=== PATIENT | female | born 1935 | race Caucasian/White ===

== ENCOUNTER 2016-12-24 08:12 | Emergency (ER) | payer MEDICARE, OTHER ==
[~2016-12-24 08:12] MED LIST: ALEN70TA3 PO; ALEN70TA5 PO; ASPI-482 PO; ATOR10TA60 PO; CLON0.1T PO; CLON0.1T12 PO; CLON1PAT3 TD; CLOP75TA PO; DILT180C29 PO; HYDR-2678 PO; LISI-334 PO; LISI20TA PO; LISI40TA PO; MELO-156 PO; METO25TA9 PO; PANT40TA5 PO; SIMV20TA3 PO; SULF1TAB24 PO
--- NOTE | 2016-12-24 08:54 | PHYS DOC ---
Past Medical History Past Medical History: CVA, GERD, High Cholesterol, Hypertension Past Surgical History: Tonsillectomy, Other Additional Past Surgical Histo: IMPLANTS IN BOTH EYES Additional Information: Nonsmoker Alcohol Use: None Drug Use: None Social History Narrative: lives alone Adult General Chief Complaint Chief Complaint: VAGINAL BLEEDING HPI HPI Patient is a 81 year old female who presents with vaginal bleeding starting this morning. She states that she got up to use the restroom and noticed blood. She denies abdominal pain, nausea, vomiting, or diarrhea. She denies dysuria, urinary frequency, or hematuria. She has not had fevers at home. She denies black or bloody stools. She takes Plavix after TIA in April of last year. Her PCP is Dr. Aleta Noonan. Review of Systems Review of Systems Constitutional: Denies fever or chills. [] Eyes: Denies change in visual acuity, redness, or eye pain. [] HENT: Denies ear pain, nasal congestion or sore throat. [] Respiratory: Denies cough or shortness of breath. [] Cardiovascular: Denies chest pain, palpitations or edema. [] GI: Denies abdominal pain, nausea, vomiting, bloody stools or diarrhea. [] : Denies dysuria, hematuria or urinary frequency. Reports vaginal bleeding. Musculoskeletal: Denies back pain or joint pain. [] Integument: Denies rash or skin lesions. [] Neurologic: Denies headache, focal weakness or sensory changes. [] Endocrine: Denies polyuria or polydipsia. [] Psych: Denies anxiety or depression. [] All systems reviewed and negative unless otherwise stated in the HPI. Current Medications Current Medications Current Medications Medications (Trade) Dose Ordered Sig/Daryl Start Time Stop Time Status Last Admin Dose Admin Diltiazem HCl (Cardizem 24hr Cd) 180 mg 1X ONCE 12/24/16 12:00 12/24/16 12:01 DC Lisinopril (Prinivil) 40 mg 1X ONCE 12/24/16 12:00 12/24/16 12:01 DC 12/24/16 12:02 40 MG Allergies Allergies Allergies Coded Allergies Type Severity Reaction Last Updated Verified iodine Allergy Severe Anaphylaxis 05/06/16 Yes shellfish derived Allergy Severe Anaphylaxis 05/06/16 Yes felodipine Allergy Intermediate 05/06/16 Yes Physical Exam Physical Exam Constitutional: Well developed, well nourished, no acute distress, non-toxic appearance. [] HENT: Normocephalic, atraumatic, oropharynx moist. [] Eyes: PERRLA, EOMI, conjunctiva normal, no discharge. [] Neck: Normal range of motion, no tenderness, supple, no stridor. [] Cardiovascular: Heart rate regular rhythm, no murmur. [] Lungs & Thorax: Bilateral breath sounds clear to auscultation without wheezes, rales, or rhonchi. [] Abdomen: Bowel sounds normal, soft, no tenderness, no masses, no pulsatile masses. [] Female : ED RN corporate banking officer present during exam. There is dried blood in the pubic hair. There is no blood noted in the introitus. The patient was unable to tolerate speculum exam. Rectal: There are no external hemorrhoids. Grossly normal stool. Skin: Warm, dry, no erythema, no rash. [] Back: No midline tenderness, no CVA tenderness. [] Extremities: No tenderness, ROM intact, no edema. Distal pulses equal bilaterally. [] Neurologic: Alert and oriented X 3, normal motor function, normal sensory function, no focal deficits noted. [] Psychologic: Affect normal, judgement normal, mood normal. [] Current Patient Data Vital Signs Vital Signs Date Time Temp Pulse Resp B/P Pulse Ox O2 Delivery O2 Flow Rate FiO2 12/24/16 12:02 68 199/91 12/24/16 11:49 16 96 Room Air 12/24/16 09:25 98.1 98.1 Lab Values Laboratory Tests Test 12/24/16 09:20 12/24/16 09:28 12/24/16 09:40 Stool Occult Blood Positive (NEG) Urine Collection Type Unknown Urine Color Yellow Urine Clarity Clear Urine pH 6.0 Urine Specific [place] 1.010 Urine Protein Negativemg/dL (NEG-TRACE) Urine Glucose (UA) Negativemg/dL (NEG) Urine Ketones (Stick) Negativemg/dL (NEG) Urine Blood Negative (NEG) Urine Nitrite Negative (NEG) Urine Bilirubin Negative (NEG) Urine Urobilinogen Dipstick 0.2mg/dL (0.2 mg/dL) Urine Leukocyte Esterase Moderate (NEG) Urine RBC 0/HPF (0-2) Urine WBC >40/HPF (0-4) Urine Squamous Epithelial Cells Occ/LPF Urine Bacteria Many/HPF (0-FEW) White Blood Count 9.4x10^3/uL (4.0-11.0) Red Blood Count 5.03x10^6/uL (3.50-5.40) Hemoglobin 15.0g/dL (12.0-15.5) Hematocrit 43.7% (36.0-47.0) Mean Corpuscular Volume 87fL (79-100) Mean Corpuscular Hemoglobin 30pg (25-35) Mean Corpuscular Hemoglobin Concent 34g/dL (31-37) Red Cell Distribution Width 13.8% (11.5-14.5) Platelet Count 239x10^3/uL (140-400) Neutrophils (%) (Auto) 76% (31-73) H Lymphocytes (%) (Auto) 18% (24-48) L Monocytes (%) (Auto) 5% (0-9) Eosinophils (%) (Auto) 0% (0-3) Basophils (%) (Auto) 0% (0-3) Neutrophils # (Auto) 7.2x10^3uL (1.8-7.7) Lymphocytes # (Auto) 1.7x10^3/uL (1.0-4.8) Monocytes # (Auto) 0.5x10^3/uL (0.0-1.1) Eosinophils # (Auto) 0.0x10^3/uL (0.0-0.7) Basophils # (Auto) 0.0x10^3/uL (0.0-0.2) Prothrombin Time 13.8SEC (11.7-14.0) Prothrombin Time INR 1.1 (0.8-1.1) PTT 27SEC (24-38) Sodium Level 147mmol/L (136-145) H Potassium Level 4.1mmol/L (3.5-5.1) Chloride Level 110mmol/L (98-107) H Carbon Dioxide Level 26mmol/L (21-32) Anion Gap 11 (6-14) Blood Urea Nitrogen 24mg/dL (7-20) H Creatinine 1.7mg/dL (0.6-1.0) H Estimated GFR (Cockcroft-Gault) 28.8 BUN/Creatinine Ratio 14 (6-20) Glucose Level 108mg/dL (70-99) H Calcium Level 9.4mg/dL (8.5-10.1) Total Bilirubin 0.6mg/dL (0.2-1.0) Aspartate Amino Transferase (AST) 15U/L (15-37) Alanine Aminotransferase (ALT) 17U/L (14-59) Alkaline Phosphatase 93U/L (46-116) Total Protein 7.0g/dL (6.4-8.2) Albumin 3.2g/dL (3.4-5.0) L Albumin/Globulin Ratio 0.8 (1.0-1.7) L Laboratory Tests 12/24/16 09:40 Laboratory Tests 12/24/16 09:40 EKG EKG [] Radiology/Procedures Radiology/Procedures REASON: postmenopausal bleeding; PT DRINKING AT 0945 PROCEDURE: PELVIS W/TV Indication postmenopausal bleeding. Initially transabdominal scans were obtained. The initial transabdominal scans were supplemented with transvaginal scans. The uterus measures approximately 5.5 x 3.4 x 2 cm. The endometrium is modestly thickened for a postmenopausal woman measuring approximately 6 mm. Some debris is also seen within the endometrial cavity particularly near the fundus. Neither ovary was seen. An adnexal mass or free fluid was not apparent. IMPRESSION: Modestly thickened endometrium for a postmenopausal woman. Some debris was additionally noted in the endometrial cavity Course & Med Decision Making Course & Med Decision Making Pertinent Labs and Imaging studies reviewed. (See chart for details) The patient is an 81-year-old female who presents with vaginal bleeding starting today. On exam, her abdomen is soft and nontender. There is no blood noted from the vagina without ability to perform speculum exam. There is no blood in the urine. Hemoccult was positive but stool was grossly nonbloody. Possibility of contaminant from external blood from the vagina on stool sample. H/H is stable. Ultrasound shows thickened endometrium with debris within the endometrial cavity. Patient case was discussed with Dr. Peacock. He will see the patient early next week in his office to perform pelvic examination and endometrial biopsy. Results were discussed with the patient and family at bedside. Return precautions were discussed with the patient and family at the bedside, including heavy bleeding requiring changing a pad every hour, increased shortness of breath or lightheaded feeling. The patient and family verbalized understanding and agree with plan. The patient's blood pressure was elevated while in the emergency department. She did not take her home blood pressure medications prior to arrival in the emergency department. She was given her home doses of lisinopril and diltiazem in the emergency department prior to discharge. She is instructed to take her blood pressure medication as prescribed each day. Dragon Disclaimer Dragon Disclaimer This electronic medical record was generated, in whole or in part, using a voice recognition dictation system. Departure Departure Impression: Primary Impression: Postmenopausal vaginal bleeding Additional Impression: Hypertension Disposition: HOME, SELF-CARE Condition: STABLE Referrals: ALETA NOONAN MD (PCP) REINIER PEACOCK MD Patient Instructions: Postmenopausal Bleeding, [id number] Additional Instructions: You were seen today for vaginal bleeding. Your hemoglobin was stable, which means you are not anemic from blood loss. Your ultrasound shows thickening of the endometrium, which is the lining of the uterus. Please follow-up with Dr. Peacock to have an endometrial biopsy. This is the definitive test for endometrial cancer. Return to the emergency department if you have heavy bleeding that requires you to change a pad every hour, feel increasing shortness of breath, or feel lightheaded or have other new or concerning symptoms. Problem Qualifiers JERMAINE PHILLIPS Dec 24, 2016 08:54
[2016-12-24 09:49] LABS: BILIRUBIN,URINE NEGATIVE (NEG); GLUCOSE,URINE NEGATIVE (NEG); NITRITE,URINE NEGATIVE (NEG); PROTEIN,URINE NEGATIVE (NEG-TRACE); UROBILINOGEN,URINE 0.2 mg/dL (0.2 mg/dL)
[2016-12-24 10:01] LABS: NEG OBC FOB NEG; POS OBC FOB POS
[2016-12-24 10:02] LABS: BASO % 0 % (0-3); CALCIUM 9.4 mg/dL (8.5-10.1); CREATININE 1.7 mg/dL (0.6-1.0); EOS % 0 % (0-3); GFR 28.8; HEMATOCRIT 43.7 % (36.0-47.0); LYMPH # 1.7 x10^3/uL (1.0-4.8); LYMPH % 18 % (24-48); MEAN CORPUSCULAR HEMOGLOBIN 30 pg (25-35); MEAN CORPUSCULAR HGB CONC 34 g/dL (31-37); MEAN CORPUSCULAR VOLUME 87 fL (79-100); MONO % 5 % (0-9); NEUT % 76 % (31-73); PLATELET COUNT 239 x10^3/uL (140-400); POTASSIUM 4.1 mmol/L (3.5-5.1); RED BLOOD COUNT 5.03 x10^6/uL (3.50-5.40); RED CELL DISTRIBUTION WIDTH 13.8 % (11.5-14.5); WHITE BLOOD COUNT 9.4 x10^3/uL (4.0-11.0)
[2016-12-24 10:07] LABS: ALBUMIN 3.2 g/dL (3.4-5.0); ALBUMIN/GLOBULIN RATIO 0.8 (1.0-1.7); TOTAL BILIRUBIN 0.6 mg/dL (0.2-1.0)
[2016-12-24 10:08] LABS: BACTERIA,URINE MANY /HPF (0-FEW); RBC,URINE 0 /HPF (0-2); SQUAMOUS EPITHELIAL CELL,UR OCC /LPF; WBC,URINE >40 /HPF (0-4)
[2016-12-24 10:11] LABS: INR 1.1 (0.8-1.1); PROTHROMBIN TIME PATIENT 13.8 SEC (11.7-14.0)
--- NOTE | 2016-12-24 11:09 | RAD ---
Indication postmenopausal bleeding. Initially transabdominal scans were obtained. The initial transabdominal scans were supplemented with transvaginal scans. The uterus measures approximately 5.5 x 3.4 x 2 cm. The endometrium is modestly thickened for a postmenopausal woman measuring approximately 6 mm. Some debris is also seen within the endometrial cavity particularly near the fundus. Neither ovary was seen. An adnexal mass or free fluid was not apparent. IMPRESSION: Modestly thickened endometrium for a postmenopausal woman. Some debris was additionally noted in the endometrial cavity
[2016-12-24] MEDS ORDERED: DILTIAZEM HCL 180 MG CAP.ER.24H PO ONE (12:00)
[2016-12-24] MEDS ORDERED: LISINOPRIL 10 MG TABLET PO ONE (12:00)
[2016-12-24 13:05] VITALS: BP 188/101
== END 2016-12-24 13:10 | disposition home or self-care (01) ==
LOC: ER 08:12
DX: N95.0 Postmenopausal bleeding (principal); I10 Essential (primary) hypertension; R06.02 Shortness of breath; R42 Dizziness and giddiness; K21.9 Gastro-esophageal reflux disease without esophagitis; E78.00 Pure hypercholesterolemia, unspecified; Z86.73 Personal history of transient ischemic attack (TIA), and cerebral infarction without residual deficits; Z79.02 Long term (current) use of antithrombotics/antiplatelets; Z91.041 Radiographic dye allergy status; Z91.013 Allergy to seafood; Z88.8 Allergy status to other drugs, medicaments and biological substances
CPT/HCPCS: 36415; 76830; 76856; 80053; 81001; 82274; 85027; 85610; 85730; 87086; 87186; 99285-25

== ENCOUNTER 2016-12-27 14:58 | Inpatient (IN) | payer MEDICARE, OTHER ==
[~2016-12-27] VITALS: Ht 170.2 cm; Wt 77.3 kg
[2016-12-27 17:00] VITALS: BP 188/101
[2016-12-27 18:10] VITALS: BP 188/91
[2016-12-27 18:55] LABS: BASO # 0.1 x10^3/uL (0.0-0.2); BASO % 1 % (0-3); EOS % 2 % (0-3); HEMOGLOBIN 13.9 g/dL (12.0-15.5); LYMPH # 3.1 x10^3/uL (1.0-4.8); LYMPH % 33 % (24-48); MEAN CORPUSCULAR HEMOGLOBIN 30 pg (25-35); MEAN CORPUSCULAR HGB CONC 33 g/dL (31-37); MEAN CORPUSCULAR VOLUME 89 fL (79-100); MONO % 6 % (0-9); NEUT % 58 % (31-73); PLATELET COUNT 225 x10^3/uL (140-400); RED BLOOD COUNT 4.72 x10^6/uL (3.50-5.40); WHITE BLOOD COUNT 9.5 x10^3/uL (4.0-11.0)
[2016-12-27 19:07] LABS: ALBUMIN/GLOBULIN RATIO 0.8 (1.0-1.7); CALCIUM 9.2 mg/dL (8.5-10.1); CREATININE 1.6 mg/dL (0.6-1.0); GFR 30.9; POTASSIUM 4.1 mmol/L (3.5-5.1); TOTAL BILIRUBIN 0.3 mg/dL (0.2-1.0); TOTAL PROTEIN 6.6 g/dL (6.4-8.2)
[2016-12-27 19:11] LABS: INR 1.1 (0.8-1.1); PROTHROMBIN TIME PATIENT 13.7 SEC (11.7-14.0)
[2016-12-27 19:30] VITALS: BP 174/81
[2016-12-27] MEDS: ATORVASTATIN CALCIUM 10 MG TABLET. PO SCH (21:48)
[2016-12-27 21:49] VITALS: BP 148/76
[2016-12-27 23:30] VITALS: BP 140/78
[2016-12-28 03:00] VITALS: BP 143/72
--- NOTE | 2016-12-28 07:01 | EKG ---
[facility] [address] [place] [address] Test Date: 2016-12-28 Test Time: 06:36:28 Pat Name: LEATHA WALDRON Department: Room: 202 1 Gender: F Compliance Paralegal: EARL : 1935 Requested By: DIPAK NEVILLE Order Number: [id number] Reading MD: Brien Pereira Measurements Intervals [place] Rate: 56 P: 10 TN: 222 QRS: -38 QRSD: 78 T: 12 QT: 480 QTc: 466 Interpretive Statements SINUS RHYTHM PROLONGED TN INTERVAL LEFT ANTERIOR FASCICULAR BLOCK Electronically Signed On 12-28-2016 9:40:57 CDT by Brien Pereira
[2016-12-28 07:41] VITALS: BP 157/74
--- NOTE | 2016-12-28 08:29 | RAD ---
Chest, 2 views, 12/27/2016: History: Congestive heart failure Comparison is made to a study from 05/06/2016. The heart size and pulmonary vascularity are normal. There is calcific plaquing and tortuosity of the thoracic aorta. There are minimal basilar scarring. No acute infiltrates are seen. There is no evidence of pleural fluid. Moderate spurring is present in the spine. IMPRESSION: No acute cardiopulmonary abnormality is detected.
[2016-12-28] MEDS: DILTIAZEM HCL 180 MG CAP.ER.24H PO SCH (09:00)
--- NOTE | 2016-12-28 09:45 | RAD ---
CT of the abdomen and pelvis without contrast, 12/28/2016: History: Vaginal bleeding Noncontrast scans were obtained as requested. Comparison is made to a study from 03/19/2015. There is mild linear scarring and/or atelectasis in the lung bases. There is an unchanged 1.6 cm low-density lesion in the liver compatible with a cyst. The unopacified liver is otherwise unremarkable. No gallbladder abnormality is seen. The pancreas shows no abnormality. The spleen is of normal size. There is moderate bilateral renal cortical scarring. There appear to be several small bilateral renal cysts. No intrarenal calculi are present. The ureters are not dilated. There is moderate aortoiliac calcific plaquing without evidence of aneurysm. No abdominal or pelvic adenopathy is seen. The uterus is not enlarged. The bowel loops are not dilated. The appendix is unremarkable. No free fluid or free air is evident in the abdomen or pelvis. There are moderate scattered degenerative changes in the spine. IMPRESSION: 1. Hepatic and renal cysts. 2. Moderate bilateral renal scarring. 3. No acute abdominal or pelvic abnormality is detected. PQRS Compliance Statement: One or more of the following individualized dose reduction techniques were utilized for this examination: 1. Automated exposure control 2. Adjustment of the mA and/or kV according to patient size 3. Use of iterative reconstruction technique
[2016-12-28] MEDS: LISINOPRIL 40 MG TABLET. PO SCH (10:03)
[2016-12-28] MEDS: PANTOPRAZOLE 40 MG TABLET.DR. PO SCH (10:04)
[2016-12-28] MEDS: HYDROCODONE/APAP 5/325MG TABLET. PO PRN (10:05)
[2016-12-28 10:38] VITALS: BP 159/73
--- NOTE | 2016-12-28 14:44 | PDOC1 ---
History and Physical Date of Admission Date of Admission DATE: 12/27/16 Identification/Chief Complaint Chief Complaint abdominal pain History of Present Illness History of Present Illness Patient is 81 year old female who presented to outpatient office yesterday with left sided abdominal pain. She explained that she visited the ED 4 days ago for vaginal bleeding for which she was discharged home to follow up with Dr. Peacock in the office. Patient then had her regular cardiac appointment yesterday when she found to have a palpable mass in her abdomen with dull pain. She denies nausea or vomiting and has been eating/drinking normally. Patient denies any change in bowel movements nor any blood noted. She has not had any vaginal bleeding since her ED visit and has no urinary complaints. Patient denies CP, SOB or HALL. Past Medical History Past Medical History thyroid disease, CAD Cardiovascular: HTN, Hyperlipidemia CENTRAL NERVOUS SYSTEM: CVA GI: GERD Past Surgical History Past Surgical History thyroidectomy, heart catheterization Past Surgical History: Cataract Removal, Tonsillectomy Family History Family History: Hypertension Social History ALCOHOL: none Drugs: None Current Medications Current Medications Current Medications Atorvastatin Calcium (Lipitor) 10 mg QHS PO Last administered on 12/27/16 21:48 ; Start 12/27/16 at 21:00 Clonidine HCl (Catapres Tts-3) 1 patch Fr TD ; Start 12/31/16 at 00:00 Diltiazem HCl (Cardizem 24hr Cd) 180 mg DAILY PO ; Start 12/28/16 at 09:00 Acetaminophen/ Hydrocodone Bitart (Lortab 5/325) 1 tab PRN Q8HRS PRN PO PAIN Last administered on 12/28/16 10:05; Start 12/27/16 at 18:15 Lisinopril (Prinivil) 40 mg DAILY PO Last administered on 12/28/16 10:03; Start 12/28/16 at 09:00 Pantoprazole Sodium (Protonix) 20 mg DAILYAC PO Last administered on 12/28/16 10:04; Start 12/28/16 at 07:30 Non-Formulary Medication 1 ea WEEKLY PO ; Start 12/31/16 at 09:00; Stop 12/31/16 at 09:00; Status DC Active Scripts Active Atorvastatin Calcium 10 Mg Tablet 10 Mg PO QHS Lisinopril 40 Mg Tablet 40 Mg PO DAILY Reported Lortab 5-325 mg Tablet (Hydrocodone/Acetaminophen) 1 Each Tablet 1 Tab PO PRN Q8HRS PRN Clopidogrel (Clopidogrel Bisulfate) 75 Mg Tablet 75 Mg PO DAILY Alendronate Sodium 70 Mg Tablet 70 Mg PO WEEKLY Diltiazem 24HR Cd (Diltiazem Hcl) 180 Mg Cap.er.24h 1 Cap PO DAILY Clonidine Tts-3 (Clonidine) 1 Each Patch.tdwk 1 Patch TD WEEKLY Aspir 81 (Aspirin) 81 Mg Tablet.dr 1 Tab PO DAILY Pantoprazole Sodium 40 Mg Tablet.dr 20 Mg PO DAILY Allergies Allergies: Coded Allergies: iodine (Verified Allergy, Severe, Anaphylaxis, 05/06/16) shellfish derived (Verified Allergy, Severe, Anaphylaxis, 05/06/16) felodipine (Verified Allergy, Intermediate, 05/06/16) ROS General: No: Chills HEENT: No: Heacaches Hematological and Lymphatic: YES: Night Sweats Respiratory: No: Shortness of breath Cardiovascular: No Chest Pain, No Palpitations Gastrointestinal: Yes Abdominal Pain, No Constipation, No Diarrhea, No Hematochezia, No Melena, No Vomiting Genitourinary: No Dysuria, No Frequency, No Hematuria Physical Exam General: Alert, No acute distress Lungs: Clear to auscultation Heart: RRR Cardiovascular: S1, S2 Abdomen: Normal bowel sounds, Soft, Other (mild tenderness to palpation LUQ and left side of abdomen, there is a suprapubic fullness, tender mass like) PELVIC: Other (Gyne on consult) Extremities: No edema Vitals Vitals Vital Signs Date Time Temp Pulse Resp B/P Pulse Ox O2 Delivery O2 Flow Rate FiO2 12/28/16 10:38 97.3 66 18 159/73 94 Room Air 97.3 Labs Labs Laboratory Tests Test 12/27/16 18:45 White Blood Count 9.5x10^3/uL (4.0-11.0) Red Blood Count 4.72x10^6/uL (3.50-5.40) Hemoglobin 13.9g/dL (12.0-15.5) Hematocrit 42.0% (36.0-47.0) Mean Corpuscular Volume 89fL (79-100) Mean Corpuscular Hemoglobin 30pg (25-35) Mean Corpuscular Hemoglobin Concent 33g/dL (31-37) Red Cell Distribution Width 14.0% (11.5-14.5) Platelet Count 225x10^3/uL (140-400) Neutrophils (%) (Auto) 58% (31-73) Lymphocytes (%) (Auto) 33% (24-48) Monocytes (%) (Auto) 6% (0-9) Eosinophils (%) (Auto) 2% (0-3) Basophils (%) (Auto) 1% (0-3) Neutrophils # (Auto) 5.5x10^3uL (1.8-7.7) Lymphocytes # (Auto) 3.1x10^3/uL (1.0-4.8) Monocytes # (Auto) 0.6x10^3/uL (0.0-1.1) Eosinophils # (Auto) 0.2x10^3/uL (0.0-0.7) Basophils # (Auto) 0.1x10^3/uL (0.0-0.2) Erythrocyte Sedimentation Rate 18 (0-25) Prothrombin Time 13.7SEC (11.7-14.0) Prothromb Time International Ratio 1.1 (0.8-1.1) Sodium Level 145mmol/L (136-145) Potassium Level 4.1mmol/L (3.5-5.1) Chloride Level 109mmol/L (98-107) Carbon Dioxide Level 26mmol/L (21-32) Anion Gap 10 (6-14) Blood Urea Nitrogen 29mg/dL (7-20) Creatinine 1.6mg/dL (0.6-1.0) Estimated GFR (Cockcroft-Gault) 30.9 BUN/Creatinine Ratio 18 (6-20) Glucose Level 95mg/dL (70-99) Calcium Level 9.2mg/dL (8.5-10.1) Total Bilirubin 0.3mg/dL (0.2-1.0) Aspartate Amino Transf (AST/SGOT) 15U/L (15-37) Alanine Aminotransferase (ALT/SGPT) 18U/L (14-59) Alkaline Phosphatase 79U/L (46-116) Total Protein 6.6g/dL (6.4-8.2) Albumin 3.0g/dL (3.4-5.0) Albumin/Globulin Ratio 0.8 (1.0-1.7) Laboratory Tests Test 12/27/16 18:45 White Blood Count 9.5x10^3/uL (4.0-11.0) Red Blood Count 4.72x10^6/uL (3.50-5.40) Hemoglobin 13.9g/dL (12.0-15.5) Hematocrit 42.0% (36.0-47.0) Mean Corpuscular Volume 89fL (79-100) Mean Corpuscular Hemoglobin 30pg (25-35) Mean Corpuscular Hemoglobin Concent 33g/dL (31-37) Red Cell Distribution Width 14.0% (11.5-14.5) Platelet Count 225x10^3/uL (140-400) Neutrophils (%) (Auto) 58% (31-73) Lymphocytes (%) (Auto) 33% (24-48) Monocytes (%) (Auto) 6% (0-9) Eosinophils (%) (Auto) 2% (0-3) Basophils (%) (Auto) 1% (0-3) Neutrophils # (Auto) 5.5x10^3uL (1.8-7.7) Lymphocytes # (Auto) 3.1x10^3/uL (1.0-4.8) Monocytes # (Auto) 0.6x10^3/uL (0.0-1.1) Eosinophils # (Auto) 0.2x10^3/uL (0.0-0.7) Basophils # (Auto) 0.1x10^3/uL (0.0-0.2) Erythrocyte Sedimentation Rate 18 (0-25) Prothrombin Time 13.7SEC (11.7-14.0) Prothromb Time International Ratio 1.1 (0.8-1.1) Sodium Level 145mmol/L (136-145) Potassium Level 4.1mmol/L (3.5-5.1) Chloride Level 109mmol/L (98-107) Carbon Dioxide Level 26mmol/L (21-32) Anion Gap 10 (6-14) Blood Urea Nitrogen 29mg/dL (7-20) Creatinine 1.6mg/dL (0.6-1.0) Estimated GFR (Cockcroft-Gault) 30.9 BUN/Creatinine Ratio 18 (6-20) Glucose Level 95mg/dL (70-99) Calcium Level 9.2mg/dL (8.5-10.1) Total Bilirubin 0.3mg/dL (0.2-1.0) Aspartate Amino Transf (AST/SGOT) 15U/L (15-37) Alanine Aminotransferase (ALT/SGPT) 18U/L (14-59) Alkaline Phosphatase 79U/L (46-116) Total Protein 6.6g/dL (6.4-8.2) Albumin 3.0g/dL (3.4-5.0) Albumin/Globulin Ratio 0.8 (1.0-1.7) VTE Prophylaxis Ordered VTE Prophylaxis Devices: No VTE Pharmacological Prophylaxi: Yes Assessment/Plan Assessment/Plan Vaginal bleeding. Multiple ecchymosis, possible coagulopathy possibly secondary to platelet dysfunction Echo with LVEF 63%. Stable from cardiac standpoint. CT abd/pelvis reviewed. Consult OBGYN to further assess chief complaint. DIPAK NEVILLE MD Dec 28, 2016 14:44
[2016-12-28 15:10] VITALS: BP 141/70
--- NOTE | 2016-12-28 18:19 | CARD ---
APPROVED REPORT EXAM: Two-dimensional and M-mode echocardiogram with Doppler and color Doppler. Other Information Quality : GoodHR: 55bpm Rhythm : Bradycardia INDICATION Congestive Heart Failure 2D DIMENSIONS RVDd3.1 (2.9-3.5cm)Left Atrium(2D)3.3 (1.6-4.0cm) IVSd1.0 (0.7-1.1cm)Aortic Root(2D)2.8 (2.0-3.7cm) LVDd4.1 (3.9-5.9cm)LVOT Diameter2.0 (1.8-2.4cm) PWd1.0 (0.7-1.1cm)LVDs2.7 (2.5-4.0cm) FS (%) 33.9 %SV47.1 ml LVEF(%)63.0 (>50%) Aortic Valve AoV Peak Serge.104.6cm/sAoV VTI27.0cm AO Peak GR.4.4mmHgLVOT Peak Serge.99.0cm/s LVOT VTI 27.51cmAO Mean GR.2mmHg COLEMAN (VMAX)3.58vo2XIW (VTI)3.31cm2 Mitral Valve MV E Qjlgahck24.3cm/sMV DECEL DAJJ781fc MV A Dqsjbxrb39.2cm/sMV E Mean Gr.1mmHg MV UYP46viV/A Ratio0.8 MV A Kjgcagsu619bqXZD (PHT)2.84cm2 TDI E/Lateral E'7.1E/Medial E'10.1 Pulmonary Valve PV Peak Mqndxden39.9cm/sPV Peak Grad.2mmHg RVOT VTI17.0cm Tricuspid Valve TR P. Iljpbetm018cw/sRAP ECYGDAJY3fkCj TR Peak Gr.77wsPmYFZX01keVn Pulmonary Vein S1 Yxpwbbus03.8cm/sD2 Vceactzo46.8cm/s PVa [id number] LEFT VENTRICLE The left ventricle is normal size. There is normal left ventricular wall thickness. The left ventricu lar systolic function is normal and the ejection fraction is within normal range. The LV EF was estim ated to be 63% There is normal LV segmental wall motion. Transmitral Doppler flow pattern is Grade I- abnormal relaxation pattern. There is no ventricular septal defect visualized. RIGHT VENTRICLE The right ventricle is normal size. The right ventricular systolic function is normal. ATRIA The left atrium size is normal. The right atrium size is normal. The interatrial septum is intact wit h no evidence for an atrial septal defect or patent foramen ovale as noted on 2-D or Doppler imaging. AORTIC VALVE The aortic valve is mildly sclerotic but opens well. Doppler and Color Flow revealed no significant a ortic regurgitation. There is no significant aortic valvular stenosis. MITRAL VALVE The mitral valve leaflets are calcified but open well. There is no evidence of mitral valve prolapse. There is no mitral valve stenosis. Doppler and Color Flow revealed mild mitral regurgitation. TRICUSPID VALVE The tricuspid valve is normal in structure. Doppler and Color Flow revealed trace tricuspid regurgita tion. There is no pulmonary hypertension. The PA pressure was estimated at 24 mmHg. There is no tricu spid valve stenosis. PULMONIC VALVE The pulmonary valve is normal in structure. Doppler and Color Flow revealed mild pulmonic valvular re gurgitation. There is no pulmonic valvular stenosis. GREAT VESSELS The aortic root is normal in size. The ascending aorta is normal in size. Normal pulmonary venous lina w (Doppler). The IVC is normal in size and collapses >50% with inspiration. PERICARDIAL EFFUSION There is no pleural effusion. There is no evidence of significant pericardial effusion. Critical Notification Critical Value: No <Conclusion> The left ventricular systolic function is normal and the ejection fraction is within normal range. T he LV EF was estimated to be 63% Transmitral Doppler flow pattern is Grade I-abnormal relaxation pattern. The left atrium size is normal. The right atrium size is normal. The aortic valve is mildly sclerotic but opens well. Doppler and Color Flow revealed mild mitral regurgitation. The mitral valve leaflets are calcified but open well. Doppler and Color Flow revealed trace tricuspid regurgitation. There is no pulmonary hypertension. The PA pressure was estimated at 24 mmHg. Doppler and Color Flow revealed mild pulmonic valvular regurgitation. There is no evidence of significant pericardial effusion.
[2016-12-28 19:20] VITALS: BP 164/88
[2016-12-28] MEDS: ATORVASTATIN CALCIUM 10 MG TABLET. PO SCH (20:18)
[2016-12-28 23:00] VITALS: BP 141/77
[2016-12-29] VITALS (10 sets, daily range): BP systolic 146–200; BP diastolic 75–95
[2016-12-29] MEDS ORDERED: PROPOFOL 20 ML IV ONE (12:33)
[2016-12-29] MEDS ORDERED: DEXAMETHASONE SOD PHOS 20 MG/5 ML VIAL. ONE (12:33)
[2016-12-29] MEDS ORDERED: ONDANSETRON PF 4 MG/2 ML VIAL. ONE (12:33)
[2016-12-29] MEDS ORDERED: LIDOCAINE 2% 100 MG/5 ML SYRINGE. ONE (12:33)
[2016-12-29] MEDS ORDERED: FENTANYL PF 100 MCG/2 ML VIAL. ONE (12:34)
[2016-12-29] MEDS ORDERED: IV RINGERS,LACTATED 1000ML 1,000 ML IV ONE (13:00)
[2016-12-29] MEDS ORDERED: IV RINGERS,LACTATED 1000ML 1,000 ML IV SCH (13:33)
[2016-12-29] MEDS ORDERED: MORPHINE SULFATE 2 MG/ML DISP.SYRIN. IV PRN ×2 (13:45)
[2016-12-29] MEDS ORDERED: FENTANYL PF 100 MCG/2 ML VIAL. IV PRN ×2 (13:45)
[2016-12-29] MEDS ORDERED: ONDANSETRON PF 4 MG/2 ML VIAL. IV PRN (13:45)
--- NOTE | 2016-12-29 13:57 | PDOC ---
PROGRESS NOTES Subjective Subjective Pt is sitting up in chair when I saw her. Pt denies having any problems overnight. Pt denies having CP, SOB, or any more vaginal bleeding. Pt reports she is having a DNC per OBGYN this morning. Objective Objective Vital Signs Date Time Temp Pulse Resp B/P Pulse Ox O2 Delivery O2 Flow Rate FiO2 12/29/16 12:45 98.2 61 12 191/88 94 Room Air 98.2 Intake and Output 12/29/16 07:00 Intake Total 240 ml Balance 240 ml Intake Oral 240 ml # Voids 6 # Bowel Movements 1 Physical Exam Abdomen: Normal bowel sounds, Soft, Other (suprapubic fullness still present) Heart: Regular rate, Normal S1, Normal S2, No murmurs Extremities: No edema General: Alert, Oriented X3, Cooperative, No acute distress HEENT: Atraumatic, PERRLA Lungs: Clear to auscultation Neck: Supple Psych/Mental Status: Mental status NL, Mood NL Assessment Assessment 1. Vaginal Bleeding 2. Multiple ecchymosis, possible coagulopathy possibly secondary to platelet dysfunction Plan Plan of Care - OBGYN was consulted for the vaginal bleeding. Appreciated recommendations. Planned on a D&C with Bx this morning - Echo with LVEF 63%. Stable from a cardiac standpoint. - Continue to monitor her - CT abd/pelvis - did not show any acute abdominal or pelvic abnormalities. Showed hepatic and renal cysts and moderate bilateral renal scarring Comment Review of Relevant I have reviewed the following items louise (where applicable) has been applied. Labs Laboratory Tests Test 12/27/16 18:45 White Blood Count 9.5x10^3/uL (4.0-11.0) Red Blood Count 4.72x10^6/uL (3.50-5.40) Hemoglobin 13.9g/dL (12.0-15.5) Hematocrit 42.0% (36.0-47.0) Mean Corpuscular Volume 89fL (79-100) Mean Corpuscular Hemoglobin 30pg (25-35) Mean Corpuscular Hemoglobin Concent 33g/dL (31-37) Red Cell Distribution Width 14.0% (11.5-14.5) Platelet Count 225x10^3/uL (140-400) Neutrophils (%) (Auto) 58% (31-73) Lymphocytes (%) (Auto) 33% (24-48) Monocytes (%) (Auto) 6% (0-9) Eosinophils (%) (Auto) 2% (0-3) Basophils (%) (Auto) 1% (0-3) Neutrophils # (Auto) 5.5x10^3uL (1.8-7.7) Lymphocytes # (Auto) 3.1x10^3/uL (1.0-4.8) Monocytes # (Auto) 0.6x10^3/uL (0.0-1.1) Eosinophils # (Auto) 0.2x10^3/uL (0.0-0.7) Basophils # (Auto) 0.1x10^3/uL (0.0-0.2) Erythrocyte Sedimentation Rate 18 (0-25) Prothrombin Time 13.7SEC (11.7-14.0) Prothromb Time International Ratio 1.1 (0.8-1.1) Sodium Level 145mmol/L (136-145) Potassium Level 4.1mmol/L (3.5-5.1) Chloride Level 109mmol/L (98-107) Carbon Dioxide Level 26mmol/L (21-32) Anion Gap 10 (6-14) Blood Urea Nitrogen 29mg/dL (7-20) Creatinine 1.6mg/dL (0.6-1.0) Estimated GFR (Cockcroft-Gault) 30.9 BUN/Creatinine Ratio 18 (6-20) Glucose Level 95mg/dL (70-99) Calcium Level 9.2mg/dL (8.5-10.1) Total Bilirubin 0.3mg/dL (0.2-1.0) Aspartate Amino Transf (AST/SGOT) 15U/L (15-37) Alanine Aminotransferase (ALT/SGPT) 18U/L (14-59) Alkaline Phosphatase 79U/L (46-116) Total Protein 6.6g/dL (6.4-8.2) Albumin 3.0g/dL (3.4-5.0) Albumin/Globulin Ratio 0.8 (1.0-1.7) Medications Current Medications Atorvastatin Calcium (Lipitor) 10 mg QHS PO Last administered on 12/28/16t 20:18 ; Start 12/27/16 at 21:00 Clonidine HCl (Catapres Tts-3) 1 patch Fr TD ; Start 12/31/16 at 00:00 Diltiazem HCl (Cardizem 24hr Cd) 180 mg DAILY PO ; Start 12/28/16 at 09:00 Acetaminophen/ Hydrocodone Bitart (Lortab 5/325) 1 tab PRN Q8HRS PRN PO PAIN Last administered on 12/28/16 10:05; Start 12/27/16 at 18:15 Lisinopril (Prinivil) 40 mg DAILY PO Last administered on 12/28/16 10:03; Start 12/28/16 at 09:00 Pantoprazole Sodium (Protonix) 20 mg DAILYAC PO Last administered on 12/28/16 10:04; Start 12/28/16 at 07:30 Non-Formulary Medication 1 ea 1 ea WEEKLY PO ; Start 12/31/16 at 09:00; Stop 12/31 at 09:00; Status DC Lactated Ringer's (Iv Lactated Ringers) 1,000 ml @ 75 mls/hr 1X ONCE IV Last administered on 12/29/16 12:49; Start 12/29/16 at 13:00; Stop 12/30/16 at 02:19 Ondansetron HCl (Zofran) 4 mg PRN Q6HRS PRN IV Nausea, 1st Choice; Start at 13:45; Stop 12/30/16 at 13:44 Fentanyl Citrate (Fentanyl 2ml Vial) 25 mcg PRN Q5MIN PRN IV Acute Pain; Start 12/29/16 at 13:45; Stop 12/30/16 at 13:44 Fentanyl Citrate (Fentanyl 2ml Vial) 50 mcg PRN Q5MIN PRN IV Acute Pain; Start 12/29/16 at 13:45; Stop 12/30/16 at 13:44 Morphine Sulfate 1 mg PRN Q10MIN PRN IV Mild Pain; Start 12/29/16 at 13:45; Stop 12/30/16 at 13:44 Morphine Sulfate 2 mg 2 mg PRN Q10MIN PRN IV Moderate Pain; Start 12/29/16 at 13 :45; Stop 12/30/16 at 13:44 Lactated Ringer's (Iv Lactated Ringers) 1,000 ml @ 50 mls/hr Q20H IV ; Start at 13:33; Stop 12/30/16 at 01:32 Lidocaine HCl (Lidocaine HCl 2% Abboject) 100 mg STK-MED ONCE .ROUTE ; Start 12/29/16 at 12:33; Stop 12/29/16 at 13:44; Status DC Dexamethasone Sodium Phosphate (Decadron) 20 mg STK-MED ONCE .ROUTE ; Start 12/29 at 12:33; Stop 12/29/16 at 13:44; Status DC Ondansetron HCl 4 mg 4 mg STK-MED ONCE .ROUTE ; Start 12/29/16 at 12:33; Stop 12/29/16 at 13:44; Status DC Propofol (Diprivan) 20 ml @ As Directed STK-MED ONCE IV ; Start 12/29/16 at 12:33 ; Stop 12/29/16 at 13:44; Status DC Fentanyl Citrate (Fentanyl 2ml Vial) 100 mcg STK-MED ONCE .ROUTE ; Start at 12:34; Stop 12/29/16 at 13:44; Status DC Active Scripts Active Atorvastatin Calcium 10 Mg Tablet 10 Mg PO QHS Lisinopril 40 Mg Tablet 40 Mg PO DAILY Reported Lortab 5-325 mg Tablet (Hydrocodone/Acetaminophen) 1 Each Tablet 1 Tab PO PRN Q8HRS PRN Clopidogrel (Clopidogrel Bisulfate) 75 Mg Tablet 75 Mg PO DAILY Alendronate Sodium 70 Mg Tablet 70 Mg PO WEEKLY Diltiazem 24HR Cd (Diltiazem Hcl) 180 Mg Cap.er.24h 1 Cap PO DAILY Clonidine Tts-3 (Clonidine) 1 Each Patch.tdwk 1 Patch TD WEEKLY Aspir 81 (Aspirin) 81 Mg Tablet. 1 Tab PO DAILY Pantoprazole Sodium 40 Mg Tablet. 20 Mg PO DAILY Vitals/I & O Vital Sign - Last 24 Hours 12/28/16 12/28/16 12/28/16 12/28/16 15:10 19:20 20:00 23:00 Temp 97.5 97.8 97.9 97.5 97.8 97.9 Pulse 63 68 68 Resp 20 18 18 B/P 141/70 164/88 141/77 Pulse Ox 95 94 94 O2 Delivery Room Air Room Air Room Air Room Air 12/29/16 12/29/16 12/29/16 12/29/16 02:50 07:00 11:00 12:45 Temp 97.9 98.2 97.9 98.2 97.9 98.2 97.9 98.2 Pulse 67 65 64 61 Resp 18 18 18 12 B/P 146/82 158/87 150/80 191/88 Pulse Ox 93 92 93 94 O2 Delivery Room Air Room Air Room Air Room Air Intake and Output 12/28/16 12/28/16 12/29/16 15:00 23:00 07:00 Intake Total 240 ml Balance 240 ml DIPAK NEVILLE MD Dec 29, 2016 13:57
[2016-12-29] MEDS ORDERED: SEVOFLURANE 31 TO 60 MINUTES. IH ONE (14:27)
[2016-12-29] MEDS: DILTIAZEM HCL 180 MG CAP.ER.24H PO SCH (16:07)
[2016-12-29] MEDS: PANTOPRAZOLE 40 MG TABLET.DR. PO SCH (16:08)
[2016-12-29] MEDS: LISINOPRIL 40 MG TABLET. PO SCH (16:08)
[2016-12-29] MEDS ORDERED: METOPROLOL TARTRATE 5 MG/5 ML VIAL. IVP SCH (20:00)
[2016-12-29] MEDS: ATORVASTATIN CALCIUM 10 MG TABLET. PO SCH (20:42)
[2016-12-30 03:29] VITALS: BP 140/76
[2016-12-30 07:48] VITALS: BP 128/66
[2016-12-30] MEDS: DILTIAZEM HCL 180 MG CAP.ER.24H PO SCH (09:17)
[2016-12-30] MEDS: PANTOPRAZOLE 40 MG TABLET.DR. PO SCH (09:19)
[2016-12-30 11:00] VITALS: BP 129/48
--- NOTE | 2016-12-30 14:21 | PATHOLOGY ---
PATHOLOGY REPORT * * * * * * * * FINAL DIAGNOSIS: A. Endocervical curettings: - Blood and mucous containing strips of squamous mucosa showing atrophic changes and few minute strips of endocervical epithelium. B. Endometrial curettings: - Tissue insufficient for diagnosis. COMMENT: Sections of the endometrial curettings reveal blood and mucous containing a few small strips of endometrial surface epithelium containing little or no attached stroma, and several segments of squamous mucosa showing atrophic changes. As such, there is insufficient endometrial tissue for diagnosis. There is no evidence of malignancy. (JPM:mgr; d/t: 12/30/16) REPORT ELECTRONICALLY SIGNED BY: Kota Thakkar M.D. DATE/TIME: 12/30/2016 14:20 * * * * * * * * GROSS PATHOLOGY: A. Received in formalin labeled "Kacie Waldron, endocervical curettings," is blood-tinged mucoid material containing small fragments of amin membranous tissue, measuring 0.2 x 0.2 x 0.1 cm in aggregate dimensions. The specimen is submitted entirely in cassette A1. B. Received in formalin labeled "Kacie Waldron, endometrial curettings," is blood-tinged mucoid material containing small fragments of amin membranous tissue, measuring 0.4 x 0.4 x 0.1 cm in aggregate dimensions. The specimen is submitted entirely in cassette B1. (CAA; 12/29/2016) INITIAL CPT CODE(S): A; 53235 B; 57354 Professional services performed [place] [address] Technical services performed by [facility] at [address] [place] [address], [facility] [address] [address]. SPECIMEN(S) RECEIVED: A.Endocervical curettings B.Endometrial curettings CLINICAL HISTORY: Post menopausal bleeding PATIENT: KACIE WALDRON /AGE: 8 1935 (Age: 81) PATIENT #: [id number] ALT CASE #: SPECIMEN COLLECTION DATE: 12/29/2016 SPECIMEN RECEIVED DATE: 12/29/2016 [facility] - [address] [place] [address] - PHONE: [phone] * * * END OF REPORT * * *
[2016-12-30 15:00] VITALS: BP 117/64
--- NOTE | 2016-12-30 15:27 | PDOC ---
PROGRESS NOTES Subjective Subjective Pt is POD#1 of a diagnostic hysteroscopy with D&C. Pt denies having any pain or bleeding since the the surgery. Pt reports feeling better. Pt asked about her plavix and aspirin because she thinks she is bruising more than before. Advised patient that we will continue to hold those for now. Nurse reports patient's blood pressures were elevated yesterday and was given prn doses of metoprolol. Nurse reports the patient's blood pressures were lower today. Objective Objective Vital Signs Date Time Temp Pulse Resp B/P Pulse Ox O2 Delivery O2 Flow Rate FiO2 12/30/16 11:00 97.6 76 17 129/48 94 Room Air 97.6 12/29/16 14:49 10 Intake and Output 12/30/16 06:59 Intake Total 1540 ml Output Total 1050 ml Balance 490 ml Intake Oral 1540 ml Output Urine Total 1050 ml # Voids 3 Physical Exam Abdomen: Normal bowel sounds, Soft, No tenderness Heart: Regular rate, Normal S2 Extremities: No clubbing, No edema General: Alert, Oriented X3, Cooperative, No acute distress HEENT: Atraumatic, PERRLA Lungs: Clear to auscultation Assessment Assessment Assessment 1. Vaginal Bleeding 2. Multiple ecchymosis, possible coagulopathy possibly secondary to platelet dysfunction Plan Plan of Care 1. Vaginal Bleeding - Recommended to patient to consider having a hysterectomy due to her age and the chance she will continue to bleed when she is put back on her blood thinners. Pt is concerned with her extensive family history of cancer including her sisters with uterine and breast. Pt agreed to talk with her family about this option. - Discussed with pathology about the biopsy from yesterday's surgery. Per pathology, it was a negative biopsy but there was very scant tissue in the samples to completely rule out malignancy. - OBGYN is consulted and recommendations appreciated. Discussed with Dr. Peacock about preceding with hysterectomy. Per Dr. Peacock, he felt that there was little endometrial tissue and knew that there will not be a lot of tissue in the sample. Dr. Peacock reported that her uterus was small and that if it was enlarged he would be more concerned for a malignancy. He did not see any evidence of mass or feels the chance for malignancy to be small. He will precede with the hysterectomy if that is what that the patient wants. 2. Multiple ecchymosis, possible coagulopathy possibly secondary to platelet dysfunction - recheck CBC, CMP, PT/PTT in the morning - continue to hold her Plavix and Aspirin since she may be going to surgery - Continue to monitor her Comment Medications Current Medications Atorvastatin Calcium (Lipitor) 10 mg QHS PO Last administered on 12/29/16 20:42 ; Start 12/27/16 at 21:00 Clonidine HCl (Catapres Tts-3) 1 patch Fr TD ; Start 12/31/16 at 00:00 Diltiazem HCl (Cardizem 24hr Cd) 180 mg DAILY PO Last administered on 12/30/16 09:17; Start 12/28/16 at 09:00 Acetaminophen/ Hydrocodone Bitart (Lortab 5/325) 1 tab PRN Q8HRS PRN PO PAIN Last administered on 12/28/16 10:05; Start 12/27/16 at 18:15 Lisinopril (Prinivil) 40 mg DAILY PO Last administered on 12/29/16 16:08; Start 12/28/16 at 09:00 Pantoprazole Sodium (Protonix) 20 mg DAILYAC PO Last administered on 12/30/16 09:19; Start 12/28/16 at 07:30 Non-Formulary Medication 1 ea 1 ea WEEKLY PO ; Start 12/31/16 at 09:00; Stop 12/31 at 09:00; Status DC Lactated Ringer's (Iv Lactated Ringers) 1,000 ml @ 75 mls/hr 1X ONCE IV Last administered on 12/29/16 12:49; Start 12/29/16 at 13:00; Stop 12/30/16 at 02:19; Status DC Ondansetron HCl (Zofran) 4 mg PRN Q6HRS PRN IV Nausea, 1st Choice; Start at 13:45; Stop 12/30/16 at 13:44; Status DC Fentanyl Citrate (Fentanyl 2ml Vial) 25 mcg PRN Q5MIN PRN IV Acute Pain; Start 12/29/16 at 13:45; Stop 12/30/16 at 13:44; Status DC Fentanyl Citrate (Fentanyl 2ml Vial) 50 mcg PRN Q5MIN PRN IV Acute Pain; Start 12/29/16 at 13:45; Stop 12/30/16 at 13:44; Status DC Morphine Sulfate 1 mg PRN Q10MIN PRN IV Mild Pain; Start 12/29/16 at 13:45; Stop 12/30/16 at 13:44; Status DC Morphine Sulfate 2 mg 2 mg PRN Q10MIN PRN IV Moderate Pain; Start 12/29/16 at 13 :45; Stop 12/30/16 at 13:44; Status DC Lactated Ringer's (Iv Lactated Ringers) 1,000 ml @ 50 mls/hr Q20H IV ; Start at 13:33; Stop 12/30/16 at 01:32; Status DC Lidocaine HCl (Lidocaine HCl 2% Abboject) 100 mg STK-MED ONCE .ROUTE ; Start 12/29/16 at 12:33; Stop 12/29/16 at 13:44; Status DC Dexamethasone Sodium Phosphate (Decadron) 20 mg STK-MED ONCE .ROUTE ; Start 12/29 at 12:33; Stop 12/29/16 at 13:44; Status DC Ondansetron HCl 4 mg 4 mg STK-MED ONCE .ROUTE ; Start 12/29/16 at 12:33; Stop 12/29/16 at 13:44; Status DC Propofol (Diprivan) 20 ml @ As Directed STK-MED ONCE IV ; Start 12/29/16 at 12:33 ; Stop 12/29/16 at 13:44; Status DC Fentanyl Citrate (Fentanyl 2ml Vial) 100 mcg STK-MED ONCE .ROUTE ; Start at 12:34; Stop 12/29/16 at 13:44; Status DC Sevoflurane (Ultane) 30 ml STK-MED ONCE IH ; Start 12/29/16 at 14:27; Stop at 14:28; Status DC Metoprolol Tartrate (Lopressor) 5 mg Q4HRS IVP ; Start 12/29/16 at 20:00; Stop at 20:35; Status DC Metoprolol Tartrate (Lopressor) 5 mg PRN Q4HRS IVP ; Start 12/30/16 at 20:00 Active Scripts Active Atorvastatin Calcium 10 Mg Tablet 10 Mg PO QHS Lisinopril 40 Mg Tablet 40 Mg PO DAILY Reported Lortab 5-325 mg Tablet (Hydrocodone/Acetaminophen) 1 Each Tablet 1 Tab PO PRN Q8HRS PRN Clopidogrel (Clopidogrel Bisulfate) 75 Mg Tablet 75 Mg PO DAILY Alendronate Sodium 70 Mg Tablet 70 Mg PO WEEKLY Diltiazem 24HR Cd (Diltiazem Hcl) 180 Mg Cap.er.24h 1 Cap PO DAILY Clonidine Tts-3 (Clonidine) 1 Each Patch.tdwk 1 Patch TD WEEKLY Aspir 81 (Aspirin) 81 Mg Tablet. 1 Tab PO DAILY Pantoprazole Sodium 40 Mg Tablet.dr 20 Mg PO DAILY Vitals/I & O Vital Sign - Last 24 Hours 12/29/16 12/29/16 12/29/16 12/29/16 15:19 15:45 16:00 16:07 Temp 97.6 97.6 Pulse 59 66 56 65 Resp 16 B/P 197/88 192/94 191/86 191/86 Pulse Ox 92 O2 Delivery Room Air 12/29/16 12/29/16 12/29/16 12/29/16 16:08 16:15 16:30 17:00 Pulse 65 56 60 68 B/P 191/86 200/95 188/83 194/95 12/29/16 12/29/16 12/29/16 12/30/16 19:11 19:35 22:43 03:29 Temp 97.8 97.5 97.8 97.8 97.5 97.8 Pulse 93 63 74 Resp 18 16 16 B/P 165/75 158/88 140/76 Pulse Ox 98 90 94 O2 Delivery Room Air Room Air Room Air Room Air 12/30/16 12/30/16 12/30/16 12/30/16 07:48 08:00 09:17 11:00 Temp 97.6 97.6 97.6 97.6 Pulse 62 73 76 Resp 18 17 B/P 128/66 102/55 129/48 Pulse Ox 93 94 O2 Delivery Room Air Room Air Room Air Intake and Output 12/29/16 12/29/16 12/30/16 14:59 22:59 06:59 Intake Total 240 ml 1300 ml Output Total 750 ml 300 ml Balance -510 ml 1000 ml DIPAK NEVILLE MD Dec 30, 2016 15:27
[2016-12-30] MEDS: LISINOPRIL 40 MG TABLET. PO SCH (16:41)
[2016-12-30 19:58] VITALS: BP 112/57
[2016-12-30] MEDS ORDERED: METOPROLOL TARTRATE 5 MG/5 ML VIAL. IVP SCH (20:00)
[2016-12-30] MEDS: ATORVASTATIN CALCIUM 10 MG TABLET. PO SCH (21:03)
[2016-12-30 22:46] VITALS: BP 98/61
[2016-12-31] MEDS ORDERED: CLONIDINE TTS-3 PATCH. TD SCH
[2016-12-31 02:09] VITALS: BP 134/65
[2016-12-31 04:08] LABS: INR 1.2 (0.8-1.1)
[2016-12-31 04:19] LABS: ALBUMIN 2.7 g/dL (3.4-5.0); ALBUMIN/GLOBULIN RATIO 0.8 (1.0-1.7); CALCIUM 8.9 mg/dL (8.5-10.1); GFR 23.9; POTASSIUM 4.4 mmol/L (3.5-5.1); TOTAL BILIRUBIN 0.3 mg/dL (0.2-1.0)
[2016-12-31 05:37] LABS: BASO % 0 % (0-3); EOS % 1 % (0-3); HEMATOCRIT 40.8 % (36.0-47.0); HEMOGLOBIN 13.7 g/dL (12.0-15.5); LYMPH # 3.3 x10^3/uL (1.0-4.8); LYMPH % 33 % (24-48); MEAN CORPUSCULAR HEMOGLOBIN 30 pg (25-35); MEAN CORPUSCULAR HGB CONC 34 g/dL (31-37); MEAN CORPUSCULAR VOLUME 89 fL (79-100); MONO % 6 % (0-9); NEUT % 60 % (31-73); PLATELET COUNT 224 x10^3/uL (140-400); RED CELL DISTRIBUTION WIDTH 14.1 % (11.5-14.5); WHITE BLOOD COUNT 10.1 x10^3/uL (4.0-11.0)
[2016-12-31 07:00] VITALS: BP 120/65
[2016-12-31] MEDS: PANTOPRAZOLE 40 MG TABLET.DR. PO SCH (07:30)
[2016-12-31] MEDS: LISINOPRIL 40 MG TABLET. PO SCH (09:00)
[2016-12-31] MEDS ORDERED: NON FORMULARY ITEM PO SCH (09:00)
[2016-12-31] MEDS: DILTIAZEM HCL 180 MG CAP.ER.24H PO SCH (09:00)
[2016-12-31 11:42] VITALS: BP 127/66
--- NOTE | 2016-12-31 11:43 | PDOC ---
PROGRESS NOTES Subjective Subjective Pt denies having any complaints. Pt denies having any vaginal bleeding, abdominal pain, chest pain, or SOB. Pt reports that she is wanting to proceed with having the hysterectomy. Family members express they would prefer her to have it done while she is in the hospital. Nurse reports that she has had a few episodes of bradycardia. One time she was down to 39 but was sleeping at that time. Nurse is worried since she is NPO and not taking any of her PO meds she will become hypertensive again. Last time she was NPO her SBP went >200. Objective Objective Vital Signs Date Time Temp Pulse Resp B/P Pulse Ox O2 Delivery O2 Flow Rate FiO2 12/31/16 08:00 Room Air 12/31/16 07:00 97.4 48 16 120/65 94 97.4 12/29/16 14:49 10 Intake and Output 12/31/16 07:00 Intake Total 2770 ml Output Total 1925 ml Balance 845 ml Intake Oral 2770 ml Output Urine Total 1925 ml # Voids 1 Physical Exam Abdomen: Normal bowel sounds, Soft, No tenderness Heart: Regular rate, Normal S1, Normal S2, No murmurs Extremities: No clubbing, No edema General: Alert, Oriented X3, Cooperative, No acute distress HEENT: Atraumatic, PERRLA Lungs: Clear to auscultation Assessment Assessment 1. Vaginal Bleeding 2. Multiple ecchymosis, possible coagulopathy possibly secondary to platelet dysfunction Plan Plan of Care 1. Vaginal Bleeding 2. Multiple ecchymosis, possible coagulopathy possibly secondary to platelet dysfunction Plan Plan of Care 1. Vaginal Bleeding - Pt and family express they want to proceed with having a hysterectomy. - Called Dr. Peacock. He said he will be seeing the patient sometime before 13:00 where he will discuss all the options - Continue NPO until Dr. Peacock sees the patient and a plan is discussed. - Will follow up with him on the plan. 2. Multiple ecchymosis, possible coagulopathy possibly secondary to platelet dysfunction - continue to hold her Plavix and Aspirin since she may be going to surgery - Continue to monitor her 3. Bradycardia/HTN - Pt had few episodes of bradycardia especially when she was sleeping - Pt is currently NPO. Pt's BP's went >200 last time she was NPO. Ordered Vasotec 1.25 mg IV q8hr prn for BP >150 or when she is off NPO and PO meds resumed Comment Review of Relevant I have reviewed the following items louise (where applicable) has been applied. Labs Laboratory Tests Test 12/31/16 03:30 12/31/16 05:00 Prothrombin Time 14.0SEC (11.7-14.0) Prothromb Time International Ratio 1.2 (0.8-1.1) Activated Partial Thromboplast Time 26SEC (24-38) Sodium Level 144mmol/L (136-145) Potassium Level 4.4mmol/L (3.5-5.1) Chloride Level 110mmol/L (98-107) Carbon Dioxide Level 27mmol/L (21-32) Anion Gap 7 (6-14) Blood Urea Nitrogen 41mg/dL (7-20) Creatinine 2.0mg/dL (0.6-1.0) Estimated GFR (Cockcroft-Gault) 23.9 BUN/Creatinine Ratio 21 (6-20) Glucose Level 115mg/dL (70-99) Calcium Level 8.9mg/dL (8.5-10.1) Total Bilirubin 0.3mg/dL (0.2-1.0) Aspartate Amino Transf (AST/SGOT) 10U/L (15-37) Alanine Aminotransferase (ALT/SGPT) 15U/L (14-59) Alkaline Phosphatase 63U/L (46-116) Total Protein 6.0g/dL (6.4-8.2) Albumin 2.7g/dL (3.4-5.0) Albumin/Globulin Ratio 0.8 (1.0-1.7) White Blood Count 10.1x10^3/uL (4.0-11.0) Red Blood Count 4.60x10^6/uL (3.50-5.40) Hemoglobin 13.7g/dL (12.0-15.5) Hematocrit 40.8% (36.0-47.0) Mean Corpuscular Volume 89fL (79-100) Mean Corpuscular Hemoglobin 30pg (25-35) Mean Corpuscular Hemoglobin Concent 34g/dL (31-37) Red Cell Distribution Width 14.1% (11.5-14.5) Platelet Count 224x10^3/uL (140-400) Neutrophils (%) (Auto) 60% (31-73) Lymphocytes (%) (Auto) 33% (24-48) Monocytes (%) (Auto) 6% (0-9) Eosinophils (%) (Auto) 1% (0-3) Basophils (%) (Auto) 0% (0-3) Neutrophils # (Auto) 6.0x10^3uL (1.8-7.7) Lymphocytes # (Auto) 3.3x10^3/uL (1.0-4.8) Monocytes # (Auto) 0.6x10^3/uL (0.0-1.1) Eosinophils # (Auto) 0.1x10^3/uL (0.0-0.7) Basophils # (Auto) 0.0x10^3/uL (0.0-0.2) Laboratory Tests Test 12/31/16 03:30 12/31/16 05:00 Prothrombin Time 14.0SEC (11.7-14.0) Prothromb Time International Ratio 1.2 (0.8-1.1) Activated Partial Thromboplast Time 26SEC (24-38) Sodium Level 144mmol/L (136-145) Potassium Level 4.4mmol/L (3.5-5.1) Chloride Level 110mmol/L (98-107) Carbon Dioxide Level 27mmol/L (21-32) Anion Gap 7 (6-14) Blood Urea Nitrogen 41mg/dL (7-20) Creatinine 2.0mg/dL (0.6-1.0) Estimated GFR (Cockcroft-Gault) 23.9 BUN/Creatinine Ratio 21 (6-20) Glucose Level 115mg/dL (70-99) Calcium Level 8.9mg/dL (8.5-10.1) Total Bilirubin 0.3mg/dL (0.2-1.0) Aspartate Amino Transf (AST/SGOT) 10U/L (15-37) Alanine Aminotransferase (ALT/SGPT) 15U/L (14-59) Alkaline Phosphatase 63U/L (46-116) Total Protein 6.0g/dL (6.4-8.2) Albumin 2.7g/dL (3.4-5.0) Albumin/Globulin Ratio 0.8 (1.0-1.7) White Blood Count 10.1x10^3/uL (4.0-11.0) Red Blood Count 4.60x10^6/uL (3.50-5.40) Hemoglobin 13.7g/dL (12.0-15.5) Hematocrit 40.8% (36.0-47.0) Mean Corpuscular Volume 89fL (79-100) Mean Corpuscular Hemoglobin 30pg (25-35) Mean Corpuscular Hemoglobin Concent 34g/dL (31-37) Red Cell Distribution Width 14.1% (11.5-14.5) Platelet Count 224x10^3/uL (140-400) Neutrophils (%) (Auto) 60% (31-73) Lymphocytes (%) (Auto) 33% (24-48) Monocytes (%) (Auto) 6% (0-9) Eosinophils (%) (Auto) 1% (0-3) Basophils (%) (Auto) 0% (0-3) Neutrophils # (Auto) 6.0x10^3uL (1.8-7.7) Lymphocytes # (Auto) 3.3x10^3/uL (1.0-4.8) Monocytes # (Auto) 0.6x10^3/uL (0.0-1.1) Eosinophils # (Auto) 0.1x10^3/uL (0.0-0.7) Basophils # (Auto) 0.0x10^3/uL (0.0-0.2) Medications Current Medications Atorvastatin Calcium (Lipitor) 10 mg QHS PO Last administered on 12/30/16 21:03 ; Start 12/27/16 at 21:00 Clonidine HCl (Catapres Tts-3) 1 patch Fr TD Last administered on 12/31/16 00: 48; Start 12/31/16 at 00:00 Diltiazem HCl (Cardizem 24hr Cd) 180 mg DAILY PO Last administered on 12/30/16 09:17; Start 12/28/16 at 09:00 Acetaminophen/ Hydrocodone Bitart (Lortab 5/325) 1 tab PRN Q8HRS PRN PO PAIN Last administered on 12/28/16 10:05; Start 12/27/16 at 18:15 Lisinopril (Prinivil) 40 mg DAILY PO Last administered on 12/30/16 16:41; Start 12/28/16 at 09:00 Pantoprazole Sodium (Protonix) 20 mg DAILYAC PO Last administered on 12/30/16 09:19; Start 12/28/16 at 07:30 Non-Formulary Medication 1 ea 1 ea WEEKLY PO ; Start 12/31/16 at 09:00; Stop 12/31 at 09:00; Status DC Lactated Ringer's (Iv Lactated Ringers) 1,000 ml @ 75 mls/hr 1X ONCE IV Last administered on 12/29/16 12:49; Start 12/29/16 at 13:00; Stop 12/30/16 at 02:19; Status DC Ondansetron HCl (Zofran) 4 mg PRN Q6HRS PRN IV Nausea, 1st Choice; Start at 13:45; Stop 12/30/16 at 13:44; Status DC Fentanyl Citrate (Fentanyl 2ml Vial) 25 mcg PRN Q5MIN PRN IV Acute Pain; Start 12/29/16 at 13:45; Stop 12/30/16 at 13:44; Status DC Fentanyl Citrate (Fentanyl 2ml Vial) 50 mcg PRN Q5MIN PRN IV Acute Pain; Start 12/29/16 at 13:45; Stop 12/30/16 at 13:44; Status DC Morphine Sulfate 1 mg PRN Q10MIN PRN IV Mild Pain; Start 12/29/16 at 13:45; Stop 12/30/16 at 13:44; Status DC Morphine Sulfate 2 mg 2 mg PRN Q10MIN PRN IV Moderate Pain; Start 12/29/16 at 13 :45; Stop 12/30/16 at 13:44; Status DC Lactated Ringer's (Iv Lactated Ringers) 1,000 ml @ 50 mls/hr Q20H IV ; Start at 13:33; Stop 12/30/16 at 01:32; Status DC Lidocaine HCl (Lidocaine HCl 2% Abboject) 100 mg STK-MED ONCE .ROUTE ; Start 12/29/16 at 12:33; Stop 12/29/16 at 13:44; Status DC Dexamethasone Sodium Phosphate (Decadron) 20 mg STK-MED ONCE .ROUTE ; Start 12/29 at 12:33; Stop 12/29/16 at 13:44; Status DC Ondansetron HCl 4 mg 4 mg STK-MED ONCE .ROUTE ; Start 12/29/16 at 12:33; Stop 12/29/16 at 13:44; Status DC Propofol (Diprivan) 20 ml @ As Directed STK-MED ONCE IV ; Start 12/29/16 at 12:33 ; Stop 12/29/16 at 13:44; Status DC Fentanyl Citrate (Fentanyl 2ml Vial) 100 mcg STK-MED ONCE .ROUTE ; Start at 12:34; Stop 12/29/16 at 13:44; Status DC Sevoflurane (Ultane) 30 ml STK-MED ONCE IH ; Start 12/29/16 at 14:27; Stop at 14:28; Status DC Metoprolol Tartrate (Lopressor) 5 mg Q4HRS IVP ; Start 12/29/16 at 20:00; Stop at 20:35; Status DC Metoprolol Tartrate (Lopressor) 5 mg PRN Q4HRS IVP ; Start 12/30/16 at 20:00 Enalaprilat (Vasotec) 1.25 mg PRN Q8HRS PRN IV for SBP > 150; Start 12/31/16 at 11:45 Active Scripts Active Atorvastatin Calcium 10 Mg Tablet 10 Mg PO QHS Lisinopril 40 Mg Tablet 40 Mg PO DAILY Reported Lortab 5-325 mg Tablet (Hydrocodone/Acetaminophen) 1 Each Tablet 1 Tab PO PRN Q8HRS PRN Clopidogrel (Clopidogrel Bisulfate) 75 Mg Tablet 75 Mg PO DAILY Alendronate Sodium 70 Mg Tablet 70 Mg PO WEEKLY Diltiazem 24HR Cd (Diltiazem Hcl) 180 Mg Cap.er.24h 1 Cap PO DAILY Clonidine Tts-3 (Clonidine) 1 Each Patch.tdwk 1 Patch TD WEEKLY Aspir 81 (Aspirin) 81 Mg Tablet. 1 Tab PO DAILY Pantoprazole Sodium 40 Mg Tablet.dr 20 Mg PO DAILY Vitals/I & O Vital Sign - Last 24 Hours 12/30/16 12/30/16 12/30/16 12/30/16 15:00 16:41 19:20 19:58 Temp 98.6 97.3 98.6 97.3 Pulse 69 69 62 Resp 18 16 B/P 117/64 117/64 112/57 Pulse Ox 94 93 O2 Delivery Room Air Room Air Room Air 12/30/16 12/31/16 12/31/16 12/31/16 22:46 02:09 07:00 08:00 Temp 98.4 97.5 97.4 98.4 97.5 97.4 Pulse 54 50 48 Resp 16 20 16 B/P 98/61 134/65 120/65 Pulse Ox 92 93 94 O2 Delivery Room Air Room Air Room Air Room Air Intake and Output 12/30/16 12/30/16 12/31/16 15:00 23:00 07:00 Intake Total 2270 ml 500 ml Output Total 1325 ml 600 ml Balance 945 ml -100 ml DIPAK NEVILLE MD Dec 31, 2016 11:43
[2016-12-31] MEDS ORDERED: ENALAPRILAT 1.25 MG/ML VIAL. IV PRN (11:45)
[2016-12-31 15:12] VITALS: BP 145/69
[2016-12-31] MEDS ORDERED: PROPOFOL 20 ML IV ONE (16:31)
[2016-12-31] MEDS ORDERED: LIDOCAINE 2% 100 MG/5 ML SYRINGE. ONE (16:31)
[2016-12-31] MEDS ORDERED: FENTANYL PF 100 MCG/2 ML VIAL. ONE ×2 (16:31→19:20)
[2016-12-31] MEDS ORDERED: ROCURONIUM 50 MG/5 ML VIAL. ONE (16:31)
[2016-12-31] MEDS ORDERED: SUCCINYLCHOLINE 200 MG/10 ML VIAL. ONE (16:33)
[2016-12-31] MEDS ORDERED: IV RINGERS,LACTATED 1000ML 1,000 ML IV SCH (16:34)
[2016-12-31] MEDS ORDERED: PROCHLORPERAZINE 10 MG/2 ML VIAL. IV PRN (16:45)
[2016-12-31] MEDS ORDERED: HYDROMORPHONE 2 MG/ML VIAL. IV PRN (16:45)
[2016-12-31] MEDS ORDERED: ONDANSETRON PF 4 MG/2 ML VIAL. IV PRN (16:45)
[2016-12-31] MEDS ORDERED: LIDOCAINE 1% 1 ML SYRINGE. ID PRN (16:45)
[2016-12-31] MEDS ORDERED: MORPHINE SULFATE 2 MG/ML DISP.SYRIN. IV PRN (16:45)
[2016-12-31] MEDS ORDERED: FENTANYL PF 100 MCG/2 ML VIAL. IV PRN ×2 (16:45)
[2016-12-31] MEDS ORDERED: CEFAZOLIN 2GM PREMIX 50 ML IV ONE (17:52)
[2016-12-31] MEDS ORDERED: BUPIVAC MPF-EPI 0.5%-1:200000 30 ML VIAL. ONE (18:26)
[2016-12-31] MEDS ORDERED: METRONIDAZOLE 0.75% TP ONE (18:26)
[2016-12-31] MEDS ORDERED: ESTROGENS, CONJ VAGINAL CREAM 30GM TUBE. ONE (18:26)
[2016-12-31] MEDS ORDERED: METHYLENE BLUE 1% 1 ML VIAL. ONE (18:27)
--- NOTE | 2016-12-31 18:34 | PDOC ---
BRIEF OPERATIVE NOTE Date: Dec 30, 2016 Pre-Op Diagnosis PMB Post-Op Diagnosis Same Procedure Performed hysteroscopic D and C Surgeon Madonna Anesthesia Type: General Blood Loss 10cc Specimens Obtained EMB Findings Dictated Complications None REINIER SORIANO MD Dec 31, 2016 18:34
[2016-12-31] MEDS ORDERED: DEXAMETHASONE SOD PHOS 20 MG/5 ML VIAL. ONE (18:47)
[2016-12-31] MEDS ORDERED: DESFLURANE 61 TO 120 MINUTES IH ONE (18:47)
[2016-12-31] MEDS ORDERED: GLYCOPYRROLATE 1 MG/5 ML VIAL. ONE (19:05)
[2016-12-31] MEDS ORDERED: NEOSTIGMINE METHYLSULFATE 5 MG/5 ML SYRINGE. ONE (19:05)
[2016-12-31] MEDS ORDERED: ONDANSETRON PF 4 MG/2 ML VIAL. ONE (19:05)
[2016-12-31] MEDS ORDERED: LABETALOL 20 MG/4 ML DISP.SYRIN. ONE (19:46)
[2016-12-31] MEDS ORDERED: HYDROMORPHONE 2 MG/ML VIAL. IVP PRN (20:45)
[2016-12-31] MEDS ORDERED: OXYCODONE/APAP 5/325 TABLET. PO PRN (20:45)
--- NOTE | 2016-12-31 22:03 | RAD ---
PROCEDURE Limited ultrasound of the abdomen 12/31/2016 HISTORY Abdominal distension post hysterectomy. TECHNIQUE A real-time ultrasound examination of all 4 quadrants of the abdomen was performed portably in the recovery room. Multiple images were obtained. FINDINGS No free fluid is seen within the abdomen. IMPRESSION Negative study. Electronically signed by: Wellington Alfaro MD (Dec 31, 2016 22:03:03)
[2016-12-31] MEDS: ATORVASTATIN CALCIUM 10 MG TABLET. PO SCH (22:18)
[2016-12-31 23:00] VITALS: BP 177/77
--- NOTE | 2017-01-01 00:17 | OP ---
DATE OF SURGERY: 12/31/2016 PREOPERATIVE DIAGNOSIS: Postmenopausal bleeding. POSTOPERATIVE DIAGNOSES: Postmenopausal bleeding. PROCEDURE: Laparoscopic-assisted vaginal hysterectomy with bilateral salpingo-oophorectomy. SURGEON: Chirag Peacock M.D. MEDICAL INSTRUMENT TECHNICIAN: None. ANESTHESIA: General. ESTIMATED BLOOD LOSS: 100 mL. FLUIDS: Crystalloid. SPECIMENS: Uterus, tubes and ovaries. COMPLICATIONS: None. CONDITION: Stable. DESCRIPTION OF PROCEDURE: After risks, benefits, indications, alternatives discussed in detail with the patient and the patient's family, the patient was brought to the OR theater, placed in a [facility]. After adequate general anesthesia, patient was prepped and draped in usual sterile manner. Uterine manipulator was placed in the cervical canal in usual manner. Attention was then turned to the anterior abdominal wall. A small vertical infraumbilical incision made sharply with a scalpel. Through this incision, a Visiport 5 mm disposable trocar was placed. Two left lateral 5 mm trocars were placed after infiltrating the area with 0.5% Marcaine with epinephrine. The patient was placed in [place]. The right side of the uterus was started first. The infundibulopelvic ligament was cauterized with ____. This was taken down the broad ligament down to the cardinal ligament and cauterized, cut, burned and fashioned. Same procedure was carried out on the opposite side. Bladder flap was created also with Insorb device. Attention was turned to the vaginal part of the procedure. Fluid was placed in the pelvic cavity prior to starting the vaginal approach. Posterior weighted speculum was placed in the vagina. Curved ____ was used to identify the cervix with single tooth tenaculum still attached and the uterine manipulated had been removed. The single tooth tenaculum was grasped in both anterior and posterior aspect of the cervix. Cervix was circumscribed anteriorly with Bovie cautery. The pubovesical cervical fascia was taken off bluntly and sharply with Metzenbaum scissors. The anterior cul-de-sac was entered. Curved ____ was placed in the space to displace the bladder superiorly. Posterior cul-de-sac was entered sharply with Calixto scissors. Posteriorly, the peritoneum was attached to the vaginal cuff. The uterosacral ligaments were clamped, cut, and tied bilaterally. The remaining attachments bilaterally were clamped, cut, and tied. The uterus, tubes and ovaries was handed off the operative field. The vaginal cuff was reapproximated with 2-0 Vicryl pop-offs in a [id number] fashion. Good hemostasis was assured. The suture ligatures that were tagged were cut. The vaginal vault was irrigated copiously with warm normal saline, packed with vaginal packing. Attention was then turned to the laparoscopic part of the procedure. A pneumoperitoneum was again created. I regloved and placed patient in [place]. Sequential visualization of all pedicles were performed. Good hemostasis was assured. The procedure was terminated. All laparoscopic instruments and video laparoscope was removed. Pneumoperitoneum was allowed to dissipate. All trocar sleeves were removed. The infraumbilical incision was infiltrated with 0.5% Marcaine also and the incision was reapproximated with 4-0 Monocryl in subcuticular fashion. Sponge, needle and instrument counts were correct x 2 per nursing staff. The patient went to postop anesthesia recovery in stable condition. CHIRAG PEACOCK MD DR: KIMBERLEE/fanny JOB#: [id number] / [id number]
--- NOTE | 2017-01-01 01:21 | OP ---
DATE OF SURGERY: 12/30/2016 PREOPERATIVE DIAGNOSIS: Postmenopausal bleeding. POSTOPERATIVE DIAGNOSIS: Postmenopausal bleeding. PROCEDURE: Hysteroscopy and D and C. SURGEON: Chirag Peacock MD DAM WORKER: None. ANESTHESIA: General. ESTIMATED BLOOD LOSS: 10 mL. FLUIDS: Crystalloid. SPECIMENS: 1. Endometrial curettings. 2. Endocervical curettings. CONDITION: Stable. DESCRIPTION OF PROCEDURE: Risks, benefits, indications, and alternatives were discussed with the patient, and the patient's family. The patient was brought to the OR theater, placed in the dorsolithotomy position in Michael stirrups. After adequate general anesthesia, the patient was prepped and draped in the usual sterile manner. A posterior weighted speculum was placed in the vaginal vault. Cervix was grasped with single tooth tenaculum. Cervix was dilated up to receive the hysteroscope. The hysteroscope was placed. Atrophic endometrium was noted. No evidence of cancer appreciated. The hysteroscope was removed. Sharp curettage was performed. The specimens were placed on the Telfa. This was done both endocervical and endometrial. The procedure was terminated. Single-toothed tenaculum was removed. Puncture sites were hemostatic. The vaginal vault was wiped free of any tissues. Posterior vaginal speculum was removed. Sponge, needle and instrument counts were correct x 2 per nursing staff. CHIRAG PEACOCK MD DR: KIMBERLEE/fanny JOB#: [id number] / [id number]
--- NOTE | 2017-01-01 02:24 | CONS ---
DATE OF CONSULTATION: 12/29/2016 REASON FOR CONSULTATION: Postmenopausal bleeding. CONSULTING PHYSICIAN: Dr. Burks. CONSULTING SERVICE: METER MAKER, Dr. Reinier Peacock. The patient's chart and history reviewed. HISTORY OF PRESENT ILLNESS: This is an 81-year-old female, 3, para 3, that presented to Dr. Burks with abdominal pain and vaginal bleeding. The patient was initially to follow up with me in the office, but was admitted to the hospital by Dr. Burks and I was consulted by Dr. Burks. That chart was reviewed. SIGNIFICANT PAST MEDICAL HISTORY: Thyroid disease, coronary artery disease, hypertension, hyperlipidemia, gastroesophageal reflux disease and cerebrovascular accident. PERTINENT PAST SURGICAL HISTORY: Thyroidectomy, heart catheterization, cataracts and tonsillectomy. The patient was informed secondary to her aspirin, anticoagulant that most likely her bleeding was from these medications, but secondary to her age and the amount of bleeding, she stated that malignancy or hyperplasia could not be ruled out without endometrial biopsy. The patient had an attempted endometrial biopsy at the bedside that was unsuccessful and was informed that a definitive diagnosis would have to be done while she was ____ in the operating room. The patient understood and agreed and will be scheduled tomorrow. IMPRESSION: Postmenopausal bleeding, failed endometrial biopsy at bedside. PLAN: Diagnostic hysteroscopy and D and C on 12/30/2016. REINIER PEACOCK MD DR: KIMBERLEE/fanny JOB#: [id number] / [id number]
[2017-01-01 03:15] VITALS: BP 162/75
[2017-01-01 07:00] VITALS: BP 135/66
[2017-01-01] MEDS: PANTOPRAZOLE 40 MG TABLET.DR. PO SCH (08:08)
[2017-01-01] MEDS: DILTIAZEM HCL 180 MG CAP.ER.24H PO SCH (09:45)
[2017-01-01] MEDS: LISINOPRIL 40 MG TABLET. PO SCH (09:46)
[2017-01-01 10:44] VITALS: BP 122/66
--- NOTE | 2017-01-01 12:33 | PDOC ---
PROGRESS NOTES Subjective Subjective Patient tolerated the hysterectomy well Objective Objective Vital Signs Date Time Temp Pulse Resp B/P Pulse Ox O2 Delivery O2 Flow Rate FiO2 01/01/17 10:44 97.9 96 18 122/66 92 Room Air 97.9 01/01/17 07:30 2.0 Intake and Output 01/01/17 07:00 Intake Total 1460 ml Output Total 1850 ml Balance -390 ml Intake Oral 160 ml IV Total 1300 ml Output Urine Total 1750 ml Estimated Blood Loss 100 ml Physical Exam Physical Exam No significant changes in cardiac exam Assessment Assessment Patient is compensated cardiac-chambers. I agree with present plan. Possible discharge Tuesday or Tuesday depending on her progression Comment Review of Relevant I have reviewed the following items louise (where applicable) has been applied. Labs Laboratory Tests Test 12/31/16 03:30 12/31/16 05:00 Prothrombin Time 14.0SEC (11.7-14.0) Prothromb Time International Ratio 1.2 (0.8-1.1) Activated Partial Thromboplast Time 26SEC (24-38) Sodium Level 144mmol/L (136-145) Potassium Level 4.4mmol/L (3.5-5.1) Chloride Level 110mmol/L (98-107) Carbon Dioxide Level 27mmol/L (21-32) Anion Gap 7 (6-14) Blood Urea Nitrogen 41mg/dL (7-20) Creatinine 2.0mg/dL (0.6-1.0) Estimated GFR (Cockcroft-Gault) 23.9 BUN/Creatinine Ratio 21 (6-20) Glucose Level 115mg/dL (70-99) Calcium Level 8.9mg/dL (8.5-10.1) Total Bilirubin 0.3mg/dL (0.2-1.0) Aspartate Amino Transf (AST/SGOT) 10U/L (15-37) Alanine Aminotransferase (ALT/SGPT) 15U/L (14-59) Alkaline Phosphatase 63U/L (46-116) Total Protein 6.0g/dL (6.4-8.2) Albumin 2.7g/dL (3.4-5.0) Albumin/Globulin Ratio 0.8 (1.0-1.7) White Blood Count 10.1x10^3/uL (4.0-11.0) Red Blood Count 4.60x10^6/uL (3.50-5.40) Hemoglobin 13.7g/dL (12.0-15.5) Hematocrit 40.8% (36.0-47.0) Mean Corpuscular Volume 89fL (79-100) Mean Corpuscular Hemoglobin 30pg (25-35) Mean Corpuscular Hemoglobin Concent 34g/dL (31-37) Red Cell Distribution Width 14.1% (11.5-14.5) Platelet Count 224x10^3/uL (140-400) Neutrophils (%) (Auto) 60% (31-73) Lymphocytes (%) (Auto) 33% (24-48) Monocytes (%) (Auto) 6% (0-9) Eosinophils (%) (Auto) 1% (0-3) Basophils (%) (Auto) 0% (0-3) Neutrophils # (Auto) 6.0x10^3uL (1.8-7.7) Lymphocytes # (Auto) 3.3x10^3/uL (1.0-4.8) Monocytes # (Auto) 0.6x10^3/uL (0.0-1.1) Eosinophils # (Auto) 0.1x10^3/uL (0.0-0.7) Basophils # (Auto) 0.0x10^3/uL (0.0-0.2) Medications Current Medications Atorvastatin Calcium (Lipitor) 10 mg QHS PO Last administered on 12/31/16 22:18 ; Start 12/27/16 at 21:00 Clonidine HCl (Catapres Tts-3) 1 patch Fr TD Last administered on 12/31/16 00: 48; Start 12/31/16 at 00:00 Diltiazem HCl (Cardizem 24hr Cd) 180 mg DAILY PO Last administered on 01/01/17 09:45; Start 12/28/16 at 09:00 Acetaminophen/ Hydrocodone Bitart (Lortab 5/325) 1 tab PRN Q8HRS PRN PO PAIN Last administered on 12/28/16 10:05; Start 12/27/16 at 18:15 Lisinopril (Prinivil) 40 mg DAILY PO Last administered on 01/01/17 09:46; Start 12/28/16 at 09:00 Pantoprazole Sodium (Protonix) 20 mg DAILYAC PO Last administered on 01/01/17 08:08; Start 12/28/16 at 07:30 Non-Formulary Medication 1 ea 1 ea WEEKLY PO ; Start 12/31/16 at 09:00; Stop 12/31 at 09:00; Status DC Lactated Ringer's (Iv Lactated Ringers) 1,000 ml @ 75 mls/hr 1X ONCE IV Last administered on 12/29/16 12:49; Start 12/29/16 at 13:00; Stop 12/30/16 at 02:19; Status DC Ondansetron HCl (Zofran) 4 mg PRN Q6HRS PRN IV Nausea, 1st Choice; Start at 13:45; Stop 12/30/16 at 13:44; Status DC Fentanyl Citrate (Fentanyl 2ml Vial) 25 mcg PRN Q5MIN PRN IV Acute Pain; Start 12/29/16 at 13:45; Stop 12/30/16 at 13:44; Status DC Fentanyl Citrate (Fentanyl 2ml Vial) 50 mcg PRN Q5MIN PRN IV Acute Pain; Start 12/29/16 at 13:45; Stop 12/30/16 at 13:44; Status DC Morphine Sulfate 1 mg PRN Q10MIN PRN IV Mild Pain; Start 12/29/16 at 13:45; Stop 12/30/16 at 13:44; Status DC Morphine Sulfate 2 mg 2 mg PRN Q10MIN PRN IV Moderate Pain; Start 12/29/16 at 13 :45; Stop 12/30/16 at 13:44; Status DC Lactated Ringer's (Iv Lactated Ringers) 1,000 ml @ 50 mls/hr Q20H IV ; Start at 13:33; Stop 12/30/16 at 01:32; Status DC Lidocaine HCl (Lidocaine HCl 2% Abboject) 100 mg STK-MED ONCE .ROUTE ; Start 12/29/16 at 12:33; Stop 12/29/16 at 13:44; Status DC Dexamethasone Sodium Phosphate (Decadron) 20 mg STK-MED ONCE .ROUTE ; Start 12/29 at 12:33; Stop 12/29/16 at 13:44; Status DC Ondansetron HCl 4 mg 4 mg STK-MED ONCE .ROUTE ; Start 12/29/16 at 12:33; Stop 12/29/16 at 13:44; Status DC Propofol (Diprivan) 20 ml @ As Directed STK-MED ONCE IV ; Start 12/29/16 at 12:33 ; Stop 12/29/16 at 13:44; Status DC Fentanyl Citrate (Fentanyl 2ml Vial) 100 mcg STK-MED ONCE .ROUTE ; Start at 12:34; Stop 12/29/16 at 13:44; Status DC Sevoflurane (Ultane) 30 ml STK-MED ONCE IH ; Start 12/29/16 at 14:27; Stop at 14:28; Status DC Metoprolol Tartrate (Lopressor) 5 mg Q4HRS IVP ; Start 12/29/16 at 20:00; Stop at 20:35; Status DC Metoprolol Tartrate (Lopressor) 5 mg PRN Q4HRS IVP ; Start 12/30/16 at 20:00 Enalaprilat 1.25 mg 1.25 mg PRN Q8HRS PRN IV for SBP > 150; Start 12/31/16 at 11 :45 Propofol (Diprivan) 20 ml @ As Directed STK-MED ONCE IV ; Start 12/31/16 at 16:31 ; Stop 12/31/16 at 16:32; Status DC Lidocaine HCl (Lidocaine HCl 2% Abboject) 100 mg STK-MED ONCE .ROUTE ; Start 12/31/16 at 16:31; Stop 12/31/16 at 16:32; Status DC Fentanyl Citrate (Fentanyl 2ml Vial) 100 mcg STK-MED ONCE .ROUTE ; Start at 16:31; Stop 12/31/16 at 16:32; Status DC Rocuronium Equinunk (Zemuron) 50 mg STK-MED ONCE .ROUTE ; Start 12/31/16 at 16:31 ; Stop 12/31/16 at 16:32; Status DC Succinylcholine Chloride (Anectine) 200 mg STK-MED ONCE .ROUTE ; Start 12/31/16 at 16:33; Stop 12/31/16 at 16:34; Status DC Ondansetron HCl (Zofran) 4 mg PRN Q6HRS PRN IV NAUSEA/VOMITING; Start 12/31/16 at 16:45; Stop 01/01/17 at 16:44 Fentanyl Citrate (Fentanyl 2ml Vial) 25 mcg PRN Q5MIN PRN IV MILD PAIN Last administered on 12/31/16 21:00; Start 12/31/16 at 16:45; Stop 01/01/17 at 16:44 Fentanyl Citrate (Fentanyl 2ml Vial) 50 mcg PRN Q5MIN PRN IV MODERATE PAIN; Start 12/31/16 at 16:45; Stop 01/01/17 at 16:44 Morphine Sulfate 1 mg 1 mg PRN Q10MIN PRN IV SEVERE PAIN; Start 12/31/16 at 16: 45; Stop 01/01/17 at 16:44 Lactated Ringer's (Iv Lactated Ringers) 1,000 ml @ 0 mls/hr Q0M IV Last administered on 12/31/16 16:41; Start 12/31/16 at 16:34; Stop 01/01/17 at 04:33; Status DC Lidocaine HCl 2 ml PRN 1X PRN ID PRIOR TO IV START; Start 12/31/16 at 16:45; Stop 01/01/17 at 16:44 Hydromorphone HCl (Dilaudid) 0.5 mg PRN Q10MIN PRN IV SEV PAIN, Second choice; Start 12/31/16 at 16:45; Stop 01/01/17 at 16:44 Prochlorperazine Edisylate 5 mg 5 mg PACU PRN PRN IV NAUSEA, MRX1; Start at 16:45; Stop 01/01/17 at 16:44 Cefazolin Sodium/ Dextrose (Ancef 2gm Premix) 50 ml @ As Directed STK-MED ONCE IV ; Start 12/31/16 at 17:52; Stop 12/31/16 at 17:53; Status DC Metronidazole (Nydamax) 45 karel STK-MED ONCE TP Last administered on 12/31/16 18 :59; Start 12/31/16 at 18:26; Stop 12/31/16 at 18:27; Status DC Bupivacaine HCl/ Epinephrine Bitart (Sensorcain-Mpf Epi 0.5%-[id number]) 30 ml STK -MED ONCE .ROUTE Last administered on 4/7/17at 18:59; Start 12/31/16 at 18:26; Stop 12/31/16 at 18:27; Status DC Estrogens Conjugated (Premarin) 30 karel STK-MED ONCE .ROUTE ; Start 12/31/16 at 18 :26; Stop 12/31/16 at 18:27; Status DC Methylene Blue (Methylene Blue) 1 ml STK-MED ONCE .ROUTE ; Start 12/31/16 at 18: 27; Stop 12/31/16 at 18:28; Status DC Dexamethasone Sodium Phosphate (Decadron) 20 mg STK-MED ONCE .ROUTE ; Start 12/31 at 18:47; Stop 12/31/16 at 18:48; Status DC Desflurane (Suprane) 60 ml STK-MED ONCE IH ; Start 12/31/16 at 18:47; Stop at 18:48; Status DC Ondansetron HCl (Zofran) 4 mg STK-MED ONCE .ROUTE ; Start 12/31/16 at 19:05; Stop 12/31/16 at 19:06; Status DC Glycopyrrolate (Robinul) 1 mg STK-MED ONCE .ROUTE ; Start 12/31/16 at 19:05; Stop 12/31/16 at 19:06; Status DC Neostigmine Methylsulfate 5 mg STK-MED ONCE .ROUTE ; Start 12/31/16 at 19:05; Stop 12/31/16 at 19:06; Status DC Fentanyl Citrate (Fentanyl 2ml Vial) 100 mcg STK-MED ONCE .ROUTE ; Start at 19:20; Stop 12/31/16 at 19:21; Status DC Labetalol HCl (Normodyne) 20 mg STK-MED ONCE .ROUTE ; Start 12/31/16 at 19:46; Stop 12/31/16 at 19:47; Status DC Oxycodone/ Acetaminophen (Percocet 5/325) 1 tab PRN Q4HRS PRN PO PAIN; Start at 20:45 Hydromorphone HCl (Dilaudid) 0.2 mg PRN Q4HRS PRN IVP PAIN; Start 12/31/16 at 20 :45 Active Scripts Active Atorvastatin Calcium 10 Mg Tablet 10 Mg PO QHS Lisinopril 40 Mg Tablet 40 Mg PO DAILY Reported Lortab 5-325 mg Tablet (Hydrocodone/Acetaminophen) 1 Each Tablet 1 Tab PO PRN Q8HRS PRN Clopidogrel (Clopidogrel Bisulfate) 75 Mg Tablet 75 Mg PO DAILY Alendronate Sodium 70 Mg Tablet 70 Mg PO WEEKLY Diltiazem 24HR Cd (Diltiazem Hcl) 180 Mg Cap.er.24h 1 Cap PO DAILY Clonidine Tts-3 (Clonidine) 1 Each Patch.tdwk 1 Patch TD WEEKLY Aspir 81 (Aspirin) 81 Mg Tablet. 1 Tab PO DAILY Pantoprazole Sodium 40 Mg Tablet.dr 20 Mg PO DAILY Vitals/I & O Vital Sign - Last 24 Hours 12/31/16 12/31/16 12/31/16 12/31/16 15:12 15:49 20:35 20:35 Temp 97.6 98.3 98.7 97.6 98.3 98.7 Pulse 47 49 88 Resp 18 22 20 B/P 145/69 148/69 213/98 Pulse Ox 69 92 98 O2 Delivery Room Air Room Air Simple Mask Mask O2 Flow Rate 10 10 12/31/16 12/31/16 12/31/16 12/31/16 20:50 21:00 21:05 21:16 Pulse 74 64 Resp 18 18 18 B/P 165/103 171/73 Pulse Ox 95 92 92 O2 Delivery Simple Mask Nasal Cannula Nasal Cannula Nasal Cannula O2 Flow Rate 10 3.0 3 3 12/31/16 12/31/16 12/31/16 12/31/16 21:20 21:35 22:00 22:18 Pulse 57 57 Resp 18 18 B/P 167/80 145/66 Pulse Ox 93 93 O2 Delivery Nasal Cannula Nasal Cannula Nasal Cannula O2 Flow Rate 3 2 2.0 2.0 12/31/16 01/01/17 01/01/17 01/01/17 23:00 03:15 07:00 07:30 Temp 97.6 97.4 98.7 97.6 97.4 98.7 Pulse 56 80 96 Resp 20 20 20 B/P 177/77 162/75 135/66 Pulse Ox 93 94 96 O2 Delivery Nasal Cannula Nasal Cannula Nasal Cannula Nasal Cannula O2 Flow Rate 2.0 2.0 2.0 01/01/17 01/01/17 01/01/17 09:45 09:46 10:44 Temp 97.9 97.9 Pulse 93 93 96 Resp 18 B/P 140/73 140/73 122/66 Pulse Ox 92 O2 Delivery Room Air Intake and Output 12/31/16 12/31/16 01/01/17 15:00 23:00 07:00 Intake Total 1400 ml 60 ml Output Total 1350 ml 500 ml Balance 50 ml -440 ml DIPAK NEVILLE MD Jan 01, 2017 12:33
[2017-01-01 12:49] LABS: BASO # 0.1 x10^3/uL (0.0-0.2); BASO % 0 % (0-3); EOS % 0 % (0-3); HEMATOCRIT 45.3 % (36.0-47.0); HEMOGLOBIN 14.6 g/dL (12.0-15.5); LYMPH # 1.7 x10^3/uL (1.0-4.8); LYMPH % 8 % (24-48); MEAN CORPUSCULAR HEMOGLOBIN 29 pg (25-35); MEAN CORPUSCULAR HGB CONC 32 g/dL (31-37); MEAN CORPUSCULAR VOLUME 90 fL (79-100); MONO % 5 % (0-9); NEUT % 86 % (31-73); PLATELET COUNT 235 x10^3/uL (140-400); RED BLOOD COUNT 5.03 x10^6/uL (3.50-5.40); WHITE BLOOD COUNT 20.1 x10^3/uL (4.0-11.0)
[2017-01-01 13:04] LABS: ALBUMIN 2.8 g/dL (3.4-5.0); ALBUMIN/GLOBULIN RATIO 0.8 (1.0-1.7); CREATININE 1.9 mg/dL (0.6-1.0); GFR 25.3; POTASSIUM 4.8 mmol/L (3.5-5.1); TOTAL BILIRUBIN 0.4 mg/dL (0.2-1.0); TOTAL PROTEIN 6.5 g/dL (6.4-8.2)
[2017-01-01 14:45] LABS: PLT ESTIMATE ADEQUATE (ADEQUATE)
[2017-01-01 15:28] VITALS: BP 99/58
[2017-01-01] MEDS: PIPERACILLIN/TAZOBACTAM 3.375 GM in IV NORMAL SALINE 50ML 50 ML IV SCH ×2 (16:26→23:21)
[2017-01-01 19:15] VITALS: BP 102/59
[2017-01-01] MEDS: ATORVASTATIN CALCIUM 10 MG TABLET. PO SCH (20:28)
[2017-01-01 23:38] VITALS: BP 107/52
[2017-01-02 03:35] VITALS: BP 129/61
[2017-01-02] MEDS: PIPERACILLIN/TAZOBACTAM 3.375 GM in IV NORMAL SALINE 50ML 50 ML IV SCH ×3 (05:04→18:08)
[2017-01-02 05:44] LABS: BASO # 0.1 x10^3/uL (0.0-0.2); BASO % 0 % (0-3); EOS % 0 % (0-3); HEMATOCRIT 40.9 % (36.0-47.0); LYMPH # 2.4 x10^3/uL (1.0-4.8); LYMPH % 14 % (24-48); MEAN CORPUSCULAR HEMOGLOBIN 29 pg (25-35); MEAN CORPUSCULAR HGB CONC 32 g/dL (31-37); MEAN CORPUSCULAR VOLUME 92 fL (79-100); MONO % 6 % (0-9); NEUT % 79 % (31-73); PLATELET COUNT 162 x10^3/uL (140-400); RED BLOOD COUNT 4.45 x10^6/uL (3.50-5.40); RED CELL DISTRIBUTION WIDTH 14.4 % (11.5-14.5); WHITE BLOOD COUNT 17.2 x10^3/uL (4.0-11.0)
[2017-01-02] MEDS: HYDROCODONE/APAP 5/325MG TABLET. PO PRN (06:43)
[2017-01-02 07:00] VITALS: BP 132/65
[2017-01-02] MEDS: PANTOPRAZOLE 40 MG TABLET.DR. PO SCH (07:48)
[2017-01-02] MEDS: DILTIAZEM HCL 180 MG CAP.ER.24H PO SCH (08:59)
[2017-01-02] MEDS: LISINOPRIL 40 MG TABLET. PO SCH (09:00)
[2017-01-02 09:37] LABS: BILIRUBIN,URINE NEGATIVE (NEG); GLUCOSE,URINE NEGATIVE (NEG); NITRITE,URINE NEGATIVE (NEG); PH,URINE 5.5; PROTEIN,URINE NEGATIVE (NEG-TRACE); UROBILINOGEN,URINE 0.2 mg/dL (0.2 mg/dL)
--- NOTE | 2017-01-02 09:51 | PDOC ---
SURGICAL PROGRESS NOTE Subjective Doing well Vital Signs Vital Signs Date Time Temp Pulse Resp B/P Pulse Ox O2 Delivery O2 Flow Rate FiO2 01/02/17 09:00 56 132/65 01/02/17 07:51 Room Air 01/02/17 07:00 97.8 18 94 97.8 01/01/17 07:30 2.0 I&O Intake and Output 01/02/17 07:00 Intake Total 1010 ml Output Total 1175 ml Balance -165 ml Intake Oral 960 ml IV Total 50 ml Output Urine Total 1175 ml General: Alert, Oriented X3, Cooperative, No acute distress HEENT: Mucous membr. moist/pink Abdomen: Normal bowel sounds, Soft, No tenderness, No hepatosplenomegaly, No masses Labs Laboratory Tests Test 01/01/17 12:30 01/02/17 04:00 White Blood Count 20.1x10^3/uL (4.0-11.0) 17.2x10^3/uL (4.0-11.0) Red Blood Count 5.03x10^6/uL (3.50-5.40) 4.45x10^6/uL (3.50-5.40) Hemoglobin 14.6g/dL (12.0-15.5) 13.0g/dL (12.0-15.5) Hematocrit 45.3% (36.0-47.0) 40.9% (36.0-47.0) Mean Corpuscular Volume 90fL (79-100) 92fL (79-100) Mean Corpuscular Hemoglobin 29pg (25-35) 29pg (25-35) Mean Corpuscular Hemoglobin Concent 32g/dL (31-37) 32g/dL (31-37) Red Cell Distribution Width 14.0% (11.5-14.5) 14.4% (11.5-14.5) Platelet Count 235x10^3/uL (140-400) 162x10^3/uL (140-400) Neutrophils (%) (Auto) 86% (31-73) 79% (31-73) Lymphocytes (%) (Auto) 8% (24-48) 14% (24-48) Monocytes (%) (Auto) 5% (0-9) 6% (0-9) Eosinophils (%) (Auto) 0% (0-3) 0% (0-3) Basophils (%) (Auto) 0% (0-3) 0% (0-3) Neutrophils # (Auto) 17.4x10^3uL (1.8-7.7) 13.5x10^3uL (1.8-7.7) Lymphocytes # (Auto) 1.7x10^3/uL (1.0-4.8) 2.4x10^3/uL (1.0-4.8) Monocytes # (Auto) 1.0x10^3/uL (0.0-1.1) 1.1x10^3/uL (0.0-1.1) Eosinophils # (Auto) 0.0x10^3/uL (0.0-0.7) 0.0x10^3/uL (0.0-0.7) Basophils # (Auto) 0.1x10^3/uL (0.0-0.2) 0.1x10^3/uL (0.0-0.2) Segmented Neutrophils % 83% (35-66) Band Neutrophils % 5% (0-9) Lymphocytes % 5% (24-48) Monocytes % 7% (0-10) Platelet Estimate Adequate (ADEQUATE) Sodium Level 144mmol/L (136-145) Potassium Level 4.8mmol/L (3.5-5.1) Chloride Level 108mmol/L (98-107) Carbon Dioxide Level 28mmol/L (21-32) Anion Gap 8 (6-14) Blood Urea Nitrogen 33mg/dL (7-20) Creatinine 1.9mg/dL (0.6-1.0) Estimated GFR (Cockcroft-Gault) 25.3 BUN/Creatinine Ratio 17 (6-20) Glucose Level 135mg/dL (70-99) Calcium Level 9.0mg/dL (8.5-10.1) Total Bilirubin 0.4mg/dL (0.2-1.0) Aspartate Amino Transf (AST/SGOT) 14U/L (15-37) Alanine Aminotransferase (ALT/SGPT) 14U/L (14-59) Alkaline Phosphatase 67U/L (46-116) Total Protein 6.5g/dL (6.4-8.2) Albumin 2.8g/dL (3.4-5.0) Albumin/Globulin Ratio 0.8 (1.0-1.7) Laboratory Tests Test 01/01/17 12:30 01/02/17 04:00 White Blood Count 20.1x10^3/uL (4.0-11.0) 17.2x10^3/uL (4.0-11.0) Red Blood Count 5.03x10^6/uL (3.50-5.40) 4.45x10^6/uL (3.50-5.40) Hemoglobin 14.6g/dL (12.0-15.5) 13.0g/dL (12.0-15.5) Hematocrit 45.3% (36.0-47.0) 40.9% (36.0-47.0) Mean Corpuscular Volume 90fL (79-100) 92fL (79-100) Mean Corpuscular Hemoglobin 29pg (25-35) 29pg (25-35) Mean Corpuscular Hemoglobin Concent 32g/dL (31-37) 32g/dL (31-37) Red Cell Distribution Width 14.0% (11.5-14.5) 14.4% (11.5-14.5) Platelet Count 235x10^3/uL (140-400) 162x10^3/uL (140-400) Neutrophils (%) (Auto) 86% (31-73) 79% (31-73) Lymphocytes (%) (Auto) 8% (24-48) 14% (24-48) Monocytes (%) (Auto) 5% (0-9) 6% (0-9) Eosinophils (%) (Auto) 0% (0-3) 0% (0-3) Basophils (%) (Auto) 0% (0-3) 0% (0-3) Neutrophils # (Auto) 17.4x10^3uL (1.8-7.7) 13.5x10^3uL (1.8-7.7) Lymphocytes # (Auto) 1.7x10^3/uL (1.0-4.8) 2.4x10^3/uL (1.0-4.8) Monocytes # (Auto) 1.0x10^3/uL (0.0-1.1) 1.1x10^3/uL (0.0-1.1) Eosinophils # (Auto) 0.0x10^3/uL (0.0-0.7) 0.0x10^3/uL (0.0-0.7) Basophils # (Auto) 0.1x10^3/uL (0.0-0.2) 0.1x10^3/uL (0.0-0.2) Segmented Neutrophils % 83% (35-66) Band Neutrophils % 5% (0-9) Lymphocytes % 5% (24-48) Monocytes % 7% (0-10) Platelet Estimate Adequate (ADEQUATE) Sodium Level 144mmol/L (136-145) Potassium Level 4.8mmol/L (3.5-5.1) Chloride Level 108mmol/L (98-107) Carbon Dioxide Level 28mmol/L (21-32) Anion Gap 8 (6-14) Blood Urea Nitrogen 33mg/dL (7-20) Creatinine 1.9mg/dL (0.6-1.0) Estimated GFR (Cockcroft-Gault) 25.3 BUN/Creatinine Ratio 17 (6-20) Glucose Level 135mg/dL (70-99) Calcium Level 9.0mg/dL (8.5-10.1) Total Bilirubin 0.4mg/dL (0.2-1.0) Aspartate Amino Transf (AST/SGOT) 14U/L (15-37) Alanine Aminotransferase (ALT/SGPT) 14U/L (14-59) Alkaline Phosphatase 67U/L (46-116) Total Protein 6.5g/dL (6.4-8.2) Albumin 2.8g/dL (3.4-5.0) Albumin/Globulin Ratio 0.8 (1.0-1.7) Assessment/Plan POD #2 Progressing FU in AM Problems: REINIER SORIANO MD Jan 02, 2017 09:51
[2017-01-02 10:17] LABS: BACTERIA,URINE 0 /HPF (0-FEW); WBC,URINE 0 /HPF (0-4)
[2017-01-02 11:22] VITALS: BP 112/63
[2017-01-02] MEDS ORDERED: OXYCODONE/APAP 7.5/325 TABLET. PO PRN (12:00)
[2017-01-02 15:24] VITALS: BP 127/68
--- NOTE | 2017-01-02 18:15 | PDOC ---
Provider Note Provider Note Covering for Dr. Burks. She complains of mild abdominal discomfort. She complains of diaphoresis. Leukocytosis noted yesterday is better today. Lungs are clear. Abdomen is soft with hyperactive bowel sounds. Urine analysis showed moderate leukocyte esterase but no WBCs. She is been out of bed in a chair just once today. Will request PT and OT to see. MEL CHONG MD Jan 02, 2017 18:15
[2017-01-02 19:20] VITALS: BP 108/58
[2017-01-02] MEDS: ATORVASTATIN CALCIUM 10 MG TABLET. PO SCH (22:00)
[2017-01-02 23:10] VITALS: BP 116/56
[2017-01-03] MEDS: PIPERACILLIN/TAZOBACTAM 3.375 GM in IV NORMAL SALINE 50ML 50 ML IV SCH ×2 (00:09→05:43)
[2017-01-03 03:20] VITALS: BP 139/67
[2017-01-03 07:08] LABS: BASO # 0.1 x10^3/uL (0.0-0.2); BASO % 0 % (0-3); EOS % 5 % (0-3); HEMATOCRIT 40.2 % (36.0-47.0); HEMOGLOBIN 13.3 g/dL (12.0-15.5); LYMPH # 2.9 x10^3/uL (1.0-4.8); LYMPH % 22 % (24-48); MEAN CORPUSCULAR HEMOGLOBIN 30 pg (25-35); MEAN CORPUSCULAR HGB CONC 33 g/dL (31-37); MEAN CORPUSCULAR VOLUME 91 fL (79-100); MONO % 5 % (0-9); NEUT % 68 % (31-73); PLATELET COUNT 191 x10^3/uL (140-400); RED BLOOD COUNT 4.44 x10^6/uL (3.50-5.40); RED CELL DISTRIBUTION WIDTH 14.4 % (11.5-14.5); WHITE BLOOD COUNT 13.2 x10^3/uL (4.0-11.0)
[2017-01-03 07:53] VITALS: BP 124/62
[2017-01-03] MEDS: PANTOPRAZOLE 40 MG TABLET.DR. PO SCH (08:47)
[2017-01-03] MEDS: LISINOPRIL 40 MG TABLET. PO SCH (08:47)
[2017-01-03] MEDS: DILTIAZEM HCL 180 MG CAP.ER.24H PO SCH (08:48)
[2017-01-03] MEDS ORDERED: METOPROLOL TARTRATE 5 MG/5 ML VIAL. IVP PRN (10:00)
[2017-01-03 10:47] VITALS: BP 127/62
[2017-01-03] MEDS ORDERED: BISACODYL 5 MG TABLET.DR. PO PRN (12:15)
--- NOTE | 2017-01-03 12:18 | PDOC ---
PROGRESS NOTES Subjective Subjective Pt is POD#3 from a laprascopic assisted vaginal hysterectomy with bilateral salpingo-oophrectomy. Pt reports she has not had a bowel movement in a few days and is unable to pass gas. Denies having problems with urination. Nurse reports that the pt thought she needed to go to the bathroom. On the commode, pt reported feeling dizzy. BP's and HR were ok at that time. Objective Objective Vital Signs Date Time Temp Pulse Resp B/P Pulse Ox O2 Delivery O2 Flow Rate FiO2 01/03/17 10:47 97.9 55 17 127/62 95 Room Air 97.9 01/03/17 07:40 2.0 Intake and Output 01/03/17 06:59 Intake Total 860 ml Output Total 1000 ml Balance -140 ml Intake Oral 760 ml IV Total 100 ml Output Urine Total 1000 ml Physical Exam Abdomen: Normal bowel sounds, Soft, Other (slight TTP lower abdomen) Heart: Regular rate, Normal S1, Normal S2 Extremities: No clubbing, No edema General: Alert, Oriented X3, Cooperative HEENT: Atraumatic, PERRLA Lungs: Clear to auscultation, Normal air movement Neck: Supple Assessment Assessment 1. Vaginal Bleeding 2. Multiple ecchymosis, possible coagulopathy possibly secondary to platelet dysfunction Plan Plan of Care 1. Vaginal Bleeding 2. Multiple ecchymosis, possible coagulopathy possibly secondary to platelet dysfunction 3. Constipation 4. Possible UTI Plan Plan of Care 1. Vaginal Bleeding 2. Multiple ecchymosis, possible coagulopathy possibly secondary to platelet dysfunction 3. Bradycardia/HTN 4. home soon Plan Plan of Care 1. Vaginal Bleeding 2. Multiple ecchymosis, possible coagulopathy possibly secondary to platelet dysfunction Plan Plan of Care 1. Vaginal Bleeding 2. Multiple ecchymosis, possible coagulopathy possibly secondary to platelet dysfunction Plan 1. Vaginal Bleeding - s/p hysterectomy - Nurse reports there is a blue string coming from her vaginal area. Will talk to Dr. Peacock about this. 2. Multiple ecchymosis, possible coagulopathy possibly secondary to platelet dysfunction - Continue to monitor her 3. Constipation - will order Ducolax 5mg PO 4. Possible UTI - pt had leukocytosis of 20.1 on 01/01. Currently 13.2. - Pt's UA on 01/02 had moderate leuks but no WBC. Culture pending - Pt's urine culture on 12/24 showed E.coli - Pt has been on Zosyn post surgery. Will switch her to Augmentin 875 mg PO BID today and for 7 days after discharge. Ok with discharge tomorrow if patient is able to have a bowel movement. Comment Review of Relevant I have reviewed the following items louise (where applicable) has been applied. Labs Laboratory Tests Test 01/01/17 12:30 01/02/17 04:00 01/02/17 06:45 01/03/17 06:56 White Blood Count 20.1x10^3/uL (4.0-11.0) 17.2x10^3/uL (4.0-11.0) 13.2x10^3/uL (4.0-11.0) Red Blood Count 5.03x10^6/uL (3.50-5.40) 4.45x10^6/uL (3.50-5.40) 4.44x10^6/uL (3.50-5.40) Hemoglobin 14.6g/dL (12.0-15.5) 13.0g/dL (12.0-15.5) 13.3g/dL (12.0-15.5) Hematocrit 45.3% (36.0-47.0) 40.9% (36.0-47.0) 40.2% (36.0-47.0) Mean Corpuscular Volume 90fL (79-100) 92fL (79-100) 91fL (79-100) Mean Corpuscular Hemoglobin 29pg (25-35) 29pg (25-35) 30pg (25-35) Mean Corpuscular Hemoglobin Concent 32g/dL (31-37) 32g/dL (31-37) 33g/dL (31-37) Red Cell Distribution Width 14.0% (11.5-14.5) 14.4% (11.5-14.5) 14.4% (11.5-14.5) Platelet Count 235x10^3/uL (140-400) 162x10^3/uL (140-400) 191x10^3/uL (140-400) Neutrophils (%) (Auto) 86% (31-73) 79% (31-73) 68% (31-73) Lymphocytes (%) (Auto) 8% (24-48) 14% (24-48) 22% (24-48) Monocytes (%) (Auto) 5% (0-9) 6% (0-9) 5% (0-9) Eosinophils (%) (Auto) 0% (0-3) 0% (0-3) 5% (0-3) Basophils (%) (Auto) 0% (0-3) 0% (0-3) 0% (0-3) Neutrophils # (Auto) 17.4x10^3uL (1.8-7.7) 13.5x10^3uL (1.8-7.7) 8.9x10^3uL (1.8-7.7) Lymphocytes # (Auto) 1.7x10^3/uL (1.0-4.8) 2.4x10^3/uL (1.0-4.8) 2.9x10^3/uL (1.0-4.8) Monocytes # (Auto) 1.0x10^3/uL (0.0-1.1) 1.1x10^3/uL (0.0-1.1) 0.7x10^3/uL (0.0-1.1) Eosinophils # (Auto) 0.0x10^3/uL (0.0-0.7) 0.0x10^3/uL (0.0-0.7) 0.7x10^3/uL (0.0-0.7) Basophils # (Auto) 0.1x10^3/uL (0.0-0.2) 0.1x10^3/uL (0.0-0.2) 0.1x10^3/uL (0.0-0.2) Segmented Neutrophils % 83% (35-66) Band Neutrophils % 5% (0-9) Lymphocytes % 5% (24-48) Monocytes % 7% (0-10) Platelet Estimate Adequate (ADEQUATE) Sodium Level 144mmol/L (136-145) Potassium Level 4.8mmol/L (3.5-5.1) Chloride Level 108mmol/L (98-107) Carbon Dioxide Level 28mmol/L (21-32) Anion Gap 8 (6-14) Blood Urea Nitrogen 33mg/dL (7-20) Creatinine 1.9mg/dL (0.6-1.0) Estimated GFR (Cockcroft-Gault) 25.3 BUN/Creatinine Ratio 17 (6-20) Glucose Level 135mg/dL (70-99) Calcium Level 9.0mg/dL (8.5-10.1) Total Bilirubin 0.4mg/dL (0.2-1.0) Aspartate Amino Transf (AST/SGOT) 14U/L (15-37) Alanine Aminotransferase (ALT/SGPT) 14U/L (14-59) Alkaline Phosphatase 67U/L (46-116) Total Protein 6.5g/dL (6.4-8.2) Albumin 2.8g/dL (3.4-5.0) Albumin/Globulin Ratio 0.8 (1.0-1.7) Urine Color Yellow Urine Clarity Clear Urine pH 5.5 Urine Specific [place] 1.010 Urine Protein Negativemg/dL (NEG-TRACE) Urine Glucose (UA) Negativemg/dL (NEG) Urine Ketones (Stick) Negativemg/dL (NEG) Urine Blood Large (NEG) Urine Nitrite Negative (NEG) Urine Bilirubin Negative (NEG) Urine Urobilinogen Dipstick 0.2mg/dL (0.2 mg/dL) Urine Leukocyte Esterase Moderate (NEG) Urine RBC 1-2/HPF (0-2) Urine WBC 0/HPF (0-4) Urine Bacteria 0/HPF (0-FEW) Laboratory Tests Test 01/03/17 06:56 White Blood Count 13.2x10^3/uL (4.0-11.0) Red Blood Count 4.44x10^6/uL (3.50-5.40) Hemoglobin 13.3g/dL (12.0-15.5) Hematocrit 40.2% (36.0-47.0) Mean Corpuscular Volume 91fL (79-100) Mean Corpuscular Hemoglobin 30pg (25-35) Mean Corpuscular Hemoglobin Concent 33g/dL (31-37) Red Cell Distribution Width 14.4% (11.5-14.5) Platelet Count 191x10^3/uL (140-400) Neutrophils (%) (Auto) 68% (31-73) Lymphocytes (%) (Auto) 22% (24-48) Monocytes (%) (Auto) 5% (0-9) Eosinophils (%) (Auto) 5% (0-3) Basophils (%) (Auto) 0% (0-3) Neutrophils # (Auto) 8.9x10^3uL (1.8-7.7) Lymphocytes # (Auto) 2.9x10^3/uL (1.0-4.8) Monocytes # (Auto) 0.7x10^3/uL (0.0-1.1) Eosinophils # (Auto) 0.7x10^3/uL (0.0-0.7) Basophils # (Auto) 0.1x10^3/uL (0.0-0.2) Medications Current Medications Atorvastatin Calcium (Lipitor) 10 mg QHS PO Last administered on 01/02/17 22:00 ; Start 12/27/16 at 21:00 Clonidine HCl (Catapres Tts-3) 1 patch Fr TD Last administered on 12/31/16 00: 48; Start 12/31/16 at 00:00 Diltiazem HCl (Cardizem 24hr Cd) 180 mg DAILY PO Last administered on 08:48; Start 12/28/16 at 09:00 Acetaminophen/ Hydrocodone Bitart (Lortab 5/325) 1 tab PRN Q8HRS PRN PO MILD PAIN Last administered on 01/02/17 06:43; Start 12/27/16 at 18:15 Lisinopril (Prinivil) 40 mg DAILY PO Last administered on 01/03/17 08:47; Start 12/28/16 at 09:00 Pantoprazole Sodium (Protonix) 20 mg DAILYAC PO Last administered on 01/03/17 08:47; Start 12/28/16 at 07:30 Non-Formulary Medication 1 ea 1 ea WEEKLY PO ; Start 12/31/16 at 09:00; Stop 12/31 at 09:00; Status DC Lactated Ringer's (Iv Lactated Ringers) 1,000 ml @ 75 mls/hr 1X ONCE IV Last administered on 12/29/16 12:49; Start 12/29/16 at 13:00; Stop 12/30/16 at 02:19; Status DC Ondansetron HCl (Zofran) 4 mg PRN Q6HRS PRN IV Nausea, 1st Choice; Start at 13:45; Stop 12/30/16 at 13:44; Status DC Fentanyl Citrate (Fentanyl 2ml Vial) 25 mcg PRN Q5MIN PRN IV Acute Pain; Start 12/29/16 at 13:45; Stop 12/30/16 at 13:44; Status DC Fentanyl Citrate (Fentanyl 2ml Vial) 50 mcg PRN Q5MIN PRN IV Acute Pain; Start 12/29/16 at 13:45; Stop 12/30/16 at 13:44; Status DC Morphine Sulfate 1 mg PRN Q10MIN PRN IV Mild Pain; Start 12/29/16 at 13:45; Stop 12/30/16 at 13:44; Status DC Morphine Sulfate 2 mg 2 mg PRN Q10MIN PRN IV Moderate Pain; Start 12/29/16 at 13 :45; Stop 12/30/16 at 13:44; Status DC Lactated Ringer's (Iv Lactated Ringers) 1,000 ml @ 50 mls/hr Q20H IV ; Start at 13:33; Stop 12/30/16 at 01:32; Status DC Lidocaine HCl (Lidocaine HCl 2% Abboject) 100 mg STK-MED ONCE .ROUTE ; Start 12/29/16 at 12:33; Stop 12/29/16 at 13:44; Status DC Dexamethasone Sodium Phosphate (Decadron) 20 mg STK-MED ONCE .ROUTE ; Start 12/29 at 12:33; Stop 12/29/16 at 13:44; Status DC Ondansetron HCl 4 mg 4 mg STK-MED ONCE .ROUTE ; Start 12/29/16 at 12:33; Stop 12/29/16 at 13:44; Status DC Propofol (Diprivan) 20 ml @ As Directed STK-MED ONCE IV ; Start 12/29/16 at 12:33 ; Stop 12/29/16 at 13:44; Status DC Fentanyl Citrate (Fentanyl 2ml Vial) 100 mcg STK-MED ONCE .ROUTE ; Start at 12:34; Stop 12/29/16 at 13:44; Status DC Sevoflurane (Ultane) 30 ml STK-MED ONCE IH ; Start 12/29/16 at 14:27; Stop at 14:28; Status DC Metoprolol Tartrate (Lopressor) 5 mg Q4HRS IVP ; Start 12/29/16 at 20:00; Stop at 20:35; Status DC Metoprolol Tartrate (Lopressor) 5 mg PRN Q4HRS IVP ; Start 12/30/16 at 20:00; Stop 01/03/17 at 09:58; Status DC Enalaprilat 1.25 mg 1.25 mg PRN Q8HRS PRN IV for SBP > 150; Start 12/31/16 at 11 :45 Propofol (Diprivan) 20 ml @ As Directed STK-MED ONCE IV ; Start 12/31/16 at 16:31 ; Stop 12/31/16 at 16:32; Status DC Lidocaine HCl (Lidocaine HCl 2% Abboject) 100 mg STK-MED ONCE .ROUTE ; Start 12/31/16 at 16:31; Stop 12/31/16 at 16:32; Status DC Fentanyl Citrate (Fentanyl 2ml Vial) 100 mcg STK-MED ONCE .ROUTE ; Start at 16:31; Stop 12/31/16 at 16:32; Status DC Rocuronium [place] (Zemuron) 50 mg STK-MED ONCE .ROUTE ; Start 12/31/16 at 16:31 ; Stop 12/31/16 at 16:32; Status DC Succinylcholine Chloride (Anectine) 200 mg STK-MED ONCE .ROUTE ; Start 12/31/16 at 16:33; Stop 12/31/16 at 16:34; Status DC Ondansetron HCl (Zofran) 4 mg PRN Q6HRS PRN IV NAUSEA/VOMITING; Start 12/31/16 at 16:45; Stop 01/01/17 at 16:44; Status DC Fentanyl Citrate (Fentanyl 2ml Vial) 25 mcg PRN Q5MIN PRN IV MILD PAIN Last administered on 12/31/16t 21:00; Start 12/31/16 at 16:45; Stop 01/01/17 at 16:44; Status DC Fentanyl Citrate (Fentanyl 2ml Vial) 50 mcg PRN Q5MIN PRN IV MODERATE PAIN; Start 12/31/16 at 16:45; Stop 01/01/17 at 16:44; Status DC Morphine Sulfate 1 mg 1 mg PRN Q10MIN PRN IV SEVERE PAIN; Start 12/31/16 at 16: 45; Stop 01/01/17 at 16:44; Status DC Lactated Ringer's (Iv Lactated Ringers) 1,000 ml @ 0 mls/hr Q0M IV Last administered on 12/31/16 16:41; Start 12/31/16 at 16:34; Stop 01/01/17 at 04:33; Status DC Lidocaine HCl 2 ml PRN 1X PRN ID PRIOR TO IV START; Start 12/31/16 at 16:45; Stop 01/01/17 at 16:44; Status DC Hydromorphone HCl (Dilaudid) 0.5 mg PRN Q10MIN PRN IV SEV PAIN, Second choice; Start 12/31/16 at 16:45; Stop 01/01/17 at 16:44; Status DC Prochlorperazine Edisylate 5 mg 5 mg PACU PRN PRN IV NAUSEA, MRX1; Start at 16:45; Stop 01/01/17 at 16:44; Status DC Cefazolin Sodium/ Dextrose (Ancef 2gm Premix) 50 ml @ As Directed STK-MED ONCE IV ; Start 12/31/16 at 17:52; Stop 12/31/16 at 17:53; Status DC Metronidazole (Nydamax) 45 karel STK-MED ONCE TP Last administered on 12/31/16 18 :59; Start 12/31/16 at 18:26; Stop 12/31/16 at 18:27; Status DC Bupivacaine HCl/ Epinephrine Bitart (Sensorcain-Mpf Epi 0.5%-1:842895) 30 ml STK -MED ONCE .ROUTE Last administered on 12/31/16 18:59; Start 12/31/16 at 18:26; Stop 12/31/16 at 18:27; Status DC Estrogens Conjugated (Premarin) 30 karel STK-MED ONCE .ROUTE ; Start 12/31/16 at 18 :26; Stop 12/31/16 at 18:27; Status DC Methylene Blue (Methylene Blue) 1 ml STK-MED ONCE .ROUTE ; Start 12/31/16 at 18: 27; Stop 12/31/16 at 18:28; Status DC Dexamethasone Sodium Phosphate (Decadron) 20 mg STK-MED ONCE .ROUTE ; Start 12/31 at 18:47; Stop 12/31/16 at 18:48; Status DC Desflurane (Suprane) 60 ml STK-MED ONCE IH ; Start 12/31/16 at 18:47; Stop at 18:48; Status DC Ondansetron HCl (Zofran) 4 mg STK-MED ONCE .ROUTE ; Start 12/31/16 at 19:05; Stop 12/31/16 at 19:06; Status DC Glycopyrrolate (Robinul) 1 mg STK-MED ONCE .ROUTE ; Start 12/31/16 at 19:05; Stop 12/31/16 at 19:06; Status DC Neostigmine Methylsulfate 5 mg STK-MED ONCE .ROUTE ; Start 12/31/16 at 19:05; Stop 12/31/16 at 19:06; Status DC Fentanyl Citrate (Fentanyl 2ml Vial) 100 mcg STK-MED ONCE .ROUTE ; Start at 19:20; Stop 12/31/16 at 19:21; Status DC Labetalol HCl (Normodyne) 20 mg STK-MED ONCE .ROUTE ; Start 12/31/16 at 19:46; Stop 12/31/16 at 19:47; Status DC Oxycodone/ Acetaminophen (Percocet 5/325) 1 tab PRN Q4HRS PRN PO MODERATE PAIN Last administered on 01/02/17t 18:15; Start 12/31/16 at 20:45 Hydromorphone HCl 0.2 mg 0.2 mg PRN Q4HRS PRN IVP PAIN; Start 12/31/16 at 20:45 Piperacillin Sod/ Tazobactam Sod/ Sodium Chloride (Zosyn/Iv Sodium Chloride 0.9 % 50ml) 50 ml @ 100 mls/hr Q6HRS IV Last administered on 01/03/17t 05:43; Start 01/01/17 at 16:00 Oxycodone/ Acetaminophen (Percocet 7.5/ 325) 1 tab PRN Q6HRS PRN PO SEVERE PAIN ; Start 01/02/17 at 12:00 Metoprolol Tartrate (Lopressor) 5 mg PRN Q4HRS PRN IVP PRN SBP>170; Start 01/03 at 10:00 Active Scripts Active Atorvastatin Calcium 10 Mg Tablet 10 Mg PO QHS Lisinopril 40 Mg Tablet 40 Mg PO DAILY Reported Lortab 5-325 mg Tablet (Hydrocodone/Acetaminophen) 1 Each Tablet 1 Tab PO PRN Q8HRS PRN Clopidogrel (Clopidogrel Bisulfate) 75 Mg Tablet 75 Mg PO DAILY Alendronate Sodium 70 Mg Tablet 70 Mg PO WEEKLY Diltiazem 24HR Cd (Diltiazem Hcl) 180 Mg Cap.er.24h 1 Cap PO DAILY Clonidine Tts-3 (Clonidine) 1 Each Patch.tdwk 1 Patch TD WEEKLY Aspir 81 (Aspirin) 81 Mg Tablet. 1 Tab PO DAILY Pantoprazole Sodium 40 Mg Tablet.dr 20 Mg PO DAILY Vitals/I & O Vital Sign - Last 24 Hours 01/02/17 01/02/17 01/02/17 01/02/17 15:24 18:15 19:20 20:00 Temp 97.9 97.9 97.9 97.9 Pulse 51 51 Resp B/P 127/68 108/58 Pulse Ox 94 94 O2 Delivery Room Air Room Air Room Air Room Air 01/02/17 01/02/17 01/03/17 01/03/17 22:01 23:10 03:20 07:40 Temp 98.1 97.8 98.1 97.8 Pulse 49 54 Resp B/P 116/56 139/67 Pulse Ox 93 93 O2 Delivery Room Air Room Air Room Air Room Air O2 Flow Rate 2.0 01/03/17 01/03/17 01/03/17 01/03/17 07:53 08:47 08:48 10:47 Temp 97.9 97.9 97.9 97.9 Pulse 54 54 54 55 Resp B/P 124/62 124/62 124/62 127/62 Pulse Ox 97 95 O2 Delivery Room Air Room Air Intake and Output 01/02/17 01/02/17 01/03/17 14:59 22:59 06:59 Intake Total 50 ml 810 ml Output Total 550 ml 450 ml Balance -500 ml 360 ml DIPAK NEVILLE MD Jan 03, 2017 12:18
[2017-01-03] MEDS: AMOXICILLIN/K CLAV 875/125MG TABLET. PO SCH ×2 (13:32→20:03)
[2017-01-03 15:48] VITALS: BP 107/55
[2017-01-03 19:20] VITALS: BP 103/65
[2017-01-03] MEDS: ATORVASTATIN CALCIUM 10 MG TABLET. PO SCH (20:03)
[2017-01-03] MEDS: HYDROCODONE/APAP 5/325MG TABLET. PO PRN (20:03)
[2017-01-03 23:10] VITALS: BP 146/69
[2017-01-04 03:05] VITALS: BP 131/65
[2017-01-04 07:30] VITALS: BP 123/60
[2017-01-04] MEDS: DILTIAZEM HCL 180 MG CAP.ER.24H PO SCH (09:01)
[2017-01-04] MEDS: PANTOPRAZOLE 40 MG TABLET.DR. PO SCH (09:01)
[2017-01-04] MEDS: AMOXICILLIN/K CLAV 875/125MG TABLET. PO SCH (09:01)
[2017-01-04] MEDS: LISINOPRIL 40 MG TABLET. PO SCH (09:02)
[2017-01-04 11:46] VITALS: BP 110/50
--- NOTE | 2017-01-04 12:57 | PDOC3 ---
Discharge Summary* Date of Admission: Dec 28, 2016 Date of Discharge: Jan 04, 2017 Admitting Diagnosis Vaginal bleeding Multiple ecchymosis, possibly coagulopathy 2/2 to platelet dysfunction HTN Final Diagnosis Postmenopausal bleeding s/p hysterectomy CONSULTS Dr. Peacock, OBGYN Procedures Endometrial biopsy Hysterectomy Brief Hospital Course Ms. Sanchez is a 81 old F who presented to Dr. Burks's cardiology outpatient office on 12/27 with L sided abdominal pain and vaginal bleeding. She had a palpable mass in her abdomen with dull pain. She had a recent ED visit 4 days prior for vaginal bleeding. She was discharged from the ED and told to follow up with Dr. Peacock in the office. She was admitted into the hospital directly from Dr. Burks's office and plavix and aspirin were withheld. On hospital day 2, she had a D&C with biopsy by OBGYN and an echo with LVEF at 63%. She was stable from a cardiac standpoint. CT abdomen/pelvis did not reveal any acute abdominal or pelvic abnormalities. Biopsy was negative for any malignancy, but could not be ruled out due to the small amount of sample available. Patient decided for and underwent laparoscopic assisted vaginal hysterectomy with bilateral salpingo-oophrectomy on hospital day 4 (01/01/2017). Procedure was tolerated well. On hospital day 7, patient complained of inability to pass flatus. She has had a bowel movement on last hospital day before discharge. Disposition/Orders: D/C to Home CONDITION AT DISCHARGE: Stable Diet: Regular Scheduled Alendronate Sodium (Alendronate Sodium) 70 MG PO WEEKLY (Reported) Aspirin (Aspir 81) 1 TAB PO DAILY (Reported) Atorvastatin Calcium (Atorvastatin Calcium) 10 MG PO QHS Clonidine (Clonidine Tts-3) 1 PATCH TD WEEKLY (Reported) Diltiazem Hcl (Diltiazem 24HR Cd) 1 CAP PO DAILY (Reported) Lisinopril (Lisinopril) 40 MG PO DAILY Pantoprazole Sodium (Pantoprazole Sodium) 20 MG PO DAILY (Reported) Scheduled PRN Hydrocodone/Acetaminophen (Lortab 5-325 mg Tablet) 1 TAB PO PRN Q8HRS PRN PRN PAIN (Reported) Discontinued Medications Clopidogrel Bisulfate (Clopidogrel) 75 MG PO DAILY (Reported) FOLLOW UP APPOINTMENT: Follow up with Dr. Peacock within 1-2 weeks or as he recommends. PCP Follow up with PCP within 1-2 weeks. Time Spent Total time spent with patient [] minutes for coordination of care, counseling, and education. DIPAK BURKS MD Jan 04, 2017 12:57
--- NOTE | 2017-01-04 17:12 | PATHOLOGY ---
PATHOLOGY REPORT * * * * * * * * FINAL DIAGNOSIS: Uterus, bilateral fallopian tubes and ovaries, laparoscopic-assisted vaginal hysterectomy with bilateral salpingo-oophorectomy: - Erosion and mild acute inflammation of ectocervical and endocervical mucosa. - Mild chronic cervicitis with focal squamous metaplasia. - Nabothian cyst. - Atrophic endometrium with recent hemorrhage and mild acute inflammation, consistent with recent biopsy. - Small endometrial polyp. - Adenomyosis, uterine corpus. - Involutional changes of bilateral fallopian tubes with cystic [place] rests and small paratubal cyst. - Involutional changes of bilateral ovaries with small simple cyst of right ovary. COMMENT: There is no evidence of malignancy. (JPM:; d/t: 01/04/17) REPORT ELECTRONICALLY SIGNED BY: Kota Thakkar M.D. DATE/TIME: 01/04/2017 16:19 * * * * * * * * GROSS PATHOLOGY: The specimen is received in formalin labeled "Kacie Waldron, uterus, cervix, bilateral fallopian tubes and ovaries". Received is a 41 g, 6.6 x 4.1 x 2.7 cm uterus with attached cervix and attached left fallopian tube weighing 2 g, attached right adnexa weighing 6 g, and detached left ovary weighing 4 g. The uterine serosa is light amin and smooth in appearance. The 0.9 cm cervical os is surrounded by pale amin to white-amin, smooth and glistening ectocervical mucosa. The uterus is oriented using the peritoneal reflection and the anterior paracervical margin is inked black. The uterus is opened laterally to reveal a pale amin to amin-brown endocervical canal measuring 1.8 cm in length. The endometrial cavity is triangular measuring 3.5 cm in length by 1.4 cm in width. The endometrium is amin-brown, granular in appearance and measures 0.1 cm in thickness. Serial sectioning reveals a pale amin, trabeculated myometrium measuring up to 1.7 cm in thickness with no grossly distinct nodules or lesions. The left adnexa consists of a fimbriated fallopian tube measuring 7.5 cm in length by up to 0.5 cm in diameter and detached 2.1 x 1.4 x 1.0 cm ovary. Sectioning through the fallopian tube reveals a pinpoint lumen and the fallopian tube appears otherwise grossly unremarkable. Sectioning through the ovary reveals pale amin, normal ovarian stroma. The right adnexa consists of a fimbriated fallopian tube measuring 7.1 cm in length by up to 0.5 cm in diameter attached to a 2.1 x 1.3 x 0.9 cm ovary. Sectioning through the fallopian tube reveals a pinpoint lumen and displays multiple attached paratubal cysts ranging in size from 0.3 to 0.5 cm filled with clear fluid. Sectioning through the ovary reveals a unilocular cystic structure measuring 0.6 cm filled with clear fluid. The remainder of the cut surfaces displays pale amin, normal ovarian stroma. The specimen is submitted representatively as follows: A1 12:00 cervix A2 6:00 cervix A3 anterior endomyometrium A4 posterior endomyometrium A5 left adnexa A6 right adnexa. (CAA; 01/03/2017) INITIAL CPT CODE(S): A; 87287 Professional services performed [place] [facility] [place] [address] Technical services performed by [facility] at [address] [place] [address] [address], [place] [address]. SPECIMEN(S) RECEIVED: A.Cervix, uterus, bilateral fallopian tubes and ovaries CLINICAL HISTORY: Post-menopausal bleeding PATIENT: KACIE WALDRON /AGE: [id number] 1935 (Age: 81) PATIENT #: [id number] ALT CASE #: SPECIMEN COLLECTION DATE: 12/31/2016 SPECIMEN RECEIVED DATE: 01/03/2017 [facility] - [address] [place] [address] - PHONE: [phone] * * * END OF REPORT * * *
--- NOTE | 2017-01-05 19:25 | PDOC ---
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
== END 2017-01-04 13:55 | disposition home health service (06) | DRG 982 ==
LOC: 2 NORTH 15:07
PROVIDERS: ADMIT Internal Medicine Cardiovascular Disease; ATTEND Internal Medicine Cardiovascular Disease
PROC: 0UDB8ZX Extraction of Endometrium, Via Natural or Artificial Opening Endoscopic, Diagnostic (ICD-10-PCS; 2016-12-30)
PROC: 0UTC7ZZ Resection of Cervix, Via Natural or Artificial Opening (ICD-10-PCS; 2016-12-31)
PROC: 0UT2FZZ Resection of Bilateral Ovaries, Via Natural or Artificial Opening With Percutaneous Endoscopic Assistance (ICD-10-PCS; 2016-12-31)
PROC: 0UT7FZZ Resection of Bilateral Fallopian Tubes, Via Natural or Artificial Opening With Percutaneous Endoscopic Assistance (ICD-10-PCS; 2016-12-31)
PROC: 0UT9FZZ Resection of Uterus, Via Natural or Artificial Opening With Percutaneous Endoscopic Assistance (ICD-10-PCS; principal; 2016-12-31 16:00)
DX: D69.1 Qualitative platelet defects (principal); E44.1 Mild protein-calorie malnutrition; N95.0 Postmenopausal bleeding; I25.10 Atherosclerotic heart disease of native coronary artery without angina pectoris; I10 Essential (primary) hypertension; E78.5 Hyperlipidemia, unspecified; K21.9 Gastro-esophageal reflux disease without esophagitis; K59.00 Constipation, unspecified; R58 Hemorrhage, not elsewhere classified; Z82.49 Family history of ischemic heart disease and other diseases of the circulatory system; Z86.73 Personal history of transient ischemic attack (TIA), and cerebral infarction without residual deficits; Z68.26 Body mass index [BMI] 26.0-26.9, adult; Z88.8 Allergy status to other drugs, medicaments and biological substances; Z91.041 Radiographic dye allergy status; Z91.013 Allergy to seafood
CPT/HCPCS: 36415; 71020; 74176; 76705; 80053; 81001; 85007; 85027; 85610; 85651; 85730; 87086; 88305; 88307; 93005; 93306; C1769; J0330; J0690; J1100; J2405; J2543; J2704; J2710; J3010; J3490; J7030; J7120; Q9968

== ENCOUNTER 2017-06-02 10:28 | Inpatient (IN) | payer MEDICARE, OTHER ==
[~2017-06-02] VITALS: Ht 170.2 cm; Wt 84.6 kg
[~2017-06-02 10:28] MED LIST changes: +HYDR-2869 PO; -MELO-156 PO; +MELO7.5T29 PO; +METO-239 PO; +METO25TA4 PO; -METO25TA9 PO
[2017-06-02] MEDS ORDERED: ONDANSETRON PF 4 MG/2 ML VIAL. IV ONE (11:30)
[2017-06-02] MEDS: HYDROmorphone 2 MG/ML VIAL IV/SQ PRN ×2 (11:31→13:05)
--- NOTE | 2017-06-02 12:19 | PHYS DOC ---
Past Medical History Past Medical History: CVA, GERD, High Cholesterol, Hypertension, [place], Other Additional Past Medical Histor: TIA,NSTEMI Past Surgical History: Angioplasty, Hysterectomy, Tonsillectomy, Other Additional Past Surgical Histo: IMPLANTS IN BOTH EYES,CARDIAC STENT Alcohol Use: None Drug Use: None Adult General Chief Complaint Chief Complaint: MECHANICAL FALL HPI HPI Patient is a 82 year old female presents to the emergency department by way of EMS. Patient was walking out of the parking lot when she tripped over a curb and landed on her face. Patient does have a history of being on Plavix. She is complaining of nose pain and discomfort, neck pain, left shoulder, left hip pain , and left knee pain. Patient does have ecchymosis noted on the left knee. Peripheral pulses are 2+ cap refill brisk less than 2 seconds. Patient denies any loss of consciousness. She is currently in C-spine precaution. Review of Systems Review of Systems Constitutional: Denies fever or chills [] Eyes: Denies change in visual acuity, redness, or eye pain [] HENT: Denies nasal congestion or sore throat. Complaint of facial discomfort. [] Respiratory: Denies cough or shortness of breath [] Cardiovascular: No additional information not addressed in HPI [] GI: Denies abdominal pain, nausea, vomiting, bloody stools or diarrhea [] : Denies dysuria or hematuria [] Musculoskeletal: Complaint of neck pain, left shoulder, left hip, left knee pain. Integument: Denies rash or skin lesions [] Neurologic: Denies headache, focal weakness or sensory changes [] Endocrine: Denies polyuria or polydipsia [] Current Medications Current Medications Current Medications Medications (Trade) Dose Ordered Sig/Daryl Start Time Stop Time Status Last Admin Dose Admin Diphtheria/ Tetanus/Acell Pertussis (Boostrix) 0.5 ml ONCE ONCE 06/02/17 12:30 06/02/17 12:31 DC 06/02/17 12:55 0.5 ML Hydromorphone HCl (Dilaudid) 0.5 mg PRN Q15MIN PRN 06/02/17 11:30 06/03/17 11:29 06/02/17 13:05 0.5 MG Ondansetron HCl (Zofran) 4 mg 1X ONCE 06/02/17 11:30 06/02/17 11:31 DC 06/02/17 11:29 4 MG Allergies Allergies Allergies Coded Allergies Type Severity Reaction Last Updated Verified iodine Allergy Severe Anaphylaxis 05/06/16 Yes shellfish derived Allergy Severe Anaphylaxis 05/06/16 Yes felodipine Allergy Intermediate 05/06/16 Yes Physical Exam Physical Exam Constitutional: Well developed, well nourished, no acute distress, non-toxic appearance. [] HENT: Normocephalic, atraumatic, bilateral external ears normal, oropharynx moist, no oral exudates, nose normal. Bilateral tympanic membranes appear to be normal. Nose appears to have abrasions noted at the bridge of the nose. Neck no epistaxis noted. Eyes: PERRLA, EOMI, conjunctiva normal, no discharge. [] Neck: Normal range of motion, no tenderness, supple, no stridor. [] Cardiovascular:Heart rate regular rhythm, no murmur [] Lungs & Thorax: Bilateral breath sounds clear to auscultation [] Skin: Warm, dry, no erythema, no rash. [] Back: No tenderness Extremities: Left shoulder tenderness, no cyanosis, no clubbing, ROM intact, no edema. Decreased range of motion of the left shoulder with swelling and tenderness noted. Left hip with tenderness noted. Patient with left knee ecchymosis noted no redness, tenderness noted around the knee itself. Peripheral pulses are 2+ cap refill brisk less than 2 seconds. Neurologic: Alert and oriented X 3, normal motor function, normal sensory function, no focal deficits noted. [] Psychologic: Affect normal, judgement normal, mood normal. [] Current Patient Data Vital Signs Vital Signs Date Time Temp Pulse Resp B/P (MAP) Pulse Ox O2 Delivery O2 Flow Rate FiO2 06/02/17 13:35 20 95 Nasal Cannula 2.0 06/02/17 13:35 92 195/86 (122) 06/02/17 10:28 98.6 98.6 EKG EKG [] Radiology/Procedures Radiology/Procedures [] Course & Med Decision Making Course & Med Decision Making Pertinent Labs and Imaging studies reviewed. (See chart for details) Patient was provided with Dilaudid by patient had to have 1 L of oxygen by nasal cannula due to increase drowsiness with the Dilaudid. CT of the head and neck were negative for any abnormalities. X-rays of the left hip and left knee were negative for any bony abnormalities. However the left shoulder had a humeral head/neck fracture. Call was placed to Dr. Starkey as Henok MCFARLANE return the call. He was questioning as to whether x-rays of actually been done on this patient and he was explained that the results have been red to him. He had requested past medical problems with the patient this was provided to him over the phone. He had questions as to whether the axillary view any humeral head view of the AP and lateral had been done. He had looked at the x-rays and still feels that further views of these areas as mentioned needs to be completed. Call was placed to Dr. erwin and Dr. Burks. Dr. Burks is aware of the patient being admitted into the hospital due to fracture of the humeral head, left. Dr. erwin is in agreement's with admission. Patient will be provided with pain medication. Dr. Starkey called in regards to x-rays being ordered. She is requesting of develop you view and a true AP view. Radiology is being notified. [] Dragon Disclaimer Dragon Disclaimer This electronic medical record was generated, in whole or in part, using a voice recognition dictation system. Departure Departure Impression: Primary Impression: Fall Additional Impressions: Closed head injury Nasal abrasion Cervical spine pain Fracture of humeral head, left, closed Left knee pain Left hip pain Disposition: 09 ADMITTED INPATIENT Admitting Physician: Other (Alexi Erwin Carpenter, Henok MCFARLANE) Referrals: LOUISE NOONAN MD (PCP) Problem Qualifiers Primary Impression: Fall Encounter type: initial encounter Qualified Codes: W19.XXXA - Unspecified fall, initial encounter Additional Impressions: Closed head injury Encounter type: initial encounter Qualified Codes: S09.90XA - Unspecified injury of head, initial encounter Nasal abrasion Encounter type: initial encounter Qualified Codes: S00.31XA - Abrasion of nose, initial encounter Fracture of humeral head, left, closed Encounter type: initial encounter Qualified Codes: S42.292A - Other displaced fracture of upper end of left humerus, initial encounter for closed fracture Left knee pain Chronicity: acute Qualified Codes: M25.562 - Pain in left knee JAMILA FAUST ASSISTANT MANAGER/EMBALMER Jun 02, 2017 12:19
--- NOTE | 2017-06-02 12:25 | RAD ---
Indication. Injury to head and cervical spine. Pain. The head and cervical spine were evaluated. Images of the cervical spine were reformatted in coronal and sagittal planes. The head is compared to a study 05/06/2016. CT head: Findings. The calvarium appears unremarkable. The visualized paranasal sinuses appear unremarkable. There is no subdural or epidural hematoma. There is underlying atrophy. There is increased lucency in the deep white matter compatible with microvascular disease. No mass or midline shift is seen. There is no evidence of hemorrhage. Acute intracranial finding is not apparent. There is an area of parenchymal loss in the left posterior fossa appearing similar to the previous exam. CT cervical spine: Findings. On the first image there is a parenchymal opacity in the visualized right lung. This may reflect scar. Is not typical of malignancy but this cannot be entirely excluded. Follow-up imaging along the lines of the Fleischner criteria should be considered. An acute finding at either lung apex is not seen. The thyroid appears mildly enlarged. There is some mild adenopathy in the neck likely incidental. Review of axial images demonstrates some modest degenerative change. No fracture is seen. The reformatted images in the coronal and sagittal planes also are negative for fracture. IMPRESSION: Mild spondylitic changes in the cervical spine. No acute finding seen. Nodular opacity in the right upper lobe. Follow-up imaging should be considered. Chronic changes in the head. No acute finding seen PQRS Compliance Statement: One or more of the following individualized dose reduction techniques were utilized for this examination: 1. Automated exposure control 2. Adjustment of the mA and/or kV according to patient size 3. Use of iterative reconstruction technique
[2017-06-02] MEDS ORDERED: DIPHTH,PERTUSS(ACELL),TET TOX 0.5 ML DISP.SYRIN. VAX IM ONE (12:30)
--- NOTE | 2017-06-02 12:31 | RAD ---
Indication fall, pain. Assess for potential fracture. Maxillofacial images were obtained and reformatted in the coronal and sagittal planes. The zygomatic arches appear normal. The mandible appears unremarkable. No maxillary fracture is seen. There is a polyp or retention cyst in the right maxillary sinus. The medial and lateral benedict of the orbits appear normal. No facial fracture seen. IMPRESSION: Negative study for facial fracture PQRS Compliance Statement: One or more of the following individualized dose reduction techniques were utilized for this examination: 1. Automated exposure control 2. Adjustment of the mA and/or kV according to patient size 3. Use of iterative reconstruction technique
--- NOTE | 2017-06-02 13:01 | RAD ---
Pelvis with left hip, 3 views, 06/02/2017: History: Fall, injury The bony structures are demineralized. No fracture or dislocation is identified. The hip joint spaces are well-maintained with only minimal marginal spurring. Arterial calcifications are evident. IMPRESSION: No acute bony abnormality is detected.
--- NOTE | 2017-06-02 13:02 | RAD ---
Left knee, 3 views, 06/02/2017: History: Fall, pain The bony structures are demineralized. No fracture or dislocation is identified. There is mild degenerative change at the patellofemoral articulation. There is moderate subcutaneous edema. No significant joint effusion is evident. IMPRESSION: No acute bony abnormality is detected.
--- NOTE | 2017-06-02 13:05 | RAD ---
Left shoulder, 2 views, 06/02/2017: History: Trauma, shoulder pain Comparison is made to a study from 09/28/2004. The bony structures are demineralized. There is a fracture of the left humeral neck involving the lateral aspect of the humeral head. The major distal fracture fragment is mildly displaced anteriorly. Mild degenerative change is present at the AC joint. IMPRESSION: 1. Demineralization. 2. Acute fracture of the left humeral neck/head
[2017-06-02] MEDS ORDERED: IV NORMAL SALINE 1000ML BAG 1,000 ML IV ONE (14:30)
--- NOTE | 2017-06-02 15:29 | RAD ---
Indication fracture. An AP and an axillary view were obtained. There is a fracture of the humeral neck and greater tubercle. There is some angulation associated with the fracture. IMPRESSION: Traumatic fracture humeral neck and greater tubercle
[2017-06-02 15:59] VITALS: BP 187/93
[2017-06-02] MEDS ORDERED: LABETALOL 20 MG/4 ML DISP.SYRIN. IVP PRN (16:15)
--- NOTE | 2017-06-02 16:28 | PDOC2 ---
CONSULT Date of Consult Date of Consult DATE: 06/02/17 TIME: 16:14 Reason for Consult Reason for Consult: HTN Referring Physician Referring Physician: Dr Erwin Identification/Chief Complaint Chief Complaint Fall Problems: History of Present Illness Reason for Visit: This pt is an 82 y o Lady with a Hx of HTN, CAD, [place], CVA that comes in after a fall with trauma to face, L arm and L leg resulting in L humerus Fx. Pt denies LOC but this is not certain. No cardiac complaints at this time. Pt in sinus rhythm since arrival but BP is running high up to 185 systolic. Past Medical History Cardiovascular: CAD, HTN, [place], Hyperlipidemia CENTRAL NERVOUS SYSTEM: CVA GI: GERD Renal/: Chronic renal insuff Past Surgical History Past Surgical History: Cataract Removal, Tonsillectomy Family History Family History: Hypertension Social History ALCOHOL: none Drugs: None Current Problem List Problem List Problems Medical Problems: (1) Cervical spine pain Status: Acute (2) Closed head injury Status: Acute (3) Fall Status: Acute (4) Fracture of humeral head, left, closed Status: Acute (5) Left hip pain Status: Acute (6) Left knee pain Status: Acute (7) Nasal abrasion Status: Acute Current Medications Current Medications Current Medications Hydromorphone HCl (Dilaudid) 0.5 mg PRN Q15MIN PRN IV/SQ PAIN GREATER THAN 3/ 10 Last administered on 06/02/17 13:05; Start 06/02/17 at 11:30; Stop 06/03/17 at 11:29 Ondansetron HCl (Zofran) 4 mg 1X ONCE IV Last administered on 06/02/17 11:29; Start 06/02/17 at 11:30; Stop 06/02/17 at 11:31; Status DC Diphtheria/ Tetanus/Acell Pertussis (Boostrix) 0.5 ml ONCE ONCE VAX IM Last administered on 06/02/17 12:55; Start 06/02/17 at 12:30; Stop 06/02/17 at 12:31; Status DC Morphine Sulfate 4 mg PRN Q2HR PRN IV PAIN; Start 06/02/17 at 14:30; Stop at 14:29 Sodium Chloride 1,000 ml @ 75 mls/hr 1X ONCE IV Last administered on 14:57; Start 06/02/17 at 14:30; Stop 06/03/17 at 03:49 Active Scripts Active Atorvastatin Calcium 10 Mg Tablet 10 Mg PO QHS Lisinopril 40 Mg Tablet 40 Mg PO DAILY Reported Hydralazine Hcl 50 Mg Tablet 50 Mg PO TID Metoprolol Tartrate 25 Mg Tablet 12.5 Mg PO BID Clopidogrel (Clopidogrel Bisulfate) 75 Mg Tablet 75 Mg PO DAILY Lortab 5-325 mg Tablet (Hydrocodone/Acetaminophen) 1 Each Tablet 1 Tab PO PRN Q8HRS PRN Alendronate Sodium 70 Mg Tablet 70 Mg PO WEEKLY Diltiazem 24HR Cd (Diltiazem Hcl) 180 Mg Cap.er.24h 1 Cap PO DAILY Clonidine Tts-3 (Clonidine) 1 Each Patch.tdwk 1 Patch TD WEEKLY Aspir 81 (Aspirin) 81 Mg Tablet.dr 1 Tab PO DAILY Pantoprazole Sodium 40 Mg Tablet.dr 20 Mg PO DAILY Allergies Allergies: Coded Allergies: iodine (Verified Allergy, Severe, Anaphylaxis, 05/06/16) shellfish derived (Verified Allergy, Severe, Anaphylaxis, 05/06/16) felodipine (Verified Allergy, Intermediate, 05/06/16) Physical Exam General: Alert, Oriented X3, Cooperative, moderate distress HEENT: PERRLA, Other (echymosis and edema over nose and L eye) Lungs: Clear to auscultation Heart: Regular rate, Normal S1, Normal S2, Other (I-II/ syst murmur) Abdomen: Normal bowel sounds, Soft Extremities: Other (ice pack over L shoulder) Vitals VITALS Vital Signs Date Time Temp Pulse Resp B/P (MAP) Pulse Ox O2 Delivery O2 Flow Rate FiO2 06/02/17 15:59 97.9 92 16 187/93 (124) 95 Nasal Cannula 2.0 97.9 Assessment/Plan Assessment/Plan This pt with blunt trauma to face and L shoulder has a L Humerus Fx. She is being evaluated by Ortho. Pt compensated cardiac chambers. Will give IV labetalol to control BP and she is cleared for surgery if it is needed. I am concerned that this fall may have been caused by a syncopal episode therefore I would like to keep her monitored. Will follow. Thank you for asking me to participate in the care of this patient. DIPAK NEVILLE MD Jun 02, 2017 16:28
--- NOTE | 2017-06-02 17:12 | RAD ---
Indication assess fracture. Axial images through the left shoulder were obtained and reformatted in the coronal and sagittal planes. The lung apices appear clear. There is some slight soft tissue swelling about the left shoulder. The visualized clavicle appears normal. The scapula appears normal. There is a vertical fracture through the greater tubercle which extends to the humeral head. There is a moderately impacted and angulated fracture involving the humeral neck. IMPRESSION: Impacted and angulated fracture involving the humeral neck with an associated fracture involving the greater tubercle PQRS Compliance Statement: One or more of the following individualized dose reduction techniques were utilized for this examination: 1. Automated exposure control 2. Adjustment of the mA and/or kV according to patient size 3. Use of iterative reconstruction technique
[2017-06-02 19:20] VITALS: BP 174/84
[2017-06-02] MEDS: MORPHINE SULFATE 4 MG/ML DISP.SYRIN. IV PRN (19:38)
--- NOTE | 2017-06-02 20:46 | RAD ---
Examination: 2 views of the left humerus HISTORY: History of proximal humerus fracture COMPARISON: Shoulder x-ray from same day exam FINDINGS: Mild displaced fracture of of the humerus neck and greater tuberosity again identified. The distal humerus grossly appears unremarkable. IMPRESSION: Mild displaced fracture of the humerus neck and greater tuberosity. Electronically signed by: Ronny Youssef MD (06/02/2017 8:42 PM) [facility]
--- NOTE | 2017-06-02 21:08 | PDOC1 ---
History and Physical Date of Admission Date of Admission DATE: 06/02/17 TIME: 21:03 Identification/Chief Complaint Chief Complaint shoulder pain, left Problems: Source Source: Caregiver, Chart review, Patient History of Present Illness History of Present Illness Ms. Sanchez, is a 82 year old female admit after fall, Struck her arm and her nose today, . She was walking and tripped over a curb and landed on her face. she takes plavix and aspirin per her CV consult. face pain is bettetr, neck shoulder and aarm and neck pain, pain 8/10 she has splint on that is helping, some benefit from IV morphine Dr. Jolley has seen her already she lives in assisted living, but is ambulatory and very independent Past Medical History Cardiovascular: CAD, HTN, [place], Hyperlipidemia CENTRAL NERVOUS SYSTEM: CVA GI: GERD Renal/: Chronic renal insuff Past Surgical History Past Surgical History: Cataract Removal, Tonsillectomy Family History Family History: Hypertension Social History Smoke: No ALCOHOL: none Drugs: None Current Problem List Problem List Problems Medical Problems: (1) Cervical spine pain Status: Acute (2) Closed head injury Status: Acute (3) Fall Status: Acute (4) Fracture of humeral head, left, closed Status: Acute (5) Left hip pain Status: Acute (6) Left knee pain Status: Acute (7) Nasal abrasion Status: Acute Problems: Current Medications Current Medications Current Medications Hydromorphone HCl (Dilaudid) 0.5 mg PRN Q15MIN PRN IV/SQ PAIN GREATER THAN 3/ 10 Last administered on 06/02/17 13:05; Start 06/02/17 at 11:30; Stop 06/03/17 at 11:29 Ondansetron HCl (Zofran) 4 mg 1X ONCE IV Last administered on 06/02/17 11:29; Start 06/02/17 at 11:30; Stop 06/02/17 at 11:31; Status DC Diphtheria/ Tetanus/Acell Pertussis (Boostrix) 0.5 ml ONCE ONCE VAX IM Last administered on 06/02/17 12:55; Start 06/02/17 at 12:30; Stop 06/02/17 at 12:31; Status DC Morphine Sulfate 4 mg PRN Q2HR PRN IV PAIN Last administered on 06/02/17 19:38 ; Start 06/02/17 at 14:30; Stop 06/03/17 at 14:29 Sodium Chloride 1,000 ml @ 75 mls/hr 1X ONCE IV Last administered on t 14:57; Start 06/02/17 at 14:30; Stop 06/03/17 at 03:49 Labetalol HCl (Normodyne) 5 mg PRN Q4HRS PRN IVP HYPERTENSION, SEE COMMENTS Last administered on 06/02/17t 16:33; Start 06/02/17 at 16:15 Lidocaine (Lidoderm) 1 patch DAILY TD ; Start 06/02/17 at 21:00 Atorvastatin Calcium (Lipitor) 10 mg QHS PO ; Start 06/02/17 at 21:00 Clonidine HCl (Catapres Tts-3) 1 patch WEEKLY TD ; Start 06/03/17 at 09:00 Diltiazem HCl (Cardizem 24hr Cd) 180 mg DAILY PO ; Start 06/03/17 at 09:00 Hydralazine HCl (Apresoline) 50 mg TID PO ; Start 06/02/17 at 21:00 Acetaminophen/ Hydrocodone Bitart (Lortab 5/325) 1 tab PRN Q8HRS PRN PO PAIN; Start 06/02/17 at 21:00 Lisinopril (Prinivil) 40 mg DAILY PO ; Start 06/03/17 at 09:00 Metoprolol Tartrate (Lopressor) 12.5 mg BID PO ; Start 06/02/17 at 21:00 Pantoprazole Sodium (Protonix) 40 mg DAILYAC PO ; Start 06/03/17 at 07:30 Active Scripts Active Atorvastatin Calcium 10 Mg Tablet 10 Mg PO QHS Lisinopril 40 Mg Tablet 40 Mg PO DAILY Reported Hydralazine Hcl 50 Mg Tablet 50 Mg PO TID Metoprolol Tartrate 25 Mg Tablet 12.5 Mg PO BID Clopidogrel (Clopidogrel Bisulfate) 75 Mg Tablet 75 Mg PO DAILY Lortab 5-325 mg Tablet (Hydrocodone/Acetaminophen) 1 Each Tablet 1 Tab PO PRN Q8HRS PRN Alendronate Sodium 70 Mg Tablet 70 Mg PO WEEKLY Diltiazem 24HR Cd (Diltiazem Hcl) 180 Mg Cap.er.24h 1 Cap PO DAILY Clonidine Tts-3 (Clonidine) 1 Each Patch.tdwk 1 Patch TD WEEKLY Aspir 81 (Aspirin) 81 Mg Tablet.dr 1 Tab PO DAILY Pantoprazole Sodium 40 Mg Tablet.dr 20 Mg PO DAILY Allergies Allergies: Coded Allergies: iodine (Verified Allergy, Severe, Anaphylaxis, 05/06/16) shellfish derived (Verified Allergy, Severe, Anaphylaxis, 05/06/16) felodipine (Verified Allergy, Intermediate, 05/06/16) ROS General: No: Chills, Night Sweats, Fatigue, Malaise, Appetite, Other PSYCHOLOGICAL ROS: No: Anxiety, Behavioral Disorder, Concentration difficultie , Decreased libido, Depression, Disorientation, Hallucinations, Hostility, Irritablity, Memory difficulties, Mood Swings, Obsessive thoughts, Physical abuse, Sexual abuse, Sleep disturbances, Suicidal ideation, Other Eyes: No Blurry vision, No Decreased vision, No Double vision, No Dry eyes, No Excessive tearing, No Eye Pain, No Itchy Eyes, No Loss of vision, No Photophobia , No Scotomata, No Uses contacts, No Uses glasses, No Other HEENT: No: Heacaches, Visual Changes, Hearing change, Nasal congestion, Nasal discharge, Oral lesions, Sinus pain, Sore Throat, Epistaxis, Sneezing, Snoring, Tinnitus, Vertigo, Vocal changes, Other Respiratory: No: Cough, Hemoptysis, Orthopnea, Pleuritic Pain, Shortness of breath, SOB with excertion, Sputum Changes, Stridor, Tachypnea, Wheezing, Other Cardiovascular: yes Edema Gastrointestinal: No Nausea, No Vomiting, No Abdominal Pain, No Diarrhea, No Constipation, No Melena, No Hematochezia, No Other Genitourinary: No Dysuria, No Frequency, No Incontinence, No Hematuria, No Retention, No Discharge, No Urgency, No Pain, No Flank Pain, No Other, No , No , No , No , No , No , No Musculoskeletal: Yes Joint Pain, Yes Joint Stiffness, Yes Joint Swelling, Yes Muscular Weakness, Yes Pain In: (shoudler, neck), No Gait Disturbance, No Muscle Pain, No Swelling In:, No Other Neurological: No Behavorial Changes, No Bowel/Bladder ControlChng, No Confusion , No Dizziness, No Gait Disturbance, No Headaches, No Impaired Coord/balance, No Memory Loss, No Numbness/Tingling, No Seizures, No Speech Problems, No Tremors, No Visual Changes, No Weakness, No Other Skin: Yes Eczema, No Dry Skin, No Hair Changes, No Lumps, No Mole Changes, No Mottling, No Nail Changes, No Pruritus, No Rash, No Skin Lesion Changes, No Other, No Acne Physical Exam General: Alert, Cooperative, No acute distress, mild distress HEENT: PERRLA, Mucous membr. moist/pink, Other (bruised and excoriated nose) Lungs: Clear to auscultation, Normal air movement Abdomen: Normal bowel sounds, Soft Rectal Exam: not examined Extremities: Other (2+ Le edema, symmetrical, she reports static) Skin: No rashes, No breakdown Neuro: Normal speech, Normal tone Psych/Mental Status: Mood NL Vitals Vitals Vital Signs Date Time Temp Pulse Resp B/P (MAP) Pulse Ox O2 Delivery O2 Flow Rate FiO2 06/02/17 19:38 20 Nasal Cannula 2.0 06/02/17 19:20 98.1 104 174/84 (114) 94 98.1 VTE Prophylaxis Ordered VTE Prophylaxis Devices: Yes VTE Pharmacological Prophylaxi: Yes Assessment/Plan Assessment/Plan acute fracture left humerus, left arm and shoudler pain, lidoderm patch and PRN meds CHF, chronic LE edema, CV consult following dementia GERD prior CVA pain control, NPO for surg in AM admit JES ABARCA MD Jun 02, 2017 21:08
[2017-06-02] MEDS: METOPROLOL TART IMMED RELEASE 25 MG TABLET. PO SCH (21:37)
[2017-06-02] MEDS: LIDOCAINE (700MG/PATCH) PATCH. TD SCH (21:38)
[2017-06-02] MEDS: ATORVASTATIN CALCIUM 10 MG TABLET. PO SCH (21:38)
[2017-06-02] MEDS: HYDROcodone/APAP 5/325MG 1 TAB TABLET PO PRN (21:44)
[2017-06-02 23:02] VITALS: BP 103/52
--- NOTE | 2017-06-03 02:28 | ACF ---
Admission Forms Criteria MUSCULOSKELETAL DISEASE GRG Clinical Indications for Admission to Inpatient Care (Place 'X' for any and all applicable criteria): Hospital admission is needed for appropriate care of the patient because of 1 or more of the following: [ X]I. Fracture, dislocation, or other musculoskeletal injury requiring inpatient care(medical) as indicated by 1 or more of the following(4)(5)(6)(7) [ ]a) Vertebral fracture requiring observation for instability or neurologic compromise (8) [ ]b) Compartment syndrome (proven or cannot be ruled out during observation level of care) (9) [ ]c) Limb-threatening injury [ ]d) Major injury requiring inpatient stabilization such as traction initiation or external fixation before internal fixation or closure of complex or open fracture [ ]Xe) Major injury requiring inpatient treatment after emergency or observation level care (as appropriate) [ ]f) Severe pain requiring acute inpatient management [ ]g) Injury with suspicion of abuse or neglect (eg., child, dependent elderly) [ ]II. Newly diagnosed or suspected bone, joint, or orthopedic device infection (e.g., osteomyelitis, septic arthritis) needing 1 or more of the following(1)(2)(3) [ ]a) IV antibiotics that cannot be initiated in other than inpatient setting (e.g., patient too unstable or home infusion not available) [ ]b) Device removal or replacement [ ]c) Bone or soft tissue debridement [ ]d) Joint drainage (drain placement or repetitive aspirations) [ ]III. Severe rheumatologic disease (e.g., systemic lupus erythematosus, rheumatoid arthritis) with complications or comorbidities (Also use Optimal Recovery Care Criteria or General Recovery Criteria as appropriate on the basis of predominant condition), including 1 or more of the following( 10)(11)(12)(13) [ ]a) Severe infection (e.g., GROUT MACHINE OPERATOR infection, sepsis) (14) [ ]b) Respiratory complications, including 1 or more of the following : [ ]i) Pleural effusion with respiratory compromise [ ]ii) Pulmonary hypertension with congestive failure [ ]iii) Respiratory failure [ ]iv) Pulmonary hemorrhage (15) [ ]c) Hematologic disease, including 1 or more of the following: [ ]i) Coagulopathy with bleeding [ ]ii) Thrombosis with hypercoagulable state [ ]iii) Thrombotic thrombocytopenic purpura [ ]d) Cerebritis with seizures, psychosis, or other severe abnormalities [ ]e) Vertebral destruction with monitoring needed for cervical myelopathy& possible respiratory compromise [ ]f) Exacerbation that requires inpatient treatment (e.g., intravenous immunosuppression) (16) [ ]g) Acute renal failure [ ]h) Cerebritis with seizures, psychosis, Altered mental status, or other neurologic abnormalities [ ]i) Pericardial effusion with tamponade [ ]j) Vertebral destruction, with monitoring needed for cervical myelopathy and possible respiratory compromise [ ]IV. Severe vasculitis with complications or comorbidities (Also use Optimal Recovery Care Criteria General Recovery Criteria as appropriate on the basis of predominant condition), including 1 or more of the following(11)(12)(17)(18)(19)(20) [ ]a) Exacerbation that requires inpatient treatment (e.g., intravenous immunosuppression) (19)(21) [ ]b) Pulmonary hemorrhage (15) [ ]c) GROUT MACHINE OPERATOR vasculitis with seizures, psychosis, Altered mental status that is severe or persistent, or other severe abnormalities (22) [ ]d) Cerebral infarction [ ]e) Gastrointestinal ischemia [ ]f) Gangrene or threatened amputation [ ]g) Renal failure (16) [ ]h) Other significant complications of vasculitis ( eg., tissue or organ ischemia, organ dysfunction ) [ ]V. Severe myopathy as indicated by 1 or more of the following (28)(29) [ ]a) New onset of airway compromise or inability to swallow [ ]b) Respiratory deterioration with observation needed for impending respiratory failure [ ]c) Exacerbation that requires inpatient treatment (e.g., intravenous immunosuppression) [ ]. Severe crystal gout (arthropathy) indicated by 1 or more of the following (23)(24) [ ]a) Severe pain requiring acute inpatient management [ ]b) Exacerbation that requires inpatient treatment (e.g., intravenous treatment) [ ]VII.Rhabdomyolysis and 1 or more of the following (25)(26)(27) [ ]a) Acute renal failure [ ]b) Need for intravenous hydration after emergency or observation level care (as appropriate) [ ]c) Inability to maintain oral hydration [ ]d) Change in mental status [ ]e) Electrolyte abnormality that remains after emergency or observation level care (as appropriate) [ ]VIII Post amputation complication, as indicated by ANY ONE of the following [ ]a) Infection [ ]b) Dehiscence [ ]c) Myodesis failure [ ]IX. Severe pain requiring acute inpatient management due to musculoskeletal condition [ ]X. Musculoskeletal Disease and ALL of the following: [ ]a) Symptom or finding for which emergency and observation care have failed or are not considered appropriate (Use General Criteria: Observation Care as appropriate) [ ]b) Presence of ANY ONE of the following [ ]i) A General Admission Criteria [ ]ii) A Pediatric General Admission Criteria The original [facility] [employer] content created by [facility] has been revised. The portions of the content which have been revised are identified through the use of italic text or in bold, and [facility] has neither reviewed nor approved the modified material. All other unmodified content is copyright [facility]. Please see references footnoted in the original [facility] edition 2016 Admission Criteria Met?: Yes CIERRA SILVER Jun 03, 2017 02:28
[2017-06-03 03:15] VITALS: BP 129/61
[2017-06-03] MEDS: MORPHINE SULFATE 4 MG/ML DISP.SYRIN. IV PRN ×2 (03:31→14:08)
[2017-06-03 04:40] LABS: BASO % 0 % (0-3); EOS % 1 % (0-3); HEMATOCRIT 33.8 % (36.0-47.0); HEMOGLOBIN 11.2 g/dL (12.0-15.5); LYMPH # 2.6 x10^3/uL (1.0-4.8); LYMPH % 28 % (24-48); MEAN CORPUSCULAR HEMOGLOBIN 30 pg (25-35); MEAN CORPUSCULAR HGB CONC 33 g/dL (31-37); MEAN CORPUSCULAR VOLUME 89 fL (79-100); MONO % 11 % (0-9); NEUT % 59 % (31-73); PLATELET COUNT 174 x10^3/uL (140-400); RED BLOOD COUNT 3.79 x10^6/uL (3.50-5.40); RED CELL DISTRIBUTION WIDTH 14.2 % (11.5-14.5); WHITE BLOOD COUNT 9.3 x10^3/uL (4.0-11.0)
[2017-06-03 04:56] LABS: CALCIUM 8.3 mg/dL (8.5-10.1); CREATININE 1.6 mg/dL (0.6-1.0); GFR 30.8; POTASSIUM 4.4 mmol/L (3.5-5.1)
[2017-06-03 07:08] VITALS: BP 144/66
[2017-06-03] MEDS ORDERED: ONDANSETRON PF 4 MG/2 ML VIAL. IV PRN (08:45)
[2017-06-03] MEDS ORDERED: ACETAMINOPHEN 500 MG TABLET PO PRN (08:45)
[2017-06-03] MEDS: METOPROLOL TART IMMED RELEASE 25 MG TABLET. PO SCH ×2 (08:48→20:52)
[2017-06-03] MEDS: LISINOPRIL 40 MG TABLET. PO SCH (08:50)
[2017-06-03] MEDS: PANTOPRAZOLE 40 MG TABLET.DR. PO SCH (08:51)
[2017-06-03] MEDS: LIDOCAINE (700MG/PATCH) PATCH. TD SCH (08:52)
[2017-06-03] MEDS ORDERED: cloNIDine TTS-3 1 PATCH PATCH.TDWK TD SCH (09:00)
--- NOTE | 2017-06-03 09:17 | PDOC2 ---
WILL QUIROZ PAC 06/03/17 0917: CONSULT Date of Consult Date of Consult DATE: 06/03/17 TIME: 09:13 Reason for Consult Reason for Consult: Left proximal humerus fracture Identification/Chief Complaint Chief Complaint Left shoulder pain Problems: (1) Closed fracture of left proximal humerus Source Source: Chart review History of Present Illness Reason for Visit: 82 year old female living in a correction who fell down yesterday after stepping wrong on a curb and landed on her left shoulder. She was sent to the Emergency room with left shoulder pain. She was consulted to us for a left proximal humerus fracture. Past Medical History Cardiovascular: CAD, HTN, PR, Hyperlipidemia CENTRAL NERVOUS SYSTEM: CVA GI: GERD Renal/: Chronic renal insuff Past Surgical History Past Surgical History: Cataract Removal, Tonsillectomy Family History Family History: Hypertension Social History No ALCOHOL: none Drugs: None Lives: Residential Current Problem List Problem List Problems Medical Problems: (1) Cervical spine pain Status: Acute (2) Closed head injury Status: Acute (3) Fall Status: Acute (4) Fracture of humeral head, left, closed Status: Acute (5) Left hip pain Status: Acute (6) Left knee pain Status: Acute (7) Nasal abrasion Status: Acute Current Medications Current Medications Current Medications Hydromorphone HCl (Dilaudid) 0.5 mg PRN Q15MIN PRN IV/SQ PAIN GREATER THAN 3/ 10 Last administered on 06/02/17 13:05; Start 06/02/17 at 11:30; Stop 06/03/17 at 11:29 Ondansetron HCl (Zofran) 4 mg 1X ONCE IV Last administered on 06/02/17 11:29; Start 06/02/17 at 11:30; Stop 06/02/17 at 11:31; Status DC Diphtheria/ Tetanus/Acell Pertussis (Boostrix) 0.5 ml ONCE ONCE VAX IM Last administered on 06/02/17 12:55; Start 06/02/17 at 12:30; Stop 06/02/17 at 12:31; Status DC Morphine Sulfate 4 mg PRN Q2HR PRN IV PAIN Last administered on 06/03/17 03:31 ; Start 06/02/17 at 14:30; Stop 06/03/17 at 14:29 Sodium Chloride 1,000 ml @ 75 mls/hr 1X ONCE IV Last administered on 14:57; Start 06/02/17 at 14:30; Stop 06/03/17 at 03:49; Status DC Labetalol HCl (Normodyne) 5 mg PRN Q4HRS PRN IVP HYPERTENSION, SEE COMMENTS Last administered on 06/02/17 16:33; Start 06/02/17 at 16:15 Lidocaine (Lidoderm) 1 patch DAILY TD Last administered on 06/03/17 08:52; Start 06/02/17 at 21:00 Atorvastatin Calcium (Lipitor) 10 mg QHS PO Last administered on 06/02/17 21:38 ; Start 06/02/17 at 21:00 Clonidine HCl (Catapres Tts-3) 1 patch WEEKLY TD Last administered on 06/03/17 08:51; Start 06/03/17 at 09:00 Diltiazem HCl (Cardizem 24hr Cd) 180 mg DAILY PO Last administered on 06/03/17 08:49; Start 06/03/17 at 09:00 Hydralazine HCl (Apresoline) 50 mg TID PO Last administered on 06/03/17 08:49; Start 06/02/17 at 21:00 Acetaminophen/ Hydrocodone Bitart (Lortab 5/325) 1 tab PRN Q8HRS PRN PO PAIN Last administered on 06/02/17 21:44; Start 06/02/17 at 21:00 Lisinopril (Prinivil) 40 mg DAILY PO Last administered on 06/03/17 08:50; Start 06/03/17 at 09:00 Metoprolol Tartrate (Lopressor) 12.5 mg BID PO Last administered on 06/03/17 08 :48; Start 06/02/17 at 21:00 Pantoprazole Sodium (Protonix) 40 mg DAILYAC PO Last administered on 06/03/17 08:51; Start 06/03/17 at 07:30 Acetaminophen (Tylenol) 500 mg PRN Q6HRS PRN PO MILD PAIN / TEMP; Start at 08:45 Ondansetron HCl (Zofran) 4 mg PRN Q6HRS PRN IV NAUSEA/VOMITING; Start 06/03/17 at 08:45 Active Scripts Active Atorvastatin Calcium 10 Mg Tablet 10 Mg PO QHS Lisinopril 40 Mg Tablet 40 Mg PO DAILY Reported Hydralazine Hcl 50 Mg Tablet 50 Mg PO TID Metoprolol Tartrate 25 Mg Tablet 12.5 Mg PO BID Clopidogrel (Clopidogrel Bisulfate) 75 Mg Tablet 75 Mg PO DAILY Lortab 5-325 mg Tablet (Hydrocodone/Acetaminophen) 1 Each Tablet 1 Tab PO PRN Q8HRS PRN Alendronate Sodium 70 Mg Tablet 70 Mg PO WEEKLY Diltiazem 24HR Cd (Diltiazem Hcl) 180 Mg Cap.er.24h 1 Cap PO DAILY Clonidine Tts-3 (Clonidine) 1 Each Patch.tdwk 1 Patch TD WEEKLY Aspir 81 (Aspirin) 81 Mg Tablet.dr 1 Tab PO DAILY Pantoprazole Sodium 40 Mg Tablet.dr 20 Mg PO DAILY Allergies Allergies: Coded Allergies: iodine (Verified Allergy, Severe, Anaphylaxis, 05/06/16) shellfish derived (Verified Allergy, Severe, Anaphylaxis, 05/06/16) felodipine (Verified Allergy, Intermediate, 05/06/16) ROS General: No: Chills, Night Sweats PSYCHOLOGICAL ROS: No: Anxiety, Behavioral Disorder ALLERGY AND IMMUNOLOGY: No: Hives Respiratory: No: Cough, Hemoptysis, Shortness of breath Gastrointestinal: No Nausea, No Vomiting Musculoskeletal: Yes Joint Pain, Yes Joint Stiffness, Yes Joint Swelling, Yes Muscle Pain, Yes Pain In: (left shoulder) Physical Exam General: Alert, Oriented X3, No acute distress Lungs: Normal air movement Heart: Regular rate Extremities: No clubbing, Normal pulses Psych/Mental Status: Mental status NL, Mood NL MUSCULOSKELETAL: Other (Patient left arm is DNVI. Sensation present over left lateral deltoid. Radial pulse normal. Patient able to extend elbow comfortably to 45 degrees and supinate hand. ) Vitals VITALS Vital Signs Date Time Temp Pulse Resp B/P (MAP) Pulse Ox O2 Delivery O2 Flow Rate FiO2 06/03/17 08:50 71 144/66 06/03/17 07:08 98.0 18 96 Nasal Cannula 2.0 98.0 Labs Labs Laboratory Tests Test 06/03/17 04:00 White Blood Count 9.3 x10^3/uL (4.0-11.0) Red Blood Count 3.79 x10^6/uL (3.50-5.40) Hemoglobin 11.2 g/dL (12.0-15.5) Hematocrit 33.8 % (36.0-47.0) Mean Corpuscular Volume 89 fL (79-100) Mean Corpuscular Hemoglobin 30 pg (25-35) Mean Corpuscular Hemoglobin Concent 33 g/dL (31-37) Red Cell Distribution Width 14.2 % (11.5-14.5) Platelet Count 174 x10^3/uL (140-400) Neutrophils (%) (Auto) 59 % (31-73) Lymphocytes (%) (Auto) 28 % (24-48) Monocytes (%) (Auto) 11 % (0-9) Eosinophils (%) (Auto) 1 % (0-3) Basophils (%) (Auto) 0 % (0-3) Neutrophils # (Auto) 5.5 x10^3uL (1.8-7.7) Lymphocytes # (Auto) 2.6 x10^3/uL (1.0-4.8) Monocytes # (Auto) 1.0 x10^3/uL (0.0-1.1) Eosinophils # (Auto) 0.1 x10^3/uL (0.0-0.7) Basophils # (Auto) 0.0 x10^3/uL (0.0-0.2) Sodium Level 140 mmol/L (136-145) Potassium Level 4.4 mmol/L (3.5-5.1) Chloride Level 110 mmol/L (98-107) Carbon Dioxide Level 23 mmol/L (21-32) Anion Gap 7 (6-14) Blood Urea Nitrogen 30 mg/dL (7-20) Creatinine 1.6 mg/dL (0.6-1.0) Estimated GFR (Cockcroft-Gault) 30.8 Glucose Level 103 mg/dL (70-99) Calcium Level 8.3 mg/dL (8.5-10.1) Laboratory Tests Test 06/03/17 04:00 White Blood Count 9.3 x10^3/uL (4.0-11.0) Red Blood Count 3.79 x10^6/uL (3.50-5.40) Hemoglobin 11.2 g/dL (12.0-15.5) Hematocrit 33.8 % (36.0-47.0) Mean Corpuscular Volume 89 fL (79-100) Mean Corpuscular Hemoglobin 30 pg (25-35) Mean Corpuscular Hemoglobin Concent 33 g/dL (31-37) Red Cell Distribution Width 14.2 % (11.5-14.5) Platelet Count 174 x10^3/uL (140-400) Neutrophils (%) (Auto) 59 % (31-73) Lymphocytes (%) (Auto) 28 % (24-48) Monocytes (%) (Auto) 11 % (0-9) Eosinophils (%) (Auto) 1 % (0-3) Basophils (%) (Auto) 0 % (0-3) Neutrophils # (Auto) 5.5 x10^3uL (1.8-7.7) Lymphocytes # (Auto) 2.6 x10^3/uL (1.0-4.8) Monocytes # (Auto) 1.0 x10^3/uL (0.0-1.1) Eosinophils # (Auto) 0.1 x10^3/uL (0.0-0.7) Basophils # (Auto) 0.0 x10^3/uL (0.0-0.2) Sodium Level 140 mmol/L (136-145) Potassium Level 4.4 mmol/L (3.5-5.1) Chloride Level 110 mmol/L (98-107) Carbon Dioxide Level 23 mmol/L (21-32) Anion Gap 7 (6-14) Blood Urea Nitrogen 30 mg/dL (7-20) Creatinine 1.6 mg/dL (0.6-1.0) Estimated GFR (Cockcroft-Gault) 30.8 Glucose Level 103 mg/dL (70-99) Calcium Level 8.3 mg/dL (8.5-10.1) Images Images Plain films of the left shoulder and CT with 3d reconstruction reveal a proximal humerus fracture that is 3 part involving the humeral neck and greater tuberosity with angulation of humeral shaft and mild impaction of the humeral head on the shaft with minimal displacement. Assessment/Plan Assessment/Plan Will place the patient in a [employer] ultra sling today and assess her Vitamin D level. Dr Plummer discussed the benefits and risks of nonsurgical vs surgical treatment with reverse total shoulder arthroplasty with the patient and the family. The patient indicated understanding and at this time would like to proceed with surgery. OSCAR PLUMMER MD 06/03/17 1833: CONSULT Source Source: Caregiver, Patient History of Present Illness Reason for Visit: The patient lives with her daughters, is left-hand dominant, and says she would like her shoulder "fixed". She reports that she is in a lot of pain. She has cad with a recent history of a OSCAR 6 months ago. She is on aspirin and plavix as a result. Past Surgical History Past Surgical History: Other (coronary artery stent) Allergies Allergies: Coded Allergies: iodine (Verified Allergy, Severe, Anaphylaxis, 05/06/16) shellfish derived (Verified Allergy, Severe, Anaphylaxis, 05/06/16) felodipine (Verified Allergy, Intermediate, 05/06/16) Physical Exam MUSCULOSKELETAL: Other (Patient left arm is DNVI. Sensation present over left lateral deltoid. Radial pulse normal. Patient able to extend elbow comfortably to 45 degrees and supinate hand. ) Images Images Significant displacement of a small head fragment from the shaft and greater tuberosity fragment that is greater than 5mm displaced. Assessment/Plan Assessment/Plan This patient is an 82-year-old left-hand dominant female who fell from standing height and sustained a 3/4-part proximal humerus fracture. Non-operative treatment including living with her shoulder as is and modifying her activity was discussed with the patient and her family. We also discussed left shoulder replacement with a reverse total shoulder arthroplasty. The risks of surgery including the risk of undergoing anesthesia, bleeding, infection, timothy- prosthetic fracture, post-operative stiffness, instability, possibility for revision, blood clots, and even were discussed at length. The benefits of surgery including pain relief and functional improvement of the shoulder were discussed along with the postoperative course of immobilization, weight restrictions, and physical therapy required after surgery. After a thorough discussion of the risks and benefits of a left reverse total shoulder replacement, the patient elected to proceed with surgery. She exhibited understanding of the risks and benefits of surgery, and all questions were answered. 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 Burks, and he reports that she is cleared for surgery with moderate cardiac risk. He would like to keep her hb above 10, and we discussed the need for transfusion to achieve this. Her EF is approximately 50%. We will operate through her asprin and plavix due to her recent stent placement. WILL QUIROZ PAC Jun 03, 2017 09:17 OSCAR PLUMMER MD Jun 03, 2017 18:33
[2017-06-03 09:31] LABS: INR 1.2 (0.8-1.1); PROTHROMBIN TIME PATIENT 14.4 SEC (11.7-14.0)
--- NOTE | 2017-06-03 10:43 | PDOC ---
PROGRESS NOTES Chief Complaint Chief Complaint Mild displaced fracture of the humerus neck and greater tuberosity. 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 Starkey PLAN: Await Ortho rounds - likely on surgical as of now - mana MCFARLANE Cont current pain regimen PT/OT once seen by ortho HOld plavix and nsaids Dr Villegas (her cards) also on case Check vit D levels Dw fam members Vitals Vitals Vital Signs Date Time Temp Pulse Resp B/P (MAP) Pulse Ox O2 Delivery O2 Flow Rate FiO2 06/03/17 08:50 71 144/66 06/03/17 07:08 98.0 18 96 Nasal Cannula 2.0 98.0 Physical Exam General: Alert, Cooperative, No acute distress, mild distress Heart: Regular rate, Normal S1, Normal S2, Other (I-II/ syst murmur) Lungs: Clear Abdomen: Normal bowel sounds, Soft Extremities: Other (2+ Le edema, symmetrical, she reports static) Skin: No rashes, No breakdown Labs LABS Laboratory Tests Test 06/03/17 04:00 06/03/17 09:00 White Blood Count 9.3 x10^3/uL (4.0-11.0) Red Blood Count 3.79 x10^6/uL (3.50-5.40) Hemoglobin 11.2 g/dL (12.0-15.5) Hematocrit 33.8 % (36.0-47.0) Mean Corpuscular Volume 89 fL (79-100) Mean Corpuscular Hemoglobin 30 pg (25-35) Mean Corpuscular Hemoglobin Concent 33 g/dL (31-37) Red Cell Distribution Width 14.2 % (11.5-14.5) Platelet Count 174 x10^3/uL (140-400) Neutrophils (%) (Auto) 59 % (31-73) Lymphocytes (%) (Auto) 28 % (24-48) Monocytes (%) (Auto) 11 % (0-9) Eosinophils (%) (Auto) 1 % (0-3) Basophils (%) (Auto) 0 % (0-3) Neutrophils # (Auto) 5.5 x10^3uL (1.8-7.7) Lymphocytes # (Auto) 2.6 x10^3/uL (1.0-4.8) Monocytes # (Auto) 1.0 x10^3/uL (0.0-1.1) Eosinophils # (Auto) 0.1 x10^3/uL (0.0-0.7) Basophils # (Auto) 0.0 x10^3/uL (0.0-0.2) Sodium Level 140 mmol/L (136-145) Potassium Level 4.4 mmol/L (3.5-5.1) Chloride Level 110 mmol/L (98-107) Carbon Dioxide Level 23 mmol/L (21-32) Anion Gap 7 (6-14) Blood Urea Nitrogen 30 mg/dL (7-20) Creatinine 1.6 mg/dL (0.6-1.0) Estimated GFR (Cockcroft-Gault) 30.8 Glucose Level 103 mg/dL (70-99) Calcium Level 8.3 mg/dL (8.5-10.1) Prothrombin Time 14.4 SEC (11.7-14.0) Prothromb Time International Ratio 1.2 (0.8-1.1) Review of Systems Review of Systems left shoulder pain, knee pain Assessment and Plan Assessmemt and Plan Problems Medical Problems: (1) Cervical spine pain Status: Acute (2) Closed head injury Status: Acute (3) Fall Status: Acute (4) Fracture of humeral head, left, closed Status: Acute (5) Left hip pain Status: Acute (6) Left knee pain Status: Acute (7) Nasal abrasion Status: Acute Problems: Comment Review of Relevant I have reviewed the following items louise (where applicable) has been applied. Labs Laboratory Tests Test 06/03/17 04:00 06/03/17 09:00 White Blood Count 9.3 x10^3/uL (4.0-11.0) Red Blood Count 3.79 x10^6/uL (3.50-5.40) Hemoglobin 11.2 g/dL (12.0-15.5) Hematocrit 33.8 % (36.0-47.0) Mean Corpuscular Volume 89 fL (79-100) Mean Corpuscular Hemoglobin 30 pg (25-35) Mean Corpuscular Hemoglobin Concent 33 g/dL (31-37) Red Cell Distribution Width 14.2 % (11.5-14.5) Platelet Count 174 x10^3/uL (140-400) Neutrophils (%) (Auto) 59 % (31-73) Lymphocytes (%) (Auto) 28 % (24-48) Monocytes (%) (Auto) 11 % (0-9) Eosinophils (%) (Auto) 1 % (0-3) Basophils (%) (Auto) 0 % (0-3) Neutrophils # (Auto) 5.5 x10^3uL (1.8-7.7) Lymphocytes # (Auto) 2.6 x10^3/uL (1.0-4.8) Monocytes # (Auto) 1.0 x10^3/uL (0.0-1.1) Eosinophils # (Auto) 0.1 x10^3/uL (0.0-0.7) Basophils # (Auto) 0.0 x10^3/uL (0.0-0.2) Sodium Level 140 mmol/L (136-145) Potassium Level 4.4 mmol/L (3.5-5.1) Chloride Level 110 mmol/L (98-107) Carbon Dioxide Level 23 mmol/L (21-32) Anion Gap 7 (6-14) Blood Urea Nitrogen 30 mg/dL (7-20) Creatinine 1.6 mg/dL (0.6-1.0) Estimated GFR (Cockcroft-Gault) 30.8 Glucose Level 103 mg/dL (70-99) Calcium Level 8.3 mg/dL (8.5-10.1) Prothrombin Time 14.4 SEC (11.7-14.0) Prothromb Time International Ratio 1.2 (0.8-1.1) Laboratory Tests Test 06/03/17 04:00 06/03/17 09:00 White Blood Count 9.3 x10^3/uL (4.0-11.0) Red Blood Count 3.79 x10^6/uL (3.50-5.40) Hemoglobin 11.2 g/dL (12.0-15.5) Hematocrit 33.8 % (36.0-47.0) Mean Corpuscular Volume 89 fL (79-100) Mean Corpuscular Hemoglobin 30 pg (25-35) Mean Corpuscular Hemoglobin Concent 33 g/dL (31-37) Red Cell Distribution Width 14.2 % (11.5-14.5) Platelet Count 174 x10^3/uL (140-400) Neutrophils (%) (Auto) 59 % (31-73) Lymphocytes (%) (Auto) 28 % (24-48) Monocytes (%) (Auto) 11 % (0-9) Eosinophils (%) (Auto) 1 % (0-3) Basophils (%) (Auto) 0 % (0-3) Neutrophils # (Auto) 5.5 x10^3uL (1.8-7.7) Lymphocytes # (Auto) 2.6 x10^3/uL (1.0-4.8) Monocytes # (Auto) 1.0 x10^3/uL (0.0-1.1) Eosinophils # (Auto) 0.1 x10^3/uL (0.0-0.7) Basophils # (Auto) 0.0 x10^3/uL (0.0-0.2) Sodium Level 140 mmol/L (136-145) Potassium Level 4.4 mmol/L (3.5-5.1) Chloride Level 110 mmol/L (98-107) Carbon Dioxide Level 23 mmol/L (21-32) Anion Gap 7 (6-14) Blood Urea Nitrogen 30 mg/dL (7-20) Creatinine 1.6 mg/dL (0.6-1.0) Estimated GFR (Cockcroft-Gault) 30.8 Glucose Level 103 mg/dL (70-99) Calcium Level 8.3 mg/dL (8.5-10.1) Prothrombin Time 14.4 SEC (11.7-14.0) Prothromb Time International Ratio 1.2 (0.8-1.1) Medications Current Medications Hydromorphone HCl (Dilaudid) 0.5 mg PRN Q15MIN PRN IV/SQ PAIN GREATER THAN 3/ 10 Last administered on 06/02/17 13:05; Start 06/02/17 at 11:30; Stop 06/03/17 at 11:29 Ondansetron HCl (Zofran) 4 mg 1X ONCE IV Last administered on 06/02/17 11:29; Start 06/02/17 at 11:30; Stop 06/02/17 at 11:31; Status DC Diphtheria/ Tetanus/Acell Pertussis (Boostrix) 0.5 ml ONCE ONCE VAX IM Last administered on 06/02/17 12:55; Start 06/02/17 at 12:30; Stop 06/02/17 at 12:31; Status DC Morphine Sulfate 4 mg PRN Q2HR PRN IV PAIN Last administered on 06/03/17 03:31 ; Start 06/02/17 at 14:30; Stop 06/03/17 at 14:29 Sodium Chloride 1,000 ml @ 75 mls/hr 1X ONCE IV Last administered on 14:57; Start 06/02/17 at 14:30; Stop 06/03/17 at 03:49; Status DC Labetalol HCl (Normodyne) 5 mg PRN Q4HRS PRN IVP HYPERTENSION, SEE COMMENTS Last administered on 06/02/17 16:33; Start 06/02/17 at 16:15 Lidocaine (Lidoderm) 1 patch DAILY TD Last administered on 06/03/17 08:52; Start 06/02/17 at 21:00 Atorvastatin Calcium (Lipitor) 10 mg QHS PO Last administered on 06/02/17 21:38 ; Start 06/02/17 at 21:00 Clonidine HCl (Catapres Tts-3) 1 patch WEEKLY TD Last administered on 06/03/17 08:51; Start 06/03/17 at 09:00 Diltiazem HCl (Cardizem 24hr Cd) 180 mg DAILY PO Last administered on 06/03/17 08:49; Start 06/03/17 at 09:00 Hydralazine HCl (Apresoline) 50 mg TID PO Last administered on 06/03/17 08:49; Start 06/02/17 at 21:00 Acetaminophen/ Hydrocodone Bitart (Lortab 5/325) 1 tab PRN Q8HRS PRN PO PAIN Last administered on 06/02/17 21:44; Start 06/02/17 at 21:00 Lisinopril (Prinivil) 40 mg DAILY PO Last administered on 06/03/17 08:50; Start 06/03/17 at 09:00 Metoprolol Tartrate (Lopressor) 12.5 mg BID PO Last administered on 06/03/17 08 :48; Start 06/02/17 at 21:00 Pantoprazole Sodium (Protonix) 40 mg DAILYAC PO Last administered on 06/03/17 08:51; Start 06/03/17 at 07:30 Acetaminophen (Tylenol) 500 mg PRN Q6HRS PRN PO MILD PAIN / TEMP; Start at 08:45 Ondansetron HCl (Zofran) 4 mg PRN Q6HRS PRN IV NAUSEA/VOMITING; Start 06/03/17 at 08:45 Active Scripts Active Atorvastatin Calcium 10 Mg Tablet 10 Mg PO QHS Lisinopril 40 Mg Tablet 40 Mg PO DAILY Reported Hydralazine Hcl 50 Mg Tablet 50 Mg PO TID Metoprolol Tartrate 25 Mg Tablet 12.5 Mg PO BID Clopidogrel (Clopidogrel Bisulfate) 75 Mg Tablet 75 Mg PO DAILY Lortab 5-325 mg Tablet (Hydrocodone/Acetaminophen) 1 Each Tablet 1 Tab PO PRN Q8HRS PRN Alendronate Sodium 70 Mg Tablet 70 Mg PO WEEKLY Diltiazem 24HR Cd (Diltiazem Hcl) 180 Mg Cap.er.24h 1 Cap PO DAILY Clonidine Tts-3 (Clonidine) 1 Each Patch.tdwk 1 Patch TD WEEKLY Aspir 81 (Aspirin) 81 Mg Tablet. 1 Tab PO DAILY Pantoprazole Sodium 40 Mg Tablet. 20 Mg PO DAILY Vitals/I & O Vital Sign - Last 24 Hours 06/02/17 06/02/17 06/02/17 06/02/17 10:43 10:49 11:12 11:19 Pulse 92 92 92 94 Resp 17 B/P (MAP) 199/105 (136) 171/95 (120) 200/104 (136) 199/97 (131) Pulse Ox 95 95 94 O2 Delivery Room Air Room Air Room Air Room Air 06/02/17 06/02/17 06/02/17 06/02/17 11:31 11:34 12:05 12:20 Pulse 98 86 74 Resp 20 12 26 13 B/P (MAP) 196/90 (125) 183/94 (123) 175/85 (115) Pulse Ox 93 90 95 O2 Delivery Room Air Room Air Nasal Cannula Nasal Cannula O2 Flow Rate 2.0 2.0 06/02/17 06/02/17 06/02/17 06/02/17 12:35 12:50 13:05 13:05 Pulse 72 74 76 Resp 15 20 20 10 B/P (MAP) 175/75 (108) 194/101 (132) 199/101 (133) Pulse Ox 97 99 99 99 O2 Delivery Nasal Cannula Nasal Cannula Nasal Cannula Nasal Cannula O2 Flow Rate 2.0 2.0 2.0 2.0 06/02/17 06/02/17 06/02/17 06/02/17 13:20 13:35 13:35 13:50 Pulse 86 92 96 Resp 16 20 16 B/P (MAP) 178/92 (120) 195/86 (122) 180/91 (120) Pulse Ox 98 97 95 98 O2 Delivery Nasal Cannula Nasal Cannula Nasal Cannula Nasal Cannula O2 Flow Rate 2.0 2.0 2.0 2.0 06/02/17 06/02/17 06/02/17 06/02/17 14:05 14:20 14:35 14:50 Pulse 92 96 92 100 Resp 13 11 11 14 B/P (MAP) 182/83 (116) 174/95 (121) 172/82 (112) 163/87 (112) Pulse Ox 97 97 98 97 O2 Delivery Nasal Cannula Nasal Cannula Nasal Cannula Nasal Cannula O2 Flow Rate 2.0 2.0 2.0 2.0 06/02/17 06/02/17 06/02/17 06/02/17 15:30 15:59 16:33 19:20 Temp 97.9 98.1 97.9 98.1 Pulse 92 101 104 Resp 16 20 B/P (MAP) 187/93 (124) 178/91 174/84 (114) Pulse Ox 95 94 O2 Delivery Room Air Nasal Cannula Room Air O2 Flow Rate 2.0 06/02/17 06/02/17 06/02/17 06/02/17 19:25 19:38 21:37 21:38 Pulse 104 104 Resp 20 B/P (MAP) 174/84 174/84 O2 Delivery Room Air Nasal Cannula O2 Flow Rate 2.0 9/7/17 9/7/17 9/7/17 9/8/17 21:44 22:44 23:02 03:15 Temp 98.0 98.6 98.0 98.6 Pulse 78 75 Resp 20 20 18 18 B/P (MAP) 103/52 (69) 129/61 (83) Pulse Ox 96 97 O2 Delivery Room Air Room Air Room Air Nasal Cannula O2 Flow Rate 2.0 2.0 06/03/17 06/03/17 06/03/17 06/03/17 03:31 04:01 07:08 08:48 Temp 98.0 98.0 Pulse 71 71 Resp 18 20 18 B/P (MAP) 144/66 (92) 144/66 Pulse Ox 96 O2 Delivery Room Air Room Air Nasal Cannula O2 Flow Rate 2.0 06/03/17 06/03/17 06/03/17 08:49 08:49 08:50 Pulse 71 71 71 B/P (MAP) 144/66 144/66 144/66 JONNY LEAHY MD Jun 03, 2017 10:43
[2017-06-03 10:44] VITALS: BP 133/78
[2017-06-03 11:28] LABS: BILIRUBIN,URINE NEGATIVE (NEG); GLUCOSE,URINE NEGATIVE (NEG); NITRITE,URINE POSITIVE (NEG); PH,URINE 5.5; PROTEIN,URINE NEGATIVE (NEG-TRACE); UROBILINOGEN,URINE 0.2 mg/dL (0.2 mg/dL)
[2017-06-03 11:42] LABS: BACTERIA,URINE MANY /HPF (0-FEW); RBC,URINE 0 /HPF (0-2); WBC,URINE >40 /HPF (0-4)
[2017-06-03] MEDS: ASPIRIN ENTERIC COATED 81 MG TABLET.DR. PO SCH (12:20)
[2017-06-03] MEDS: CLOPIDOGREL BISULFATE 75 MG TABLET PO SCH (12:20)
--- NOTE | 2017-06-03 12:49 | PDOC ---
PROGRESS NOTES Subjective Subjective Pt doing okay today, still complains of significant pain in her R. shoulder Described that during the incident, she was walking and tripped and fell on a curb. She remembers the whole incident and denies LOC. She denies lightheadedness, syncope/presyncope, vision changes, chest pain, palpitations, n /v, SOB, or any other complaints before or after the incident. She currently denies chest pain, SOB, n/v, lightheadedness, syncope/presyncope, palpitations, or any other symptoms at this time She is waiting for decision by ortho for surgery Objective Objective Vital Signs Date Time Temp Pulse Resp B/P (MAP) Pulse Ox O2 Delivery O2 Flow Rate FiO2 06/03/17 10:44 98.4 67 18 133/78 (96) 96 Nasal Cannula 2.0 98.4 Physical Exam Physical Exam no significant changes Assessment Assessment Problems Medical Problems: (1) Cervical spine pain Status: Acute (2) Closed head injury Status: Acute (3) Fall Status: Acute (4) Fracture of humeral head, left, closed Status: Acute (5) Left hip pain Status: Acute (6) Left knee pain Status: Acute (7) Nasal abrasion Status: Acute Plan Plan of Care Pt has blunt facial trauma and L. should humerus fx Discussed with patient and family options and risks for her shoulder fx. Pt chose surgery. Patient cleared for surgery from my standpoint Continue aspirin and plavix HTN improved, 137/78, with labetalol 5mg PRN q4hrs IVP. Will continue to monitor As the patient remembers the whole incident and remembers specifically tripping on a curb without any other symptoms, I believe this is less likely to be a syncopal episode. She is well compensated cardiac chambers. I would like to keep the patient's hemoglobin above 10 to try to avoid cardiac issues during this surgery due to possible bleeding. The case has been discussed with the orthopedic surgeon. Thank you for asking me to participate in the care of this patient. Comment Review of Relevant I have reviewed the following items louise (where applicable) has been applied. Labs Laboratory Tests Test 06/03/17 04:00 06/03/17 09:00 06/03/17 09:45 White Blood Count 9.3 x10^3/uL (4.0-11.0) Red Blood Count 3.79 x10^6/uL (3.50-5.40) Hemoglobin 11.2 g/dL (12.0-15.5) Hematocrit 33.8 % (36.0-47.0) Mean Corpuscular Volume 89 fL (79-100) Mean Corpuscular Hemoglobin 30 pg (25-35) Mean Corpuscular Hemoglobin Concent 33 g/dL (31-37) Red Cell Distribution Width 14.2 % (11.5-14.5) Platelet Count 174 x10^3/uL (140-400) Neutrophils (%) (Auto) 59 % (31-73) Lymphocytes (%) (Auto) 28 % (24-48) Monocytes (%) (Auto) 11 % (0-9) Eosinophils (%) (Auto) 1 % (0-3) Basophils (%) (Auto) 0 % (0-3) Neutrophils # (Auto) 5.5 x10^3uL (1.8-7.7) Lymphocytes # (Auto) 2.6 x10^3/uL (1.0-4.8) Monocytes # (Auto) 1.0 x10^3/uL (0.0-1.1) Eosinophils # (Auto) 0.1 x10^3/uL (0.0-0.7) Basophils # (Auto) 0.0 x10^3/uL (0.0-0.2) Sodium Level 140 mmol/L (136-145) Potassium Level 4.4 mmol/L (3.5-5.1) Chloride Level 110 mmol/L (98-107) Carbon Dioxide Level 23 mmol/L (21-32) Anion Gap 7 (6-14) Blood Urea Nitrogen 30 mg/dL (7-20) Creatinine 1.6 mg/dL (0.6-1.0) Estimated GFR (Cockcroft-Gault) 30.8 Glucose Level 103 mg/dL (70-99) Calcium Level 8.3 mg/dL (8.5-10.1) Prothrombin Time 14.4 SEC (11.7-14.0) Prothromb Time International Ratio 1.2 (0.8-1.1) Urine Collection Type Unknown Urine Color Yellow Urine Clarity Cloudy Urine pH 5.5 Urine Specific [employer] [place] 1.020 Urine Protein Negative mg/dL (NEG-TRACE) Urine Glucose (UA) Negative mg/dL (NEG) Urine Ketones (Stick) Negative mg/dL (NEG) Urine Blood Negative (NEG) Urine Nitrite Positive (NEG) Urine Bilirubin Negative (NEG) Urine Urobilinogen Dipstick 0.2 mg/dL (0.2 mg/dL) Urine Leukocyte Esterase Moderate (NEG) Urine RBC 0 /HPF (0-2) Urine WBC >40 /HPF (0-4) Urine Bacteria Many /HPF (0-FEW) Laboratory Tests Test 06/03/17 04:00 06/03/17 09:00 06/03/17 09:45 White Blood Count 9.3 x10^3/uL (4.0-11.0) Red Blood Count 3.79 x10^6/uL (3.50-5.40) Hemoglobin 11.2 g/dL (12.0-15.5) Hematocrit 33.8 % (36.0-47.0) Mean Corpuscular Volume 89 fL (79-100) Mean Corpuscular Hemoglobin 30 pg (25-35) Mean Corpuscular Hemoglobin Concent 33 g/dL (31-37) Red Cell Distribution Width 14.2 % (11.5-14.5) Platelet Count 174 x10^3/uL (140-400) Neutrophils (%) (Auto) 59 % (31-73) Lymphocytes (%) (Auto) 28 % (24-48) Monocytes (%) (Auto) 11 % (0-9) Eosinophils (%) (Auto) 1 % (0-3) Basophils (%) (Auto) 0 % (0-3) Neutrophils # (Auto) 5.5 x10^3uL (1.8-7.7) Lymphocytes # (Auto) 2.6 x10^3/uL (1.0-4.8) Monocytes # (Auto) 1.0 x10^3/uL (0.0-1.1) Eosinophils # (Auto) 0.1 x10^3/uL (0.0-0.7) Basophils # (Auto) 0.0 x10^3/uL (0.0-0.2) Sodium Level 140 mmol/L (136-145) Potassium Level 4.4 mmol/L (3.5-5.1) Chloride Level 110 mmol/L (98-107) Carbon Dioxide Level 23 mmol/L (21-32) Anion Gap 7 (6-14) Blood Urea Nitrogen 30 mg/dL (7-20) Creatinine 1.6 mg/dL (0.6-1.0) Estimated GFR (Cockcroft-Gault) 30.8 Glucose Level 103 mg/dL (70-99) Calcium Level 8.3 mg/dL (8.5-10.1) Prothrombin Time 14.4 SEC (11.7-14.0) Prothromb Time International Ratio 1.2 (0.8-1.1) Urine Collection Type Unknown Urine Color Yellow Urine Clarity Cloudy Urine pH 5.5 Urine Specific [employer] [place] 1.020 Urine Protein Negative mg/dL (NEG-TRACE) Urine Glucose (UA) Negative mg/dL (NEG) Urine Ketones (Stick) Negative mg/dL (NEG) Urine Blood Negative (NEG) Urine Nitrite Positive (NEG) Urine Bilirubin Negative (NEG) Urine Urobilinogen Dipstick 0.2 mg/dL (0.2 mg/dL) Urine Leukocyte Esterase Moderate (NEG) Urine RBC 0 /HPF (0-2) Urine WBC >40 /HPF (0-4) Urine Bacteria Many /HPF (0-FEW) Medications Current Medications Hydromorphone HCl (Dilaudid) 0.5 mg PRN Q15MIN PRN IV/SQ PAIN GREATER THAN 3/ 10 Last administered on 06/02/17 13:05; Start 06/02/17 at 11:30; Stop 06/03/17 at 11:29; Status DC Ondansetron HCl (Zofran) 4 mg 1X ONCE IV Last administered on 06/02/17 11:29; Start 06/02/17 at 11:30; Stop 06/02/17 at 11:31; Status DC Diphtheria/ Tetanus/Acell Pertussis (Boostrix) 0.5 ml ONCE ONCE VAX IM Last administered on 06/02/17 12:55; Start 06/02/17 at 12:30; Stop 06/02/17 at 12:31; Status DC Morphine Sulfate 4 mg PRN Q2HR PRN IV PAIN Last administered on 06/03/17 03:31 ; Start 06/02/17 at 14:30; Stop 06/03/17 at 14:29 Sodium Chloride 1,000 ml @ 75 mls/hr 1X ONCE IV Last administered on 14:57; Start 06/02/17 at 14:30; Stop 06/03/17 at 03:49; Status DC Labetalol HCl (Normodyne) 5 mg PRN Q4HRS PRN IVP HYPERTENSION, SEE COMMENTS Last administered on 06/02/17 16:33; Start 06/02/17 at 16:15 Lidocaine (Lidoderm) 1 patch DAILY TD Last administered on 06/03/17 08:52; Start 06/02/17 at 21:00 Atorvastatin Calcium (Lipitor) 10 mg QHS PO Last administered on 06/02/17 21:38 ; Start 06/02/17 at 21:00 Clonidine HCl (Catapres Tts-3) 1 patch WEEKLY TD Last administered on 06/03/17 08:51; Start 06/03/17 at 09:00 Diltiazem HCl (Cardizem 24hr Cd) 180 mg DAILY PO Last administered on 06/03/17 08:49; Start 06/03/17 at 09:00 Hydralazine HCl (Apresoline) 50 mg TID PO Last administered on 06/03/17 08:49; Start 06/02/17 at 21:00 Acetaminophen/ Hydrocodone Bitart (Lortab 5/325) 1 tab PRN Q8HRS PRN PO PAIN Last administered on 06/02/17 21:44; Start 06/02/17 at 21:00 Lisinopril (Prinivil) 40 mg DAILY PO Last administered on 06/03/17 08:50; Start 06/03/17 at 09:00 Metoprolol Tartrate (Lopressor) 12.5 mg BID PO Last administered on 06/03/17 08 :48; Start 06/02/17 at 21:00 Pantoprazole Sodium (Protonix) 40 mg DAILYAC PO Last administered on 06/03/17 08:51; Start 06/03/17 at 07:30 Acetaminophen (Tylenol) 500 mg PRN Q6HRS PRN PO MILD PAIN / TEMP; Start at 08:45 Ondansetron HCl (Zofran) 4 mg PRN Q6HRS PRN IV NAUSEA/VOMITING; Start 06/03/17 at 08:45 Aspirin (Ecotrin) 81 mg DAILY PO Last administered on 06/03/17 12:20; Start 06/03/17 at 12:00 Clopidogrel Bisulfate (Plavix) 75 mg DAILY PO Last administered on 06/03/17 12: 20; Start 06/03/17 at 12:00 Non-Formulary Medication 70 mg WEEKLY PO ; Start 06/10/17 at 09:00; Status UNV Active Scripts Active Atorvastatin Calcium 10 Mg Tablet 10 Mg PO QHS Lisinopril 40 Mg Tablet 40 Mg PO DAILY Reported Hydralazine Hcl 50 Mg Tablet 50 Mg PO TID Metoprolol Tartrate 25 Mg Tablet 12.5 Mg PO BID Clopidogrel (Clopidogrel Bisulfate) 75 Mg Tablet 75 Mg PO DAILY Lortab 5-325 mg Tablet (Hydrocodone/Acetaminophen) 1 Each Tablet 1 Tab PO PRN Q8HRS PRN Alendronate Sodium 70 Mg Tablet 70 Mg PO WEEKLY Diltiazem 24HR Cd (Diltiazem Hcl) 180 Mg Cap.er.24h 1 Cap PO DAILY Clonidine Tts-3 (Clonidine) 1 Each Patch.tdwk 1 Patch TD WEEKLY Aspir 81 (Aspirin) 81 Mg Tablet.dr 1 Tab PO DAILY Pantoprazole Sodium 40 Mg Tablet.dr 20 Mg PO DAILY Vitals/I & O Vital Sign - Last 24 Hours 06/02/17 06/02/17 06/02/17 06/02/17 12:50 13:05 13:05 13:20 Pulse 74 76 86 Resp 20 20 10 16 B/P (MAP) 194/101 (132) 199/101 (133) 178/92 (120) Pulse Ox 99 99 99 98 O2 Delivery Nasal Cannula Nasal Cannula Nasal Cannula Nasal Cannula O2 Flow Rate 2.0 2.0 2.0 2.0 06/02/17 06/02/17 06/02/17 06/02/17 13:35 13:35 13:50 14:05 Pulse 92 96 92 Resp 20 16 13 B/P (MAP) 195/86 (122) 180/91 (120) 182/83 (116) Pulse Ox 97 95 98 97 O2 Delivery Nasal Cannula Nasal Cannula Nasal Cannula Nasal Cannula O2 Flow Rate 2.0 2.0 2.0 2.0 06/02/17 06/02/17 06/02/17 06/02/17 14:20 14:35 14:50 15:30 Pulse 96 92 100 Resp 11 11 14 B/P (MAP) 174/95 (121) 172/82 (112) 163/87 (112) Pulse Ox 97 98 97 O2 Delivery Nasal Cannula Nasal Cannula Nasal Cannula Room Air O2 Flow Rate 2.0 2.0 2.0 06/02/17 06/02/17 06/02/17 06/02/17 15:59 16:33 19:20 19:25 Temp 97.9 98.1 97.9 98.1 Pulse 92 101 104 Resp 16 20 B/P (MAP) 187/93 (124) 178/91 174/84 (114) Pulse Ox 95 94 O2 Delivery Nasal Cannula Room Air Room Air O2 Flow Rate 2.0 06/02/17 06/02/17 06/02/17 06/02/17 19:38 21:37 21:38 21:44 Pulse 104 104 Resp 20 20 B/P (MAP) 174/84 174/84 O2 Delivery Nasal Cannula Room Air O2 Flow Rate 2.0 2.0 06/02/17 06/02/17 06/03/17 06/03/17 22:44 23:02 03:15 03:31 Temp 98.0 98.6 98.0 98.6 Pulse 78 75 Resp 20 18 18 18 B/P (MAP) 103/52 (69) 129/61 (83) Pulse Ox 96 97 O2 Delivery Room Air Room Air Nasal Cannula Room Air O2 Flow Rate 2.0 06/03/17 06/03/17 06/03/17 06/03/17 04:01 07:08 07:40 08:48 Temp 98.0 98.0 Pulse 71 71 Resp 20 18 B/P (MAP) 144/66 (92) 144/66 Pulse Ox 96 O2 Delivery Room Air Nasal Cannula Nasal Cannula O2 Flow Rate 2.0 2.0 06/03/17 06/03/17 06/03/17 06/03/17 08:49 08:49 08:50 10:44 Temp 98.4 98.4 Pulse 71 71 71 67 Resp 18 B/P (MAP) 144/66 144/66 144/66 133/78 (96) Pulse Ox 96 O2 Delivery Nasal Cannula O2 Flow Rate 2.0 DIPAK NEVILLE MD Jun 03, 2017 12:49
--- NOTE | 2017-06-03 13:09 | PDOC ---
Provider Note Provider Note dictated full ct chest for RUL nodule SHARMIN CHARLES MD Jun 03, 2017 13:09
--- NOTE | 2017-06-03 13:50 | CONS ---
DATE OF CONSULTATION: ATTENDING PHYSICIAN: Dr. Espitia. REASON FOR CONSULTATION: Lung nodule. HISTORY OF PRESENT ILLNESS: The patient is an 82-year-old female who has no significant history of tobacco use. She fell today after she was walking and tripped over the curb and landed on her face on the left side. The patient does take Plavix and aspirin. The patient was seen for left humeral head closed fracture and orthopedics have been consulted. I have been asked to see her for evaluation of an abnormal spot in the right upper lobe. She had a CT head and neck, which had partially revealed right upper chest and shows a parenchymal irregular opacity. There was no old CT scan available for comparison. She has no shortness of breath. Breathing chambers, she is doing reasonably well. No cough. No weight loss. In fact, she has gained weight recently. PAST MEDICAL HISTORY: Significant for CAD, hypertension, [place], hyperlipidemia, CVA, GERD and chronic renal insufficiency. PAST SURGICAL HISTORY: Cataract removal and tonsillectomy. FAMILY HISTORY: Hypertension. ALLERGIES: FELODIPINE, IODINE, SHELLFISH. MEDICATIONS: All reviewed as listed in the [facility]. REVIEW OF SYSTEMS: A 10-point system obtained. Pertinent positives discussed in history of present illness, otherwise noncontributory. All systems that were negative were reviewed as well. PHYSICAL EXAMINATION: VITAL SIGNS: Blood pressure 144/66, afebrile, pulse ox 96% on 2 liters. NECK: Supple. Had some swelling in the left shoulder and pain. LUNGS: Diminished breath sounds. CARDIOVASCULAR: Regular rate and rhythm. ABDOMEN: Soft. EXTREMITIES: With no pitting edema. LABORATORY DATA: Reviewed. White cell count 9.3, hemoglobin 11.2, platelets are 174. IMPRESSION: 1. Abnormal irregular parenchymal opacity seen in the right upper lobe on CT neck. She is a nonsmoker and has no constitutional symptoms of malignancy. However, this needs to be followed up with a full CT chest without contrast for any other abnormalities in the lungs and probably followup CT in 4 months. 2. Status post fall with left humeral fracture. 3. Chronic renal insufficiency. 4. No significant history of tobacco use. RECOMMENDATIONS: 1. Obtain full CT of the chest without contrast to rule out any other parenchymal opacities in addition to the right upper lobe. 2. She may need a repeat CT chest in 4 months to make sure the opacity remains stable. 3. Follow orthopedic recommendations. The patient wants to proceed with surgery. 4. Follow renal recommendation. 5. Discussed with RN and Dr. Espitia. SHARMIN HCARLES MD DR: RAIZA/fanny JOB#: [id number] / [id number] KANU
--- NOTE | 2017-06-03 14:15 | RAD ---
CT chest without contrast 06/03/2017 at 1333 hours Indication: Lung nodules seen on shoulder CT. Comparison: CT chest 11/28/2007, left upper extremity CT 06/02/2017 Technique: Multiple axial CT images of the chest were obtained without intravenous contrast. Coronal and sagittal reformats are provided. Findings: Thyroid gland is within normal limits. There are no pathologically enlarged axillary, mediastinal or hilar lymph nodes. Heart size is within normal limits. Three-vessel coronary vascular calcification is noted. There is no pericardial effusion. Airspace consolidation along the posterior left lower lobe may reflect atelectasis. There is a 3 mm noncalcified pulmonary nodule in the right middle lobe (series 3, image 209). There is biapical pleural parenchymal scarring, most prominent on the right with an area of nodular opacity extending into the right upper lobe (series 3, image 67) measuring 6 x 6 mm. There is a 15 mm simple cyst in the right hepatic lobe. Otherwise, which is portions of the upper abdomen are within normal limits. There is redemonstration of a comminuted fracture of the left humeral neck. No suspicious osseous lesions are identified. Impression: 1. Redemonstration of a comminuted fracture of the left humeral neck. 2. Biapical pleural parenchymal scarring with suggestion of nodular scarring the right lung apex measuring 6 x 6 mm. Recommend follow-up chest CT in 3-6 months to ensure stability as this finding is more favored to represent an area of scarring rather than parenchymal opacity. 3. 3 mm noncalcified pulmonary nodule in the right middle lobe. 4. Left lower lobe consolidation likely represents atelectasis. Consideration may be given for developing infiltrate in the appropriate clinical setting. PQRS Compliance Statement: One or more of the following individualized dose reduction techniques were utilized for this examination: 1. Automated exposure control 2. Adjustment of the mA and/or kV according to patient size 3. Use of iterative reconstruction technique
[2017-06-03 14:42] VITALS: BP 120/56
[2017-06-03 19:15] VITALS: BP 142/83
[2017-06-03] MEDS: ATORVASTATIN CALCIUM 10 MG TABLET. PO SCH (20:52)
[2017-06-03] MEDS: HYDROcodone/APAP 5/325MG 1 TAB TABLET PO PRN (21:12)
[2017-06-03 23:15] VITALS: BP 119/52
[2017-06-04] MEDS: MORPHINE SULFATE 4 MG/ML DISP.SYRIN. IV PRN ×3 (01:27→21:57)
[2017-06-04 03:20] VITALS: BP 137/61
[2017-06-04 05:07] LABS: BASO % 0 % (0-3); EOS % 3 % (0-3); HEMOGLOBIN 10.8 g/dL (12.0-15.5); LYMPH # 2.3 x10^3/uL (1.0-4.8); LYMPH % 23 % (24-48); MEAN CORPUSCULAR HEMOGLOBIN 29 pg (25-35); MEAN CORPUSCULAR HGB CONC 33 g/dL (31-37); MEAN CORPUSCULAR VOLUME 89 fL (79-100); MONO % 10 % (0-9); NEUT % 64 % (31-73); PLATELET COUNT 172 x10^3/uL (140-400); RED BLOOD COUNT 3.71 x10^6/uL (3.50-5.40); RED CELL DISTRIBUTION WIDTH 14.2 % (11.5-14.5); WHITE BLOOD COUNT 10.2 x10^3/uL (4.0-11.0)
[2017-06-04 05:36] LABS: CALCIUM 8.5 mg/dL (8.5-10.1); CREATININE 1.8 mg/dL (0.6-1.0); GFR 26.9; POTASSIUM 4.5 mmol/L (3.5-5.1)
[2017-06-04 07:00] VITALS: BP 164/87
[2017-06-04] MEDS: METOPROLOL TART IMMED RELEASE 25 MG TABLET. PO SCH ×2 (08:31→21:52)
[2017-06-04] MEDS: PANTOPRAZOLE 40 MG TABLET.DR. PO SCH (08:31)
[2017-06-04] MEDS: CLOPIDOGREL BISULFATE 75 MG TABLET PO SCH (08:32)
[2017-06-04] MEDS: LIDOCAINE (700MG/PATCH) PATCH. TD SCH (08:32)
[2017-06-04] MEDS: ASPIRIN ENTERIC COATED 81 MG TABLET.DR. PO SCH (08:32)
[2017-06-04] MEDS: HYDROcodone/APAP 5/325MG 1 TAB TABLET PO PRN (08:33)
[2017-06-04] MEDS: LISINOPRIL 40 MG TABLET. PO SCH (08:33)
[2017-06-04] MEDS ORDERED: LABETALOL 20 MG/4 ML DISP.SYRIN. IVP PRN (09:45)
[2017-06-04] MEDS ORDERED: ERGOCALCIFEROL (VITAMIN D2) 50,000 UNIT CAPSULE. PO SCH (10:00)
--- NOTE | 2017-06-04 10:39 | PDOC ---
PROGRESS NOTES Chief Complaint Chief Complaint Mild displaced fracture of the humerus neck and greater tuberosity. 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 PLAN: Start ergocalciferol 50,000 units qweekly x 12 weeks Heparin gtt cards protocol, dc plavix and asa. CAn hold heparin gtt 8 hrs/morning of sx- IF OK WITH CARDIOLOGY this plan Dw ANDREE Alejandra and whole family STAT EKG now and trops x 2, NTG SL and can give morphine ordered Vitals Vitals Vital Signs Date Time Temp Pulse Resp B/P (MAP) Pulse Ox O2 Delivery O2 Flow Rate FiO2 06/04/17 08:33 75 164/87 06/04/17 08:33 18 Nasal Cannula 2.0 06/04/17 07:00 97.8 97 97.8 Physical Exam General: Alert, Oriented X3, No acute distress Heart: Regular rate Lungs: Clear Abdomen: Normal bowel sounds, Soft Extremities: No clubbing, Normal pulses Skin: No rashes, No breakdown Labs LABS Laboratory Tests Test 06/04/17 04:00 White Blood Count 10.2 x10^3/uL (4.0-11.0) Red Blood Count 3.71 x10^6/uL (3.50-5.40) Hemoglobin 10.8 g/dL (12.0-15.5) Hematocrit 33.0 % (36.0-47.0) Mean Corpuscular Volume 89 fL (79-100) Mean Corpuscular Hemoglobin 29 pg (25-35) Mean Corpuscular Hemoglobin Concent 33 g/dL (31-37) Red Cell Distribution Width 14.2 % (11.5-14.5) Platelet Count 172 x10^3/uL (140-400) Neutrophils (%) (Auto) 64 % (31-73) Lymphocytes (%) (Auto) 23 % (24-48) Monocytes (%) (Auto) 10 % (0-9) Eosinophils (%) (Auto) 3 % (0-3) Basophils (%) (Auto) 0 % (0-3) Neutrophils # (Auto) 6.5 x10^3uL (1.8-7.7) Lymphocytes # (Auto) 2.3 x10^3/uL (1.0-4.8) Monocytes # (Auto) 1.1 x10^3/uL (0.0-1.1) Eosinophils # (Auto) 0.3 x10^3/uL (0.0-0.7) Basophils # (Auto) 0.0 x10^3/uL (0.0-0.2) Sodium Level 144 mmol/L (136-145) Potassium Level 4.5 mmol/L (3.5-5.1) Chloride Level 108 mmol/L (98-107) Carbon Dioxide Level 29 mmol/L (21-32) Anion Gap 7 (6-14) Blood Urea Nitrogen 27 mg/dL (7-20) Creatinine 1.8 mg/dL (0.6-1.0) Estimated GFR (Cockcroft-Gault) 26.9 Glucose Level 99 mg/dL (70-99) Calcium Level 8.5 mg/dL (8.5-10.1) Review of Systems Review of Systems left shoulder pain Assessment and Plan Assessmemt and Plan Problems Medical Problems: (1) Cervical spine pain Status: Acute (2) Closed head injury Status: Acute (3) Fall Status: Acute (4) Fracture of humeral head, left, closed Status: Acute (5) Left hip pain Status: Acute (6) Left knee pain Status: Acute (7) Nasal abrasion Status: Acute Problems: Comment Review of Relevant I have reviewed the following items louise (where applicable) has been applied. Labs Laboratory Tests Test 06/03/17 04:00 06/03/17 09:00 06/03/17 09:45 06/04/17 04:00 White Blood Count 9.3 x10^3/uL (4.0-11.0) 10.2 x10^3/uL (4.0-11.0) Red Blood Count 3.79 x10^6/uL (3.50-5.40) 3.71 x10^6/uL (3.50-5.40) Hemoglobin 11.2 g/dL (12.0-15.5) 10.8 g/dL (12.0-15.5) Hematocrit 33.8 % (36.0-47.0) 33.0 % (36.0-47.0) Mean Corpuscular Volume 89 fL (79-100) 89 fL (79-100) Mean Corpuscular Hemoglobin 30 pg (25-35) 29 pg (25-35) Mean Corpuscular Hemoglobin Concent 33 g/dL (31-37) 33 g/dL (31-37) Red Cell Distribution Width 14.2 % (11.5-14.5) 14.2 % (11.5-14.5) Platelet Count 174 x10^3/uL (140-400) 172 x10^3/uL (140-400) Neutrophils (%) (Auto) 59 % (31-73) 64 % (31-73) Lymphocytes (%) (Auto) 28 % (24-48) 23 % (24-48) Monocytes (%) (Auto) 11 % (0-9) 10 % (0-9) Eosinophils (%) (Auto) 1 % (0-3) 3 % (0-3) Basophils (%) (Auto) 0 % (0-3) 0 % (0-3) Neutrophils # (Auto) 5.5 x10^3uL (1.8-7.7) 6.5 x10^3uL (1.8-7.7) Lymphocytes # (Auto) 2.6 x10^3/uL (1.0-4.8) 2.3 x10^3/uL (1.0-4.8) Monocytes # (Auto) 1.0 x10^3/uL (0.0-1.1) 1.1 x10^3/uL (0.0-1.1) Eosinophils # (Auto) 0.1 x10^3/uL (0.0-0.7) 0.3 x10^3/uL (0.0-0.7) Basophils # (Auto) 0.0 x10^3/uL (0.0-0.2) 0.0 x10^3/uL (0.0-0.2) Sodium Level 140 mmol/L (136-145) 144 mmol/L (136-145) Potassium Level 4.4 mmol/L (3.5-5.1) 4.5 mmol/L (3.5-5.1) Chloride Level 110 mmol/L (98-107) 108 mmol/L (98-107) Carbon Dioxide Level 23 mmol/L (21-32) 29 mmol/L (21-32) Anion Gap 7 (6-14) 7 (6-14) Blood Urea Nitrogen 30 mg/dL (7-20) 27 mg/dL (7-20) Creatinine 1.6 mg/dL (0.6-1.0) 1.8 mg/dL (0.6-1.0) Estimated GFR (Cockcroft-Gault) 30.8 26.9 Glucose Level 103 mg/dL (70-99) 99 mg/dL (70-99) Calcium Level 8.3 mg/dL (8.5-10.1) 8.5 mg/dL (8.5-10.1) Prothrombin Time 14.4 SEC (11.7-14.0) Prothromb Time International Ratio 1.2 (0.8-1.1) 25-Hydroxy Vitamin D Total 26.6 ng/mL (30.0-100.0) Urine Collection Type Unknown Urine Color Yellow Urine Clarity Cloudy Urine pH 5.5 Urine Specific [place] 1.020 Urine Protein Negative mg/dL (NEG-TRACE) Urine Glucose (UA) Negative mg/dL (NEG) Urine Ketones (Stick) Negative mg/dL (NEG) Urine Blood Negative (NEG) Urine Nitrite Positive (NEG) Urine Bilirubin Negative (NEG) Urine Urobilinogen Dipstick 0.2 mg/dL (0.2 mg/dL) Urine Leukocyte Esterase Moderate (NEG) Urine RBC 0 /HPF (0-2) Urine WBC >40 /HPF (0-4) Urine Bacteria Many /HPF (0-FEW) Laboratory Tests Test 06/04/17 04:00 White Blood Count 10.2 x10^3/uL (4.0-11.0) Red Blood Count 3.71 x10^6/uL (3.50-5.40) Hemoglobin 10.8 g/dL (12.0-15.5) Hematocrit 33.0 % (36.0-47.0) Mean Corpuscular Volume 89 fL (79-100) Mean Corpuscular Hemoglobin 29 pg (25-35) Mean Corpuscular Hemoglobin Concent 33 g/dL (31-37) Red Cell Distribution Width 14.2 % (11.5-14.5) Platelet Count 172 x10^3/uL (140-400) Neutrophils (%) (Auto) 64 % (31-73) Lymphocytes (%) (Auto) 23 % (24-48) Monocytes (%) (Auto) 10 % (0-9) Eosinophils (%) (Auto) 3 % (0-3) Basophils (%) (Auto) 0 % (0-3) Neutrophils # (Auto) 6.5 x10^3uL (1.8-7.7) Lymphocytes # (Auto) 2.3 x10^3/uL (1.0-4.8) Monocytes # (Auto) 1.1 x10^3/uL (0.0-1.1) Eosinophils # (Auto) 0.3 x10^3/uL (0.0-0.7) Basophils # (Auto) 0.0 x10^3/uL (0.0-0.2) Sodium Level 144 mmol/L (136-145) Potassium Level 4.5 mmol/L (3.5-5.1) Chloride Level 108 mmol/L (98-107) Carbon Dioxide Level 29 mmol/L (21-32) Anion Gap 7 (6-14) Blood Urea Nitrogen 27 mg/dL (7-20) Creatinine 1.8 mg/dL (0.6-1.0) Estimated GFR (Cockcroft-Gault) 26.9 Glucose Level 99 mg/dL (70-99) Calcium Level 8.5 mg/dL (8.5-10.1) Medications Current Medications Hydromorphone HCl (Dilaudid) 0.5 mg PRN Q15MIN PRN IV/SQ PAIN GREATER THAN 3/ 10 Last administered on 06/02/17 13:05; Start 06/02/17 at 11:30; Stop 06/03/17 at 11:29; Status DC Ondansetron HCl (Zofran) 4 mg 1X ONCE IV Last administered on 06/02/17 11:29; Start 06/02/17 at 11:30; Stop 06/02/17 at 11:31; Status DC Diphtheria/ Tetanus/Acell Pertussis (Boostrix) 0.5 ml ONCE ONCE VAX IM Last administered on 06/02/17 12:55; Start 06/02/17 at 12:30; Stop 06/02/17 at 12:31; Status DC Morphine Sulfate 4 mg PRN Q2HR PRN IV PAIN Last administered on 06/03/17 14:08 ; Start 06/02/17 at 14:30; Stop 06/03/17 at 14:29; Status DC Sodium Chloride 1,000 ml @ 75 mls/hr 1X ONCE IV Last administered on 14:57; Start 06/02/17 at 14:30; Stop 06/03/17 at 03:49; Status DC Labetalol HCl (Normodyne) 5 mg PRN Q4HRS PRN IVP HYPERTENSION, SEE COMMENTS Last administered on 06/02/17 16:33; Start 06/02/17 at 16:15; Stop 06/04/17 at 09: 34; Status DC Lidocaine (Lidoderm) 1 patch DAILY TD Last administered on 06/04/17 08:32; Start 06/02/17 at 21:00 Atorvastatin Calcium (Lipitor) 10 mg QHS PO Last administered on 06/03/17 20:52 ; Start 06/02/17 at 21:00 Clonidine HCl (Catapres Tts-3) 1 patch WEEKLY TD Last administered on 06/03/17 08:51; Start 06/03/17 at 09:00 Diltiazem HCl (Cardizem 24hr Cd) 180 mg DAILY PO Last administered on 06/04/17 08:31; Start 06/03/17 at 09:00 Hydralazine HCl (Apresoline) 50 mg TID PO Last administered on 06/04/17 08:32; Start 06/02/17 at 21:00 Acetaminophen/ Hydrocodone Bitart (Lortab 5/325) 1 tab PRN Q8HRS PRN PO PAIN Last administered on 06/04/17 08:33; Start 06/02/17 at 21:00 Lisinopril (Prinivil) 40 mg DAILY PO Last administered on 06/04/17 08:33; Start 06/03/17 at 09:00 Metoprolol Tartrate (Lopressor) 12.5 mg BID PO Last administered on 06/04/17 08 :31; Start 06/02/17 at 21:00 Pantoprazole Sodium (Protonix) 40 mg DAILYAC PO Last administered on 06/04/17 08:31; Start 06/03/17 at 07:30 Acetaminophen (Tylenol) 500 mg PRN Q6HRS PRN PO MILD PAIN / TEMP; Start at 08:45 Ondansetron HCl (Zofran) 4 mg PRN Q6HRS PRN IV NAUSEA/VOMITING; Start 06/03/17 at 08:45 Aspirin (Ecotrin) 81 mg DAILY PO Last administered on 06/04/17 08:32; Start 06/03/17 at 12:00 Clopidogrel Bisulfate (Plavix) 75 mg DAILY PO Last administered on 06/04/17 08: 32; Start 06/03/17 at 12:00 Non-Formulary Medication 70 mg WEEKLY PO ; Start 06/10/17 at 09:00; Status UNV Ceftriaxone Sodium 1 gm/ Sodium Chloride 50 ml @ 100 mls/hr Q24H IV Last administered on 06/03/17 21:12; Start 06/03/17 at 20:00 Morphine Sulfate 4 mg PRN Q2HR PRN IV PAIN Last administered on 06/04/17 01:27 ; Start 06/03/17 at 22:00 Ergocalciferol (Vitamin D2) 50,000 unit WEEKLY PO ; Start 06/04/17 at 10:00 Labetalol HCl (Normodyne) 10 mg PRN Q4HRS PRN IVP HYPERTENSION, SEE COMMENTS; Start 06/04/17 at 09:45 Active Scripts Active Atorvastatin Calcium 10 Mg Tablet 10 Mg PO QHS Lisinopril 40 Mg Tablet 40 Mg PO DAILY Reported Hydralazine Hcl 50 Mg Tablet 50 Mg PO TID Metoprolol Tartrate 25 Mg Tablet 12.5 Mg PO BID Clopidogrel (Clopidogrel Bisulfate) 75 Mg Tablet 75 Mg PO DAILY Lortab 5-325 mg Tablet (Hydrocodone/Acetaminophen) 1 Each Tablet 1 Tab PO PRN Q8HRS PRN Alendronate Sodium 70 Mg Tablet 70 Mg PO WEEKLY Diltiazem 24HR Cd (Diltiazem Hcl) 180 Mg Cap.er.24h 1 Cap PO DAILY Clonidine Tts-3 (Clonidine) 1 Each Patch.tdwk 1 Patch TD WEEKLY Aspir 81 (Aspirin) 81 Mg Tablet.dr 1 Tab PO DAILY Pantoprazole Sodium 40 Mg Tablet.dr 20 Mg PO DAILY Vitals/I & O Vital Sign - Last 24 Hours 06/03/17 06/03/17 06/03/17 06/03/17 10:44 14:08 14:42 19:15 Temp 98.4 98.6 98.3 98.4 98.6 98.3 Pulse 67 70 76 Resp 18 18 18 B/P (MAP) 133/78 (96) 120/56 (77) 142/83 (102) Pulse Ox 96 95 95 O2 Delivery Nasal Cannula Nasal Cannula Nasal Cannula Room Air O2 Flow Rate 2.0 2.0 2.0 06/03/17 06/03/17 06/03/17 06/03/17 20:06 20:52 20:52 21:12 Pulse 76 76 Resp 20 B/P (MAP) 142/83 142/83 O2 Delivery Nasal Cannula Nasal Cannula O2 Flow Rate 2.0 2.0 06/03/17 06/03/17 06/04/17 06/04/17 22:12 23:15 01:27 01:57 Temp 98.5 98.5 Pulse 70 Resp 20 17 20 20 B/P (MAP) 119/52 (74) Pulse Ox 96 O2 Delivery Nasal Cannula Room Air Nasal Cannula Nasal Cannula O2 Flow Rate 2.0 2.0 2.0 06/04/17 06/04/17 06/04/17 06/04/17 03:20 07:00 08:00 08:31 Temp 98.1 97.8 98.1 97.8 Pulse 66 75 75 Resp 18 20 B/P (MAP) 137/61 (86) 164/87 (112) 164/87 Pulse Ox 96 97 O2 Delivery Room Air Nasal Cannula Nasal Cannula O2 Flow Rate 2.0 2.0 06/04/17 06/04/17 06/04/17 06/04/17 08:31 08:32 08:33 08:33 Pulse 75 75 75 Resp 18 B/P (MAP) 164/87 164/87 164/87 O2 Delivery Nasal Cannula O2 Flow Rate 2.0 Intake and Output 06/04/17 06/04/17 06/05/17 14:59 22:59 06:59 Intake Total 120 ml Balance 120 ml JONNY LEAHY MD Jun 04, 2017 10:39
[2017-06-04] MEDS ORDERED: HEPARIN 25,000UTS/500ML PREMIX 500 ML IV PRN (10:45)
[2017-06-04] MEDS ORDERED: HEPARIN for IV BOLUS 10,000 UNIT/10 ML VIAL. IV PRN (10:45)
[2017-06-04] MEDS ORDERED: NITROGLYCERIN SUBLINGUAL 0.4 MG BOTTLE OF 25. SL PRN (10:45)
--- NOTE | 2017-06-04 11:42 | EKG ---
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
[2017-06-04 11:46] VITALS: BP 117/60
--- NOTE | 2017-06-04 12:20 | PDOC ---
PULMONARY PROGRESS NOTES Subjective no soa Vitals Vital Signs Date Time Temp Pulse Resp B/P (MAP) Pulse Ox O2 Delivery O2 Flow Rate FiO2 06/04/17 12:15 18 Room Air 1.5 06/04/17 11:46 97.8 60 117/60 (79) 95 97.8 General: Alert, No acute distress Lungs: Clear Cardiovascular: S1, S2 Abdomen: Soft Neuro Exam: Alert Extremities: No Edema, Other (left shoulder swelling) Labs Laboratory Tests Test 06/03/17 04:00 06/03/17 09:00 06/03/17 09:45 06/04/17 04:00 White Blood Count 9.3 x10^3/uL (4.0-11.0) 10.2 x10^3/uL (4.0-11.0) Red Blood Count 3.79 x10^6/uL (3.50-5.40) 3.71 x10^6/uL (3.50-5.40) Hemoglobin 11.2 g/dL (12.0-15.5) 10.8 g/dL (12.0-15.5) Hematocrit 33.8 % (36.0-47.0) 33.0 % (36.0-47.0) Mean Corpuscular Volume 89 fL (79-100) 89 fL (79-100) Mean Corpuscular Hemoglobin 30 pg (25-35) 29 pg (25-35) Mean Corpuscular Hemoglobin Concent 33 g/dL (31-37) 33 g/dL (31-37) Red Cell Distribution Width 14.2 % (11.5-14.5) 14.2 % (11.5-14.5) Platelet Count 174 x10^3/uL (140-400) 172 x10^3/uL (140-400) Neutrophils (%) (Auto) 59 % (31-73) 64 % (31-73) Lymphocytes (%) (Auto) 28 % (24-48) 23 % (24-48) Monocytes (%) (Auto) 11 % (0-9) 10 % (0-9) Eosinophils (%) (Auto) 1 % (0-3) 3 % (0-3) Basophils (%) (Auto) 0 % (0-3) 0 % (0-3) Neutrophils # (Auto) 5.5 x10^3uL (1.8-7.7) 6.5 x10^3uL (1.8-7.7) Lymphocytes # (Auto) 2.6 x10^3/uL (1.0-4.8) 2.3 x10^3/uL (1.0-4.8) Monocytes # (Auto) 1.0 x10^3/uL (0.0-1.1) 1.1 x10^3/uL (0.0-1.1) Eosinophils # (Auto) 0.1 x10^3/uL (0.0-0.7) 0.3 x10^3/uL (0.0-0.7) Basophils # (Auto) 0.0 x10^3/uL (0.0-0.2) 0.0 x10^3/uL (0.0-0.2) Sodium Level 140 mmol/L (136-145) 144 mmol/L (136-145) Potassium Level 4.4 mmol/L (3.5-5.1) 4.5 mmol/L (3.5-5.1) Chloride Level 110 mmol/L (98-107) 108 mmol/L (98-107) Carbon Dioxide Level 23 mmol/L (21-32) 29 mmol/L (21-32) Anion Gap 7 (6-14) 7 (6-14) Blood Urea Nitrogen 30 mg/dL (7-20) 27 mg/dL (7-20) Creatinine 1.6 mg/dL (0.6-1.0) 1.8 mg/dL (0.6-1.0) Estimated GFR (Cockcroft-Gault) 30.8 26.9 Glucose Level 103 mg/dL (70-99) 99 mg/dL (70-99) Calcium Level 8.3 mg/dL (8.5-10.1) 8.5 mg/dL (8.5-10.1) Prothrombin Time 14.4 SEC (11.7-14.0) Prothromb Time International Ratio 1.2 (0.8-1.1) 25-Hydroxy Vitamin D Total 26.6 ng/mL (30.0-100.0) Urine Collection Type Unknown Urine Color Yellow Urine Clarity Cloudy Urine pH 5.5 Urine Specific [place] 1.020 Urine Protein Negative mg/dL (NEG-TRACE) Urine Glucose (UA) Negative mg/dL (NEG) Urine Ketones (Stick) Negative mg/dL (NEG) Urine Blood Negative (NEG) Urine Nitrite Positive (NEG) Urine Bilirubin Negative (NEG) Urine Urobilinogen Dipstick 0.2 mg/dL (0.2 mg/dL) Urine Leukocyte Esterase Moderate (NEG) Urine RBC 0 /HPF (0-2) Urine WBC >40 /HPF (0-4) Urine Bacteria Many /HPF (0-FEW) Laboratory Tests Test 06/04/17 04:00 White Blood Count 10.2 x10^3/uL (4.0-11.0) Red Blood Count 3.71 x10^6/uL (3.50-5.40) Hemoglobin 10.8 g/dL (12.0-15.5) Hematocrit 33.0 % (36.0-47.0) Mean Corpuscular Volume 89 fL (79-100) Mean Corpuscular Hemoglobin 29 pg (25-35) Mean Corpuscular Hemoglobin Concent 33 g/dL (31-37) Red Cell Distribution Width 14.2 % (11.5-14.5) Platelet Count 172 x10^3/uL (140-400) Neutrophils (%) (Auto) 64 % (31-73) Lymphocytes (%) (Auto) 23 % (24-48) Monocytes (%) (Auto) 10 % (0-9) Eosinophils (%) (Auto) 3 % (0-3) Basophils (%) (Auto) 0 % (0-3) Neutrophils # (Auto) 6.5 x10^3uL (1.8-7.7) Lymphocytes # (Auto) 2.3 x10^3/uL (1.0-4.8) Monocytes # (Auto) 1.1 x10^3/uL (0.0-1.1) Eosinophils # (Auto) 0.3 x10^3/uL (0.0-0.7) Basophils # (Auto) 0.0 x10^3/uL (0.0-0.2) Sodium Level 144 mmol/L (136-145) Potassium Level 4.5 mmol/L (3.5-5.1) Chloride Level 108 mmol/L (98-107) Carbon Dioxide Level 29 mmol/L (21-32) Anion Gap 7 (6-14) Blood Urea Nitrogen 27 mg/dL (7-20) Creatinine 1.8 mg/dL (0.6-1.0) Estimated GFR (Cockcroft-Gault) 26.9 Glucose Level 99 mg/dL (70-99) Calcium Level 8.5 mg/dL (8.5-10.1) Medications Active Scripts Medications Dose Route/Sig Max Daily Dose Days Date Category Hydralazine Hcl 50 Mg Tablet 50 Mg PO TID 03/09/17 Reported Metoprolol Tartrate 25 Mg Tablet 12.5 Mg PO BID 03/09/17 Reported Clopidogrel (Clopidogrel Bisulfate) 75 Mg Tablet 75 Mg PO DAILY 03/09/17 Reported Lortab 5-325 mg Tablet (Hydrocodone/Acetaminophen) 1 Each Tablet 1 Tab PO PRN Q8HRS PRN 05/09/16 Reported Alendronate Sodium 70 Mg Tablet 70 Mg PO WEEKLY 05/07/16 Reported Diltiazem 24HR Cd (Diltiazem Hcl) 180 Mg Cap.er.24h 1 Cap PO DAILY 05/06/16 Reported Atorvastatin Calcium 10 Mg Tablet 10 Mg PO QHS 09/06/15 Rx Lisinopril 40 Mg Tablet 40 Mg PO DAILY 03/22/15 Rx Clonidine Tts-3 (Clonidine) 1 Each Patch.tdwk 1 Patch TD WEEKLY 03/20/15 Reported Aspir 81 (Aspirin) 81 Mg Tablet.dr 1 Tab PO DAILY 03/19/15 Reported Pantoprazole Sodium 40 Mg Tablet.dr 20 Mg PO DAILY 03/19/15 Reported Impression . 1. Abnormal irregular parenchymal opacity 6.6 mm seen in the right upper lobe on CT chest. She is a nonsmoker and has no constitutional symptoms of malignancy. However, this needs to be followed up with a repeat CT chest in 4 months. 2. Status post fall with left humeral fracture. 3. Chronic renal insufficiency. 4. No significant history of tobacco use. Plan . 1. repeat CT of the chest in 4 months to r/o any increase in size of right upper lobe irregular opacity 3. Follow orthopedic recommendations. The patient wants to proceed with surgery. scheduled Tuesday 4. Follow renal recommendation. 5. Discussed with RN and daughter SHARMIN CHARLES MD Jun 04, 2017 12:20
[2017-06-04 14:33] VITALS: BP 105/55
--- NOTE | 2017-06-04 14:45 | PDOC ---
PROGRESS NOTES Subjective Subjective The patient complained of shoulder pain and chest wall pain. No cardiac complaints. Objective Objective Vital Signs Date Time Temp Pulse Resp B/P (MAP) Pulse Ox O2 Delivery O2 Flow Rate FiO2 06/04/17 14:33 97.8 58 20 105/55 (72) 95 Nasal Cannula 2.0 97.8 Intake and Output 06/05/17 07:00 Intake Total 120 ml Balance 120 ml Intake Oral 120 ml Physical Exam Physical Exam No changes in cardiac exam Assessment Assessment Patient is compensated cardiac-chambers. She is cleared for shoulder surgery on Tuesday. I will not be here tomorrow if any cardiac issues arise Dr. Gilbert will be covering for me otherwise I will see her on Tuesday. Problems Medical Problems: (1) Cervical spine pain Status: Acute (2) Closed head injury Status: Acute (3) Fall Status: Acute (4) Fracture of humeral head, left, closed Status: Acute (5) Left hip pain Status: Acute (6) Left knee pain Status: Acute (7) Nasal abrasion Status: Acute Comment Review of Relevant I have reviewed the following items louise (where applicable) has been applied. Labs Laboratory Tests Test 06/03/17 04:00 06/03/17 09:00 06/03/17 09:45 06/04/17 04:00 White Blood Count 9.3 x10^3/uL (4.0-11.0) 10.2 x10^3/uL (4.0-11.0) Red Blood Count 3.79 x10^6/uL (3.50-5.40) 3.71 x10^6/uL (3.50-5.40) Hemoglobin 11.2 g/dL (12.0-15.5) 10.8 g/dL (12.0-15.5) Hematocrit 33.8 % (36.0-47.0) 33.0 % (36.0-47.0) Mean Corpuscular Volume 89 fL (79-100) 89 fL (79-100) Mean Corpuscular Hemoglobin 30 pg (25-35) 29 pg (25-35) Mean Corpuscular Hemoglobin Concent 33 g/dL (31-37) 33 g/dL (31-37) Red Cell Distribution Width 14.2 % (11.5-14.5) 14.2 % (11.5-14.5) Platelet Count 174 x10^3/uL (140-400) 172 x10^3/uL (140-400) Neutrophils (%) (Auto) 59 % (31-73) 64 % (31-73) Lymphocytes (%) (Auto) 28 % (24-48) 23 % (24-48) Monocytes (%) (Auto) 11 % (0-9) 10 % (0-9) Eosinophils (%) (Auto) 1 % (0-3) 3 % (0-3) Basophils (%) (Auto) 0 % (0-3) 0 % (0-3) Neutrophils # (Auto) 5.5 x10^3uL (1.8-7.7) 6.5 x10^3uL (1.8-7.7) Lymphocytes # (Auto) 2.6 x10^3/uL (1.0-4.8) 2.3 x10^3/uL (1.0-4.8) Monocytes # (Auto) 1.0 x10^3/uL (0.0-1.1) 1.1 x10^3/uL (0.0-1.1) Eosinophils # (Auto) 0.1 x10^3/uL (0.0-0.7) 0.3 x10^3/uL (0.0-0.7) Basophils # (Auto) 0.0 x10^3/uL (0.0-0.2) 0.0 x10^3/uL (0.0-0.2) Sodium Level 140 mmol/L (136-145) 144 mmol/L (136-145) Potassium Level 4.4 mmol/L (3.5-5.1) 4.5 mmol/L (3.5-5.1) Chloride Level 110 mmol/L (98-107) 108 mmol/L (98-107) Carbon Dioxide Level 23 mmol/L (21-32) 29 mmol/L (21-32) Anion Gap 7 (6-14) 7 (6-14) Blood Urea Nitrogen 30 mg/dL (7-20) 27 mg/dL (7-20) Creatinine 1.6 mg/dL (0.6-1.0) 1.8 mg/dL (0.6-1.0) Estimated GFR (Cockcroft-Gault) 30.8 26.9 Glucose Level 103 mg/dL (70-99) 99 mg/dL (70-99) Calcium Level 8.3 mg/dL (8.5-10.1) 8.5 mg/dL (8.5-10.1) Prothrombin Time 14.4 SEC (11.7-14.0) Prothromb Time International Ratio 1.2 (0.8-1.1) 25-Hydroxy Vitamin D Total 26.6 ng/mL (30.0-100.0) Urine Collection Type Unknown Urine Color Yellow Urine Clarity Cloudy Urine pH 5.5 Urine Specific [place] 1.020 Urine Protein Negative mg/dL (NEG-TRACE) Urine Glucose (UA) Negative mg/dL (NEG) Urine Ketones (Stick) Negative mg/dL (NEG) Urine Blood Negative (NEG) Urine Nitrite Positive (NEG) Urine Bilirubin Negative (NEG) Urine Urobilinogen Dipstick 0.2 mg/dL (0.2 mg/dL) Urine Leukocyte Esterase Moderate (NEG) Urine RBC 0 /HPF (0-2) Urine WBC >40 /HPF (0-4) Urine Bacteria Many /HPF (0-FEW) Test 06/04/17 11:48 Troponin I Quantitative < 0.017 ng/mL (0.000-0.055) Laboratory Tests Test 06/04/17 04:00 06/04/17 11:48 White Blood Count 10.2 x10^3/uL (4.0-11.0) Red Blood Count 3.71 x10^6/uL (3.50-5.40) Hemoglobin 10.8 g/dL (12.0-15.5) Hematocrit 33.0 % (36.0-47.0) Mean Corpuscular Volume 89 fL (79-100) Mean Corpuscular Hemoglobin 29 pg (25-35) Mean Corpuscular Hemoglobin Concent 33 g/dL (31-37) Red Cell Distribution Width 14.2 % (11.5-14.5) Platelet Count 172 x10^3/uL (140-400) Neutrophils (%) (Auto) 64 % (31-73) Lymphocytes (%) (Auto) 23 % (24-48) Monocytes (%) (Auto) 10 % (0-9) Eosinophils (%) (Auto) 3 % (0-3) Basophils (%) (Auto) 0 % (0-3) Neutrophils # (Auto) 6.5 x10^3uL (1.8-7.7) Lymphocytes # (Auto) 2.3 x10^3/uL (1.0-4.8) Monocytes # (Auto) 1.1 x10^3/uL (0.0-1.1) Eosinophils # (Auto) 0.3 x10^3/uL (0.0-0.7) Basophils # (Auto) 0.0 x10^3/uL (0.0-0.2) Sodium Level 144 mmol/L (136-145) Potassium Level 4.5 mmol/L (3.5-5.1) Chloride Level 108 mmol/L (98-107) Carbon Dioxide Level 29 mmol/L (21-32) Anion Gap 7 (6-14) Blood Urea Nitrogen 27 mg/dL (7-20) Creatinine 1.8 mg/dL (0.6-1.0) Estimated GFR (Cockcroft-Gault) 26.9 Glucose Level 99 mg/dL (70-99) Calcium Level 8.5 mg/dL (8.5-10.1) Troponin I Quantitative < 0.017 ng/mL (0.000-0.055) Medications Current Medications Hydromorphone HCl (Dilaudid) 0.5 mg PRN Q15MIN PRN IV/SQ PAIN GREATER THAN 3/ 10 Last administered on 06/02/17 13:05; Start 06/02/17 at 11:30; Stop 06/03/17 at 11:29; Status DC Ondansetron HCl (Zofran) 4 mg 1X ONCE IV Last administered on 06/02/17 11:29; Start 06/02/17 at 11:30; Stop 06/02/17 at 11:31; Status DC Diphtheria/ Tetanus/Acell Pertussis (Boostrix) 0.5 ml ONCE ONCE VAX IM Last administered on 06/02/17 12:55; Start 06/02/17 at 12:30; Stop 06/02/17 at 12:31; Status DC Morphine Sulfate 4 mg PRN Q2HR PRN IV PAIN Last administered on 06/03/17 14:08 ; Start 06/02/17 at 14:30; Stop 06/03/17 at 14:29; Status DC Sodium Chloride 1,000 ml @ 75 mls/hr 1X ONCE IV Last administered on 14:57; Start 06/02/17 at 14:30; Stop 06/03/17 at 03:49; Status DC Labetalol HCl (Normodyne) 5 mg PRN Q4HRS PRN IVP HYPERTENSION, SEE COMMENTS Last administered on 06/02/17 16:33; Start 06/02/17 at 16:15; Stop 06/04/17 at 09: 34; Status DC Lidocaine (Lidoderm) 1 patch DAILY TD Last administered on 06/04/17 08:32; Start 06/02/17 at 21:00 Atorvastatin Calcium (Lipitor) 10 mg QHS PO Last administered on 06/03/17 20:52 ; Start 06/02/17 at 21:00 Clonidine HCl (Catapres Tts-3) 1 patch WEEKLY TD Last administered on 06/03/17 08:51; Start 06/03/17 at 09:00 Diltiazem HCl (Cardizem 24hr Cd) 180 mg DAILY PO Last administered on 06/04/17 08:31; Start 06/03/17 at 09:00 Hydralazine HCl (Apresoline) 50 mg TID PO Last administered on 06/04/17 08:32; Start 06/02/17 at 21:00 Acetaminophen/ Hydrocodone Bitart (Lortab 5/325) 1 tab PRN Q8HRS PRN PO PAIN Last administered on 06/04/17 08:33; Start 06/02/17 at 21:00 Lisinopril (Prinivil) 40 mg DAILY PO Last administered on 06/04/17 08:33; Start 06/03/17 at 09:00 Metoprolol Tartrate (Lopressor) 12.5 mg BID PO Last administered on 06/04/17 08 :31; Start 06/02/17 at 21:00 Pantoprazole Sodium (Protonix) 40 mg DAILYAC PO Last administered on 06/04/17 08:31; Start 06/03/17 at 07:30 Acetaminophen (Tylenol) 500 mg PRN Q6HRS PRN PO MILD PAIN / TEMP; Start at 08:45 Ondansetron HCl (Zofran) 4 mg PRN Q6HRS PRN IV NAUSEA/VOMITING; Start 06/03/17 at 08:45 Aspirin (Ecotrin) 81 mg DAILY PO Last administered on 06/04/17 08:32; Start 06/03/17 at 12:00; Stop 06/04/17 at 10:34; Status DC Clopidogrel Bisulfate (Plavix) 75 mg DAILY PO Last administered on 06/04/17 08: 32; Start 06/03/17 at 12:00; Stop 06/04/17 at 10:34; Status DC Non-Formulary Medication 70 mg WEEKLY PO ; Start 06/10/17 at 09:00; Status UNV Ceftriaxone Sodium 1 gm/ Sodium Chloride 50 ml @ 100 mls/hr Q24H IV Last administered on 06/03/17 21:12; Start 06/03/17 at 20:00 Morphine Sulfate 4 mg PRN Q2HR PRN IV PAIN Last administered on 06/04/17 12:15 ; Start 06/03/17 at 22:00 Ergocalciferol (Vitamin D2) 50,000 unit WEEKLY PO Last administered on 11:28; Start 06/04/17 at 10:00 Labetalol HCl (Normodyne) 10 mg PRN Q4HRS PRN IVP HYPERTENSION, SEE COMMENTS; Start 06/04/17 at 09:45 Heparin Sodium/ Dextrose 500 ml @ 0 mls/hr CONT PRN IV SEE I/O RECORD; Start at 10:45; Stop 06/04/17 at 11:53; Status DC Heparin Sodium (Porcine) (Heparin Sodium) 2,150 unit PRN Q6HRS PRN IV FOR UFH LEVEL LESS THAN 0.2; Start 06/04/17 at 10:45; Stop 06/04/17 at 11:53; Status DC Nitroglycerin (Nitrostat) 0.4 mg PRN Q5MIN PRN SL CHEST PAIN Last administered on 06/04/17 11:05; Start 06/04/17 at 10:45 Aspirin (Children'S Aspirin) 81 mg DAILYWBKFT PO ; Start 06/05/17 at 08:00 Clopidogrel Bisulfate (Plavix) 75 mg DAILYWBKFT PO ; Start 06/05/17 at 08:00 Active Scripts Active Atorvastatin Calcium 10 Mg Tablet 10 Mg PO QHS Lisinopril 40 Mg Tablet 40 Mg PO DAILY Reported Hydralazine Hcl 50 Mg Tablet 50 Mg PO TID Metoprolol Tartrate 25 Mg Tablet 12.5 Mg PO BID Clopidogrel (Clopidogrel Bisulfate) 75 Mg Tablet 75 Mg PO DAILY Lortab 5-325 mg Tablet (Hydrocodone/Acetaminophen) 1 Each Tablet 1 Tab PO PRN Q8HRS PRN Alendronate Sodium 70 Mg Tablet 70 Mg PO WEEKLY Diltiazem 24HR Cd (Diltiazem Hcl) 180 Mg Cap.er.24h 1 Cap PO DAILY Clonidine Tts-3 (Clonidine) 1 Each Patch.tdwk 1 Patch TD WEEKLY Aspir 81 (Aspirin) 81 Mg Tablet.dr 1 Tab PO DAILY Pantoprazole Sodium 40 Mg Tablet.dr 20 Mg PO DAILY Vitals/I & O Vital Sign - Last 24 Hours 06/03/17 06/03/17 06/03/17 06/03/17 19:15 20:06 20:52 20:52 Temp 98.3 98.3 Pulse 76 76 76 Resp 18 B/P (MAP) 142/83 (102) 142/83 142/83 Pulse Ox 95 O2 Delivery Room Air Nasal Cannula O2 Flow Rate 2.0 06/03/17 06/03/17 06/04/17 06/04/17 21:12 23:15 01:27 03:20 Temp 98.5 98.1 98.5 98.1 Pulse 70 66 Resp 20 17 20 18 B/P (MAP) 119/52 (74) 137/61 (86) Pulse Ox 96 96 O2 Delivery Nasal Cannula Room Air Nasal Cannula Room Air O2 Flow Rate 2.0 2.0 06/04/17 06/04/17 06/04/17 06/04/17 07:00 08:00 08:31 08:31 Temp 97.8 97.8 Pulse 75 75 75 Resp 20 B/P (MAP) 164/87 (112) 164/87 164/87 Pulse Ox 97 O2 Delivery Nasal Cannula Nasal Cannula O2 Flow Rate 2.0 2.0 06/04/17 06/04/17 06/04/17 06/04/17 08:32 08:33 08:33 09:33 Pulse 75 75 Resp 18 16 B/P (MAP) 164/87 164/87 O2 Delivery Nasal Cannula Nasal Cannula O2 Flow Rate 2.0 2.0 06/04/17 06/04/17 06/04/17 06/04/17 11:05 11:46 12:15 12:45 Temp 97.8 97.8 Pulse 57 60 Resp 21 18 16 B/P (MAP) 117/60 117/60 (79) Pulse Ox 95 O2 Delivery Nasal Cannula Room Air Nasal Cannula O2 Flow Rate 2.0 1.5 1.5 06/04/17 14:33 Temp 97.8 97.8 Pulse 58 Resp 20 B/P (MAP) 105/55 (72) Pulse Ox 95 O2 Delivery Nasal Cannula O2 Flow Rate 2.0 Intake and Output 06/04/17 06/04/17 06/05/17 15:00 23:00 07:00 Intake Total 120 ml Balance 120 ml DIPAK NEVILLE MD Jun 04, 2017 14:45
[2017-06-04 19:30] VITALS: BP 110/55
[2017-06-04] MEDS: ATORVASTATIN CALCIUM 10 MG TABLET. PO SCH (21:52)
[2017-06-04 23:40] VITALS: BP 124/60
[2017-06-05 03:10] VITALS: BP 119/61
[2017-06-05] MEDS: MORPHINE SULFATE 4 MG/ML DISP.SYRIN. IV PRN ×4 (03:16→18:29)
[2017-06-05 05:45] LABS: BASO % 0 % (0-3); EOS % 3 % (0-3); HEMOGLOBIN 10.7 g/dL (12.0-15.5); LYMPH # 2.4 x10^3/uL (1.0-4.8); LYMPH % 30 % (24-48); MEAN CORPUSCULAR HEMOGLOBIN 29 pg (25-35); MEAN CORPUSCULAR HGB CONC 33 g/dL (31-37); MEAN CORPUSCULAR VOLUME 88 fL (79-100); MONO % 10 % (0-9); NEUT % 58 % (31-73); PLATELET COUNT 179 x10^3/uL (140-400); RED BLOOD COUNT 3.64 x10^6/uL (3.50-5.40); RED CELL DISTRIBUTION WIDTH 14.2 % (11.5-14.5)
[2017-06-05 07:36] VITALS: BP 117/70
[2017-06-05] MEDS: METOPROLOL TART IMMED RELEASE 25 MG TABLET. PO SCH ×2 (07:59→20:07)
[2017-06-05] MEDS ORDERED: ASPIRIN CHEWABLE 81 MG TABLET. PO SCH (08:00)
[2017-06-05] MEDS ORDERED: CLOPIDOGREL BISULFATE 75 MG TABLET PO SCH (08:00)
[2017-06-05] MEDS: PANTOPRAZOLE 40 MG TABLET.DR. PO SCH (08:01)
[2017-06-05] MEDS: LIDOCAINE (700MG/PATCH) PATCH. TD SCH (08:02)
[2017-06-05] MEDS: LISINOPRIL 40 MG TABLET. PO SCH (08:03)
[2017-06-05] MEDS ORDERED: HYDROcodone/APAP 10/325 1 TAB TABLET PO PRN (09:15)
[2017-06-05] MEDS ORDERED: MAGNESIUM HYDROXIDE 2,400 MG/30 ML ORAL.SUSP. PO PRN (09:15)
[2017-06-05] MEDS ORDERED: POLYETHYLENE GLYCOL 3350 17 GM PACKET. PO SCH (09:30)
[2017-06-05] MEDS ORDERED: DOCUSATE SODIUM 100 MG CAPSULE. PO SCH (09:30)
[2017-06-05 10:47] VITALS: BP 97/50
--- NOTE | 2017-06-05 10:53 | PDOC ---
PROGRESS NOTES Chief Complaint Chief Complaint Mild displaced fracture of the humerus neck and greater tuberosity. 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 [place] resident Left knee bruise/contussion RECENT angioplasty with [facility]SCAR (March 2017) History of Present Illness History of Present Illness Up in chair, looks better actually BUt she claims she still in pain left shoulder - Ok to be on plavix and asa per ortho bec of recent heart stents Vit D only 26 - started on ergocalciferol yesterday PLAN: NPO post mN Inc lortab to 10 from 5 mgs PO Cont IV pain meds Possible timothy op complications dw couple, understands, wants to proceed with surgery riley (including but not limited to PE, PNA, OK, infection, confusion etc) Vitals Vitals Vital Signs Date Time Temp Pulse Resp B/P (MAP) Pulse Ox O2 Delivery O2 Flow Rate FiO2 06/05/17 10:47 98.5 60 19 97/50 (66) 95 Nasal Cannula 2.0 98.5 Physical Exam General: Alert, Oriented X3, No acute distress Heart: Regular rate Lungs: Clear Abdomen: Normal bowel sounds, Soft Extremities: No clubbing, Normal pulses Skin: No rashes, No breakdown Labs LABS Laboratory Tests Test 06/04/17 11:48 06/04/17 19:00 06/05/17 05:00 Troponin I Quantitative < 0.017 ng/mL (0.000-0.055) < 0.017 ng/mL (0.000-0.055) White Blood Count 8.0 x10^3/uL (4.0-11.0) Red Blood Count 3.64 x10^6/uL (3.50-5.40) Hemoglobin 10.7 g/dL (12.0-15.5) Hematocrit 32.0 % (36.0-47.0) Mean Corpuscular Volume 88 fL (79-100) Mean Corpuscular Hemoglobin 29 pg (25-35) Mean Corpuscular Hemoglobin Concent 33 g/dL (31-37) Red Cell Distribution Width 14.2 % (11.5-14.5) Platelet Count 179 x10^3/uL (140-400) Neutrophils (%) (Auto) 58 % (31-73) Lymphocytes (%) (Auto) 30 % (24-48) Monocytes (%) (Auto) 10 % (0-9) Eosinophils (%) (Auto) 3 % (0-3) Basophils (%) (Auto) 0 % (0-3) Neutrophils # (Auto) 4.6 x10^3uL (1.8-7.7) Lymphocytes # (Auto) 2.4 x10^3/uL (1.0-4.8) Monocytes # (Auto) 0.8 x10^3/uL (0.0-1.1) Eosinophils # (Auto) 0.2 x10^3/uL (0.0-0.7) Basophils # (Auto) 0.0 x10^3/uL (0.0-0.2) Review of Systems Review of Systems left shoulder pain Assessment and Plan Assessmemt and Plan Problems Medical Problems: (1) Cervical spine pain Status: Acute (2) Closed head injury Status: Acute (3) Fall Status: Acute (4) Fracture of humeral head, left, closed Status: Acute (5) Left hip pain Status: Acute (6) Left knee pain Status: Acute (7) Nasal abrasion Status: Acute Problems: Comment Review of Relevant I have reviewed the following items louise (where applicable) has been applied. Labs Laboratory Tests Test 06/04/17 04:00 06/04/17 11:48 06/04/17 19:00 06/05/17 05:00 White Blood Count 10.2 x10^3/uL (4.0-11.0) 8.0 x10^3/uL (4.0-11.0) Red Blood Count 3.71 x10^6/uL (3.50-5.40) 3.64 x10^6/uL (3.50-5.40) Hemoglobin 10.8 g/dL (12.0-15.5) 10.7 g/dL (12.0-15.5) Hematocrit 33.0 % (36.0-47.0) 32.0 % (36.0-47.0) Mean Corpuscular Volume 89 fL (79-100) 88 fL (79-100) Mean Corpuscular Hemoglobin 29 pg (25-35) 29 pg (25-35) Mean Corpuscular Hemoglobin Concent 33 g/dL (31-37) 33 g/dL (31-37) Red Cell Distribution Width 14.2 % (11.5-14.5) 14.2 % (11.5-14.5) Platelet Count 172 x10^3/uL (140-400) 179 x10^3/uL (140-400) Neutrophils (%) (Auto) 64 % (31-73) 58 % (31-73) Lymphocytes (%) (Auto) 23 % (24-48) 30 % (24-48) Monocytes (%) (Auto) 10 % (0-9) 10 % (0-9) Eosinophils (%) (Auto) 3 % (0-3) 3 % (0-3) Basophils (%) (Auto) 0 % (0-3) 0 % (0-3) Neutrophils # (Auto) 6.5 x10^3uL (1.8-7.7) 4.6 x10^3uL (1.8-7.7) Lymphocytes # (Auto) 2.3 x10^3/uL (1.0-4.8) 2.4 x10^3/uL (1.0-4.8) Monocytes # (Auto) 1.1 x10^3/uL (0.0-1.1) 0.8 x10^3/uL (0.0-1.1) Eosinophils # (Auto) 0.3 x10^3/uL (0.0-0.7) 0.2 x10^3/uL (0.0-0.7) Basophils # (Auto) 0.0 x10^3/uL (0.0-0.2) 0.0 x10^3/uL (0.0-0.2) Sodium Level 144 mmol/L (136-145) Potassium Level 4.5 mmol/L (3.5-5.1) Chloride Level 108 mmol/L (98-107) Carbon Dioxide Level 29 mmol/L (21-32) Anion Gap 7 (6-14) Blood Urea Nitrogen 27 mg/dL (7-20) Creatinine 1.8 mg/dL (0.6-1.0) Estimated GFR (Cockcroft-Gault) 26.9 Glucose Level 99 mg/dL (70-99) Calcium Level 8.5 mg/dL (8.5-10.1) Troponin I Quantitative < 0.017 ng/mL (0.000-0.055) < 0.017 ng/mL (0.000-0.055) Laboratory Tests Test 06/04/17 11:48 06/04/17 19:00 06/05/17 05:00 Troponin I Quantitative < 0.017 ng/mL (0.000-0.055) < 0.017 ng/mL (0.000-0.055) White Blood Count 8.0 x10^3/uL (4.0-11.0) Red Blood Count 3.64 x10^6/uL (3.50-5.40) Hemoglobin 10.7 g/dL (12.0-15.5) Hematocrit 32.0 % (36.0-47.0) Mean Corpuscular Volume 88 fL (79-100) Mean Corpuscular Hemoglobin 29 pg (25-35) Mean Corpuscular Hemoglobin Concent 33 g/dL (31-37) Red Cell Distribution Width 14.2 % (11.5-14.5) Platelet Count 179 x10^3/uL (140-400) Neutrophils (%) (Auto) 58 % (31-73) Lymphocytes (%) (Auto) 30 % (24-48) Monocytes (%) (Auto) 10 % (0-9) Eosinophils (%) (Auto) 3 % (0-3) Basophils (%) (Auto) 0 % (0-3) Neutrophils # (Auto) 4.6 x10^3uL (1.8-7.7) Lymphocytes # (Auto) 2.4 x10^3/uL (1.0-4.8) Monocytes # (Auto) 0.8 x10^3/uL (0.0-1.1) Eosinophils # (Auto) 0.2 x10^3/uL (0.0-0.7) Basophils # (Auto) 0.0 x10^3/uL (0.0-0.2) Microbiology 06/03/17 Urine Culture - Final, Complete 06/03/17 Urine Culture Result 1 (NETO) - Final, Complete 06/03/17 Antimicrobic Susceptibility - Final, Complete Medications Current Medications Hydromorphone HCl (Dilaudid) 0.5 mg PRN Q15MIN PRN IV/SQ PAIN GREATER THAN 3/ 10 Last administered on 06/02/17 13:05; Start 06/02/17 at 11:30; Stop 06/03/17 at 11:29; Status DC Ondansetron HCl (Zofran) 4 mg 1X ONCE IV Last administered on 06/02/17 11:29; Start 06/02/17 at 11:30; Stop 06/02/17 at 11:31; Status DC Diphtheria/ Tetanus/Acell Pertussis (Boostrix) 0.5 ml ONCE ONCE VAX IM Last administered on 06/02/17 12:55; Start 06/02/17 at 12:30; Stop 06/02/17 at 12:31; Status DC Morphine Sulfate 4 mg PRN Q2HR PRN IV PAIN Last administered on 06/03/17 14:08 ; Start 06/02/17 at 14:30; Stop 06/03/17 at 14:29; Status DC Sodium Chloride 1,000 ml @ 75 mls/hr 1X ONCE IV Last administered on 14:57; Start 06/02/17 at 14:30; Stop 06/03/17 at 03:49; Status DC Labetalol HCl (Normodyne) 5 mg PRN Q4HRS PRN IVP HYPERTENSION, SEE COMMENTS Last administered on 06/02/17 16:33; Start 06/02/17 at 16:15; Stop 06/04/17 at 09: 34; Status DC Lidocaine (Lidoderm) 1 patch DAILY TD Last administered on 06/05/17 08:02; Start 06/02/17 at 21:00 Atorvastatin Calcium (Lipitor) 10 mg QHS PO Last administered on 06/04/17 21:52 ; Start 06/02/17 at 21:00 Clonidine HCl (Catapres Tts-3) 1 patch WEEKLY TD Last administered on 06/03/17 08:51; Start 06/03/17 at 09:00 Diltiazem HCl (Cardizem 24hr Cd) 180 mg DAILY PO Last administered on 08:01; Start 06/03/17 at 09:00 Hydralazine HCl (Apresoline) 50 mg TID PO Last administered on 06/05/17 08:01 ; Start 06/02/17 at 21:00 Acetaminophen/ Hydrocodone Bitart (Lortab 5/325) 1 tab PRN Q8HRS PRN PO PAIN Last administered on 06/04/17 08:33; Start 06/02/17 at 21:00 Lisinopril (Prinivil) 40 mg DAILY PO Last administered on 06/05/17 08:03; Start 06/03/17 at 09:00 Metoprolol Tartrate (Lopressor) 12.5 mg BID PO Last administered on 06/05/17 07:59; Start 06/02/17 at 21:00 Pantoprazole Sodium (Protonix) 40 mg DAILYAC PO Last administered on 06/05/17 08:01; Start 06/03/17 at 07:30 Acetaminophen (Tylenol) 500 mg PRN Q6HRS PRN PO MILD PAIN / TEMP; Start at 08:45 Ondansetron HCl (Zofran) 4 mg PRN Q6HRS PRN IV NAUSEA/VOMITING; Start 06/03/17 at 08:45 Aspirin (Ecotrin) 81 mg DAILY PO Last administered on 06/04/17 08:32; Start 06/03/17 at 12:00; Stop 06/04/17 at 10:34; Status DC Clopidogrel Bisulfate (Plavix) 75 mg DAILY PO Last administered on 06/04/17 08: 32; Start 06/03/17 at 12:00; Stop 06/04/17 at 10:34; Status DC Non-Formulary Medication 70 mg WEEKLY PO ; Start 06/10/17 at 09:00; Status UNV Ceftriaxone Sodium 1 gm/ Sodium Chloride 50 ml @ 100 mls/hr Q24H IV Last administered on 06/04/17 20:26; Start 06/03/17 at 20:00 Morphine Sulfate 4 mg PRN Q2HR PRN IV PAIN Last administered on 06/05/17 07:56 ; Start 06/03/17 at 22:00 Ergocalciferol (Vitamin D2) 50,000 unit WEEKLY PO Last administered on 11:28; Start 06/04/17 at 10:00 Labetalol HCl (Normodyne) 10 mg PRN Q4HRS PRN IVP HYPERTENSION, SEE COMMENTS; Start 06/04/17 at 09:45 Heparin Sodium/ Dextrose 500 ml @ 0 mls/hr CONT PRN IV SEE I/O RECORD; Start at 10:45; Stop 06/04/17 at 11:53; Status DC Heparin Sodium (Porcine) (Heparin Sodium) 2,150 unit PRN Q6HRS PRN IV FOR UFH LEVEL LESS THAN 0.2; Start 06/04/17 at 10:45; Stop 06/04/17 at 11:53; Status DC Nitroglycerin (Nitrostat) 0.4 mg PRN Q5MIN PRN SL CHEST PAIN Last administered on 06/04/17 11:05; Start 06/04/17 at 10:45 Aspirin (Children'S Aspirin) 81 mg DAILYWBKFT PO Last administered on 08:00; Start 06/05/17 at 08:00 Clopidogrel Bisulfate (Plavix) 75 mg DAILYWBKFT PO Last administered on 08:01; Start 06/05/17 at 08:00 Acetaminophen/ Hydrocodone Bitart (Lortab 10/325) 1 tab PRN Q6HRS PRN PO PAIN MILD TO MOD; Start 06/05/17 at 09:15 Magnesium Hydroxide (Milk Of Magnesia) 2,400 mg PRN DAILY PRN PO CONSTIPATION; Start 06/05/17 at 09:15 Polyethylene Glycol (miraLAX PACKET) 17 gm DAILY PO Last administered on 09:56; Start 06/05/17 at 09:30 Docusate Sodium (Colace) 100 mg DAILY PO Last administered on 06/05/17 09:56; Start 06/05/17 at 09:30 Active Scripts Active Atorvastatin Calcium 10 Mg Tablet 10 Mg PO QHS Lisinopril 40 Mg Tablet 40 Mg PO DAILY Reported Hydralazine Hcl 50 Mg Tablet 50 Mg PO TID Metoprolol Tartrate 25 Mg Tablet 12.5 Mg PO BID Clopidogrel (Clopidogrel Bisulfate) 75 Mg Tablet 75 Mg PO DAILY Lortab 5-325 mg Tablet (Hydrocodone/Acetaminophen) 1 Each Tablet 1 Tab PO PRN Q8HRS PRN Alendronate Sodium 70 Mg Tablet 70 Mg PO WEEKLY Diltiazem 24HR Cd (Diltiazem Hcl) 180 Mg Cap.er.24h 1 Cap PO DAILY Clonidine Tts-3 (Clonidine) 1 Each Patch.tdwk 1 Patch TD WEEKLY Aspir 81 (Aspirin) 81 Mg Tablet.dr 1 Tab PO DAILY Pantoprazole Sodium 40 Mg Tablet.dr 20 Mg PO DAILY Vitals/I & O Vital Sign - Last 24 Hours 06/04/17 06/04/17 06/04/17 06/04/17 11:05 11:46 12:15 14:00 Temp 97.8 97.8 Pulse 57 60 Resp 21 18 B/P (MAP) 117/60 117/60 (79) 105/55 Pulse Ox 95 O2 Delivery Nasal Cannula Room Air O2 Flow Rate 2.0 1.5 06/04/17 06/04/17 06/04/17 06/04/17 14:33 19:30 20:00 21:51 Temp 97.8 98.1 97.8 98.1 Pulse 58 62 62 Resp 20 20 B/P (MAP) 105/55 (72) 110/55 (73) 110/55 Pulse Ox 95 94 O2 Delivery Nasal Cannula Nasal Cannula Nasal Cannula O2 Flow Rate 2.0 2.0 2.0 06/04/17 06/04/17 06/04/17 06/05/17 21:52 21:57 23:40 03:10 Temp 98.2 98.1 98.2 98.1 Pulse 62 64 65 Resp 20 18 18 B/P (MAP) 110/55 124/60 (81) 119/61 (80) Pulse Ox 96 96 O2 Delivery Nasal Cannula Nasal Cannula Nasal Cannula O2 Flow Rate 2.0 2.0 2.0 06/05/17 06/05/17 06/05/17 06/05/17 03:16 07:36 07:56 07:59 Temp 98.3 98.3 Pulse 72 72 Resp 20 20 16 B/P (MAP) 117/70 (86) 117/70 Pulse Ox 97 O2 Delivery Nasal Cannula Nasal Cannula Room Air O2 Flow Rate 2.0 2.0 06/05/17 06/05/17 06/05/17 06/05/17 08:00 08:01 08:01 08:03 Pulse 72 72 72 B/P (MAP) 117/70 117/70 117/70 O2 Delivery Nasal Cannula O2 Flow Rate 2.0 06/05/17 06/05/17 08:30 10:47 Temp 98.5 98.5 Pulse 60 Resp 14 19 B/P (MAP) 97/50 (66) Pulse Ox 97 95 O2 Delivery Nasal Cannula Nasal Cannula O2 Flow Rate 2.0 2.0 Intake and Output 06/05/17 06/05/17 06/06/17 15:00 23:00 07:00 Intake Total 120 ml Balance 120 ml JONNY LEAHY MD Jun 05, 2017 10:53
--- NOTE | 2017-06-05 13:37 | PDOC ---
ORTHO PROGRESS NOTES Subjective The patient is still having severe pain in her left shoulder. No complaints of chest pain at this time. Would still like to proceed with surgery in the am. Cleared by medicine and cards to do so. Vitals Vital Signs Date Time Temp Pulse Resp B/P (MAP) Pulse Ox O2 Delivery O2 Flow Rate FiO2 06/05/17 13:20 18 Nasal Cannula 2.0 06/05/17 10:47 98.5 60 97/50 (66) 95 98.5 Labs Laboratory Tests Test 06/04/17 04:00 06/04/17 11:48 06/04/17 19:00 06/05/17 05:00 White Blood Count 10.2 x10^3/uL (4.0-11.0) 8.0 x10^3/uL (4.0-11.0) Red Blood Count 3.71 x10^6/uL (3.50-5.40) 3.64 x10^6/uL (3.50-5.40) Hemoglobin 10.8 g/dL (12.0-15.5) 10.7 g/dL (12.0-15.5) Hematocrit 33.0 % (36.0-47.0) 32.0 % (36.0-47.0) Mean Corpuscular Volume 89 fL (79-100) 88 fL (79-100) Mean Corpuscular Hemoglobin 29 pg (25-35) 29 pg (25-35) Mean Corpuscular Hemoglobin Concent 33 g/dL (31-37) 33 g/dL (31-37) Red Cell Distribution Width 14.2 % (11.5-14.5) 14.2 % (11.5-14.5) Platelet Count 172 x10^3/uL (140-400) 179 x10^3/uL (140-400) Neutrophils (%) (Auto) 64 % (31-73) 58 % (31-73) Lymphocytes (%) (Auto) 23 % (24-48) 30 % (24-48) Monocytes (%) (Auto) 10 % (0-9) 10 % (0-9) Eosinophils (%) (Auto) 3 % (0-3) 3 % (0-3) Basophils (%) (Auto) 0 % (0-3) 0 % (0-3) Neutrophils # (Auto) 6.5 x10^3uL (1.8-7.7) 4.6 x10^3uL (1.8-7.7) Lymphocytes # (Auto) 2.3 x10^3/uL (1.0-4.8) 2.4 x10^3/uL (1.0-4.8) Monocytes # (Auto) 1.1 x10^3/uL (0.0-1.1) 0.8 x10^3/uL (0.0-1.1) Eosinophils # (Auto) 0.3 x10^3/uL (0.0-0.7) 0.2 x10^3/uL (0.0-0.7) Basophils # (Auto) 0.0 x10^3/uL (0.0-0.2) 0.0 x10^3/uL (0.0-0.2) Sodium Level 144 mmol/L (136-145) Potassium Level 4.5 mmol/L (3.5-5.1) Chloride Level 108 mmol/L (98-107) Carbon Dioxide Level 29 mmol/L (21-32) Anion Gap 7 (6-14) Blood Urea Nitrogen 27 mg/dL (7-20) Creatinine 1.8 mg/dL (0.6-1.0) Estimated GFR (Cockcroft-Gault) 26.9 Glucose Level 99 mg/dL (70-99) Calcium Level 8.5 mg/dL (8.5-10.1) Troponin I Quantitative < 0.017 ng/mL (0.000-0.055) < 0.017 ng/mL (0.000-0.055) Laboratory Tests Test 06/04/17 19:00 06/05/17 05:00 Troponin I Quantitative < 0.017 ng/mL (0.000-0.055) White Blood Count 8.0 x10^3/uL (4.0-11.0) Red Blood Count 3.64 x10^6/uL (3.50-5.40) Hemoglobin 10.7 g/dL (12.0-15.5) Hematocrit 32.0 % (36.0-47.0) Mean Corpuscular Volume 88 fL (79-100) Mean Corpuscular Hemoglobin 29 pg (25-35) Mean Corpuscular Hemoglobin Concent 33 g/dL (31-37) Red Cell Distribution Width 14.2 % (11.5-14.5) Platelet Count 179 x10^3/uL (140-400) Neutrophils (%) (Auto) 58 % (31-73) Lymphocytes (%) (Auto) 30 % (24-48) Monocytes (%) (Auto) 10 % (0-9) Eosinophils (%) (Auto) 3 % (0-3) Basophils (%) (Auto) 0 % (0-3) Neutrophils # (Auto) 4.6 x10^3uL (1.8-7.7) Lymphocytes # (Auto) 2.4 x10^3/uL (1.0-4.8) Monocytes # (Auto) 0.8 x10^3/uL (0.0-1.1) Eosinophils # (Auto) 0.2 x10^3/uL (0.0-0.7) Basophils # (Auto) 0.0 x10^3/uL (0.0-0.2) Problems: (1) Fracture of humeral head, left, closed Assessment and Plan The patient is an 82 year old left-hand dominant female with a left proximal humerus fracture. We again discussed operative versus nonoperative treatment with the patient and her family, and despite her increased cardiac risk she would like to proceed with surgery. -We will proceed in the am. -Will likely need a transfusion with surgery to keep her hb above 10, the patient understands -pain control -please hold any anticoagulation after midnight -npo at midnight. Problem Qualifiers (1) Fracture of humeral head, left, closed: Encounter type: initial encounter Qualified Codes: S42.292A - Other displaced fracture of upper end of left humerus, initial encounter for closed fracture OSCAR PLUMMER MD Jun 05, 2017 13:37
--- NOTE | 2017-06-05 14:50 | PDOC ---
PULMONARY PROGRESS NOTES Subjective no soa Vitals Vital Signs Date Time Temp Pulse Resp B/P (MAP) Pulse Ox O2 Delivery O2 Flow Rate FiO2 06/05/17 13:20 18 Nasal Cannula 2.0 06/05/17 10:47 98.5 60 97/50 (66) 95 98.5 General: Alert, No acute distress Lungs: Clear Cardiovascular: S1, S2 Abdomen: Soft Neuro Exam: Alert Extremities: No Edema, Other (left shoulder swelling) Labs Laboratory Tests Test 06/04/17 04:00 06/04/17 11:48 06/04/17 19:00 06/05/17 05:00 White Blood Count 10.2 x10^3/uL (4.0-11.0) 8.0 x10^3/uL (4.0-11.0) Red Blood Count 3.71 x10^6/uL (3.50-5.40) 3.64 x10^6/uL (3.50-5.40) Hemoglobin 10.8 g/dL (12.0-15.5) 10.7 g/dL (12.0-15.5) Hematocrit 33.0 % (36.0-47.0) 32.0 % (36.0-47.0) Mean Corpuscular Volume 89 fL (79-100) 88 fL (79-100) Mean Corpuscular Hemoglobin 29 pg (25-35) 29 pg (25-35) Mean Corpuscular Hemoglobin Concent 33 g/dL (31-37) 33 g/dL (31-37) Red Cell Distribution Width 14.2 % (11.5-14.5) 14.2 % (11.5-14.5) Platelet Count 172 x10^3/uL (140-400) 179 x10^3/uL (140-400) Neutrophils (%) (Auto) 64 % (31-73) 58 % (31-73) Lymphocytes (%) (Auto) 23 % (24-48) 30 % (24-48) Monocytes (%) (Auto) 10 % (0-9) 10 % (0-9) Eosinophils (%) (Auto) 3 % (0-3) 3 % (0-3) Basophils (%) (Auto) 0 % (0-3) 0 % (0-3) Neutrophils # (Auto) 6.5 x10^3uL (1.8-7.7) 4.6 x10^3uL (1.8-7.7) Lymphocytes # (Auto) 2.3 x10^3/uL (1.0-4.8) 2.4 x10^3/uL (1.0-4.8) Monocytes # (Auto) 1.1 x10^3/uL (0.0-1.1) 0.8 x10^3/uL (0.0-1.1) Eosinophils # (Auto) 0.3 x10^3/uL (0.0-0.7) 0.2 x10^3/uL (0.0-0.7) Basophils # (Auto) 0.0 x10^3/uL (0.0-0.2) 0.0 x10^3/uL (0.0-0.2) Sodium Level 144 mmol/L (136-145) Potassium Level 4.5 mmol/L (3.5-5.1) Chloride Level 108 mmol/L (98-107) Carbon Dioxide Level 29 mmol/L (21-32) Anion Gap 7 (6-14) Blood Urea Nitrogen 27 mg/dL (7-20) Creatinine 1.8 mg/dL (0.6-1.0) Estimated GFR (Cockcroft-Gault) 26.9 Glucose Level 99 mg/dL (70-99) Calcium Level 8.5 mg/dL (8.5-10.1) Troponin I Quantitative < 0.017 ng/mL (0.000-0.055) < 0.017 ng/mL (0.000-0.055) Laboratory Tests Test 06/04/17 19:00 06/05/17 05:00 Troponin I Quantitative < 0.017 ng/mL (0.000-0.055) White Blood Count 8.0 x10^3/uL (4.0-11.0) Red Blood Count 3.64 x10^6/uL (3.50-5.40) Hemoglobin 10.7 g/dL (12.0-15.5) Hematocrit 32.0 % (36.0-47.0) Mean Corpuscular Volume 88 fL (79-100) Mean Corpuscular Hemoglobin 29 pg (25-35) Mean Corpuscular Hemoglobin Concent 33 g/dL (31-37) Red Cell Distribution Width 14.2 % (11.5-14.5) Platelet Count 179 x10^3/uL (140-400) Neutrophils (%) (Auto) 58 % (31-73) Lymphocytes (%) (Auto) 30 % (24-48) Monocytes (%) (Auto) 10 % (0-9) Eosinophils (%) (Auto) 3 % (0-3) Basophils (%) (Auto) 0 % (0-3) Neutrophils # (Auto) 4.6 x10^3uL (1.8-7.7) Lymphocytes # (Auto) 2.4 x10^3/uL (1.0-4.8) Monocytes # (Auto) 0.8 x10^3/uL (0.0-1.1) Eosinophils # (Auto) 0.2 x10^3/uL (0.0-0.7) Basophils # (Auto) 0.0 x10^3/uL (0.0-0.2) Medications Active Scripts Medications Dose Route/Sig Max Daily Dose Days Date Category Hydralazine Hcl 50 Mg Tablet 50 Mg PO TID 03/09/17 Reported Metoprolol Tartrate 25 Mg Tablet 12.5 Mg PO BID 03/09/17 Reported Clopidogrel (Clopidogrel Bisulfate) 75 Mg Tablet 75 Mg PO DAILY 03/09/17 Reported Lortab 5-325 mg Tablet (Hydrocodone/Acetaminophen) 1 Each Tablet 1 Tab PO PRN Q8HRS PRN 05/09/16 Reported Alendronate Sodium 70 Mg Tablet 70 Mg PO WEEKLY 05/07/16 Reported Diltiazem 24HR Cd (Diltiazem Hcl) 180 Mg Cap.er.24h 1 Cap PO DAILY 05/06/16 Reported Atorvastatin Calcium 10 Mg Tablet 10 Mg PO QHS 09/06/15 Rx Lisinopril 40 Mg Tablet 40 Mg PO DAILY 03/22/15 Rx Clonidine Tts-3 (Clonidine) 1 Each Patch.tdwk 1 Patch TD WEEKLY 03/20/15 Reported Aspir 81 (Aspirin) 81 Mg Tablet.dr 1 Tab PO DAILY 03/19/15 Reported Pantoprazole Sodium 40 Mg Tablet.dr 20 Mg PO DAILY 03/19/15 Reported Impression . 1. Abnormal irregular parenchymal opacity 6.6 mm seen in the right upper lobe on CT chest. She is a nonsmoker and has no constitutional symptoms of malignancy. However, this needs to be followed up with a repeat CT chest in 4 months. 2. Status post fall with left humeral fracture. 3. Chronic renal insufficiency. 4. No significant history of tobacco use. Plan . 1. Repeat CT of the chest in 4 months to r/o any increase in size of right upper lobe irregular opacity. d/w daughter. she will make an appointment with me as OP post dc. 3. Follow orthopedic recommendations. The patient wants to proceed with surgery. scheduled Tuesday 4. Follow renal recommendation. 5. Discussed with daughter SHARMIN CHARLES MD Jun 05, 2017 14:50
[2017-06-05 14:59] VITALS: BP 131/61
[2017-06-05 19:40] VITALS: BP 115/56
[2017-06-05] MEDS: ATORVASTATIN CALCIUM 10 MG TABLET. PO SCH (20:06)
[2017-06-05 23:00] VITALS: BP 108/58
[2017-06-06] VITALS (8 sets, daily range): BP systolic 114–139; BP diastolic 54–63
[2017-06-06] MEDS: MORPHINE SULFATE 4 MG/ML DISP.SYRIN. IV PRN (02:14)
[2017-06-06] MEDS ORDERED: VANCOMYCIN 1 GM VIAL. ONE (07:37)
[2017-06-06] MEDS ORDERED: THROMBIN TOPICAL 20,000 UNIT SPRAY.SYRN KIT TP ONE (07:38)
[2017-06-06] MEDS ORDERED: fentaNYL PF VIAL 100 MCG/2 ML VIAL ONE ×4 (07:41→12:32)
[2017-06-06] MEDS ORDERED: GLYCOPYRROLATE 1 MG/5 ML VIAL. ONE (07:41)
[2017-06-06] MEDS ORDERED: MIDAZOLAM HCL/PF 2 MG/2 ML VIAL. ONE (07:41)
[2017-06-06] MEDS ORDERED: PROPOFOL 20 ML IV ONE (07:42)
[2017-06-06] MEDS ORDERED: NEOSTIGMINE METHYLSULFATE 5 MG/5 ML SYRINGE. ONE (07:42)
[2017-06-06] MEDS ORDERED: DEXAMETHASONE SOD PHOS 20 MG/5 ML VIAL. ONE (07:42)
[2017-06-06] MEDS ORDERED: ONDANSETRON PF 4 MG/2 ML VIAL. ONE (07:42)
[2017-06-06] MEDS ORDERED: LIDOCAINE 2% PF Vial for OR 5 ML VIAL. ONE (07:42)
[2017-06-06] MEDS ORDERED: MORPHINE SULFATE 5 MG, KETOROLAC 30 MG, ROPIVacaine 0.5% PF 60 ML, EPINEPHrine 0.5 MG i... INT ART ONE ×5 (08:00)
--- NOTE | 2017-06-06 08:46 | PDOC ---
PROGRESS NOTES Subjective Subjective Problems overnight: No acute issues overnight. poor pain control per the patient. No chest pain, shortness of breath, nausea, vomiting. Objective Vital Signs Vital Signs Date Time Temp Pulse Resp B/P (MAP) Pulse Ox O2 Delivery O2 Flow Rate FiO2 06/06/17 07:40 98.1 70 20 119/55 97 Nasal Cannula 2.0 98.1 Physical Exam LUE in shoulder immobilizer. neurovascularly intact distally. swellng and ecchymosis proximally. Labs Laboratory Tests Test 06/04/17 11:48 06/04/17 19:00 06/05/17 05:00 Troponin I Quantitative < 0.017 ng/mL (0.000-0.055) < 0.017 ng/mL (0.000-0.055) White Blood Count 8.0 x10^3/uL (4.0-11.0) Red Blood Count 3.64 x10^6/uL (3.50-5.40) Hemoglobin 10.7 g/dL (12.0-15.5) Hematocrit 32.0 % (36.0-47.0) Mean Corpuscular Volume 88 fL (79-100) Mean Corpuscular Hemoglobin 29 pg (25-35) Mean Corpuscular Hemoglobin Concent 33 g/dL (31-37) Red Cell Distribution Width 14.2 % (11.5-14.5) Platelet Count 179 x10^3/uL (140-400) Neutrophils (%) (Auto) 58 % (31-73) Lymphocytes (%) (Auto) 30 % (24-48) Monocytes (%) (Auto) 10 % (0-9) Eosinophils (%) (Auto) 3 % (0-3) Basophils (%) (Auto) 0 % (0-3) Neutrophils # (Auto) 4.6 x10^3uL (1.8-7.7) Lymphocytes # (Auto) 2.4 x10^3/uL (1.0-4.8) Monocytes # (Auto) 0.8 x10^3/uL (0.0-1.1) Eosinophils # (Auto) 0.2 x10^3/uL (0.0-0.7) Basophils # (Auto) 0.0 x10^3/uL (0.0-0.2) Assessment Assessment POD# [], S/P [] Problems: (1) Fracture of humeral head, left, closed Plan Plan of Care The patient is scheduled for surgery this am. Will await new labs this morning, and type and screen due to her cardiac history. Plan to proceed with RTSA. Problem Qualifiers (1) Fracture of humeral head, left, closed: Encounter type: initial encounter Qualified Codes: S42.292A - Other displaced fracture of upper end of left humerus, initial encounter for closed fracture OSCAR PLUMMER MD Jun 06, 2017 08:46
[2017-06-06 08:52] LABS: CALCIUM 8.7 mg/dL (8.5-10.1); CREATININE 1.8 mg/dL (0.6-1.0); GFR 26.9; POTASSIUM 4.4 mmol/L (3.5-5.1)
--- NOTE | 2017-06-06 08:55 | PDOC ---
PULMONARY PROGRESS NOTES Subjective no soa Vitals Vital Signs Date Time Temp Pulse Resp B/P (MAP) Pulse Ox O2 Delivery O2 Flow Rate FiO2 06/06/17 07:40 98.1 70 20 119/55 97 Nasal Cannula 2.0 98.1 General: Alert, No acute distress Lungs: Clear Cardiovascular: S1, S2 Abdomen: Soft Neuro Exam: Alert Extremities: No Edema, Other (left shoulder s/p surgery) Labs Laboratory Tests Test 06/04/17 11:48 06/04/17 19:00 06/05/17 05:00 06/06/17 08:27 Troponin I Quantitative < 0.017 ng/mL (0.000-0.055) < 0.017 ng/mL (0.000-0.055) White Blood Count 8.0 x10^3/uL (4.0-11.0) Red Blood Count 3.64 x10^6/uL (3.50-5.40) Hemoglobin 10.7 g/dL (12.0-15.5) Hematocrit 32.0 % (36.0-47.0) Mean Corpuscular Volume 88 fL (79-100) Mean Corpuscular Hemoglobin 29 pg (25-35) Mean Corpuscular Hemoglobin Concent 33 g/dL (31-37) Red Cell Distribution Width 14.2 % (11.5-14.5) Platelet Count 179 x10^3/uL (140-400) Neutrophils (%) (Auto) 58 % (31-73) Lymphocytes (%) (Auto) 30 % (24-48) Monocytes (%) (Auto) 10 % (0-9) Eosinophils (%) (Auto) 3 % (0-3) Basophils (%) (Auto) 0 % (0-3) Neutrophils # (Auto) 4.6 x10^3uL (1.8-7.7) Lymphocytes # (Auto) 2.4 x10^3/uL (1.0-4.8) Monocytes # (Auto) 0.8 x10^3/uL (0.0-1.1) Eosinophils # (Auto) 0.2 x10^3/uL (0.0-0.7) Basophils # (Auto) 0.0 x10^3/uL (0.0-0.2) Sodium Level 141 mmol/L (136-145) Potassium Level 4.4 mmol/L (3.5-5.1) Chloride Level 107 mmol/L (98-107) Carbon Dioxide Level 26 mmol/L (21-32) Anion Gap 8 (6-14) Blood Urea Nitrogen 35 mg/dL (7-20) Creatinine 1.8 mg/dL (0.6-1.0) Estimated GFR (Cockcroft-Gault) 26.9 Glucose Level 98 mg/dL (70-99) Calcium Level 8.7 mg/dL (8.5-10.1) Laboratory Tests Test 06/06/17 08:27 Sodium Level 141 mmol/L (136-145) Potassium Level 4.4 mmol/L (3.5-5.1) Chloride Level 107 mmol/L (98-107) Carbon Dioxide Level 26 mmol/L (21-32) Anion Gap 8 (6-14) Blood Urea Nitrogen 35 mg/dL (7-20) Creatinine 1.8 mg/dL (0.6-1.0) Estimated GFR (Cockcroft-Gault) 26.9 Glucose Level 98 mg/dL (70-99) Calcium Level 8.7 mg/dL (8.5-10.1) Medications Active Scripts Medications Dose Route/Sig Max Daily Dose Days Date Category Hydralazine Hcl 50 Mg Tablet 50 Mg PO TID 03/09/17 Reported Metoprolol Tartrate 25 Mg Tablet 12.5 Mg PO BID 03/09/17 Reported Clopidogrel (Clopidogrel Bisulfate) 75 Mg Tablet 75 Mg PO DAILY 03/09/17 Reported Lortab 5-325 mg Tablet (Hydrocodone/Acetaminophen) 1 Each Tablet 1 Tab PO PRN Q8HRS PRN 05/09/16 Reported Alendronate Sodium 70 Mg Tablet 70 Mg PO WEEKLY 05/07/16 Reported Diltiazem 24HR Cd (Diltiazem Hcl) 180 Mg Cap.er.24h 1 Cap PO DAILY 05/06/16 Reported Atorvastatin Calcium 10 Mg Tablet 10 Mg PO QHS 09/06/15 Rx Lisinopril 40 Mg Tablet 40 Mg PO DAILY 03/22/15 Rx Clonidine Tts-3 (Clonidine) 1 Each Patch.tdwk 1 Patch TD WEEKLY 03/20/15 Reported Aspir 81 (Aspirin) 81 Mg Tablet.dr 1 Tab PO DAILY 03/19/15 Reported Pantoprazole Sodium 40 Mg Tablet.dr 20 Mg PO DAILY 03/19/15 Reported Impression . 1. Abnormal irregular parenchymal opacity 6.6 mm seen in the right upper lobe on CT chest. 2. Status post fall with left humeral fracture repair 3. Chronic renal insufficiency. 4. No significant history of tobacco use. Plan . 1. Repeat CT of the chest in 4 months to r/o any increase in size of right upper lobe irregular opacity. d/w daughter. she will make an appointment with me as OP post dc. 3. Pain management 4. Follow renal recommendation. JACKIE CALVO MD Jun 06, 2017 08:55
[2017-06-06 09:01] LABS: BASO % 0 % (0-3); EOS % 2 % (0-3); HEMATOCRIT 31.6 % (36.0-47.0); HEMOGLOBIN 10.7 g/dL (12.0-15.5); LYMPH # 2.4 x10^3/uL (1.0-4.8); LYMPH % 28 % (24-48); MEAN CORPUSCULAR HEMOGLOBIN 30 pg (25-35); MEAN CORPUSCULAR HGB CONC 34 g/dL (31-37); MEAN CORPUSCULAR VOLUME 88 fL (79-100); MONO % 9 % (0-9); NEUT % 60 % (31-73); PLATELET COUNT 180 x10^3/uL (140-400); RED BLOOD COUNT 3.59 x10^6/uL (3.50-5.40); RED CELL DISTRIBUTION WIDTH 14.1 % (11.5-14.5); WHITE BLOOD COUNT 8.6 x10^3/uL (4.0-11.0)
[2017-06-06] MEDS ORDERED: ePHEDrine PF IN SALINE 50 MG/5 ML DISP.SYRIN IV ONE (09:22)
--- NOTE | 2017-06-06 09:51 | PDOC ---
PROGRESS NOTES Chief Complaint Chief Complaint Mild displaced fracture of the humerus neck and greater tuberosity. 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 Deshpande Plans on transferring to 5th floor post op PLAN: Check post op labs Ok to transfer to 5th floor Cont ergocalciferol x 12 weeks (Vit d < 26) Ethan iglesias Vitals Vitals Vital Signs Date Time Temp Pulse Resp B/P (MAP) Pulse Ox O2 Delivery O2 Flow Rate FiO2 06/06/17 07:40 98.1 70 20 119/55 97 Nasal Cannula 2.0 98.1 Physical Exam General: Alert, Oriented X3, No acute distress Heart: Regular rate Lungs: Clear Abdomen: Normal bowel sounds, Soft Extremities: No clubbing, Normal pulses Skin: No rashes, No breakdown Labs LABS Laboratory Tests Test 06/06/17 08:27 White Blood Count 8.6 x10^3/uL (4.0-11.0) Red Blood Count 3.59 x10^6/uL (3.50-5.40) Hemoglobin 10.7 g/dL (12.0-15.5) Hematocrit 31.6 % (36.0-47.0) Mean Corpuscular Volume 88 fL (79-100) Mean Corpuscular Hemoglobin 30 pg (25-35) Mean Corpuscular Hemoglobin Concent 34 g/dL (31-37) Red Cell Distribution Width 14.1 % (11.5-14.5) Platelet Count 180 x10^3/uL (140-400) Neutrophils (%) (Auto) 60 % (31-73) Lymphocytes (%) (Auto) 28 % (24-48) Monocytes (%) (Auto) 9 % (0-9) Eosinophils (%) (Auto) 2 % (0-3) Basophils (%) (Auto) 0 % (0-3) Neutrophils # (Auto) 5.2 x10^3uL (1.8-7.7) Lymphocytes # (Auto) 2.4 x10^3/uL (1.0-4.8) Monocytes # (Auto) 0.8 x10^3/uL (0.0-1.1) Eosinophils # (Auto) 0.2 x10^3/uL (0.0-0.7) Basophils # (Auto) 0.0 x10^3/uL (0.0-0.2) Sodium Level 141 mmol/L (136-145) Potassium Level 4.4 mmol/L (3.5-5.1) Chloride Level 107 mmol/L (98-107) Carbon Dioxide Level 26 mmol/L (21-32) Anion Gap 8 (6-14) Blood Urea Nitrogen 35 mg/dL (7-20) Creatinine 1.8 mg/dL (0.6-1.0) Estimated GFR (Cockcroft-Gault) 26.9 Glucose Level 98 mg/dL (70-99) Calcium Level 8.7 mg/dL (8.5-10.1) Review of Systems Review of Systems out having sx Assessment and Plan Assessmemt and Plan Problems Medical Problems: (1) Cervical spine pain Status: Acute (2) Closed head injury Status: Acute (3) Fall Status: Acute (4) Fracture of humeral head, left, closed Status: Acute (5) Left hip pain Status: Acute (6) Left knee pain Status: Acute (7) Nasal abrasion Status: Acute Problems: Comment Review of Relevant I have reviewed the following items louise (where applicable) has been applied. Labs Laboratory Tests Test 06/04/17 11:48 06/04/17 19:00 06/05/17 05:00 06/06/17 08:27 Troponin I Quantitative < 0.017 ng/mL (0.000-0.055) < 0.017 ng/mL (0.000-0.055) White Blood Count 8.0 x10^3/uL (4.0-11.0) 8.6 x10^3/uL (4.0-11.0) Red Blood Count 3.64 x10^6/uL (3.50-5.40) 3.59 x10^6/uL (3.50-5.40) Hemoglobin 10.7 g/dL (12.0-15.5) 10.7 g/dL (12.0-15.5) Hematocrit 32.0 % (36.0-47.0) 31.6 % (36.0-47.0) Mean Corpuscular Volume 88 fL (79-100) 88 fL (79-100) Mean Corpuscular Hemoglobin 29 pg (25-35) 30 pg (25-35) Mean Corpuscular Hemoglobin Concent 33 g/dL (31-37) 34 g/dL (31-37) Red Cell Distribution Width 14.2 % (11.5-14.5) 14.1 % (11.5-14.5) Platelet Count 179 x10^3/uL (140-400) 180 x10^3/uL (140-400) Neutrophils (%) (Auto) 58 % (31-73) 60 % (31-73) Lymphocytes (%) (Auto) 30 % (24-48) 28 % (24-48) Monocytes (%) (Auto) 10 % (0-9) 9 % (0-9) Eosinophils (%) (Auto) 3 % (0-3) 2 % (0-3) Basophils (%) (Auto) 0 % (0-3) 0 % (0-3) Neutrophils # (Auto) 4.6 x10^3uL (1.8-7.7) 5.2 x10^3uL (1.8-7.7) Lymphocytes # (Auto) 2.4 x10^3/uL (1.0-4.8) 2.4 x10^3/uL (1.0-4.8) Monocytes # (Auto) 0.8 x10^3/uL (0.0-1.1) 0.8 x10^3/uL (0.0-1.1) Eosinophils # (Auto) 0.2 x10^3/uL (0.0-0.7) 0.2 x10^3/uL (0.0-0.7) Basophils # (Auto) 0.0 x10^3/uL (0.0-0.2) 0.0 x10^3/uL (0.0-0.2) Sodium Level 141 mmol/L (136-145) Potassium Level 4.4 mmol/L (3.5-5.1) Chloride Level 107 mmol/L (98-107) Carbon Dioxide Level 26 mmol/L (21-32) Anion Gap 8 (6-14) Blood Urea Nitrogen 35 mg/dL (7-20) Creatinine 1.8 mg/dL (0.6-1.0) Estimated GFR (Cockcroft-Gault) 26.9 Glucose Level 98 mg/dL (70-99) Calcium Level 8.7 mg/dL (8.5-10.1) Laboratory Tests Test 06/06/17 08:27 White Blood Count 8.6 x10^3/uL (4.0-11.0) Red Blood Count 3.59 x10^6/uL (3.50-5.40) Hemoglobin 10.7 g/dL (12.0-15.5) Hematocrit 31.6 % (36.0-47.0) Mean Corpuscular Volume 88 fL (79-100) Mean Corpuscular Hemoglobin 30 pg (25-35) Mean Corpuscular Hemoglobin Concent 34 g/dL (31-37) Red Cell Distribution Width 14.1 % (11.5-14.5) Platelet Count 180 x10^3/uL (140-400) Neutrophils (%) (Auto) 60 % (31-73) Lymphocytes (%) (Auto) 28 % (24-48) Monocytes (%) (Auto) 9 % (0-9) Eosinophils (%) (Auto) 2 % (0-3) Basophils (%) (Auto) 0 % (0-3) Neutrophils # (Auto) 5.2 x10^3uL (1.8-7.7) Lymphocytes # (Auto) 2.4 x10^3/uL (1.0-4.8) Monocytes # (Auto) 0.8 x10^3/uL (0.0-1.1) Eosinophils # (Auto) 0.2 x10^3/uL (0.0-0.7) Basophils # (Auto) 0.0 x10^3/uL (0.0-0.2) Sodium Level 141 mmol/L (136-145) Potassium Level 4.4 mmol/L (3.5-5.1) Chloride Level 107 mmol/L (98-107) Carbon Dioxide Level 26 mmol/L (21-32) Anion Gap 8 (6-14) Blood Urea Nitrogen 35 mg/dL (7-20) Creatinine 1.8 mg/dL (0.6-1.0) Estimated GFR (Cockcroft-Gault) 26.9 Glucose Level 98 mg/dL (70-99) Calcium Level 8.7 mg/dL (8.5-10.1) Microbiology 06/03/17 Urine Culture - Final, Complete 06/03/17 Urine Culture Result 1 (NETO) - Final, Complete 06/03/17 Antimicrobic Susceptibility - Final, Complete Medications Current Medications Hydromorphone HCl (Dilaudid) 0.5 mg PRN Q15MIN PRN IV/SQ PAIN GREATER THAN 3/ 10 Last administered on 06/02/17 13:05; Start 06/02/17 at 11:30; Stop 06/03/17 at 11:29; Status DC Ondansetron HCl (Zofran) 4 mg 1X ONCE IV Last administered on 06/02/17 11:29; Start 06/02/17 at 11:30; Stop 06/02/17 at 11:31; Status DC Diphtheria/ Tetanus/Acell Pertussis (Boostrix) 0.5 ml ONCE ONCE VAX IM Last administered on 06/02/17 12:55; Start 06/02/17 at 12:30; Stop 06/02/17 at 12:31; Status DC Morphine Sulfate 4 mg PRN Q2HR PRN IV PAIN Last administered on 06/03/17 14:08 ; Start 06/02/17 at 14:30; Stop 06/03/17 at 14:29; Status DC Sodium Chloride 1,000 ml @ 75 mls/hr 1X ONCE IV Last administered on 14:57; Start 06/02/17 at 14:30; Stop 06/03/17 at 03:49; Status DC Labetalol HCl (Normodyne) 5 mg PRN Q4HRS PRN IVP HYPERTENSION, SEE COMMENTS Last administered on 06/02/17 16:33; Start 06/02/17 at 16:15; Stop 06/04/17 at 09: 34; Status DC Lidocaine (Lidoderm) 1 patch DAILY TD Last administered on 06/05/17 08:02; Start 06/02/17 at 21:00 Atorvastatin Calcium (Lipitor) 10 mg QHS PO Last administered on 06/05/17 20: 06; Start 06/02/17 at 21:00 Clonidine HCl (Catapres Tts-3) 1 patch WEEKLY TD Last administered on 06/03/17 08:51; Start 06/03/17 at 09:00 Diltiazem HCl (Cardizem 24hr Cd) 180 mg DAILY PO Last administered on 08:01; Start 06/03/17 at 09:00 Hydralazine HCl (Apresoline) 50 mg TID PO Last administered on 06/05/17 20:06 ; Start 06/02/17 at 21:00 Acetaminophen/ Hydrocodone Bitart (Lortab 5/325) 1 tab PRN Q8HRS PRN PO PAIN Last administered on 06/04/17 08:33; Start 06/02/17 at 21:00 Lisinopril (Prinivil) 40 mg DAILY PO Last administered on 06/05/17 08:03; Start 06/03/17 at 09:00 Metoprolol Tartrate (Lopressor) 12.5 mg BID PO Last administered on 06/05/17 20:07; Start 06/02/17 at 21:00 Pantoprazole Sodium (Protonix) 40 mg DAILYAC PO Last administered on 06/05/17 08:01; Start 06/03/17 at 07:30 Acetaminophen (Tylenol) 500 mg PRN Q6HRS PRN PO MILD PAIN / TEMP; Start at 08:45 Ondansetron HCl (Zofran) 4 mg PRN Q6HRS PRN IV NAUSEA/VOMITING; Start 06/03/17 at 08:45 Aspirin (Ecotrin) 81 mg DAILY PO Last administered on 06/04/17 08:32; Start 06/03/17 at 12:00; Stop 06/04/17 at 10:34; Status DC Clopidogrel Bisulfate (Plavix) 75 mg DAILY PO Last administered on 06/04/17 08: 32; Start 06/03/17 at 12:00; Stop 06/04/17 at 10:34; Status DC Non-Formulary Medication 70 mg WEEKLY PO ; Start 06/10/17 at 09:00; Status UNV Ceftriaxone Sodium 1 gm/ Sodium Chloride 50 ml @ 100 mls/hr Q24H IV Last administered on 06/05/17 19:59; Start 06/03/17 at 20:00 Morphine Sulfate 4 mg PRN Q2HR PRN IV PAIN Last administered on 06/06/17 02:14 ; Start 06/03/17 at 22:00 Ergocalciferol (Vitamin D2) 50,000 unit WEEKLY PO Last administered on 11:28; Start 06/04/17 at 10:00 Labetalol HCl (Normodyne) 10 mg PRN Q4HRS PRN IVP HYPERTENSION, SEE COMMENTS; Start 06/04/17 at 09:45 Heparin Sodium/ Dextrose 500 ml @ 0 mls/hr CONT PRN IV SEE I/O RECORD; Start at 10:45; Stop 06/04/17 at 11:53; Status DC Heparin Sodium (Porcine) (Heparin Sodium) 2,150 unit PRN Q6HRS PRN IV FOR UFH LEVEL LESS THAN 0.2; Start 06/04/17 at 10:45; Stop 06/04/17 at 11:53; Status DC Nitroglycerin (Nitrostat) 0.4 mg PRN Q5MIN PRN SL CHEST PAIN Last administered on 06/04/17 11:05; Start 06/04/17 at 10:45 Aspirin (Children'S Aspirin) 81 mg DAILYWBKFT PO Last administered on 08:00; Start 06/05/17 at 08:00 Clopidogrel Bisulfate (Plavix) 75 mg DAILYWBKFT PO Last administered on 08:01; Start 06/05/17 at 08:00 Acetaminophen/ Hydrocodone Bitart (Lortab 10/325) 1 tab PRN Q6HRS PRN PO PAIN MILD TO MOD Last administered on 06/05/17 15:03; Start 06/05/17 at 09:15 Magnesium Hydroxide (Milk Of Magnesia) 2,400 mg PRN DAILY PRN PO CONSTIPATION; Start 06/05/17 at 09:15 Polyethylene Glycol (miraLAX PACKET) 17 gm DAILY PO Last administered on 09:56; Start 06/05/17 at 09:30 Docusate Sodium (Colace) 100 mg DAILY PO Last administered on 06/05/17 09:56; Start 06/05/17 at 09:30 Morphine Sulfate 5 mg/Ketorolac Tromethamine 30 mg/Ropivacaine 60 ml/ Epinephrine HCl 0.5 mg/Sodium Chloride 100 ml @ 100 mls/hr 1X PERIOP ONCE INT ART ; Start 06/06/17 at 08:00; Stop 06/06/17 at 08:59; Status DC Vancomycin HCl 1 gm STK-MED ONCE .ROUTE ; Start 06/06/17 at 07:37; Stop at 07:38; Status DC Thrombin 20,000 unit STK-MED ONCE TP ; Start 06/06/17 at 07:38; Stop 06/06/17 at 07:39; Status DC Midazolam HCl (Versed) 2 mg STK-MED ONCE .ROUTE ; Start 06/06/17 at 07:41; Stop 06/06/17 at 07:42; Status DC Fentanyl Citrate (Fentanyl 2ml Vial) 100 mcg STK-MED ONCE .ROUTE ; Start at 07:41; Stop 06/06/17 at 07:42; Status DC Glycopyrrolate (Robinul) 1 mg STK-MED ONCE .ROUTE ; Start 06/06/17 at 07:41; Stop 06/06/17 at 07:42; Status DC Neostigmine Methylsulfate 5 mg STK-MED ONCE .ROUTE ; Start 06/06/17 at 07:42; Stop 06/06/17 at 07:43; Status DC Propofol 20 ml @ As Directed STK-MED ONCE IV ; Start 06/06/17 at 07:42; Stop 08/12 at 07:43; Status DC Lidocaine HCl (Lidocaine Pf 2% Vial) 5 ml STK-MED ONCE .ROUTE ; Start 06/06/17 at 07:42; Stop 06/06/17 at 07:43; Status DC Dexamethasone Sodium Phosphate (Decadron) 20 mg STK-MED ONCE .ROUTE ; Start 08/12 at 07:42; Stop 06/06/17 at 07:43; Status DC Ondansetron HCl (Zofran) 4 mg STK-MED ONCE .ROUTE ; Start 06/06/17 at 07:42; Stop 06/06/17 at 07:43; Status DC Cefazolin Sodium/ Dextrose 50 ml @ 100 mls/hr 1X PREOP PRN IV PRIOR TO PROCEDURE; Start 06/06/17 at 09:00; Stop 06/06/17 at 12:00 Cefazolin Sodium/ Dextrose 50 ml @ As Directed STK-MED ONCE IV ; Start 06/06/17 at 08:37; Stop 06/06/17 at 08:38; Status DC Ephedrine Sulfate 50 mg STK-MED ONCE IV ; Start 06/06/17 at 09:22; Stop at 09:23; Status DC Active Scripts Active Atorvastatin Calcium 10 Mg Tablet 10 Mg PO QHS Lisinopril 40 Mg Tablet 40 Mg PO DAILY Reported Hydralazine Hcl 50 Mg Tablet 50 Mg PO TID Metoprolol Tartrate 25 Mg Tablet 12.5 Mg PO BID Clopidogrel (Clopidogrel Bisulfate) 75 Mg Tablet 75 Mg PO DAILY Lortab 5-325 mg Tablet (Hydrocodone/Acetaminophen) 1 Each Tablet 1 Tab PO PRN Q8HRS PRN Alendronate Sodium 70 Mg Tablet 70 Mg PO WEEKLY Diltiazem 24HR Cd (Diltiazem Hcl) 180 Mg Cap.er.24h 1 Cap PO DAILY Clonidine Tts-3 (Clonidine) 1 Each Patch.tdwk 1 Patch TD WEEKLY Aspir 81 (Aspirin) 81 Mg Tablet. 1 Tab PO DAILY Pantoprazole Sodium 40 Mg Tablet.dr 20 Mg PO DAILY Vitals/I & O Vital Sign - Last 24 Hours 06/05/17 06/05/17 06/05/17 06/05/17 10:47 13:20 14:59 15:02 Temp 98.5 98.5 Pulse 60 58 64 Resp 19 18 B/P (MAP) 97/50 (66) 131/61 (84) 131/61 Pulse Ox 95 O2 Delivery Nasal Cannula Nasal Cannula Nasal Cannula O2 Flow Rate 2.0 2.0 2.0 06/05/17 06/05/17 06/05/17 06/05/17 15:03 17:17 18:29 19:40 Temp 98.0 98.0 Pulse 60 Resp 14 16 18 16 B/P (MAP) 115/56 (75) Pulse Ox 95 94 O2 Delivery Nasal Cannula Nasal Cannula Nasal Cannula Nasal Cannula O2 Flow Rate 2.0 2.0 2.0 2.0 06/05/17 06/05/17 06/05/17 06/05/17 19:45 20:06 20:07 23:00 Temp 98.3 98.3 Pulse 60 60 66 Resp 16 B/P (MAP) 115/56 115/56 108/58 (75) Pulse Ox 96 O2 Delivery Nasal Cannula Nasal Cannula O2 Flow Rate 2.0 2.0 06/06/17 06/06/17 06/06/17 06/06/17 02:10 02:14 02:44 07:00 Temp 97.5 98.1 97.5 98.1 Pulse 77 76 Resp 18 18 18 18 B/P (MAP) 131/59 (83) 119/55 (76) Pulse Ox 94 94 94 95 O2 Delivery Nasal Cannula Nasal Cannula Nasal Cannula Nasal Cannula O2 Flow Rate 2.0 2.0 2.0 2.0 06/06/17 07:40 Temp 98.1 98.1 Pulse 70 Resp 20 B/P (MAP) 119/55 Pulse Ox 97 O2 Delivery Nasal Cannula O2 Flow Rate 2.0 JONNY LEAHY MD Jun 06, 2017 09:51
[2017-06-06] MEDS ORDERED: DESFLURANE > 120 MINUTES IH ONE (10:36)
[2017-06-06] MEDS ORDERED: hydrALAZINE 20 MG/ML VIAL. ONE (10:36)
[2017-06-06] MEDS ORDERED: PROCHLORPERAZINE 10 MG/2 ML VIAL. IV PRN (12:30)
[2017-06-06] MEDS ORDERED: MORPHINE SULFATE 2 MG/ML DISP.SYRIN. IV PRN (12:30)
[2017-06-06] MEDS ORDERED: ONDANSETRON PF 4 MG/2 ML VIAL. IV PRN (12:30)
[2017-06-06] MEDS ORDERED: LIDOCAINE 1% 1 ML SYRINGE. ID PRN (12:30)
[2017-06-06] MEDS ORDERED: IV RINGERS,LACTATED 1000ML 1,000 ML IV SCH ×2 (12:30→13:00)
[2017-06-06] MEDS ORDERED: HYDROmorphone 2 MG/ML VIAL IV PRN (12:30)
[2017-06-06] MEDS ORDERED: fentaNYL PF VIAL 100 MCG/2 ML VIAL IV PRN ×2 (12:30)
--- NOTE | 2017-06-06 12:46 | PDOC ---
BRIEF OPERATIVE NOTE Date: Jun 06, 2017 Pre-Op Diagnosis Left proximal humerus fracture Post-Op Diagnosis Left Proximal Humerus Fracture Procedure Performed Left reverse total shoulder arthroplasty Surgeon Jaci Starkey MD Mobile Therapist Will Spain PA-C Blood Loss 200 Specimens Obtained None Findings None Complications None WILL SPAIN [facility] Jun 06, 2017 12:46
--- NOTE | 2017-06-06 13:37 | PDOC4 ---
Operative Note Operative Note Date of surgery: 06/06/2017 Free Text Op Notes: Preoperative Diagnosis: 1. Left shoulder 4 part humerus fracture 2. Left shoulder biceps tendonitis. Postoperative Diagnosis: 1. Left shoulder 4 part humerus fracture 2. Left shoulder biceps tendonitis. Procedure Performed: 1. Left reverse shoulder replacement, CPT 14402. 2. Left shoulder open biceps tendon transfer, CPT 12627. 3. Left shoulder greater tuberosity open reduction internal fixation, CPT 78591 Surgeon: Jaci Plummer MD Wash Worker: Go Spain PA-C Anesthesia: General. Estimated Blood Loss: 200 mL. Complications: None. Implants: Tornier Fracture stem, size 9; 25 mm x 15 mm baseplate, 36 mm glenosphere, 12 mm poly. Indications: This patient is an 82-year-old left hand dominant female who fell from standing height and sustained a 4-part proximal humerus fracture. Non- operative treatment including living with her shoulder as is and modifying her activity was discussed with the patient and her family. We also discussed left shoulder replacement with a reverse total shoulder arthroplasty. The risks of surgery including the risk of undergoing anesthesia, bleeding, infection, timothy- prosthetic fracture, post-operative stiffness, instability, possibility for revision, blood clots, and even were discussed at length. The benefits of surgery including pain relief and functional improvement of the shoulder were discussed along with the postoperative course of immobilization, weight restrictions, and physical therapy required after surgery. After a thorough discussion of the risks and benefits of a left reverse total shoulder replacement, the patient elected to proceed with surgery. She and her family exhibited understanding of the risks and benefits of surgery, and all questions were answered. Operative Procedure: The patient was identified and taken to the operating room. IV antibiotics were given preoperatively. The patient was placed under adequate general anesthesia in the beach chair position and the left shoulder was prepped and draped in the standard surgical fashion. A deltopectoral incision was made down through skin and subcutaneous tissue. The cephalic vein was identified, mobilized medially, and protected throughout the case. Subdeltoid adhesions were released, and fracture hematoma was encountered. The biceps tendon was identified between the greater and lesser tuberosity head fragments. It was traced into the rotator interval, which was thoroughly released to the base of the coracoid. The biceps tendon was then released and tagged. Two nice loop sutures were placed into each tuberosity fragment at the bone tendon interface to gain control of the tuberosity fragments. An osteotome was used to separate the fragments from the remaining humeral head and it was removed with a roxana. Attention was turned to the glenoid. Circumferential exposure was performed with a complete 360 degree capsular release. The glenoid still had considerable cartilage remaining, which was removed with a chun. The glenoid was prepared in standard fashion with medialized and inferior reaming to accept a 15 mm post base plate which was secured with three screws. A 36 mm glenosphere was placed without any difficulty with a nice tight fit. At this time attention was returned to the humeral side. The canal was irrigated thoroughly and all remaining bony fragments were removed. The fracture occurred right at the metaphyseal flare of the humerus, and the canal was very capacious with thin cortices. The canal was reamed down the orthopedic axis to accept a 9 mm cemented prosthesis. The provisional stem was used to trial and a 6 liner was found to have good stability. Two holes were placed in the anterolateral aspect of the proximal humeral shaft, straddling the bicipital groove. Two nice loop sutures were placed through the holes in anticipation of later tuberosity reduction. The canal was pulse lavaged and dried in preparation of cementing. A cement restrictor was placed distally. The 9 mm fracture stem was cemented into place in 20 degrees of retroversion at a pre-determined height. After the cement was completely cured, trial liners were used and a 12 mm poly was found to have the best stability. All humeral trial components were removed and the real components were placed with good stability achieved in all planes. The nice loop sutures were placed circumferentially around the prosthesis and into the opposite tuberosities. The sutures from the humeral shaft were placed into the tuberosities that had been joined together. This completed the greater tuberosity open reduction internal fixation, CPT 91943. This completed the reverse shoulder replacement, CPT 26402. The biceps tendon was and transferred to the pectoralis with a 0 Ethibond suture, CPT 85718. Intra-articular local anesthetic was injected into the deep tissues after a copious pulse lavage. A medium hemovac was placed in the deep space prior to approximating the deltopectoral interval with 0 ethibond. Closure was performed in layers with 3-0 monocryl for deep tissues, and prineo for skin. Sterile dressings and shoulder immobilizer were applied. The patient was awakened from anesthesia and transferred to the stretcher and recovery room in awake, alert, and stable condition. I was present for the entire case. JACI PLUMMER MD Jun 06, 2017 13:37
--- NOTE | 2017-06-06 13:37 | RAD ---
Indication postop. Shoulder replacement. AP and Y views of the left shoulder were obtained and are compared to an examination 06/02/2017. There is now a shoulder prosthesis. No complication or unexpected finding is seen. There is some volume loss in the visualized left lung base suggesting pleural fluid and atelectasis
[2017-06-06 13:42] LABS: BASO % 0 % (0-3); EOS % 0 % (0-3); HEMOGLOBIN 12.3 g/dL (12.0-15.5); LYMPH # 1.9 x10^3/uL (1.0-4.8); LYMPH % 12 % (24-48); MEAN CORPUSCULAR HEMOGLOBIN 29 pg (25-35); MEAN CORPUSCULAR HGB CONC 32 g/dL (31-37); MEAN CORPUSCULAR VOLUME 89 fL (79-100); MONO % 3 % (0-9); NEUT % 85 % (31-73); PLATELET COUNT 208 x10^3/uL (140-400); RED BLOOD COUNT 4.28 x10^6/uL (3.50-5.40); RED CELL DISTRIBUTION WIDTH 14.2 % (11.5-14.5); WHITE BLOOD COUNT 15.8 x10^3/uL (4.0-11.0)
[2017-06-06 13:54] LABS: CALCIUM 8.8 mg/dL (8.5-10.1); CREATININE 1.9 mg/dL (0.6-1.0); GFR 25.2; POTASSIUM 4.1 mmol/L (3.5-5.1)
[2017-06-06 14:59] LABS: PLT ESTIMATE ADEQUATE (ADEQUATE); TOXIC GRANULATION SLIGHT
[2017-06-06] MEDS ORDERED: ACETAMINOPHEN 500 MG TABLET PO PRN (15:00)
[2017-06-06] MEDS ORDERED: NITROGLYCERIN SUBLINGUAL 0.4 MG BOTTLE OF 25. SL PRN (15:00)
[2017-06-06] MEDS ORDERED: MAGNESIUM HYDROXIDE 2,400 MG/30 ML ORAL.SUSP. PO PRN (15:00)
[2017-06-06] MEDS ORDERED: HYDROcodone/APAP 5/325MG 1 TAB TABLET PO PRN (15:00)
[2017-06-06] MEDS: DOCUSATE SODIUM 100 MG CAPSULE. PO SCH (15:18)
[2017-06-06] MEDS: CLOPIDOGREL BISULFATE 75 MG TABLET PO SCH (15:19)
[2017-06-06] MEDS: ASPIRIN CHEWABLE 81 MG TABLET. PO SCH (15:19)
[2017-06-06] MEDS: PANTOPRAZOLE 40 MG TABLET.DR. PO SCH (15:19)
[2017-06-06] MEDS: LISINOPRIL 40 MG TABLET. PO SCH (15:20)
[2017-06-06] MEDS: POLYETHYLENE GLYCOL 3350 17 GM PACKET. PO SCH (15:21)
--- NOTE | 2017-06-06 18:37 | PDOC ---
PROGRESS NOTES Subjective Subjective Tolerated surgery very well. She is alert and responsive, mildly confused Objective Objective Vital Signs Date Time Temp Pulse Resp B/P (MAP) Pulse Ox O2 Delivery O2 Flow Rate FiO2 06/06/17 16:00 98.4 88 16 114/61 (78) 96 Nasal Cannula 2.0 98.4 Intake and Output 06/07/17 07:00 Intake Total 100 ml Output Total 140 ml Balance -40 ml Intake Oral 100 ml Drainage Total 140 ml # Voids 1 Physical Exam Physical Exam No significant changes in cardiac exam Assessment Assessment Patient compensated and stable cardiac-chambers. Agree with present plan. Problems Medical Problems: (1) Cervical spine pain Status: Acute (2) Closed head injury Status: Acute (3) Fall Status: Acute (4) Fracture of humeral head, left, closed Status: Acute (5) Left hip pain Status: Acute (6) Left knee pain Status: Acute (7) Nasal abrasion Status: Acute Comment Review of Relevant I have reviewed the following items louise (where applicable) has been applied. Labs Laboratory Tests Test 06/04/17 19:00 06/05/17 05:00 06/06/17 08:27 06/06/17 13:20 Troponin I Quantitative < 0.017 ng/mL (0.000-0.055) White Blood Count 8.0 x10^3/uL (4.0-11.0) 8.6 x10^3/uL (4.0-11.0) 15.8 x10^3/uL (4.0-11.0) Red Blood Count 3.64 x10^6/uL (3.50-5.40) 3.59 x10^6/uL (3.50-5.40) 4.28 x10^6/uL (3.50-5.40) Hemoglobin 10.7 g/dL (12.0-15.5) 10.7 g/dL (12.0-15.5) 12.3 g/dL (12.0-15.5) Hematocrit 32.0 % (36.0-47.0) 31.6 % (36.0-47.0) 38.0 % (36.0-47.0) Mean Corpuscular Volume 88 fL (79-100) 88 fL (79-100) 89 fL (79-100) Mean Corpuscular Hemoglobin 29 pg (25-35) 30 pg (25-35) 29 pg (25-35) Mean Corpuscular Hemoglobin Concent 33 g/dL (31-37) 34 g/dL (31-37) 32 g/dL (31-37) Red Cell Distribution Width 14.2 % (11.5-14.5) 14.1 % (11.5-14.5) 14.2 % (11.5-14.5) Platelet Count 179 x10^3/uL (140-400) 180 x10^3/uL (140-400) 208 x10^3/uL (140-400) Neutrophils (%) (Auto) 58 % (31-73) 60 % (31-73) 85 % (31-73) Lymphocytes (%) (Auto) 30 % (24-48) 28 % (24-48) 12 % (24-48) Monocytes (%) (Auto) 10 % (0-9) 9 % (0-9) 3 % (0-9) Eosinophils (%) (Auto) 3 % (0-3) 2 % (0-3) 0 % (0-3) Basophils (%) (Auto) 0 % (0-3) 0 % (0-3) 0 % (0-3) Neutrophils # (Auto) 4.6 x10^3uL (1.8-7.7) 5.2 x10^3uL (1.8-7.7) 13.4 x10^3uL (1.8-7.7) Lymphocytes # (Auto) 2.4 x10^3/uL (1.0-4.8) 2.4 x10^3/uL (1.0-4.8) 1.9 x10^3/uL (1.0-4.8) Monocytes # (Auto) 0.8 x10^3/uL (0.0-1.1) 0.8 x10^3/uL (0.0-1.1) 0.4 x10^3/uL (0.0-1.1) Eosinophils # (Auto) 0.2 x10^3/uL (0.0-0.7) 0.2 x10^3/uL (0.0-0.7) 0.0 x10^3/uL (0.0-0.7) Basophils # (Auto) 0.0 x10^3/uL (0.0-0.2) 0.0 x10^3/uL (0.0-0.2) 0.0 x10^3/uL (0.0-0.2) Sodium Level 141 mmol/L (136-145) 141 mmol/L (136-145) Potassium Level 4.4 mmol/L (3.5-5.1) 4.1 mmol/L (3.5-5.1) Chloride Level 107 mmol/L (98-107) 105 mmol/L (98-107) Carbon Dioxide Level 26 mmol/L (21-32) 26 mmol/L (21-32) Anion Gap 8 (6-14) 10 (6-14) Blood Urea Nitrogen 35 mg/dL (7-20) 34 mg/dL (7-20) Creatinine 1.8 mg/dL (0.6-1.0) 1.9 mg/dL (0.6-1.0) Estimated GFR (Cockcroft-Gault) 26.9 25.2 Glucose Level 98 mg/dL (70-99) 153 mg/dL (70-99) Calcium Level 8.7 mg/dL (8.5-10.1) 8.8 mg/dL (8.5-10.1) Segmented Neutrophils % 74 % (35-66) Band Neutrophils % 14 % (0-9) Lymphocytes % 8 % (24-48) Monocytes % 4 % (0-10) Toxic Granulation Slight Platelet Estimate Adequate (ADEQUATE) Laboratory Tests Test 06/06/17 08:27 06/06/17 13:20 White Blood Count 8.6 x10^3/uL (4.0-11.0) 15.8 x10^3/uL (4.0-11.0) Red Blood Count 3.59 x10^6/uL (3.50-5.40) 4.28 x10^6/uL (3.50-5.40) Hemoglobin 10.7 g/dL (12.0-15.5) 12.3 g/dL (12.0-15.5) Hematocrit 31.6 % (36.0-47.0) 38.0 % (36.0-47.0) Mean Corpuscular Volume 88 fL (79-100) 89 fL (79-100) Mean Corpuscular Hemoglobin 30 pg (25-35) 29 pg (25-35) Mean Corpuscular Hemoglobin Concent 34 g/dL (31-37) 32 g/dL (31-37) Red Cell Distribution Width 14.1 % (11.5-14.5) 14.2 % (11.5-14.5) Platelet Count 180 x10^3/uL (140-400) 208 x10^3/uL (140-400) Neutrophils (%) (Auto) 60 % (31-73) 85 % (31-73) Lymphocytes (%) (Auto) 28 % (24-48) 12 % (24-48) Monocytes (%) (Auto) 9 % (0-9) 3 % (0-9) Eosinophils (%) (Auto) 2 % (0-3) 0 % (0-3) Basophils (%) (Auto) 0 % (0-3) 0 % (0-3) Neutrophils # (Auto) 5.2 x10^3uL (1.8-7.7) 13.4 x10^3uL (1.8-7.7) Lymphocytes # (Auto) 2.4 x10^3/uL (1.0-4.8) 1.9 x10^3/uL (1.0-4.8) Monocytes # (Auto) 0.8 x10^3/uL (0.0-1.1) 0.4 x10^3/uL (0.0-1.1) Eosinophils # (Auto) 0.2 x10^3/uL (0.0-0.7) 0.0 x10^3/uL (0.0-0.7) Basophils # (Auto) 0.0 x10^3/uL (0.0-0.2) 0.0 x10^3/uL (0.0-0.2) Sodium Level 141 mmol/L (136-145) 141 mmol/L (136-145) Potassium Level 4.4 mmol/L (3.5-5.1) 4.1 mmol/L (3.5-5.1) Chloride Level 107 mmol/L (98-107) 105 mmol/L (98-107) Carbon Dioxide Level 26 mmol/L (21-32) 26 mmol/L (21-32) Anion Gap 8 (6-14) 10 (6-14) Blood Urea Nitrogen 35 mg/dL (7-20) 34 mg/dL (7-20) Creatinine 1.8 mg/dL (0.6-1.0) 1.9 mg/dL (0.6-1.0) Estimated GFR (Cockcroft-Gault) 26.9 25.2 Glucose Level 98 mg/dL (70-99) 153 mg/dL (70-99) Calcium Level 8.7 mg/dL (8.5-10.1) 8.8 mg/dL (8.5-10.1) Segmented Neutrophils % 74 % (35-66) Band Neutrophils % 14 % (0-9) Lymphocytes % 8 % (24-48) Monocytes % 4 % (0-10) Toxic Granulation Slight Platelet Estimate Adequate (ADEQUATE) Microbiology 06/03/17 Urine Culture - Final, Complete 06/03/17 Urine Culture Result 1 (NETO) - Final, Complete 06/03/17 Antimicrobic Susceptibility - Final, Complete Medications Current Medications Hydromorphone HCl (Dilaudid) 0.5 mg PRN Q15MIN PRN IV/SQ PAIN GREATER THAN 3/ 10 Last administered on 06/02/17 13:05; Start 06/02/17 at 11:30; Stop 06/03/17 at 11:29; Status DC Ondansetron HCl (Zofran) 4 mg 1X ONCE IV Last administered on 06/02/17 11:29; Start 06/02/17 at 11:30; Stop 06/02/17 at 11:31; Status DC Diphtheria/ Tetanus/Acell Pertussis (Boostrix) 0.5 ml ONCE ONCE VAX IM Last administered on 06/02/17 12:55; Start 06/02/17 at 12:30; Stop 06/02/17 at 12:31; Status DC Morphine Sulfate 4 mg PRN Q2HR PRN IV PAIN Last administered on 06/03/17 14:08 ; Start 06/02/17 at 14:30; Stop 06/03/17 at 14:29; Status DC Sodium Chloride 1,000 ml @ 75 mls/hr 1X ONCE IV Last administered on 14:57; Start 06/02/17 at 14:30; Stop 06/03/17 at 03:49; Status DC Labetalol HCl (Normodyne) 5 mg PRN Q4HRS PRN IVP HYPERTENSION, SEE COMMENTS Last administered on 06/02/17 16:33; Start 06/02/17 at 16:15; Stop 06/04/17 at 09: 34; Status DC Lidocaine (Lidoderm) 1 patch DAILY TD Last administered on 06/05/17 08:02; Start 06/02/17 at 21:00; Stop 06/06/17 at 12:54; Status DC Atorvastatin Calcium (Lipitor) 10 mg QHS PO Last administered on 06/05/17 20: 06; Start 06/02/17 at 21:00; Stop 06/06/17 at 12:54; Status DC Clonidine HCl (Catapres Tts-3) 1 patch WEEKLY TD Last administered on 06/03/17 08:51; Start 06/03/17 at 09:00; Stop 06/06/17 at 12:54; Status DC Diltiazem HCl (Cardizem 24hr Cd) 180 mg DAILY PO Last administered on 08:01; Start 06/03/17 at 09:00; Stop 06/06/17 at 12:54; Status DC Hydralazine HCl (Apresoline) 50 mg TID PO Last administered on 06/05/17 20:06 ; Start 06/02/17 at 21:00; Stop 06/06/17 at 12:54; Status DC Acetaminophen/ Hydrocodone Bitart (Lortab 5/325) 1 tab PRN Q8HRS PRN PO PAIN Last administered on 06/04/17 08:33; Start 06/02/17 at 21:00; Stop 06/06/17 at 12 :54; Status DC Lisinopril (Prinivil) 40 mg DAILY PO Last administered on 06/05/17 08:03; Start 06/03/17 at 09:00; Stop 06/06/17 at 12:55; Status DC Metoprolol Tartrate (Lopressor) 12.5 mg BID PO Last administered on 06/05/17 20:07; Start 06/02/17 at 21:00; Stop 06/06/17 at 12:55; Status DC Pantoprazole Sodium (Protonix) 40 mg DAILYAC PO Last administered on 06/05/17 08:01; Start 06/03/17 at 07:30; Stop 06/06/17 at 12:55; Status DC Acetaminophen (Tylenol) 500 mg PRN Q6HRS PRN PO MILD PAIN / TEMP; Start at 08:45; Stop 06/06/17 at 12:54; Status DC Ondansetron HCl (Zofran) 4 mg PRN Q6HRS PRN IV NAUSEA/VOMITING; Start 06/03/17 at 08:45; Stop 06/06/17 at 12:55; Status DC Aspirin (Ecotrin) 81 mg DAILY PO Last administered on 06/04/17 08:32; Start 06/03/17 at 12:00; Stop 06/04/17 at 10:34; Status DC Clopidogrel Bisulfate (Plavix) 75 mg DAILY PO Last administered on 06/04/17 08: 32; Start 06/03/17 at 12:00; Stop 06/04/17 at 10:34; Status DC Non-Formulary Medication 70 mg WEEKLY PO ; Start 06/10/17 at 09:00; Status UNV Ceftriaxone Sodium 1 gm/ Sodium Chloride 50 ml @ 100 mls/hr Q24H IV Last administered on 06/05/17 19:59; Start 06/03/17 at 20:00 Morphine Sulfate 4 mg PRN Q2HR PRN IV PAIN Last administered on 06/06/17 02:14 ; Start 06/03/17 at 22:00; Stop 06/06/17 at 12:55; Status DC Ergocalciferol (Vitamin D2) 50,000 unit WEEKLY PO Last administered on 11:28; Start 06/04/17 at 10:00; Stop 06/06/17 at 12:54; Status DC Labetalol HCl (Normodyne) 10 mg PRN Q4HRS PRN IVP HYPERTENSION, SEE COMMENTS; Start 06/04/17 at 09:45; Stop 06/06/17 at 12:55; Status DC Heparin Sodium/ Dextrose 500 ml @ 0 mls/hr CONT PRN IV SEE I/O RECORD; Start at 10:45; Stop 06/04/17 at 11:53; Status DC Heparin Sodium (Porcine) (Heparin Sodium) 2,150 unit PRN Q6HRS PRN IV FOR UFH LEVEL LESS THAN 0.2; Start 06/04/17 at 10:45; Stop 06/04/17 at 11:53; Status DC Nitroglycerin (Nitrostat) 0.4 mg PRN Q5MIN PRN SL CHEST PAIN Last administered on 06/04/17 11:05; Start 06/04/17 at 10:45; Stop 06/06/17 at 12:55; Status DC Aspirin (Children'S Aspirin) 81 mg DAILYWBKFT PO Last administered on 08:00; Start 06/05/17 at 08:00; Stop 06/06/17 at 12:54; Status DC Clopidogrel Bisulfate (Plavix) 75 mg DAILYWBKFT PO Last administered on 08:01; Start 06/05/17 at 08:00; Stop 06/06/17 at 12:54; Status DC Acetaminophen/ Hydrocodone Bitart (Lortab 10/325) 1 tab PRN Q6HRS PRN PO PAIN MILD TO MOD Last administered on 06/05/17 15:03; Start 06/05/17 at 09:15; Stop 06/06/17 at 12:55; Status DC Magnesium Hydroxide (Milk Of Magnesia) 2,400 mg PRN DAILY PRN PO CONSTIPATION; Start 06/05/17 at 09:15; Stop 06/06/17 at 12:55; Status DC Polyethylene Glycol (miraLAX PACKET) 17 gm DAILY PO Last administered on 09:56; Start 06/05/17 at 09:30; Stop 06/06/17 at 12:55; Status DC Docusate Sodium (Colace) 100 mg DAILY PO Last administered on 06/05/17 09:56; Start 06/05/17 at 09:30; Stop 06/06/17 at 12:54; Status DC Morphine Sulfate 5 mg/Ketorolac Tromethamine 30 mg/Ropivacaine 60 ml/ Epinephrine HCl 0.5 mg/Sodium Chloride 100 ml @ 100 mls/hr 1X PERIOP ONCE INT ART Last administered on 06/06/17 10:10; Start 06/06/17 at 08:00; Stop at 08:59; Status DC Vancomycin HCl 1 gm STK-MED ONCE .ROUTE ; Start 06/06/17 at 07:37; Stop at 07:38; Status DC Thrombin 20,000 unit STK-MED ONCE TP ; Start 06/06/17 at 07:38; Stop 06/06/17 at 07:39; Status DC Midazolam HCl (Versed) 2 mg STK-MED ONCE .ROUTE ; Start 06/06/17 at 07:41; Stop 06/06/17 at 07:42; Status DC Fentanyl Citrate (Fentanyl 2ml Vial) 100 mcg STK-MED ONCE .ROUTE ; Start at 07:41; Stop 06/06/17 at 07:42; Status DC Glycopyrrolate (Robinul) 1 mg STK-MED ONCE .ROUTE ; Start 06/06/17 at 07:41; Stop 06/06/17 at 07:42; Status DC Neostigmine Methylsulfate 5 mg STK-MED ONCE .ROUTE ; Start 06/06/17 at 07:42; Stop 06/06/17 at 07:43; Status DC Propofol 20 ml @ As Directed STK-MED ONCE IV ; Start 06/06/17 at 07:42; Stop 08/12 at 07:43; Status DC Lidocaine HCl (Lidocaine Pf 2% Vial) 5 ml STK-MED ONCE .ROUTE ; Start 06/06/17 at 07:42; Stop 06/06/17 at 07:43; Status DC Dexamethasone Sodium Phosphate (Decadron) 20 mg STK-MED ONCE .ROUTE ; Start 08/12 at 07:42; Stop 06/06/17 at 07:43; Status DC Ondansetron HCl (Zofran) 4 mg STK-MED ONCE .ROUTE ; Start 06/06/17 at 07:42; Stop 06/06/17 at 07:43; Status DC Cefazolin Sodium/ Dextrose 50 ml @ 100 mls/hr 1X PREOP PRN IV PRIOR TO PROCEDURE Last administered on 06/06/17t 09:45; Start 06/06/17 at 09:00; Stop at 12:00; Status DC Cefazolin Sodium/ Dextrose 50 ml @ As Directed STK-MED ONCE IV ; Start 06/06/17 at 08:37; Stop 06/06/17 at 08:38; Status DC Ephedrine Sulfate 50 mg STK-MED ONCE IV ; Start 06/06/17 at 09:22; Stop at 09:23; Status DC Fentanyl Citrate (Fentanyl 2ml Vial) 100 mcg STK-MED ONCE .ROUTE ; Start at 09:51; Stop 06/06/17 at 09:52; Status DC Fentanyl Citrate (Fentanyl 2ml Vial) 100 mcg STK-MED ONCE .ROUTE ; Start at 10:35; Stop 06/06/17 at 10:36; Status DC Hydralazine HCl (Apresoline) 20 mg STK-MED ONCE .ROUTE ; Start 06/06/17 at 10:36 ; Stop 06/06/17 at 10:37; Status DC Desflurane (Suprane) 90 ml STK-MED ONCE IH ; Start 06/06/17 at 10:36; Stop 06/06 at 10:37; Status DC Ondansetron HCl (Zofran) 4 mg PRN Q6HRS PRN IV NAUSEA/VOMITING; Start 06/06/17 at 12:30; Stop 06/06/17 at 19:00 Fentanyl Citrate (Fentanyl 2ml Vial) 25 mcg PRN Q5MIN PRN IV MILD PAIN; Start 06/06/17 at 12:30; Stop 06/06/17 at 19:00 Fentanyl Citrate (Fentanyl 2ml Vial) 50 mcg PRN Q5MIN PRN IV MODERATE PAIN; Start 06/06/17 at 12:30; Stop 06/06/17 at 19:00 Morphine Sulfate 1 mg PRN Q10MIN PRN IV SEVERE PAIN; Start 06/06/17 at 12:30; Stop 06/06/17 at 19:00 Ringer's Solution 1,000 ml @ 30 mls/hr Q24H IV ; Start 06/06/17 at 12:30; Stop 06/06/17 at 19:00 Lidocaine HCl 2 ml PRN 1X PRN ID PRIOR TO IV START; Start 06/06/17 at 12:30; Stop 06/06/17 at 19:00 Hydromorphone HCl (Dilaudid) 0.5 mg PRN Q10MIN PRN IV SEV PAIN, Second choice; Start 06/06/17 at 12:30; Stop 06/06/17 at 19:00 Prochlorperazine Edisylate (Compazine) 5 mg PACU PRN PRN IV NAUSEA, MRX1; Start 06/06/17 at 12:30; Stop 06/06/17 at 19:00 Fentanyl Citrate (Fentanyl 2ml Vial) 100 mcg STK-MED ONCE .ROUTE ; Start at 12:32; Stop 06/06/17 at 12:33; Status DC Ceftriaxone Sodium 1 gm/ Sodium Chloride 50 ml @ 100 mls/hr Q24H IV ; Start 08/12 at 20:00; Status UNV Ringer's Solution 1,000 ml @ 0 mls/hr Q0M IV ; Start 06/06/17 at 13:00; Stop at 19:30; Status UNV Acetaminophen (Tylenol) 500 mg PRN Q6HRS PRN PO MILD PAIN / TEMP; Start at 15:00 Aspirin (Children'S Aspirin) 81 mg DAILYWBKFT PO Last administered on 15:19; Start 06/06/17 at 15:00 Atorvastatin Calcium (Lipitor) 10 mg QHS PO ; Start 06/06/17 at 21:00 Clonidine HCl (Catapres Tts-3) 1 patch WEEKLY TD ; Start 06/10/17 at 09:00 Clopidogrel Bisulfate (Plavix) 75 mg DAILYWBKFT PO Last administered on 15:19; Start 06/06/17 at 15:00 Diltiazem HCl (Cardizem 24hr Cd) 180 mg DAILY PO Last administered on 15:18; Start 06/06/17 at 15:00 Docusate Sodium (Colace) 100 mg DAILY PO Last administered on 06/06/17 15:18; Start 06/06/17 at 15:00 Ergocalciferol (Vitamin D2) 50,000 unit WEEKLY PO ; Start 06/11/17 at 09:00 Fentanyl Citrate (Fentanyl 2ml Vial) 25 mcg PRN Q5MIN PRN IV MILD PAIN; Start 06/07/17 at 12:30; Status UNV Fentanyl Citrate (Fentanyl 2ml Vial) 50 mcg PRN Q5MIN PRN IV MODERATE PAIN; Start 06/07/17 at 12:30; Status UNV Hydralazine HCl (Apresoline) 50 mg TID PO Last administered on 06/06/17 15:21 ; Start 06/06/17 at 14:00 Acetaminophen/ Hydrocodone Bitart (Lortab 10/325) 1 tab PRN Q6HRS PRN PO PAIN MILD TO MOD; Start 06/06/17 at 15:00 Acetaminophen/ Hydrocodone Bitart (Lortab 5/325) 1 tab PRN Q8HRS PRN PO PAIN; Start 06/06/17 at 15:00 Hydromorphone HCl (Dilaudid) 0.5 mg PRN Q10MIN PRN IV SEV PAIN, Second choice; Start 06/07/17 at 12:30; Status UNV Lidocaine HCl 2 ml PRN 1X PRN ID PRIOR TO IV START; Start 06/07/17 at 12:30; Status UNV Lisinopril (Prinivil) 40 mg DAILY PO Last administered on 06/06/17 15:20; Start 06/06/17 at 15:00 Magnesium Hydroxide (Milk Of Magnesia) 2,400 mg PRN DAILY PRN PO CONSTIPATION; Start 06/06/17 at 15:00 Metoprolol Tartrate (Lopressor) 12.5 mg BID PO ; Start 06/06/17 at 21:00 Morphine Sulfate 4 mg PRN Q2HR PRN IV PAIN; Start 06/06/17 at 22:00 Morphine Sulfate 1 mg PRN Q10MIN PRN IV SEVERE PAIN; Start 06/07/17 at 12:30; Status UNV Nitroglycerin (Nitrostat) 0.4 mg PRN Q5MIN PRN SL CHEST PAIN; Start 06/06/17 at 15:00 Ondansetron HCl (Zofran) 4 mg PRN Q6HRS PRN IV NAUSEA/VOMITING; Start 06/07/17 at 08:45; Status UNV Ondansetron HCl (Zofran) 4 mg PRN Q6HRS PRN IV NAUSEA/VOMITING; Start 06/07/17 at 12:30; Status UNV Pantoprazole Sodium (Protonix) 40 mg DAILYAC PO Last administered on 06/06/17 15:19; Start 06/06/17 at 15:00 Polyethylene Glycol (miraLAX PACKET) 17 gm DAILY PO Last administered on 15:21; Start 06/06/17 at 15:00 Prochlorperazine Edisylate (Compazine) 5 mg PACU PRN PRN IV NAUSEA, MRX1; Start 06/07/17 at 12:30; Status UNV Cefazolin Sodium/ Dextrose 50 ml @ 100 mls/hr Q8H IV Last administered on 06/06 17:56; Start 06/06/17 at 18:00; Stop 06/07/17 at 02:29 Active Scripts Active Atorvastatin Calcium 10 Mg Tablet 10 Mg PO QHS Lisinopril 40 Mg Tablet 40 Mg PO DAILY Reported Hydralazine Hcl 50 Mg Tablet 50 Mg PO TID Metoprolol Tartrate 25 Mg Tablet 12.5 Mg PO BID Clopidogrel (Clopidogrel Bisulfate) 75 Mg Tablet 75 Mg PO DAILY Lortab 5-325 mg Tablet (Hydrocodone/Acetaminophen) 1 Each Tablet 1 Tab PO PRN Q8HRS PRN Alendronate Sodium 70 Mg Tablet 70 Mg PO WEEKLY Diltiazem 24HR Cd (Diltiazem Hcl) 180 Mg Cap.er.24h 1 Cap PO DAILY Clonidine Tts-3 (Clonidine) 1 Each Patch.tdwk 1 Patch TD WEEKLY Aspir 81 (Aspirin) 81 Mg Tablet. 1 Tab PO DAILY Pantoprazole Sodium 40 Mg Tablet.dr 20 Mg PO DAILY Vitals/I & O Vital Sign - Last 24 Hours 06/05/17 06/05/17 06/05/17 06/05/17 19:40 19:45 20:06 20:07 Temp 98.0 98.0 Pulse 60 60 60 Resp 16 B/P (MAP) 115/56 (75) 115/56 115/56 Pulse Ox 94 O2 Delivery Nasal Cannula Nasal Cannula O2 Flow Rate 2.0 2.0 06/05/17 06/06/17 06/06/17 06/06/17 23:00 02:10 02:14 02:44 Temp 98.3 97.5 98.3 97.5 Pulse 66 77 Resp 16 18 18 18 B/P (MAP) 108/58 (75) 131/59 (83) Pulse Ox 96 94 94 94 O2 Delivery Nasal Cannula Nasal Cannula Nasal Cannula Nasal Cannula O2 Flow Rate 2.0 2.0 2.0 2.0 9/11/17 06/06/17 06/06/17 06/06/17 07:00 07:40 12:38 12:52 Temp 98.1 98.1 98.4 98.1 98.1 98.4 Pulse 76 70 93 Resp 18 20 16 B/P (MAP) 119/55 (76) 119/55 125/48 Pulse Ox 95 97 97 O2 Delivery Nasal Cannula Nasal Cannula Simple Mask Nasal Cannula O2 Flow Rate 2.0 2.0 10 2 06/06/17 06/06/17 06/06/17 06/06/17 12:53 13:08 13:23 13:38 Temp 97.4 97.4 Pulse 92 88 88 87 Resp 17 16 16 16 B/P (MAP) 169/68 178/61 178/63 183/65 Pulse Ox 97 96 96 96 O2 Delivery Room Air Nasal Cannula Nasal Cannula Nasal Cannula O2 Flow Rate 2 2 2 06/06/17 06/06/17 06/06/17 06/06/17 13:53 14:33 15:15 15:18 Temp 98.3 98.3 Pulse 87 88 98 Resp 16 15 B/P (MAP) 170/64 139/62 (87) 139/62 Pulse Ox 96 95 O2 Delivery Nasal Cannula Nasal Cannula Nasal Cannula O2 Flow Rate 2 2.0 2.0 06/06/17 06/06/17 06/06/17 06/06/17 15:20 15:21 15:30 15:45 Temp 98.8 98.3 98.8 98.3 Pulse 98 98 88 90 Resp 14 14 B/P (MAP) 139/62 139/62 133/63 (86) 133/60 (84) Pulse Ox 94 96 O2 Delivery Nasal Cannula Nasal Cannula O2 Flow Rate 2.0 2.0 06/06/17 16:00 Temp 98.4 98.4 Pulse 88 Resp 16 B/P (MAP) 114/61 (78) Pulse Ox 96 O2 Delivery Nasal Cannula O2 Flow Rate 2.0 Intake and Output 06/06/17 06/06/17 06/07/17 15:00 23:00 07:00 Intake Total 100 ml Output Total 90 ml 50 ml Balance -90 ml 50 ml DIPAK NEVILLE MD Jun 06, 2017 18:37
[2017-06-06] MEDS: METOPROLOL TART IMMED RELEASE 25 MG TABLET. PO SCH (21:00)
[2017-06-06] MEDS: ATORVASTATIN CALCIUM 10 MG TABLET. PO SCH (21:10)
[2017-06-06] MEDS: HYDROcodone/APAP 10/325 1 TAB TABLET PO PRN (21:44)
[2017-06-07 03:45] VITALS: BP 136/66
[2017-06-07] MEDS: HYDROcodone/APAP 10/325 1 TAB TABLET PO PRN ×3 (03:46→21:15)
[2017-06-07 06:29] LABS: BASO % 0 % (0-3); EOS % 0 % (0-3); HEMATOCRIT 32.2 % (36.0-47.0); LYMPH # 1.3 x10^3/uL (1.0-4.8); LYMPH % 8 % (24-48); MEAN CORPUSCULAR HEMOGLOBIN 29 pg (25-35); MEAN CORPUSCULAR HGB CONC 34 g/dL (31-37); MEAN CORPUSCULAR VOLUME 86 fL (79-100); MONO % 9 % (0-9); NEUT % 83 % (31-73); PLATELET COUNT 190 x10^3/uL (140-400); RED BLOOD COUNT 3.74 x10^6/uL (3.50-5.40); RED CELL DISTRIBUTION WIDTH 14.2 % (11.5-14.5); WHITE BLOOD COUNT 16.6 x10^3/uL (4.0-11.0)
[2017-06-07 06:49] LABS: CALCIUM 9.3 mg/dL (8.5-10.1); CREATININE 1.8 mg/dL (0.6-1.0); GFR 26.9; POTASSIUM 4.6 mmol/L (3.5-5.1)
[2017-06-07 07:45] VITALS: BP 144/84
[2017-06-07] MEDS: PANTOPRAZOLE 40 MG TABLET.DR. PO SCH (08:38)
[2017-06-07] MEDS: ASPIRIN CHEWABLE 81 MG TABLET. PO SCH (08:39)
[2017-06-07] MEDS: CLOPIDOGREL BISULFATE 75 MG TABLET PO SCH (08:39)
[2017-06-07] MEDS: METOPROLOL TART IMMED RELEASE 25 MG TABLET. PO SCH ×2 (08:40→21:14)
[2017-06-07] MEDS: LISINOPRIL 40 MG TABLET. PO SCH (08:40)
--- NOTE | 2017-06-07 08:40 | PDOC ---
PROGRESS NOTES Subjective Subjective Problems overnight: No acute events overnight. She has no nausea, vomiting, numbness, tingling, chest pain, shortness of breath, calf pain, or constipation. Pain well controlled. Hb improved since surgery and 1u prbc. Objective Vital Signs Vital Signs Date Time Temp Pulse Resp B/P (MAP) Pulse Ox O2 Delivery O2 Flow Rate FiO2 06/07/17 07:42 Nasal Cannula 2.0 06/07/17 03:45 97.7 79 20 136/66 (89) 97 97.7 Physical Exam LUE in shoulder immobilizer. neurovascularly intact distally. ecchymosis proximally. dressing clean, dry, and intact, removed. HV in place with ss output. Labs Laboratory Tests Test 06/06/17 08:27 06/06/17 13:20 06/07/17 05:47 White Blood Count 8.6 x10^3/uL (4.0-11.0) 15.8 x10^3/uL (4.0-11.0) 16.6 x10^3/uL (4.0-11.0) Red Blood Count 3.59 x10^6/uL (3.50-5.40) 4.28 x10^6/uL (3.50-5.40) 3.74 x10^6/uL (3.50-5.40) Hemoglobin 10.7 g/dL (12.0-15.5) 12.3 g/dL (12.0-15.5) 11.0 g/dL (12.0-15.5) Hematocrit 31.6 % (36.0-47.0) 38.0 % (36.0-47.0) 32.2 % (36.0-47.0) Mean Corpuscular Volume 88 fL (79-100) 89 fL (79-100) 86 fL (79-100) Mean Corpuscular Hemoglobin 30 pg (25-35) 29 pg (25-35) 29 pg (25-35) Mean Corpuscular Hemoglobin Concent 34 g/dL (31-37) 32 g/dL (31-37) 34 g/dL (31-37) Red Cell Distribution Width 14.1 % (11.5-14.5) 14.2 % (11.5-14.5) 14.2 % (11.5-14.5) Platelet Count 180 x10^3/uL (140-400) 208 x10^3/uL (140-400) 190 x10^3/uL (140-400) Neutrophils (%) (Auto) 60 % (31-73) 85 % (31-73) 83 % (31-73) Lymphocytes (%) (Auto) 28 % (24-48) 12 % (24-48) 8 % (24-48) Monocytes (%) (Auto) 9 % (0-9) 3 % (0-9) 9 % (0-9) Eosinophils (%) (Auto) 2 % (0-3) 0 % (0-3) 0 % (0-3) Basophils (%) (Auto) 0 % (0-3) 0 % (0-3) 0 % (0-3) Neutrophils # (Auto) 5.2 x10^3uL (1.8-7.7) 13.4 x10^3uL (1.8-7.7) 13.8 x10^3uL (1.8-7.7) Lymphocytes # (Auto) 2.4 x10^3/uL (1.0-4.8) 1.9 x10^3/uL (1.0-4.8) 1.3 x10^3/uL (1.0-4.8) Monocytes # (Auto) 0.8 x10^3/uL (0.0-1.1) 0.4 x10^3/uL (0.0-1.1) 1.5 x10^3/uL (0.0-1.1) Eosinophils # (Auto) 0.2 x10^3/uL (0.0-0.7) 0.0 x10^3/uL (0.0-0.7) 0.0 x10^3/uL (0.0-0.7) Basophils # (Auto) 0.0 x10^3/uL (0.0-0.2) 0.0 x10^3/uL (0.0-0.2) 0.0 x10^3/uL (0.0-0.2) Sodium Level 141 mmol/L (136-145) 141 mmol/L (136-145) 140 mmol/L (136-145) Potassium Level 4.4 mmol/L (3.5-5.1) 4.1 mmol/L (3.5-5.1) 4.6 mmol/L (3.5-5.1) Chloride Level 107 mmol/L (98-107) 105 mmol/L (98-107) 105 mmol/L (98-107) Carbon Dioxide Level 26 mmol/L (21-32) 26 mmol/L (21-32) 27 mmol/L (21-32) Anion Gap 8 (6-14) 10 (6-14) 8 (6-14) Blood Urea Nitrogen 35 mg/dL (7-20) 34 mg/dL (7-20) 40 mg/dL (7-20) Creatinine 1.8 mg/dL (0.6-1.0) 1.9 mg/dL (0.6-1.0) 1.8 mg/dL (0.6-1.0) Estimated GFR (Cockcroft-Gault) 26.9 25.2 26.9 Glucose Level 98 mg/dL (70-99) 153 mg/dL (70-99) 130 mg/dL (70-99) Calcium Level 8.7 mg/dL (8.5-10.1) 8.8 mg/dL (8.5-10.1) 9.3 mg/dL (8.5-10.1) Segmented Neutrophils % 74 % (35-66) Band Neutrophils % 14 % (0-9) Lymphocytes % 8 % (24-48) Monocytes % 4 % (0-10) Toxic Granulation Slight Platelet Estimate Adequate (ADEQUATE) Laboratory Tests Test 06/06/17 13:20 06/07/17 05:47 White Blood Count 15.8 x10^3/uL (4.0-11.0) 16.6 x10^3/uL (4.0-11.0) Red Blood Count 4.28 x10^6/uL (3.50-5.40) 3.74 x10^6/uL (3.50-5.40) Hemoglobin 12.3 g/dL (12.0-15.5) 11.0 g/dL (12.0-15.5) Hematocrit 38.0 % (36.0-47.0) 32.2 % (36.0-47.0) Mean Corpuscular Volume 89 fL (79-100) 86 fL (79-100) Mean Corpuscular Hemoglobin 29 pg (25-35) 29 pg (25-35) Mean Corpuscular Hemoglobin Concent 32 g/dL (31-37) 34 g/dL (31-37) Red Cell Distribution Width 14.2 % (11.5-14.5) 14.2 % (11.5-14.5) Platelet Count 208 x10^3/uL (140-400) 190 x10^3/uL (140-400) Neutrophils (%) (Auto) 85 % (31-73) 83 % (31-73) Lymphocytes (%) (Auto) 12 % (24-48) 8 % (24-48) Monocytes (%) (Auto) 3 % (0-9) 9 % (0-9) Eosinophils (%) (Auto) 0 % (0-3) 0 % (0-3) Basophils (%) (Auto) 0 % (0-3) 0 % (0-3) Neutrophils # (Auto) 13.4 x10^3uL (1.8-7.7) 13.8 x10^3uL (1.8-7.7) Lymphocytes # (Auto) 1.9 x10^3/uL (1.0-4.8) 1.3 x10^3/uL (1.0-4.8) Monocytes # (Auto) 0.4 x10^3/uL (0.0-1.1) 1.5 x10^3/uL (0.0-1.1) Eosinophils # (Auto) 0.0 x10^3/uL (0.0-0.7) 0.0 x10^3/uL (0.0-0.7) Basophils # (Auto) 0.0 x10^3/uL (0.0-0.2) 0.0 x10^3/uL (0.0-0.2) Segmented Neutrophils % 74 % (35-66) Band Neutrophils % 14 % (0-9) Lymphocytes % 8 % (24-48) Monocytes % 4 % (0-10) Toxic Granulation Slight Platelet Estimate Adequate (ADEQUATE) Sodium Level 141 mmol/L (136-145) 140 mmol/L (136-145) Potassium Level 4.1 mmol/L (3.5-5.1) 4.6 mmol/L (3.5-5.1) Chloride Level 105 mmol/L (98-107) 105 mmol/L (98-107) Carbon Dioxide Level 26 mmol/L (21-32) 27 mmol/L (21-32) Anion Gap 10 (6-14) 8 (6-14) Blood Urea Nitrogen 34 mg/dL (7-20) 40 mg/dL (7-20) Creatinine 1.9 mg/dL (0.6-1.0) 1.8 mg/dL (0.6-1.0) Estimated GFR (Cockcroft-Gault) 25.2 26.9 Glucose Level 153 mg/dL (70-99) 130 mg/dL (70-99) Calcium Level 8.8 mg/dL (8.5-10.1) 9.3 mg/dL (8.5-10.1) Imaging Left shoulder xrays reveal well placed reverse total shoulder arthroplasty. no acute dislocations. 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 Continue shoulder immobilizer for 6 weeks. ok for hand, wrist ,elbow range of motion. No shoulder range of motion at this time. Physical therapy/ ot: please work on elbow extension and wrist supination to prevent stiffness. Keep her shoulder out of extension and elbow more to the front of her at all times. No external/ internal rotation. Cr 1.8, Hb improved at 11. She can followup in my office in one week. She has paperwork for this. Will continue to monitor the drain output, will pull it when it is less than 40 cc a shift. Had 185 cc out overnight. Continue aspirin and plavix for cards. Problem Qualifiers (1) Fracture of humeral head, left, closed: Encounter type: initial encounter Qualified Codes: S42.292A - Other displaced fracture of upper end of left humerus, initial encounter for closed fracture OSCAR PLUMMER MD Jun 07, 2017 08:40
[2017-06-07] MEDS: DOCUSATE SODIUM 100 MG CAPSULE. PO SCH (08:42)
[2017-06-07] MEDS ORDERED: ONDANSETRON PF 4 MG/2 ML VIAL. IV PRN ×2 (08:45→12:30)
[2017-06-07] MEDS: POLYETHYLENE GLYCOL 3350 17 GM PACKET. PO SCH (09:00)
--- NOTE | 2017-06-07 10:07 | PDOC ---
PROGRESS NOTES Subjective Subjective No acute events overnight. Patient tolerate surgery well, pain controlled with medication. No complaints. Objective Objective Vital Signs Date Time Temp Pulse Resp B/P (MAP) Pulse Ox O2 Delivery O2 Flow Rate FiO2 06/07/17 09:47 96 Nasal Cannula 2.0 06/07/17 08:42 90 144/84 06/07/17 07:45 97.5 14 97.5 Physical Exam Physical Exam No significant changes to cardiac exam. Assessment Assessment Problems Medical Problems: (1) Cervical spine pain Status: Acute (2) Closed head injury Status: Acute (3) Fall Status: Acute (4) Fracture of humeral head, left, closed Status: Acute (5) Left hip pain Status: Acute (6) Left knee pain Status: Acute (7) Nasal abrasion Status: Acute Plan Plan of Care Patient compensated and stable cardiac-chambers. Okay to transfer to floor, agree with present plan. Comment Review of Relevant I have reviewed the following items louise (where applicable) has been applied. Labs Laboratory Tests Test 06/06/17 08:27 06/06/17 13:20 06/07/17 05:47 White Blood Count 8.6 x10^3/uL (4.0-11.0) 15.8 x10^3/uL (4.0-11.0) 16.6 x10^3/uL (4.0-11.0) Red Blood Count 3.59 x10^6/uL (3.50-5.40) 4.28 x10^6/uL (3.50-5.40) 3.74 x10^6/uL (3.50-5.40) Hemoglobin 10.7 g/dL (12.0-15.5) 12.3 g/dL (12.0-15.5) 11.0 g/dL (12.0-15.5) Hematocrit 31.6 % (36.0-47.0) 38.0 % (36.0-47.0) 32.2 % (36.0-47.0) Mean Corpuscular Volume 88 fL (79-100) 89 fL (79-100) 86 fL (79-100) Mean Corpuscular Hemoglobin 30 pg (25-35) 29 pg (25-35) 29 pg (25-35) Mean Corpuscular Hemoglobin Concent 34 g/dL (31-37) 32 g/dL (31-37) 34 g/dL (31-37) Red Cell Distribution Width 14.1 % (11.5-14.5) 14.2 % (11.5-14.5) 14.2 % (11.5-14.5) Platelet Count 180 x10^3/uL (140-400) 208 x10^3/uL (140-400) 190 x10^3/uL (140-400) Neutrophils (%) (Auto) 60 % (31-73) 85 % (31-73) 83 % (31-73) Lymphocytes (%) (Auto) 28 % (24-48) 12 % (24-48) 8 % (24-48) Monocytes (%) (Auto) 9 % (0-9) 3 % (0-9) 9 % (0-9) Eosinophils (%) (Auto) 2 % (0-3) 0 % (0-3) 0 % (0-3) Basophils (%) (Auto) 0 % (0-3) 0 % (0-3) 0 % (0-3) Neutrophils # (Auto) 5.2 x10^3uL (1.8-7.7) 13.4 x10^3uL (1.8-7.7) 13.8 x10^3uL (1.8-7.7) Lymphocytes # (Auto) 2.4 x10^3/uL (1.0-4.8) 1.9 x10^3/uL (1.0-4.8) 1.3 x10^3/uL (1.0-4.8) Monocytes # (Auto) 0.8 x10^3/uL (0.0-1.1) 0.4 x10^3/uL (0.0-1.1) 1.5 x10^3/uL (0.0-1.1) Eosinophils # (Auto) 0.2 x10^3/uL (0.0-0.7) 0.0 x10^3/uL (0.0-0.7) 0.0 x10^3/uL (0.0-0.7) Basophils # (Auto) 0.0 x10^3/uL (0.0-0.2) 0.0 x10^3/uL (0.0-0.2) 0.0 x10^3/uL (0.0-0.2) Sodium Level 141 mmol/L (136-145) 141 mmol/L (136-145) 140 mmol/L (136-145) Potassium Level 4.4 mmol/L (3.5-5.1) 4.1 mmol/L (3.5-5.1) 4.6 mmol/L (3.5-5.1) Chloride Level 107 mmol/L (98-107) 105 mmol/L (98-107) 105 mmol/L (98-107) Carbon Dioxide Level 26 mmol/L (21-32) 26 mmol/L (21-32) 27 mmol/L (21-32) Anion Gap 8 (6-14) 10 (6-14) 8 (6-14) Blood Urea Nitrogen 35 mg/dL (7-20) 34 mg/dL (7-20) 40 mg/dL (7-20) Creatinine 1.8 mg/dL (0.6-1.0) 1.9 mg/dL (0.6-1.0) 1.8 mg/dL (0.6-1.0) Estimated GFR (Cockcroft-Gault) 26.9 25.2 26.9 Glucose Level 98 mg/dL (70-99) 153 mg/dL (70-99) 130 mg/dL (70-99) Calcium Level 8.7 mg/dL (8.5-10.1) 8.8 mg/dL (8.5-10.1) 9.3 mg/dL (8.5-10.1) Segmented Neutrophils % 74 % (35-66) Band Neutrophils % 14 % (0-9) Lymphocytes % 8 % (24-48) Monocytes % 4 % (0-10) Toxic Granulation Slight Platelet Estimate Adequate (ADEQUATE) Laboratory Tests Test 06/06/17 13:20 06/07/17 05:47 White Blood Count 15.8 x10^3/uL (4.0-11.0) 16.6 x10^3/uL (4.0-11.0) Red Blood Count 4.28 x10^6/uL (3.50-5.40) 3.74 x10^6/uL (3.50-5.40) Hemoglobin 12.3 g/dL (12.0-15.5) 11.0 g/dL (12.0-15.5) Hematocrit 38.0 % (36.0-47.0) 32.2 % (36.0-47.0) Mean Corpuscular Volume 89 fL (79-100) 86 fL (79-100) Mean Corpuscular Hemoglobin 29 pg (25-35) 29 pg (25-35) Mean Corpuscular Hemoglobin Concent 32 g/dL (31-37) 34 g/dL (31-37) Red Cell Distribution Width 14.2 % (11.5-14.5) 14.2 % (11.5-14.5) Platelet Count 208 x10^3/uL (140-400) 190 x10^3/uL (140-400) Neutrophils (%) (Auto) 85 % (31-73) 83 % (31-73) Lymphocytes (%) (Auto) 12 % (24-48) 8 % (24-48) Monocytes (%) (Auto) 3 % (0-9) 9 % (0-9) Eosinophils (%) (Auto) 0 % (0-3) 0 % (0-3) Basophils (%) (Auto) 0 % (0-3) 0 % (0-3) Neutrophils # (Auto) 13.4 x10^3uL (1.8-7.7) 13.8 x10^3uL (1.8-7.7) Lymphocytes # (Auto) 1.9 x10^3/uL (1.0-4.8) 1.3 x10^3/uL (1.0-4.8) Monocytes # (Auto) 0.4 x10^3/uL (0.0-1.1) 1.5 x10^3/uL (0.0-1.1) Eosinophils # (Auto) 0.0 x10^3/uL (0.0-0.7) 0.0 x10^3/uL (0.0-0.7) Basophils # (Auto) 0.0 x10^3/uL (0.0-0.2) 0.0 x10^3/uL (0.0-0.2) Segmented Neutrophils % 74 % (35-66) Band Neutrophils % 14 % (0-9) Lymphocytes % 8 % (24-48) Monocytes % 4 % (0-10) Toxic Granulation Slight Platelet Estimate Adequate (ADEQUATE) Sodium Level 141 mmol/L (136-145) 140 mmol/L (136-145) Potassium Level 4.1 mmol/L (3.5-5.1) 4.6 mmol/L (3.5-5.1) Chloride Level 105 mmol/L (98-107) 105 mmol/L (98-107) Carbon Dioxide Level 26 mmol/L (21-32) 27 mmol/L (21-32) Anion Gap 10 (6-14) 8 (6-14) Blood Urea Nitrogen 34 mg/dL (7-20) 40 mg/dL (7-20) Creatinine 1.9 mg/dL (0.6-1.0) 1.8 mg/dL (0.6-1.0) Estimated GFR (Cockcroft-Gault) 25.2 26.9 Glucose Level 153 mg/dL (70-99) 130 mg/dL (70-99) Calcium Level 8.8 mg/dL (8.5-10.1) 9.3 mg/dL (8.5-10.1) Microbiology 06/03/17 Urine Culture - Final, Complete 06/03/17 Urine Culture Result 1 (NETO) - Final, Complete 06/03/17 Antimicrobic Susceptibility - Final, Complete Medications Current Medications Hydromorphone HCl (Dilaudid) 0.5 mg PRN Q15MIN PRN IV/SQ PAIN GREATER THAN 3/ 10 Last administered on 06/02/17 13:05; Start 06/02/17 at 11:30; Stop 06/03/17 at 11:29; Status DC Ondansetron HCl (Zofran) 4 mg 1X ONCE IV Last administered on 06/02/17 11:29; Start 06/02/17 at 11:30; Stop 06/02/17 at 11:31; Status DC Diphtheria/ Tetanus/Acell Pertussis (Boostrix) 0.5 ml ONCE ONCE VAX IM Last administered on 06/02/17 12:55; Start 06/02/17 at 12:30; Stop 06/02/17 at 12:31; Status DC Morphine Sulfate 4 mg PRN Q2HR PRN IV PAIN Last administered on 06/03/17 14:08 ; Start 06/02/17 at 14:30; Stop 06/03/17 at 14:29; Status DC Sodium Chloride 1,000 ml @ 75 mls/hr 1X ONCE IV Last administered on 14:57; Start 06/02/17 at 14:30; Stop 06/03/17 at 03:49; Status DC Labetalol HCl (Normodyne) 5 mg PRN Q4HRS PRN IVP HYPERTENSION, SEE COMMENTS Last administered on 06/02/17 16:33; Start 06/02/17 at 16:15; Stop 06/04/17 at 09: 34; Status DC Lidocaine (Lidoderm) 1 patch DAILY TD Last administered on 06/05/17 08:02; Start 06/02/17 at 21:00; Stop 06/06/17 at 12:54; Status DC Atorvastatin Calcium (Lipitor) 10 mg QHS PO Last administered on 06/05/17 20: 06; Start 06/02/17 at 21:00; Stop 06/06/17 at 12:54; Status DC Clonidine HCl (Catapres Tts-3) 1 patch WEEKLY TD Last administered on 06/03/17 08:51; Start 06/03/17 at 09:00; Stop 06/06/17 at 12:54; Status DC Diltiazem HCl (Cardizem 24hr Cd) 180 mg DAILY PO Last administered on 08:01; Start 06/03/17 at 09:00; Stop 06/06/17 at 12:54; Status DC Hydralazine HCl (Apresoline) 50 mg TID PO Last administered on 06/05/17 20:06 ; Start 06/02/17 at 21:00; Stop 06/06/17 at 12:54; Status DC Acetaminophen/ Hydrocodone Bitart (Lortab 5/325) 1 tab PRN Q8HRS PRN PO PAIN Last administered on 06/04/17 08:33; Start 06/02/17 at 21:00; Stop 06/06/17 at 12 :54; Status DC Lisinopril (Prinivil) 40 mg DAILY PO Last administered on 06/05/17 08:03; Start 06/03/17 at 09:00; Stop 06/06/17 at 12:55; Status DC Metoprolol Tartrate (Lopressor) 12.5 mg BID PO Last administered on 06/05/17 20:07; Start 06/02/17 at 21:00; Stop 06/06/17 at 12:55; Status DC Pantoprazole Sodium (Protonix) 40 mg DAILYAC PO Last administered on 06/05/17 08:01; Start 06/03/17 at 07:30; Stop 06/06/17 at 12:55; Status DC Acetaminophen (Tylenol) 500 mg PRN Q6HRS PRN PO MILD PAIN / TEMP; Start at 08:45; Stop 06/06/17 at 12:54; Status DC Ondansetron HCl (Zofran) 4 mg PRN Q6HRS PRN IV NAUSEA/VOMITING; Start 06/03/17 at 08:45; Stop 06/06/17 at 12:55; Status DC Aspirin (Ecotrin) 81 mg DAILY PO Last administered on 06/04/17 08:32; Start 06/03/17 at 12:00; Stop 06/04/17 at 10:34; Status DC Clopidogrel Bisulfate (Plavix) 75 mg DAILY PO Last administered on 06/04/17 08: 32; Start 06/03/17 at 12:00; Stop 06/04/17 at 10:34; Status DC Non-Formulary Medication 70 mg WEEKLY PO ; Start 06/10/17 at 09:00; Status UNV Ceftriaxone Sodium 1 gm/ Sodium Chloride 50 ml @ 100 mls/hr Q24H IV Last administered on 06/06/17 18:42; Start 06/03/17 at 20:00 Morphine Sulfate 4 mg PRN Q2HR PRN IV PAIN Last administered on 06/06/17 02:14 ; Start 06/03/17 at 22:00; Stop 06/06/17 at 12:55; Status DC Ergocalciferol (Vitamin D2) 50,000 unit WEEKLY PO Last administered on 11:28; Start 06/04/17 at 10:00; Stop 06/06/17 at 12:54; Status DC Labetalol HCl (Normodyne) 10 mg PRN Q4HRS PRN IVP HYPERTENSION, SEE COMMENTS; Start 06/04/17 at 09:45; Stop 06/06/17 at 12:55; Status DC Heparin Sodium/ Dextrose 500 ml @ 0 mls/hr CONT PRN IV SEE I/O RECORD; Start at 10:45; Stop 06/04/17 at 11:53; Status DC Heparin Sodium (Porcine) (Heparin Sodium) 2,150 unit PRN Q6HRS PRN IV FOR UFH LEVEL LESS THAN 0.2; Start 06/04/17 at 10:45; Stop 06/04/17 at 11:53; Status DC Nitroglycerin (Nitrostat) 0.4 mg PRN Q5MIN PRN SL CHEST PAIN Last administered on 06/04/17 11:05; Start 06/04/17 at 10:45; Stop 06/06/17 at 12:55; Status DC Aspirin (Children'S Aspirin) 81 mg DAILYWBKFT PO Last administered on 08:00; Start 06/05/17 at 08:00; Stop 06/06/17 at 12:54; Status DC Clopidogrel Bisulfate (Plavix) 75 mg DAILYWBKFT PO Last administered on 08:01; Start 06/05/17 at 08:00; Stop 06/06/17 at 12:54; Status DC Acetaminophen/ Hydrocodone Bitart (Lortab 10/325) 1 tab PRN Q6HRS PRN PO PAIN MILD TO MOD Last administered on 06/05/17 15:03; Start 06/05/17 at 09:15; Stop 06/06/17 at 12:55; Status DC Magnesium Hydroxide (Milk Of Magnesia) 2,400 mg PRN DAILY PRN PO CONSTIPATION; Start 06/05/17 at 09:15; Stop 06/06/17 at 12:55; Status DC Polyethylene Glycol (miraLAX PACKET) 17 gm DAILY PO Last administered on 09:56; Start 06/05/17 at 09:30; Stop 06/06/17 at 12:55; Status DC Docusate Sodium (Colace) 100 mg DAILY PO Last administered on 06/05/17 09:56; Start 06/05/17 at 09:30; Stop 06/06/17 at 12:54; Status DC Morphine Sulfate 5 mg/Ketorolac Tromethamine 30 mg/Ropivacaine 60 ml/ Epinephrine HCl 0.5 mg/Sodium Chloride 100 ml @ 100 mls/hr 1X PERIOP ONCE INT ART Last administered on 06/06/17t 10:10; Start 06/06/17 at 08:00; Stop at 08:59; Status DC Vancomycin HCl 1 gm STK-MED ONCE .ROUTE ; Start 06/06/17 at 07:37; Stop at 07:38; Status DC Thrombin 20,000 unit STK-MED ONCE TP ; Start 06/06/17 at 07:38; Stop 06/06/17 at 07:39; Status DC Midazolam HCl (Versed) 2 mg STK-MED ONCE .ROUTE ; Start 06/06/17 at 07:41; Stop 06/06/17 at 07:42; Status DC Fentanyl Citrate (Fentanyl 2ml Vial) 100 mcg STK-MED ONCE .ROUTE ; Start at 07:41; Stop 06/06/17 at 07:42; Status DC Glycopyrrolate (Robinul) 1 mg STK-MED ONCE .ROUTE ; Start 06/06/17 at 07:41; Stop 06/06/17 at 07:42; Status DC Neostigmine Methylsulfate 5 mg STK-MED ONCE .ROUTE ; Start 06/06/17 at 07:42; Stop 06/06/17 at 07:43; Status DC Propofol 20 ml @ As Directed STK-MED ONCE IV ; Start 06/06/17 at 07:42; Stop 08/12 at 07:43; Status DC Lidocaine HCl (Lidocaine Pf 2% Vial) 5 ml STK-MED ONCE .ROUTE ; Start 06/06/17 at 07:42; Stop 06/06/17 at 07:43; Status DC Dexamethasone Sodium Phosphate (Decadron) 20 mg STK-MED ONCE .ROUTE ; Start 08/12 at 07:42; Stop 06/06/17 at 07:43; Status DC Ondansetron HCl (Zofran) 4 mg STK-MED ONCE .ROUTE ; Start 06/06/17 at 07:42; Stop 06/06/17 at 07:43; Status DC Cefazolin Sodium/ Dextrose 50 ml @ 100 mls/hr 1X PREOP PRN IV PRIOR TO PROCEDURE Last administered on 06/06/17t 09:45; Start 06/06/17 at 09:00; Stop at 12:00; Status DC Cefazolin Sodium/ Dextrose 50 ml @ As Directed STK-MED ONCE IV ; Start 06/06/17 at 08:37; Stop 06/06/17 at 08:38; Status DC Ephedrine Sulfate 50 mg STK-MED ONCE IV ; Start 06/06/17 at 09:22; Stop at 09:23; Status DC Fentanyl Citrate (Fentanyl 2ml Vial) 100 mcg STK-MED ONCE .ROUTE ; Start at 09:51; Stop 06/06/17 at 09:52; Status DC Fentanyl Citrate (Fentanyl 2ml Vial) 100 mcg STK-MED ONCE .ROUTE ; Start at 10:35; Stop 06/06/17 at 10:36; Status DC Hydralazine HCl (Apresoline) 20 mg STK-MED ONCE .ROUTE ; Start 06/06/17 at 10:36 ; Stop 06/06/17 at 10:37; Status DC Desflurane (Suprane) 90 ml STK-MED ONCE IH ; Start 06/06/17 at 10:36; Stop 06/06 at 10:37; Status DC Ondansetron HCl (Zofran) 4 mg PRN Q6HRS PRN IV NAUSEA/VOMITING; Start 06/06/17 at 12:30; Stop 06/06/17 at 19:00; Status DC Fentanyl Citrate (Fentanyl 2ml Vial) 25 mcg PRN Q5MIN PRN IV MILD PAIN; Start 06/06/17 at 12:30; Stop 06/06/17 at 19:00; Status DC Fentanyl Citrate (Fentanyl 2ml Vial) 50 mcg PRN Q5MIN PRN IV MODERATE PAIN; Start 06/06/17 at 12:30; Stop 06/06/17 at 19:00; Status DC Morphine Sulfate 1 mg PRN Q10MIN PRN IV SEVERE PAIN; Start 06/06/17 at 12:30; Stop 06/06/17 at 19:00; Status DC Ringer's Solution 1,000 ml @ 30 mls/hr Q24H IV ; Start 06/06/17 at 12:30; Stop 06/06/17 at 19:00; Status DC Lidocaine HCl 2 ml PRN 1X PRN ID PRIOR TO IV START; Start 06/06/17 at 12:30; Stop 06/06/17 at 19:00; Status DC Hydromorphone HCl (Dilaudid) 0.5 mg PRN Q10MIN PRN IV SEV PAIN, Second choice; Start 06/06/17 at 12:30; Stop 06/06/17 at 19:00; Status DC Prochlorperazine Edisylate (Compazine) 5 mg PACU PRN PRN IV NAUSEA, MRX1; Start 06/06/17 at 12:30; Stop 06/06/17 at 19:00; Status DC Fentanyl Citrate (Fentanyl 2ml Vial) 100 mcg STK-MED ONCE .ROUTE ; Start at 12:32; Stop 06/06/17 at 12:33; Status DC Ceftriaxone Sodium 1 gm/ Sodium Chloride 50 ml @ 100 mls/hr Q24H IV ; Start 08/12 at 20:00; Status UNV Ringer's Solution 1,000 ml @ 0 mls/hr Q0M IV ; Start 06/06/17 at 13:00; Stop at 19:30; Status UNV Acetaminophen (Tylenol) 500 mg PRN Q6HRS PRN PO MILD PAIN / TEMP; Start at 15:00 Aspirin (Children'S Aspirin) 81 mg DAILYWBKFT PO Last administered on 08:39; Start 06/06/17 at 15:00 Atorvastatin Calcium (Lipitor) 10 mg QHS PO Last administered on 06/06/17 21: 10; Start 06/06/17 at 21:00 Clonidine HCl (Catapres Tts-3) 1 patch WEEKLY TD ; Start 06/10/17 at 09:00 Clopidogrel Bisulfate (Plavix) 75 mg DAILYWBKFT PO Last administered on 08:39; Start 06/06/17 at 15:00 Diltiazem HCl (Cardizem 24hr Cd) 180 mg DAILY PO Last administered on 08:42; Start 06/06/17 at 15:00 Docusate Sodium (Colace) 100 mg DAILY PO Last administered on 06/07/17 08:42; Start 06/06/17 at 15:00 Ergocalciferol (Vitamin D2) 50,000 unit WEEKLY PO ; Start 06/11/17 at 09:00 Fentanyl Citrate (Fentanyl 2ml Vial) 25 mcg PRN Q5MIN PRN IV MILD PAIN; Start 06/07/17 at 12:30; Status UNV Fentanyl Citrate (Fentanyl 2ml Vial) 50 mcg PRN Q5MIN PRN IV MODERATE PAIN; Start 06/07/17 at 12:30; Status UNV Hydralazine HCl (Apresoline) 50 mg TID PO Last administered on 06/07/17 08:39 ; Start 06/06/17 at 14:00 Acetaminophen/ Hydrocodone Bitart (Lortab 10/325) 1 tab PRN Q6HRS PRN PO PAIN MILD TO MOD Last administered on 06/07/17 09:47; Start 06/06/17 at 15:00 Acetaminophen/ Hydrocodone Bitart (Lortab 5/325) 1 tab PRN Q8HRS PRN PO PAIN; Start 06/06/17 at 15:00 Hydromorphone HCl (Dilaudid) 0.5 mg PRN Q10MIN PRN IV SEV PAIN, Second choice; Start 06/07/17 at 12:30; Status UNV Lidocaine HCl 2 ml PRN 1X PRN ID PRIOR TO IV START; Start 06/07/17 at 12:30; Status UNV Lisinopril (Prinivil) 40 mg DAILY PO Last administered on 06/07/17 08:40; Start 06/06/17 at 15:00 Magnesium Hydroxide (Milk Of Magnesia) 2,400 mg PRN DAILY PRN PO CONSTIPATION; Start 06/06/17 at 15:00 Metoprolol Tartrate (Lopressor) 12.5 mg BID PO Last administered on 06/07/17 08:40; Start 06/06/17 at 21:00 Morphine Sulfate 4 mg PRN Q2HR PRN IV PAIN; Start 06/06/17 at 22:00 Morphine Sulfate 1 mg PRN Q10MIN PRN IV SEVERE PAIN; Start 06/07/17 at 12:30; Status UNV Nitroglycerin (Nitrostat) 0.4 mg PRN Q5MIN PRN SL CHEST PAIN; Start 06/06/17 at 15:00 Ondansetron HCl (Zofran) 4 mg PRN Q6HRS PRN IV NAUSEA/VOMITING; Start 06/07/17 at 08:45; Status UNV Ondansetron HCl (Zofran) 4 mg PRN Q6HRS PRN IV NAUSEA/VOMITING; Start 06/07/17 at 12:30; Status UNV Pantoprazole Sodium (Protonix) 40 mg DAILYAC PO Last administered on 06/07/17 08:38; Start 06/06/17 at 15:00 Polyethylene Glycol (miraLAX PACKET) 17 gm DAILY PO Last administered on 15:21; Start 06/06/17 at 15:00 Prochlorperazine Edisylate (Compazine) 5 mg PACU PRN PRN IV NAUSEA, MRX1; Start 06/07/17 at 12:30; Status UNV Cefazolin Sodium/ Dextrose 50 ml @ 100 mls/hr Q8H IV Last administered on 06/07 01:29; Start 06/06/17 at 18:00; Stop 06/07/17 at 02:29; Status DC Active Scripts Active Atorvastatin Calcium 10 Mg Tablet 10 Mg PO QHS Lisinopril 40 Mg Tablet 40 Mg PO DAILY Reported Hydralazine Hcl 50 Mg Tablet 50 Mg PO TID Metoprolol Tartrate 25 Mg Tablet 12.5 Mg PO BID Clopidogrel (Clopidogrel Bisulfate) 75 Mg Tablet 75 Mg PO DAILY Lortab 5-325 mg Tablet (Hydrocodone/Acetaminophen) 1 Each Tablet 1 Tab PO PRN Q8HRS PRN Alendronate Sodium 70 Mg Tablet 70 Mg PO WEEKLY Diltiazem 24HR Cd (Diltiazem Hcl) 180 Mg Cap.er.24h 1 Cap PO DAILY Clonidine Tts-3 (Clonidine) 1 Each Patch.tdwk 1 Patch TD WEEKLY Aspir 81 (Aspirin) 81 Mg Tablet. 1 Tab PO DAILY Pantoprazole Sodium 40 Mg Tablet. 20 Mg PO DAILY Vitals/I & O Vital Sign - Last 24 Hours 06/06/17 06/06/17 06/06/17 06/06/17 12:38 12:52 12:53 13:08 Temp 98.4 98.4 Pulse 93 92 88 Resp 16 17 16 B/P (MAP) 125/48 169/68 178/61 Pulse Ox 97 97 96 O2 Delivery Simple Mask Nasal Cannula Room Air Nasal Cannula O2 Flow Rate 10 2 2 06/06/17 06/06/17 06/06/17 06/06/17 13:23 13:38 13:53 14:33 Temp 97.4 97.4 Pulse 88 87 87 Resp 16 16 16 B/P (MAP) 178/63 183/65 170/64 Pulse Ox 96 96 96 O2 Delivery Nasal Cannula Nasal Cannula Nasal Cannula Nasal Cannula O2 Flow Rate 2 2 2 2.0 06/06/17 06/06/17 06/06/17 06/06/17 15:15 15:18 15:20 15:21 Temp 98.3 98.3 Pulse 88 98 98 98 Resp 15 B/P (MAP) 139/62 (87) 139/62 139/62 139/62 Pulse Ox 95 O2 Delivery Nasal Cannula O2 Flow Rate 2.0 06/06/17 06/06/17 06/06/17 06/06/17 15:30 15:45 16:00 19:35 Temp 98.8 98.3 98.4 97.6 98.8 98.3 98.4 97.6 Pulse 88 90 88 83 Resp 14 14 16 18 B/P (MAP) 133/63 (86) 133/60 (84) 114/61 (78) 116/54 (74) Pulse Ox 94 96 96 96 O2 Delivery Nasal Cannula Nasal Cannula Nasal Cannula Nasal Cannula O2 Flow Rate 2.0 2.0 2.0 2.0 06/06/17 06/06/17 06/06/17 06/06/17 20:00 21:11 23:00 23:15 Temp 97.8 97.8 Pulse 83 83 Resp 20 B/P (MAP) 116/54 127/61 (83) Pulse Ox 94 O2 Delivery Nasal Cannula Nasal Cannula Nasal Cannula O2 Flow Rate 2.0 2.0 06/07/17 06/07/17 06/07/17 06/07/17 03:45 03:46 07:42 07:45 Temp 97.7 97.5 97.7 97.5 Pulse 79 87 Resp 20 14 B/P (MAP) 136/66 (89) 144/84 (104) Pulse Ox 97 96 O2 Delivery Nasal Cannula Nasal Cannula Nasal Cannula Nasal Cannula O2 Flow Rate 2.0 2.0 2.0 9/1206/07/17 06/07/17 06/07/17 08:39 08:40 08:40 08:42 Pulse 90 90 90 90 B/P (MAP) 144/84 144/84 144/84 144/84 06/07/17 09:47 Pulse Ox 96 O2 Delivery Nasal Cannula O2 Flow Rate 2.0 DIPAK NEVILLE MD Jun 07, 2017 10:07
--- NOTE | 2017-06-07 10:40 | PDOC ---
PROGRESS NOTES Chief Complaint Chief Complaint Mild displaced fracture of the humerus neck and greater tuberosity. 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 Jolley Vit D levels low - so i started ergocalciferol this admit qweekly x 12 weeks Hgb 11, CReat 1,8 stable NO efvers post op PLAN: CPM Would cont current pain regimen - give it time to work MOnitor anemia and creat PT/OT AGreeble to rehab if needed Lives with partner has been together 50 some yrs Ok to t.o CVC to med surg Cont ergocalciferol x 12 weeks Vitals Vitals Vital Signs Date Time Temp Pulse Resp B/P (MAP) Pulse Ox O2 Delivery O2 Flow Rate FiO2 06/07/17 09:47 96 Nasal Cannula 2.0 06/07/17 08:42 90 144/84 06/07/17 07:45 97.5 14 97.5 Physical Exam General: Alert, Oriented X3, No acute distress Heart: Regular rate Lungs: Clear Abdomen: Normal bowel sounds, Soft Extremities: No clubbing, Normal pulses Skin: No rashes, No breakdown Labs LABS Laboratory Tests Test 06/06/17 13:20 06/07/17 05:47 White Blood Count 15.8 x10^3/uL (4.0-11.0) 16.6 x10^3/uL (4.0-11.0) Red Blood Count 4.28 x10^6/uL (3.50-5.40) 3.74 x10^6/uL (3.50-5.40) Hemoglobin 12.3 g/dL (12.0-15.5) 11.0 g/dL (12.0-15.5) Hematocrit 38.0 % (36.0-47.0) 32.2 % (36.0-47.0) Mean Corpuscular Volume 89 fL (79-100) 86 fL (79-100) Mean Corpuscular Hemoglobin 29 pg (25-35) 29 pg (25-35) Mean Corpuscular Hemoglobin Concent 32 g/dL (31-37) 34 g/dL (31-37) Red Cell Distribution Width 14.2 % (11.5-14.5) 14.2 % (11.5-14.5) Platelet Count 208 x10^3/uL (140-400) 190 x10^3/uL (140-400) Neutrophils (%) (Auto) 85 % (31-73) 83 % (31-73) Lymphocytes (%) (Auto) 12 % (24-48) 8 % (24-48) Monocytes (%) (Auto) 3 % (0-9) 9 % (0-9) Eosinophils (%) (Auto) 0 % (0-3) 0 % (0-3) Basophils (%) (Auto) 0 % (0-3) 0 % (0-3) Neutrophils # (Auto) 13.4 x10^3uL (1.8-7.7) 13.8 x10^3uL (1.8-7.7) Lymphocytes # (Auto) 1.9 x10^3/uL (1.0-4.8) 1.3 x10^3/uL (1.0-4.8) Monocytes # (Auto) 0.4 x10^3/uL (0.0-1.1) 1.5 x10^3/uL (0.0-1.1) Eosinophils # (Auto) 0.0 x10^3/uL (0.0-0.7) 0.0 x10^3/uL (0.0-0.7) Basophils # (Auto) 0.0 x10^3/uL (0.0-0.2) 0.0 x10^3/uL (0.0-0.2) Segmented Neutrophils % 74 % (35-66) Band Neutrophils % 14 % (0-9) Lymphocytes % 8 % (24-48) Monocytes % 4 % (0-10) Toxic Granulation Slight Platelet Estimate Adequate (ADEQUATE) Sodium Level 141 mmol/L (136-145) 140 mmol/L (136-145) Potassium Level 4.1 mmol/L (3.5-5.1) 4.6 mmol/L (3.5-5.1) Chloride Level 105 mmol/L (98-107) 105 mmol/L (98-107) Carbon Dioxide Level 26 mmol/L (21-32) 27 mmol/L (21-32) Anion Gap 10 (6-14) 8 (6-14) Blood Urea Nitrogen 34 mg/dL (7-20) 40 mg/dL (7-20) Creatinine 1.9 mg/dL (0.6-1.0) 1.8 mg/dL (0.6-1.0) Estimated GFR (Cockcroft-Gault) 25.2 26.9 Glucose Level 153 mg/dL (70-99) 130 mg/dL (70-99) Calcium Level 8.8 mg/dL (8.5-10.1) 9.3 mg/dL (8.5-10.1) Review of Systems Review of Systems left shoulder pain Assessment and Plan Assessmemt and Plan Problems Medical Problems: (1) Cervical spine pain Status: Acute (2) Closed head injury Status: Acute (3) Fall Status: Acute (4) Fracture of humeral head, left, closed Status: Acute (5) Left hip pain Status: Acute (6) Left knee pain Status: Acute (7) Nasal abrasion Status: Acute Problems: Comment Review of Relevant I have reviewed the following items louise (where applicable) has been applied. Labs Laboratory Tests Test 06/06/17 08:27 06/06/17 13:20 06/07/17 05:47 White Blood Count 8.6 x10^3/uL (4.0-11.0) 15.8 x10^3/uL (4.0-11.0) 16.6 x10^3/uL (4.0-11.0) Red Blood Count 3.59 x10^6/uL (3.50-5.40) 4.28 x10^6/uL (3.50-5.40) 3.74 x10^6/uL (3.50-5.40) Hemoglobin 10.7 g/dL (12.0-15.5) 12.3 g/dL (12.0-15.5) 11.0 g/dL (12.0-15.5) Hematocrit 31.6 % (36.0-47.0) 38.0 % (36.0-47.0) 32.2 % (36.0-47.0) Mean Corpuscular Volume 88 fL (79-100) 89 fL (79-100) 86 fL (79-100) Mean Corpuscular Hemoglobin 30 pg (25-35) 29 pg (25-35) 29 pg (25-35) Mean Corpuscular Hemoglobin Concent 34 g/dL (31-37) 32 g/dL (31-37) 34 g/dL (31-37) Red Cell Distribution Width 14.1 % (11.5-14.5) 14.2 % (11.5-14.5) 14.2 % (11.5-14.5) Platelet Count 180 x10^3/uL (140-400) 208 x10^3/uL (140-400) 190 x10^3/uL (140-400) Neutrophils (%) (Auto) 60 % (31-73) 85 % (31-73) 83 % (31-73) Lymphocytes (%) (Auto) 28 % (24-48) 12 % (24-48) 8 % (24-48) Monocytes (%) (Auto) 9 % (0-9) 3 % (0-9) 9 % (0-9) Eosinophils (%) (Auto) 2 % (0-3) 0 % (0-3) 0 % (0-3) Basophils (%) (Auto) 0 % (0-3) 0 % (0-3) 0 % (0-3) Neutrophils # (Auto) 5.2 x10^3uL (1.8-7.7) 13.4 x10^3uL (1.8-7.7) 13.8 x10^3uL (1.8-7.7) Lymphocytes # (Auto) 2.4 x10^3/uL (1.0-4.8) 1.9 x10^3/uL (1.0-4.8) 1.3 x10^3/uL (1.0-4.8) Monocytes # (Auto) 0.8 x10^3/uL (0.0-1.1) 0.4 x10^3/uL (0.0-1.1) 1.5 x10^3/uL (0.0-1.1) Eosinophils # (Auto) 0.2 x10^3/uL (0.0-0.7) 0.0 x10^3/uL (0.0-0.7) 0.0 x10^3/uL (0.0-0.7) Basophils # (Auto) 0.0 x10^3/uL (0.0-0.2) 0.0 x10^3/uL (0.0-0.2) 0.0 x10^3/uL (0.0-0.2) Sodium Level 141 mmol/L (136-145) 141 mmol/L (136-145) 140 mmol/L (136-145) Potassium Level 4.4 mmol/L (3.5-5.1) 4.1 mmol/L (3.5-5.1) 4.6 mmol/L (3.5-5.1) Chloride Level 107 mmol/L (98-107) 105 mmol/L (98-107) 105 mmol/L (98-107) Carbon Dioxide Level 26 mmol/L (21-32) 26 mmol/L (21-32) 27 mmol/L (21-32) Anion Gap 8 (6-14) 10 (6-14) 8 (6-14) Blood Urea Nitrogen 35 mg/dL (7-20) 34 mg/dL (7-20) 40 mg/dL (7-20) Creatinine 1.8 mg/dL (0.6-1.0) 1.9 mg/dL (0.6-1.0) 1.8 mg/dL (0.6-1.0) Estimated GFR (Cockcroft-Gault) 26.9 25.2 26.9 Glucose Level 98 mg/dL (70-99) 153 mg/dL (70-99) 130 mg/dL (70-99) Calcium Level 8.7 mg/dL (8.5-10.1) 8.8 mg/dL (8.5-10.1) 9.3 mg/dL (8.5-10.1) Segmented Neutrophils % 74 % (35-66) Band Neutrophils % 14 % (0-9) Lymphocytes % 8 % (24-48) Monocytes % 4 % (0-10) Toxic Granulation Slight Platelet Estimate Adequate (ADEQUATE) Laboratory Tests Test 06/06/17 13:20 06/07/17 05:47 White Blood Count 15.8 x10^3/uL (4.0-11.0) 16.6 x10^3/uL (4.0-11.0) Red Blood Count 4.28 x10^6/uL (3.50-5.40) 3.74 x10^6/uL (3.50-5.40) Hemoglobin 12.3 g/dL (12.0-15.5) 11.0 g/dL (12.0-15.5) Hematocrit 38.0 % (36.0-47.0) 32.2 % (36.0-47.0) Mean Corpuscular Volume 89 fL (79-100) 86 fL (79-100) Mean Corpuscular Hemoglobin 29 pg (25-35) 29 pg (25-35) Mean Corpuscular Hemoglobin Concent 32 g/dL (31-37) 34 g/dL (31-37) Red Cell Distribution Width 14.2 % (11.5-14.5) 14.2 % (11.5-14.5) Platelet Count 208 x10^3/uL (140-400) 190 x10^3/uL (140-400) Neutrophils (%) (Auto) 85 % (31-73) 83 % (31-73) Lymphocytes (%) (Auto) 12 % (24-48) 8 % (24-48) Monocytes (%) (Auto) 3 % (0-9) 9 % (0-9) Eosinophils (%) (Auto) 0 % (0-3) 0 % (0-3) Basophils (%) (Auto) 0 % (0-3) 0 % (0-3) Neutrophils # (Auto) 13.4 x10^3uL (1.8-7.7) 13.8 x10^3uL (1.8-7.7) Lymphocytes # (Auto) 1.9 x10^3/uL (1.0-4.8) 1.3 x10^3/uL (1.0-4.8) Monocytes # (Auto) 0.4 x10^3/uL (0.0-1.1) 1.5 x10^3/uL (0.0-1.1) Eosinophils # (Auto) 0.0 x10^3/uL (0.0-0.7) 0.0 x10^3/uL (0.0-0.7) Basophils # (Auto) 0.0 x10^3/uL (0.0-0.2) 0.0 x10^3/uL (0.0-0.2) Segmented Neutrophils % 74 % (35-66) Band Neutrophils % 14 % (0-9) Lymphocytes % 8 % (24-48) Monocytes % 4 % (0-10) Toxic Granulation Slight Platelet Estimate Adequate (ADEQUATE) Sodium Level 141 mmol/L (136-145) 140 mmol/L (136-145) Potassium Level 4.1 mmol/L (3.5-5.1) 4.6 mmol/L (3.5-5.1) Chloride Level 105 mmol/L (98-107) 105 mmol/L (98-107) Carbon Dioxide Level 26 mmol/L (21-32) 27 mmol/L (21-32) Anion Gap 10 (6-14) 8 (6-14) Blood Urea Nitrogen 34 mg/dL (7-20) 40 mg/dL (7-20) Creatinine 1.9 mg/dL (0.6-1.0) 1.8 mg/dL (0.6-1.0) Estimated GFR (Cockcroft-Gault) 25.2 26.9 Glucose Level 153 mg/dL (70-99) 130 mg/dL (70-99) Calcium Level 8.8 mg/dL (8.5-10.1) 9.3 mg/dL (8.5-10.1) Microbiology 06/03/17 Urine Culture - Final, Complete 06/03/17 Urine Culture Result 1 (NETO) - Final, Complete 06/03/17 Antimicrobic Susceptibility - Final, Complete Medications Current Medications Hydromorphone HCl (Dilaudid) 0.5 mg PRN Q15MIN PRN IV/SQ PAIN GREATER THAN 3/ 10 Last administered on 06/02/17t 13:05; Start 06/02/17 at 11:30; Stop 06/03/17 at 11:29; Status DC Ondansetron HCl (Zofran) 4 mg 1X ONCE IV Last administered on 06/02/17 11:29; Start 06/02/17 at 11:30; Stop 06/02/17 at 11:31; Status DC Diphtheria/ Tetanus/Acell Pertussis (Boostrix) 0.5 ml ONCE ONCE VAX IM Last administered on 06/02/17 12:55; Start 06/02/17 at 12:30; Stop 06/02/17 at 12:31; Status DC Morphine Sulfate 4 mg PRN Q2HR PRN IV PAIN Last administered on 06/03/17 14:08 ; Start 06/02/17 at 14:30; Stop 06/03/17 at 14:29; Status DC Sodium Chloride 1,000 ml @ 75 mls/hr 1X ONCE IV Last administered on 14:57; Start 06/02/17 at 14:30; Stop 06/03/17 at 03:49; Status DC Labetalol HCl (Normodyne) 5 mg PRN Q4HRS PRN IVP HYPERTENSION, SEE COMMENTS Last administered on 06/02/17 16:33; Start 06/02/17 at 16:15; Stop 06/04/17 at 09: 34; Status DC Lidocaine (Lidoderm) 1 patch DAILY TD Last administered on 06/05/17 08:02; Start 06/02/17 at 21:00; Stop 06/06/17 at 12:54; Status DC Atorvastatin Calcium (Lipitor) 10 mg QHS PO Last administered on 06/05/17 20: 06; Start 06/02/17 at 21:00; Stop 06/06/17 at 12:54; Status DC Clonidine HCl (Catapres Tts-3) 1 patch WEEKLY TD Last administered on 06/03/17 08:51; Start 06/03/17 at 09:00; Stop 06/06/17 at 12:54; Status DC Diltiazem HCl (Cardizem 24hr Cd) 180 mg DAILY PO Last administered on 08:01; Start 06/03/17 at 09:00; Stop 06/06/17 at 12:54; Status DC Hydralazine HCl (Apresoline) 50 mg TID PO Last administered on 06/05/17 20:06 ; Start 06/02/17 at 21:00; Stop 06/06/17 at 12:54; Status DC Acetaminophen/ Hydrocodone Bitart (Lortab 5/325) 1 tab PRN Q8HRS PRN PO PAIN Last administered on 06/04/17 08:33; Start 06/02/17 at 21:00; Stop 06/06/17 at 12 :54; Status DC Lisinopril (Prinivil) 40 mg DAILY PO Last administered on 06/05/17 08:03; Start 06/03/17 at 09:00; Stop 06/06/17 at 12:55; Status DC Metoprolol Tartrate (Lopressor) 12.5 mg BID PO Last administered on 06/05/17 20:07; Start 06/02/17 at 21:00; Stop 06/06/17 at 12:55; Status DC Pantoprazole Sodium (Protonix) 40 mg DAILYAC PO Last administered on 06/05/17 08:01; Start 06/03/17 at 07:30; Stop 06/06/17 at 12:55; Status DC Acetaminophen (Tylenol) 500 mg PRN Q6HRS PRN PO MILD PAIN / TEMP; Start at 08:45; Stop 06/06/17 at 12:54; Status DC Ondansetron HCl (Zofran) 4 mg PRN Q6HRS PRN IV NAUSEA/VOMITING; Start 06/03/17 at 08:45; Stop 06/06/17 at 12:55; Status DC Aspirin (Ecotrin) 81 mg DAILY PO Last administered on 06/04/17 08:32; Start 06/03/17 at 12:00; Stop 06/04/17 at 10:34; Status DC Clopidogrel Bisulfate (Plavix) 75 mg DAILY PO Last administered on 06/04/17 08: 32; Start 06/03/17 at 12:00; Stop 06/04/17 at 10:34; Status DC Non-Formulary Medication 70 mg WEEKLY PO ; Start 06/10/17 at 09:00; Status UNV Ceftriaxone Sodium 1 gm/ Sodium Chloride 50 ml @ 100 mls/hr Q24H IV Last administered on 06/06/17 18:42; Start 06/03/17 at 20:00; Stop 06/07/17 at 10:26 ; Status DC Morphine Sulfate 4 mg PRN Q2HR PRN IV PAIN Last administered on 06/06/17 02:14 ; Start 06/03/17 at 22:00; Stop 06/06/17 at 12:55; Status DC Ergocalciferol (Vitamin D2) 50,000 unit WEEKLY PO Last administered on 11:28; Start 06/04/17 at 10:00; Stop 06/06/17 at 12:54; Status DC Labetalol HCl (Normodyne) 10 mg PRN Q4HRS PRN IVP HYPERTENSION, SEE COMMENTS; Start 06/04/17 at 09:45; Stop 06/06/17 at 12:55; Status DC Heparin Sodium/ Dextrose 500 ml @ 0 mls/hr CONT PRN IV SEE I/O RECORD; Start at 10:45; Stop 06/04/17 at 11:53; Status DC Heparin Sodium (Porcine) (Heparin Sodium) 2,150 unit PRN Q6HRS PRN IV FOR UFH LEVEL LESS THAN 0.2; Start 06/04/17 at 10:45; Stop 06/04/17 at 11:53; Status DC Nitroglycerin (Nitrostat) 0.4 mg PRN Q5MIN PRN SL CHEST PAIN Last administered on 06/04/17 11:05; Start 06/04/17 at 10:45; Stop 06/06/17 at 12:55; Status DC Aspirin (Children'S Aspirin) 81 mg DAILYWBKFT PO Last administered on 08:00; Start 06/05/17 at 08:00; Stop 06/06/17 at 12:54; Status DC Clopidogrel Bisulfate (Plavix) 75 mg DAILYWBKFT PO Last administered on 08:01; Start 06/05/17 at 08:00; Stop 06/06/17 at 12:54; Status DC Acetaminophen/ Hydrocodone Bitart (Lortab 10/325) 1 tab PRN Q6HRS PRN PO PAIN MILD TO MOD Last administered on 06/05/17 15:03; Start 06/05/17 at 09:15; Stop 06/06/17 at 12:55; Status DC Magnesium Hydroxide (Milk Of Magnesia) 2,400 mg PRN DAILY PRN PO CONSTIPATION; Start 06/05/17 at 09:15; Stop 06/06/17 at 12:55; Status DC Polyethylene Glycol (miraLAX PACKET) 17 gm DAILY PO Last administered on 09:56; Start 06/05/17 at 09:30; Stop 06/06/17 at 12:55; Status DC Docusate Sodium (Colace) 100 mg DAILY PO Last administered on 06/05/17 09:56; Start 06/05/17 at 09:30; Stop 06/06/17 at 12:54; Status DC Morphine Sulfate 5 mg/Ketorolac Tromethamine 30 mg/Ropivacaine 60 ml/ Epinephrine HCl 0.5 mg/Sodium Chloride 100 ml @ 100 mls/hr 1X PERIOP ONCE INT ART Last administered on 06/06/17 10:10; Start 06/06/17 at 08:00; Stop at 08:59; Status DC Vancomycin HCl 1 gm STK-MED ONCE .ROUTE ; Start 06/06/17 at 07:37; Stop at 07:38; Status DC Thrombin 20,000 unit STK-MED ONCE TP ; Start 06/06/17 at 07:38; Stop 06/06/17 at 07:39; Status DC Midazolam HCl (Versed) 2 mg STK-MED ONCE .ROUTE ; Start 06/06/17 at 07:41; Stop 06/06/17 at 07:42; Status DC Fentanyl Citrate (Fentanyl 2ml Vial) 100 mcg STK-MED ONCE .ROUTE ; Start at 07:41; Stop 06/06/17 at 07:42; Status DC Glycopyrrolate (Robinul) 1 mg STK-MED ONCE .ROUTE ; Start 06/06/17 at 07:41; Stop 06/06/17 at 07:42; Status DC Neostigmine Methylsulfate 5 mg STK-MED ONCE .ROUTE ; Start 06/06/17 at 07:42; Stop 06/06/17 at 07:43; Status DC Propofol 20 ml @ As Directed STK-MED ONCE IV ; Start 06/06/17 at 07:42; Stop 08/12 at 07:43; Status DC Lidocaine HCl (Lidocaine Pf 2% Vial) 5 ml STK-MED ONCE .ROUTE ; Start 06/06/17 at 07:42; Stop 06/06/17 at 07:43; Status DC Dexamethasone Sodium Phosphate (Decadron) 20 mg STK-MED ONCE .ROUTE ; Start 08/12 at 07:42; Stop 06/06/17 at 07:43; Status DC Ondansetron HCl (Zofran) 4 mg STK-MED ONCE .ROUTE ; Start 06/06/17 at 07:42; Stop 06/06/17 at 07:43; Status DC Cefazolin Sodium/ Dextrose 50 ml @ 100 mls/hr 1X PREOP PRN IV PRIOR TO PROCEDURE Last administered on 06/06/17t 09:45; Start 06/06/17 at 09:00; Stop at 12:00; Status DC Cefazolin Sodium/ Dextrose 50 ml @ As Directed STK-MED ONCE IV ; Start 06/06/17 at 08:37; Stop 06/06/17 at 08:38; Status DC Ephedrine Sulfate 50 mg STK-MED ONCE IV ; Start 06/06/17 at 09:22; Stop at 09:23; Status DC Fentanyl Citrate (Fentanyl 2ml Vial) 100 mcg STK-MED ONCE .ROUTE ; Start at 09:51; Stop 06/06/17 at 09:52; Status DC Fentanyl Citrate (Fentanyl 2ml Vial) 100 mcg STK-MED ONCE .ROUTE ; Start at 10:35; Stop 06/06/17 at 10:36; Status DC Hydralazine HCl (Apresoline) 20 mg STK-MED ONCE .ROUTE ; Start 06/06/17 at 10:36 ; Stop 06/06/17 at 10:37; Status DC Desflurane (Suprane) 90 ml STK-MED ONCE IH ; Start 06/06/17 at 10:36; Stop 06/06 at 10:37; Status DC Ondansetron HCl (Zofran) 4 mg PRN Q6HRS PRN IV NAUSEA/VOMITING; Start 06/06/17 at 12:30; Stop 06/06/17 at 19:00; Status DC Fentanyl Citrate (Fentanyl 2ml Vial) 25 mcg PRN Q5MIN PRN IV MILD PAIN; Start 06/06/17 at 12:30; Stop 06/06/17 at 19:00; Status DC Fentanyl Citrate (Fentanyl 2ml Vial) 50 mcg PRN Q5MIN PRN IV MODERATE PAIN; Start 06/06/17 at 12:30; Stop 06/06/17 at 19:00; Status DC Morphine Sulfate 1 mg PRN Q10MIN PRN IV SEVERE PAIN; Start 06/06/17 at 12:30; Stop 06/06/17 at 19:00; Status DC Ringer's Solution 1,000 ml @ 30 mls/hr Q24H IV ; Start 06/06/17 at 12:30; Stop 06/06/17 at 19:00; Status DC Lidocaine HCl 2 ml PRN 1X PRN ID PRIOR TO IV START; Start 06/06/17 at 12:30; Stop 06/06/17 at 19:00; Status DC Hydromorphone HCl (Dilaudid) 0.5 mg PRN Q10MIN PRN IV SEV PAIN, Second choice; Start 06/06/17 at 12:30; Stop 06/06/17 at 19:00; Status DC Prochlorperazine Edisylate (Compazine) 5 mg PACU PRN PRN IV NAUSEA, MRX1; Start 06/06/17 at 12:30; Stop 06/06/17 at 19:00; Status DC Fentanyl Citrate (Fentanyl 2ml Vial) 100 mcg STK-MED ONCE .ROUTE ; Start at 12:32; Stop 06/06/17 at 12:33; Status DC Ceftriaxone Sodium 1 gm/ Sodium Chloride 50 ml @ 100 mls/hr Q24H IV ; Start 08/12 at 20:00; Status UNV Ringer's Solution 1,000 ml @ 0 mls/hr Q0M IV ; Start 06/06/17 at 13:00; Stop at 19:30; Status UNV Acetaminophen (Tylenol) 500 mg PRN Q6HRS PRN PO MILD PAIN / TEMP; Start at 15:00 Aspirin (Children'S Aspirin) 81 mg DAILYWBKFT PO Last administered on t 08:39; Start 06/06/17 at 15:00 Atorvastatin Calcium (Lipitor) 10 mg QHS PO Last administered on 06/06/17 21: 10; Start 06/06/17 at 21:00 Clonidine HCl (Catapres Tts-3) 1 patch WEEKLY TD ; Start 06/10/17 at 09:00 Clopidogrel Bisulfate (Plavix) 75 mg DAILYWBKFT PO Last administered on 08:39; Start 06/06/17 at 15:00 Diltiazem HCl (Cardizem 24hr Cd) 180 mg DAILY PO Last administered on 08:42; Start 06/06/17 at 15:00 Docusate Sodium (Colace) 100 mg DAILY PO Last administered on 06/07/17 08:42; Start 06/06/17 at 15:00 Ergocalciferol (Vitamin D2) 50,000 unit WEEKLY PO ; Start 06/11/17 at 09:00 Fentanyl Citrate (Fentanyl 2ml Vial) 25 mcg PRN Q5MIN PRN IV MILD PAIN; Start 06/07/17 at 12:30; Status UNV Fentanyl Citrate (Fentanyl 2ml Vial) 50 mcg PRN Q5MIN PRN IV MODERATE PAIN; Start 06/07/17 at 12:30; Status UNV Hydralazine HCl (Apresoline) 50 mg TID PO Last administered on 06/07/17 08:39 ; Start 06/06/17 at 14:00 Acetaminophen/ Hydrocodone Bitart (Lortab 10/325) 1 tab PRN Q6HRS PRN PO PAIN MILD TO MOD Last administered on 06/07/17 09:47; Start 06/06/17 at 15:00 Acetaminophen/ Hydrocodone Bitart (Lortab 5/325) 1 tab PRN Q8HRS PRN PO PAIN; Start 06/06/17 at 15:00 Hydromorphone HCl (Dilaudid) 0.5 mg PRN Q10MIN PRN IV SEV PAIN, Second choice; Start 06/07/17 at 12:30; Status UNV Lidocaine HCl 2 ml PRN 1X PRN ID PRIOR TO IV START; Start 06/07/17 at 12:30; Status UNV Lisinopril (Prinivil) 40 mg DAILY PO Last administered on 06/07/17 08:40; Start 06/06/17 at 15:00 Magnesium Hydroxide (Milk Of Magnesia) 2,400 mg PRN DAILY PRN PO CONSTIPATION; Start 06/06/17 at 15:00 Metoprolol Tartrate (Lopressor) 12.5 mg BID PO Last administered on 06/07/17 08:40; Start 06/06/17 at 21:00 Morphine Sulfate 4 mg PRN Q2HR PRN IV PAIN; Start 06/06/17 at 22:00 Morphine Sulfate 1 mg PRN Q10MIN PRN IV SEVERE PAIN; Start 06/07/17 at 12:30; Status UNV Nitroglycerin (Nitrostat) 0.4 mg PRN Q5MIN PRN SL CHEST PAIN; Start 06/06/17 at 15:00 Ondansetron HCl (Zofran) 4 mg PRN Q6HRS PRN IV NAUSEA/VOMITING; Start 06/07/17 at 08:45; Status UNV Ondansetron HCl (Zofran) 4 mg PRN Q6HRS PRN IV NAUSEA/VOMITING; Start 06/07/17 at 12:30; Status UNV Pantoprazole Sodium (Protonix) 40 mg DAILYAC PO Last administered on 06/07/17 08:38; Start 06/06/17 at 15:00 Polyethylene Glycol (miraLAX PACKET) 17 gm DAILY PO Last administered on 15:21; Start 06/06/17 at 15:00 Prochlorperazine Edisylate (Compazine) 5 mg PACU PRN PRN IV NAUSEA, MRX1; Start 06/07/17 at 12:30; Status UNV Cefazolin Sodium/ Dextrose 50 ml @ 100 mls/hr Q8H IV Last administered on 06/07 01:29; Start 06/06/17 at 18:00; Stop 06/07/17 at 02:29; Status DC Cefpodoxime Proxetil (Vantin) 100 mg BID PO ; Start 06/07/17 at 21:00 Active Scripts Active Atorvastatin Calcium 10 Mg Tablet 10 Mg PO QHS Lisinopril 40 Mg Tablet 40 Mg PO DAILY Reported Hydralazine Hcl 50 Mg Tablet 50 Mg PO TID Metoprolol Tartrate 25 Mg Tablet 12.5 Mg PO BID Clopidogrel (Clopidogrel Bisulfate) 75 Mg Tablet 75 Mg PO DAILY Lortab 5-325 mg Tablet (Hydrocodone/Acetaminophen) 1 Each Tablet 1 Tab PO PRN Q8HRS PRN Alendronate Sodium 70 Mg Tablet 70 Mg PO WEEKLY Diltiazem 24HR Cd (Diltiazem Hcl) 180 Mg Cap.er.24h 1 Cap PO DAILY Clonidine Tts-3 (Clonidine) 1 Each Patch.tdwk 1 Patch TD WEEKLY Aspir 81 (Aspirin) 81 Mg Tablet.dr 1 Tab PO DAILY Pantoprazole Sodium 40 Mg Tablet.dr 20 Mg PO DAILY Vitals/I & O Vital Sign - Last 24 Hours 06/06/17 06/06/17 06/06/17 06/06/17 12:38 12:52 12:53 13:08 Temp 98.4 98.4 Pulse 93 92 88 Resp 16 B/P (MAP) 125/48 169/68 178/61 Pulse Ox 97 97 96 O2 Delivery Simple Mask Nasal Cannula Room Air Nasal Cannula O2 Flow Rate 10 2 2 06/06/17 06/06/17 06/06/17 06/06/17 13:23 13:38 13:53 14:33 Temp 97.4 97.4 Pulse 88 87 87 Resp 16 B/P (MAP) 178/63 183/65 170/64 Pulse Ox 96 96 96 O2 Delivery Nasal Cannula Nasal Cannula Nasal Cannula Nasal Cannula O2 Flow Rate 2 2 2 2.0 06/06/17 06/06/17 06/06/17 06/06/17 15:15 15:18 15:20 15:21 Temp 98.3 98.3 Pulse 88 98 98 98 Resp 15 B/P (MAP) 139/62 (87) 139/62 139/62 139/62 Pulse Ox 95 O2 Delivery Nasal Cannula O2 Flow Rate 2.0 06/06/17 06/06/17 06/06/17 06/06/17 15:30 15:45 16:00 19:35 Temp 98.8 98.3 98.4 97.6 98.8 98.3 98.4 97.6 Pulse 88 90 88 83 Resp 18 B/P (MAP) 133/63 (86) 133/60 (84) 114/61 (78) 116/54 (74) Pulse Ox 94 96 96 96 O2 Delivery Nasal Cannula Nasal Cannula Nasal Cannula Nasal Cannula O2 Flow Rate 2.0 2.0 2.0 2.0 9/11/06/06/17 06/06/17 06/06/17 20:00 21:11 23:00 23:15 Temp 97.8 97.8 Pulse 83 83 Resp 20 B/P (MAP) 116/54 127/61 (83) Pulse Ox 94 O2 Delivery Nasal Cannula Nasal Cannula Nasal Cannula O2 Flow Rate 2.0 2.0 06/07/17 06/07/17 06/07/17 06/07/17 03:45 03:46 07:42 07:45 Temp 97.7 97.5 97.7 97.5 Pulse 79 87 Resp 20 14 B/P (MAP) 136/66 (89) 144/84 (104) Pulse Ox 97 96 O2 Delivery Nasal Cannula Nasal Cannula Nasal Cannula Nasal Cannula O2 Flow Rate 2.0 2.0 2.0 06/07/17 06/07/17 06/07/17 06/07/17 08:39 08:40 08:40 08:42 Pulse 90 90 90 90 B/P (MAP) 144/84 144/84 144/84 144/84 06/07/17 09:47 Pulse Ox 96 O2 Delivery Nasal Cannula O2 Flow Rate 2.0 JONNY LEAHY MD Jun 07, 2017 10:40
[2017-06-07 11:00] VITALS: BP 146/63
[2017-06-07] MEDS: MORPHINE SULFATE 4 MG/ML DISP.SYRIN. IV PRN ×2 (12:02→17:11)
[2017-06-07] MEDS ORDERED: PROCHLORPERAZINE 10 MG/2 ML VIAL. IV PRN (12:30)
[2017-06-07] MEDS ORDERED: LIDOCAINE 1% 1 ML SYRINGE. ID PRN (12:30)
[2017-06-07] MEDS ORDERED: MORPHINE SULFATE 2 MG/ML DISP.SYRIN. IV PRN (12:30)
[2017-06-07] MEDS ORDERED: HYDROmorphone 2 MG/ML VIAL IV PRN (12:30)
[2017-06-07] MEDS ORDERED: fentaNYL PF VIAL 100 MCG/2 ML VIAL IV PRN ×2 (12:30)
[2017-06-07 15:00] VITALS: BP 110/58
[2017-06-07 19:45] VITALS: BP 142/67
[2017-06-07] MEDS: ATORVASTATIN CALCIUM 10 MG TABLET. PO SCH (21:14)
[2017-06-07] MEDS: CEFPODOXIME PROXETIL 100 MG TABLET. PO SCH (21:14)
[2017-06-07 22:42] VITALS: BP 106/43
[2017-06-08] VITALS (7 sets, daily range): BP systolic 99–120; BP diastolic 44–52
[2017-06-08] MEDS: HYDROcodone/APAP 10/325 1 TAB TABLET PO PRN ×3 (02:10→18:17)
[2017-06-08] MEDS: PANTOPRAZOLE 40 MG TABLET.DR. PO SCH (05:40)
[2017-06-08] MEDS: CEFPODOXIME PROXETIL 100 MG TABLET. PO SCH ×2 (08:38→21:27)
[2017-06-08] MEDS: POLYETHYLENE GLYCOL 3350 17 GM PACKET. PO SCH (08:38)
[2017-06-08] MEDS: CLOPIDOGREL BISULFATE 75 MG TABLET PO SCH (08:39)
[2017-06-08] MEDS: DOCUSATE SODIUM 100 MG CAPSULE. PO SCH (08:39)
[2017-06-08] MEDS: METOPROLOL TART IMMED RELEASE 25 MG TABLET. PO SCH ×2 (08:39→21:29)
[2017-06-08] MEDS: ASPIRIN CHEWABLE 81 MG TABLET. PO SCH (08:40)
[2017-06-08] MEDS: LISINOPRIL 40 MG TABLET. PO SCH (08:40)
--- NOTE | 2017-06-08 11:36 | PDOC ---
PROGRESS NOTES Subjective Subjective Patient seen today, was working with physical therapy. Pain controlled with medication. No complaints. Objective Objective Vital Signs Date Time Temp Pulse Resp B/P (MAP) Pulse Ox O2 Delivery O2 Flow Rate FiO2 06/08/17 09:46 97 Nasal Cannula 2.0 06/08/17 08:40 64 102/44 06/08/17 07:00 98.1 16 98.1 Physical Exam Physical Exam No significant changes to cardiac exam. Assessment Assessment Problems Medical Problems: (1) Cervical spine pain Status: Acute (2) Closed head injury Status: Acute (3) Fall Status: Acute (4) Fracture of humeral head, left, closed Status: Acute (5) Left hip pain Status: Acute (6) Left knee pain Status: Acute (7) Nasal abrasion Status: Acute Plan Plan of Care Patient compensated and stable cardiac-chambers, agree with discharge to rehab. f/u in my office after completing rehab. Comment Review of Relevant I have reviewed the following items louise (where applicable) has been applied. Labs Laboratory Tests Test 06/06/17 13:20 06/07/17 05:47 White Blood Count 15.8 x10^3/uL (4.0-11.0) 16.6 x10^3/uL (4.0-11.0) Red Blood Count 4.28 x10^6/uL (3.50-5.40) 3.74 x10^6/uL (3.50-5.40) Hemoglobin 12.3 g/dL (12.0-15.5) 11.0 g/dL (12.0-15.5) Hematocrit 38.0 % (36.0-47.0) 32.2 % (36.0-47.0) Mean Corpuscular Volume 89 fL (79-100) 86 fL (79-100) Mean Corpuscular Hemoglobin 29 pg (25-35) 29 pg (25-35) Mean Corpuscular Hemoglobin Concent 32 g/dL (31-37) 34 g/dL (31-37) Red Cell Distribution Width 14.2 % (11.5-14.5) 14.2 % (11.5-14.5) Platelet Count 208 x10^3/uL (140-400) 190 x10^3/uL (140-400) Neutrophils (%) (Auto) 85 % (31-73) 83 % (31-73) Lymphocytes (%) (Auto) 12 % (24-48) 8 % (24-48) Monocytes (%) (Auto) 3 % (0-9) 9 % (0-9) Eosinophils (%) (Auto) 0 % (0-3) 0 % (0-3) Basophils (%) (Auto) 0 % (0-3) 0 % (0-3) Neutrophils # (Auto) 13.4 x10^3uL (1.8-7.7) 13.8 x10^3uL (1.8-7.7) Lymphocytes # (Auto) 1.9 x10^3/uL (1.0-4.8) 1.3 x10^3/uL (1.0-4.8) Monocytes # (Auto) 0.4 x10^3/uL (0.0-1.1) 1.5 x10^3/uL (0.0-1.1) Eosinophils # (Auto) 0.0 x10^3/uL (0.0-0.7) 0.0 x10^3/uL (0.0-0.7) Basophils # (Auto) 0.0 x10^3/uL (0.0-0.2) 0.0 x10^3/uL (0.0-0.2) Segmented Neutrophils % 74 % (35-66) Band Neutrophils % 14 % (0-9) Lymphocytes % 8 % (24-48) Monocytes % 4 % (0-10) Toxic Granulation Slight Platelet Estimate Adequate (ADEQUATE) Sodium Level 141 mmol/L (136-145) 140 mmol/L (136-145) Potassium Level 4.1 mmol/L (3.5-5.1) 4.6 mmol/L (3.5-5.1) Chloride Level 105 mmol/L (98-107) 105 mmol/L (98-107) Carbon Dioxide Level 26 mmol/L (21-32) 27 mmol/L (21-32) Anion Gap 10 (6-14) 8 (6-14) Blood Urea Nitrogen 34 mg/dL (7-20) 40 mg/dL (7-20) Creatinine 1.9 mg/dL (0.6-1.0) 1.8 mg/dL (0.6-1.0) Estimated GFR (Cockcroft-Gault) 25.2 26.9 Glucose Level 153 mg/dL (70-99) 130 mg/dL (70-99) Calcium Level 8.8 mg/dL (8.5-10.1) 9.3 mg/dL (8.5-10.1) Microbiology 06/03/17 Urine Culture - Final, Complete 06/03/17 Urine Culture Result 1 (NETO) - Final, Complete 06/03/17 Antimicrobic Susceptibility - Final, Complete Medications Current Medications Hydromorphone HCl (Dilaudid) 0.5 mg PRN Q15MIN PRN IV/SQ PAIN GREATER THAN 3/ 10 Last administered on 06/02/17 13:05; Start 06/02/17 at 11:30; Stop 06/03/17 at 11:29; Status DC Ondansetron HCl (Zofran) 4 mg 1X ONCE IV Last administered on 06/02/17 11:29; Start 06/02/17 at 11:30; Stop 06/02/17 at 11:31; Status DC Diphtheria/ Tetanus/Acell Pertussis (Boostrix) 0.5 ml ONCE ONCE VAX IM Last administered on 06/02/17 12:55; Start 06/02/17 at 12:30; Stop 06/02/17 at 12:31; Status DC Morphine Sulfate 4 mg PRN Q2HR PRN IV PAIN Last administered on 06/03/17 14:08 ; Start 06/02/17 at 14:30; Stop 06/03/17 at 14:29; Status DC Sodium Chloride 1,000 ml @ 75 mls/hr 1X ONCE IV Last administered on 14:57; Start 06/02/17 at 14:30; Stop 06/03/17 at 03:49; Status DC Labetalol HCl (Normodyne) 5 mg PRN Q4HRS PRN IVP HYPERTENSION, SEE COMMENTS Last administered on 06/02/17 16:33; Start 06/02/17 at 16:15; Stop 06/04/17 at 09: 34; Status DC Lidocaine (Lidoderm) 1 patch DAILY TD Last administered on 06/05/17 08:02; Start 06/02/17 at 21:00; Stop 06/06/17 at 12:54; Status DC Atorvastatin Calcium (Lipitor) 10 mg QHS PO Last administered on 06/05/17 20: 06; Start 06/02/17 at 21:00; Stop 06/06/17 at 12:54; Status DC Clonidine HCl (Catapres Tts-3) 1 patch WEEKLY TD Last administered on 06/03/17 08:51; Start 06/03/17 at 09:00; Stop 06/06/17 at 12:54; Status DC Diltiazem HCl (Cardizem 24hr Cd) 180 mg DAILY PO Last administered on 08:01; Start 06/03/17 at 09:00; Stop 06/06/17 at 12:54; Status DC Hydralazine HCl (Apresoline) 50 mg TID PO Last administered on 06/05/17 20:06 ; Start 06/02/17 at 21:00; Stop 06/06/17 at 12:54; Status DC Acetaminophen/ Hydrocodone Bitart (Lortab 5/325) 1 tab PRN Q8HRS PRN PO PAIN Last administered on 06/04/17 08:33; Start 06/02/17 at 21:00; Stop 06/06/17 at 12 :54; Status DC Lisinopril (Prinivil) 40 mg DAILY PO Last administered on 06/05/17 08:03; Start 06/03/17 at 09:00; Stop 06/06/17 at 12:55; Status DC Metoprolol Tartrate (Lopressor) 12.5 mg BID PO Last administered on 06/05/17 20:07; Start 06/02/17 at 21:00; Stop 06/06/17 at 12:55; Status DC Pantoprazole Sodium (Protonix) 40 mg DAILYAC PO Last administered on 06/05/17 08:01; Start 06/03/17 at 07:30; Stop 06/06/17 at 12:55; Status DC Acetaminophen (Tylenol) 500 mg PRN Q6HRS PRN PO MILD PAIN / TEMP; Start at 08:45; Stop 06/06/17 at 12:54; Status DC Ondansetron HCl (Zofran) 4 mg PRN Q6HRS PRN IV NAUSEA/VOMITING; Start 06/03/17 at 08:45; Stop 06/06/17 at 12:55; Status DC Aspirin (Ecotrin) 81 mg DAILY PO Last administered on 06/04/17 08:32; Start 06/03/17 at 12:00; Stop 06/04/17 at 10:34; Status DC Clopidogrel Bisulfate (Plavix) 75 mg DAILY PO Last administered on 06/04/17 08: 32; Start 06/03/17 at 12:00; Stop 06/04/17 at 10:34; Status DC Non-Formulary Medication 70 mg WEEKLY PO ; Start 06/10/17 at 09:00; Status UNV Ceftriaxone Sodium 1 gm/ Sodium Chloride 50 ml @ 100 mls/hr Q24H IV Last administered on 06/06/17 18:42; Start 06/03/17 at 20:00; Stop 06/07/17 at 10:26 ; Status DC Morphine Sulfate 4 mg PRN Q2HR PRN IV PAIN Last administered on 06/06/17 02:14 ; Start 06/03/17 at 22:00; Stop 06/06/17 at 12:55; Status DC Ergocalciferol (Vitamin D2) 50,000 unit WEEKLY PO Last administered on 11:28; Start 06/04/17 at 10:00; Stop 06/06/17 at 12:54; Status DC Labetalol HCl (Normodyne) 10 mg PRN Q4HRS PRN IVP HYPERTENSION, SEE COMMENTS; Start 06/04/17 at 09:45; Stop 06/06/17 at 12:55; Status DC Heparin Sodium/ Dextrose 500 ml @ 0 mls/hr CONT PRN IV SEE I/O RECORD; Start at 10:45; Stop 06/04/17 at 11:53; Status DC Heparin Sodium (Porcine) (Heparin Sodium) 2,150 unit PRN Q6HRS PRN IV FOR UFH LEVEL LESS THAN 0.2; Start 06/04/17 at 10:45; Stop 06/04/17 at 11:53; Status DC Nitroglycerin (Nitrostat) 0.4 mg PRN Q5MIN PRN SL CHEST PAIN Last administered on 06/04/17 11:05; Start 06/04/17 at 10:45; Stop 06/06/17 at 12:55; Status DC Aspirin (Children'S Aspirin) 81 mg DAILYWBKFT PO Last administered on 08:00; Start 06/05/17 at 08:00; Stop 06/06/17 at 12:54; Status DC Clopidogrel Bisulfate (Plavix) 75 mg DAILYWBKFT PO Last administered on 08:01; Start 06/05/17 at 08:00; Stop 06/06/17 at 12:54; Status DC Acetaminophen/ Hydrocodone Bitart (Lortab 10/325) 1 tab PRN Q6HRS PRN PO PAIN MILD TO MOD Last administered on 06/05/17 15:03; Start 06/05/17 at 09:15; Stop 06/06/17 at 12:55; Status DC Magnesium Hydroxide (Milk Of Magnesia) 2,400 mg PRN DAILY PRN PO CONSTIPATION; Start 06/05/17 at 09:15; Stop 06/06/17 at 12:55; Status DC Polyethylene Glycol (miraLAX PACKET) 17 gm DAILY PO Last administered on 09:56; Start 06/05/17 at 09:30; Stop 06/06/17 at 12:55; Status DC Docusate Sodium (Colace) 100 mg DAILY PO Last administered on 06/05/17 09:56; Start 06/05/17 at 09:30; Stop 06/06/17 at 12:54; Status DC Morphine Sulfate 5 mg/Ketorolac Tromethamine 30 mg/Ropivacaine 60 ml/ Epinephrine HCl 0.5 mg/Sodium Chloride 100 ml @ 100 mls/hr 1X PERIOP ONCE INT ART Last administered on 06/06/17 10:10; Start 06/06/17 at 08:00; Stop at 08:59; Status DC Vancomycin HCl 1 gm STK-MED ONCE .ROUTE ; Start 06/06/17 at 07:37; Stop at 07:38; Status DC Thrombin 20,000 unit STK-MED ONCE TP ; Start 06/06/17 at 07:38; Stop 06/06/17 at 07:39; Status DC Midazolam HCl (Versed) 2 mg STK-MED ONCE .ROUTE ; Start 06/06/17 at 07:41; Stop 06/06/17 at 07:42; Status DC Fentanyl Citrate (Fentanyl 2ml Vial) 100 mcg STK-MED ONCE .ROUTE ; Start at 07:41; Stop 06/06/17 at 07:42; Status DC Glycopyrrolate (Robinul) 1 mg STK-MED ONCE .ROUTE ; Start 06/06/17 at 07:41; Stop 06/06/17 at 07:42; Status DC Neostigmine Methylsulfate 5 mg STK-MED ONCE .ROUTE ; Start 06/06/17 at 07:42; Stop 06/06/17 at 07:43; Status DC Propofol 20 ml @ As Directed STK-MED ONCE IV ; Start 06/06/17 at 07:42; Stop 08/12 at 07:43; Status DC Lidocaine HCl (Lidocaine Pf 2% Vial) 5 ml STK-MED ONCE .ROUTE ; Start 06/06/17 at 07:42; Stop 06/06/17 at 07:43; Status DC Dexamethasone Sodium Phosphate (Decadron) 20 mg STK-MED ONCE .ROUTE ; Start 08/12 at 07:42; Stop 06/06/17 at 07:43; Status DC Ondansetron HCl (Zofran) 4 mg STK-MED ONCE .ROUTE ; Start 06/06/17 at 07:42; Stop 06/06/17 at 07:43; Status DC Cefazolin Sodium/ Dextrose 50 ml @ 100 mls/hr 1X PREOP PRN IV PRIOR TO PROCEDURE Last administered on 06/06/17t 09:45; Start 06/06/17 at 09:00; Stop at 12:00; Status DC Cefazolin Sodium/ Dextrose 50 ml @ As Directed STK-MED ONCE IV ; Start 06/06/17 at 08:37; Stop 06/06/17 at 08:38; Status DC Ephedrine Sulfate 50 mg STK-MED ONCE IV ; Start 06/06/17 at 09:22; Stop at 09:23; Status DC Fentanyl Citrate (Fentanyl 2ml Vial) 100 mcg STK-MED ONCE .ROUTE ; Start at 09:51; Stop 06/06/17 at 09:52; Status DC Fentanyl Citrate (Fentanyl 2ml Vial) 100 mcg STK-MED ONCE .ROUTE ; Start at 10:35; Stop 06/06/17 at 10:36; Status DC Hydralazine HCl (Apresoline) 20 mg STK-MED ONCE .ROUTE ; Start 06/06/17 at 10:36 ; Stop 06/06/17 at 10:37; Status DC Desflurane (Suprane) 90 ml STK-MED ONCE IH ; Start 06/06/17 at 10:36; Stop 06/06 at 10:37; Status DC Ondansetron HCl (Zofran) 4 mg PRN Q6HRS PRN IV NAUSEA/VOMITING; Start 06/06/17 at 12:30; Stop 06/06/17 at 19:00; Status DC Fentanyl Citrate (Fentanyl 2ml Vial) 25 mcg PRN Q5MIN PRN IV MILD PAIN; Start 06/06/17 at 12:30; Stop 06/06/17 at 19:00; Status DC Fentanyl Citrate (Fentanyl 2ml Vial) 50 mcg PRN Q5MIN PRN IV MODERATE PAIN; Start 06/06/17 at 12:30; Stop 06/06/17 at 19:00; Status DC Morphine Sulfate 1 mg PRN Q10MIN PRN IV SEVERE PAIN; Start 06/06/17 at 12:30; Stop 06/06/17 at 19:00; Status DC Ringer's Solution 1,000 ml @ 30 mls/hr Q24H IV ; Start 06/06/17 at 12:30; Stop 06/06/17 at 19:00; Status DC Lidocaine HCl 2 ml PRN 1X PRN ID PRIOR TO IV START; Start 06/06/17 at 12:30; Stop 06/06/17 at 19:00; Status DC Hydromorphone HCl (Dilaudid) 0.5 mg PRN Q10MIN PRN IV SEV PAIN, Second choice; Start 06/06/17 at 12:30; Stop 06/06/17 at 19:00; Status DC Prochlorperazine Edisylate (Compazine) 5 mg PACU PRN PRN IV NAUSEA, MRX1; Start 06/06/17 at 12:30; Stop 06/06/17 at 19:00; Status DC Fentanyl Citrate (Fentanyl 2ml Vial) 100 mcg STK-MED ONCE .ROUTE ; Start at 12:32; Stop 06/06/17 at 12:33; Status DC Ceftriaxone Sodium 1 gm/ Sodium Chloride 50 ml @ 100 mls/hr Q24H IV ; Start 08/12 at 20:00; Status UNV Ringer's Solution 1,000 ml @ 0 mls/hr Q0M IV ; Start 06/06/17 at 13:00; Stop at 19:30; Status UNV Acetaminophen (Tylenol) 500 mg PRN Q6HRS PRN PO MILD PAIN / TEMP; Start at 15:00 Aspirin (Children'S Aspirin) 81 mg DAILYWBKFT PO Last administered on 08:40; Start 06/06/17 at 15:00 Atorvastatin Calcium (Lipitor) 10 mg QHS PO Last administered on 06/07/17 21: 14; Start 06/06/17 at 21:00 Clonidine HCl (Catapres Tts-3) 1 patch WEEKLY TD ; Start 06/10/17 at 09:00 Clopidogrel Bisulfate (Plavix) 75 mg DAILYWBKFT PO Last administered on 08:39; Start 06/06/17 at 15:00 Diltiazem HCl (Cardizem 24hr Cd) 180 mg DAILY PO Last administered on 08:38; Start 06/06/17 at 15:00 Docusate Sodium (Colace) 100 mg DAILY PO Last administered on 06/08/17 08:39; Start 06/06/17 at 15:00 Ergocalciferol (Vitamin D2) 50,000 unit WEEKLY PO ; Start 06/11/17 at 09:00 Fentanyl Citrate (Fentanyl 2ml Vial) 25 mcg PRN Q5MIN PRN IV MILD PAIN; Start 06/07/17 at 12:30; Status UNV Fentanyl Citrate (Fentanyl 2ml Vial) 50 mcg PRN Q5MIN PRN IV MODERATE PAIN; Start 06/07/17 at 12:30; Status UNV Hydralazine HCl (Apresoline) 50 mg TID PO Last administered on 06/08/17 08:39 ; Start 06/06/17 at 14:00 Acetaminophen/ Hydrocodone Bitart (Lortab 10/325) 1 tab PRN Q6HRS PRN PO PAIN MILD TO MOD Last administered on 06/08/17 08:46; Start 06/06/17 at 15:00 Acetaminophen/ Hydrocodone Bitart (Lortab 5/325) 1 tab PRN Q8HRS PRN PO PAIN; Start 06/06/17 at 15:00 Hydromorphone HCl (Dilaudid) 0.5 mg PRN Q10MIN PRN IV SEV PAIN, Second choice; Start 06/07/17 at 12:30; Status UNV Lidocaine HCl 2 ml PRN 1X PRN ID PRIOR TO IV START; Start 06/07/17 at 12:30; Status UNV Lisinopril (Prinivil) 40 mg DAILY PO Last administered on 06/08/17 08:40; Start 06/06/17 at 15:00 Magnesium Hydroxide (Milk Of Magnesia) 2,400 mg PRN DAILY PRN PO CONSTIPATION; Start 06/06/17 at 15:00 Metoprolol Tartrate (Lopressor) 12.5 mg BID PO Last administered on 06/08/17 08:39; Start 06/06/17 at 21:00 Morphine Sulfate 4 mg PRN Q2HR PRN IV PAIN Last administered on 06/07/17 17:11 ; Start 06/06/17 at 22:00 Morphine Sulfate 1 mg PRN Q10MIN PRN IV SEVERE PAIN; Start 06/07/17 at 12:30; Status UNV Nitroglycerin (Nitrostat) 0.4 mg PRN Q5MIN PRN SL CHEST PAIN; Start 06/06/17 at 15:00 Ondansetron HCl (Zofran) 4 mg PRN Q6HRS PRN IV NAUSEA/VOMITING; Start 06/07/17 at 08:45; Status UNV Ondansetron HCl (Zofran) 4 mg PRN Q6HRS PRN IV NAUSEA/VOMITING; Start 06/07/17 at 12:30; Status UNV Pantoprazole Sodium (Protonix) 40 mg DAILYAC PO Last administered on 06/08/17 05:40; Start 06/06/17 at 15:00 Polyethylene Glycol (miraLAX PACKET) 17 gm DAILY PO Last administered on 08:38; Start 06/06/17 at 15:00 Prochlorperazine Edisylate (Compazine) 5 mg PACU PRN PRN IV NAUSEA, MRX1; Start 06/07/17 at 12:30; Status UNV Cefazolin Sodium/ Dextrose 50 ml @ 100 mls/hr Q8H IV Last administered on 06/07 01:29; Start 06/06/17 at 18:00; Stop 06/07/17 at 02:29; Status DC Cefpodoxime Proxetil (Vantin) 100 mg BID PO Last administered on 06/08/17 08: 38; Start 06/07/17 at 21:00 Active Scripts Active Atorvastatin Calcium 10 Mg Tablet 10 Mg PO QHS Lisinopril 40 Mg Tablet 40 Mg PO DAILY Reported Hydralazine Hcl 50 Mg Tablet 50 Mg PO TID Metoprolol Tartrate 25 Mg Tablet 12.5 Mg PO BID Clopidogrel (Clopidogrel Bisulfate) 75 Mg Tablet 75 Mg PO DAILY Lortab 5-325 mg Tablet (Hydrocodone/Acetaminophen) 1 Each Tablet 1 Tab PO PRN Q8HRS PRN Alendronate Sodium 70 Mg Tablet 70 Mg PO WEEKLY Diltiazem 24HR Cd (Diltiazem Hcl) 180 Mg Cap.er.24h 1 Cap PO DAILY Clonidine Tts-3 (Clonidine) 1 Each Patch.tdwk 1 Patch TD WEEKLY Aspir 81 (Aspirin) 81 Mg Tablet. 1 Tab PO DAILY Pantoprazole Sodium 40 Mg Tablet.dr 20 Mg PO DAILY Vitals/I & O Vital Sign - Last 24 Hours 06/07/17 06/07/17 06/07/17 06/07/17 12:02 15:00 17:11 17:18 Temp 97.7 97.7 Pulse 74 74 Resp 18 B/P (MAP) 110/58 (75) 110/58 Pulse Ox 95 O2 Delivery Nasal Cannula Room Air Nasal Cannula O2 Flow Rate 2.0 06/07/17 06/07/17 06/07/17 06/07/17 18:38 19:45 20:00 21:13 Temp 99.2 99.2 Pulse 88 88 Resp 16 B/P (MAP) 142/67 (92) 142/67 Pulse Ox 95 98 O2 Delivery Nasal Cannula Room Air Nasal Cannula O2 Flow Rate 2.0 2.0 06/07/17 06/07/17 06/07/17 06/08/17 21:14 21:15 22:42 02:10 Temp 98.5 98.5 Pulse 88 72 Resp 20 16 20 B/P (MAP) 142/67 106/43 (64) Pulse Ox 98 93 93 O2 Delivery Nasal Cannula Nasal Cannula Nasal Cannula O2 Flow Rate 2.0 2.0 2.0 06/08/17 06/08/17 06/08/17 06/08/17 02:12 03:10 07:00 08:00 Temp 98.4 98.1 98.4 98.1 Pulse 70 64 Resp 16 20 16 B/P (MAP) 116/52 (73) 102/44 (63) Pulse Ox 96 97 O2 Delivery Nasal Cannula Room Air Room Air O2 Flow Rate 2.0 06/08/17 06/08/17 06/08/17 06/08/17 08:38 08:39 08:39 08:40 Pulse 64 64 64 64 B/P (MAP) 102/44 102/44 102/44 102/44 06/08/17 06/08/17 08:46 09:46 Pulse Ox 97 97 O2 Delivery Nasal Cannula Nasal Cannula O2 Flow Rate 2.0 2.0 DIPAK NEVILLE MD Jun 08, 2017 11:36
--- NOTE | 2017-06-08 13:36 | PDOC ---
PROGRESS NOTES Chief Complaint Chief Complaint Mild displaced fracture of the humerus neck and greater tuberosity. 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 Pt talkative and laying in bed. Vitals Vitals Vital Signs Date Time Temp Pulse Resp B/P (MAP) Pulse Ox O2 Delivery O2 Flow Rate FiO2 06/08/17 11:00 97.5 65 18 111/46 (67) 96 Nasal Cannula 2.0 97.5 Physical Exam General: Alert, Oriented X3, No acute distress Heart: Regular rate, No murmurs Lungs: Clear, Other (no acute distress noted) Abdomen: Normal bowel sounds, Soft Extremities: No clubbing, Normal pulses Skin: No rashes, No breakdown Review of Systems Review of Systems c/o weakness c/o fatigue Assessment and Plan Assessmemt and Plan Humerus neck & greater tuberosity fx: post-op day 2. Pain meds prn. Continue wound care CHF/CAD: on plavix MILENA: monitor creatinine Vit D deficieny: monitor levels. Continue ergocalciferol GERD: monitor. Continue Protonix D/c probable in few days to SNU Problems: Comment Review of Relevant I have reviewed the following items louise (where applicable) has been applied. Labs Laboratory Tests Test 06/06/17 13:20 06/07/17 05:47 White Blood Count 15.8 x10^3/uL (4.0-11.0) 16.6 x10^3/uL (4.0-11.0) Red Blood Count 4.28 x10^6/uL (3.50-5.40) 3.74 x10^6/uL (3.50-5.40) Hemoglobin 12.3 g/dL (12.0-15.5) 11.0 g/dL (12.0-15.5) Hematocrit 38.0 % (36.0-47.0) 32.2 % (36.0-47.0) Mean Corpuscular Volume 89 fL (79-100) 86 fL (79-100) Mean Corpuscular Hemoglobin 29 pg (25-35) 29 pg (25-35) Mean Corpuscular Hemoglobin Concent 32 g/dL (31-37) 34 g/dL (31-37) Red Cell Distribution Width 14.2 % (11.5-14.5) 14.2 % (11.5-14.5) Platelet Count 208 x10^3/uL (140-400) 190 x10^3/uL (140-400) Neutrophils (%) (Auto) 85 % (31-73) 83 % (31-73) Lymphocytes (%) (Auto) 12 % (24-48) 8 % (24-48) Monocytes (%) (Auto) 3 % (0-9) 9 % (0-9) Eosinophils (%) (Auto) 0 % (0-3) 0 % (0-3) Basophils (%) (Auto) 0 % (0-3) 0 % (0-3) Neutrophils # (Auto) 13.4 x10^3uL (1.8-7.7) 13.8 x10^3uL (1.8-7.7) Lymphocytes # (Auto) 1.9 x10^3/uL (1.0-4.8) 1.3 x10^3/uL (1.0-4.8) Monocytes # (Auto) 0.4 x10^3/uL (0.0-1.1) 1.5 x10^3/uL (0.0-1.1) Eosinophils # (Auto) 0.0 x10^3/uL (0.0-0.7) 0.0 x10^3/uL (0.0-0.7) Basophils # (Auto) 0.0 x10^3/uL (0.0-0.2) 0.0 x10^3/uL (0.0-0.2) Segmented Neutrophils % 74 % (35-66) Band Neutrophils % 14 % (0-9) Lymphocytes % 8 % (24-48) Monocytes % 4 % (0-10) Toxic Granulation Slight Platelet Estimate Adequate (ADEQUATE) Sodium Level 141 mmol/L (136-145) 140 mmol/L (136-145) Potassium Level 4.1 mmol/L (3.5-5.1) 4.6 mmol/L (3.5-5.1) Chloride Level 105 mmol/L (98-107) 105 mmol/L (98-107) Carbon Dioxide Level 26 mmol/L (21-32) 27 mmol/L (21-32) Anion Gap 10 (6-14) 8 (6-14) Blood Urea Nitrogen 34 mg/dL (7-20) 40 mg/dL (7-20) Creatinine 1.9 mg/dL (0.6-1.0) 1.8 mg/dL (0.6-1.0) Estimated GFR (Cockcroft-Gault) 25.2 26.9 Glucose Level 153 mg/dL (70-99) 130 mg/dL (70-99) Calcium Level 8.8 mg/dL (8.5-10.1) 9.3 mg/dL (8.5-10.1) Microbiology 06/03/17 Urine Culture - Final, Complete 06/03/17 Urine Culture Result 1 (NETO) - Final, Complete 06/03/17 Antimicrobic Susceptibility - Final, Complete Medications Current Medications Hydromorphone HCl (Dilaudid) 0.5 mg PRN Q15MIN PRN IV/SQ PAIN GREATER THAN 3/ 10 Last administered on 06/02/17 13:05; Start 06/02/17 at 11:30; Stop 06/03/17 at 11:29; Status DC Ondansetron HCl (Zofran) 4 mg 1X ONCE IV Last administered on 06/02/17 11:29; Start 06/02/17 at 11:30; Stop 06/02/17 at 11:31; Status DC Diphtheria/ Tetanus/Acell Pertussis (Boostrix) 0.5 ml ONCE ONCE VAX IM Last administered on 06/02/17 12:55; Start 06/02/17 at 12:30; Stop 06/02/17 at 12:31; Status DC Morphine Sulfate 4 mg PRN Q2HR PRN IV PAIN Last administered on 06/03/17 14:08 ; Start 06/02/17 at 14:30; Stop 06/03/17 at 14:29; Status DC Sodium Chloride 1,000 ml @ 75 mls/hr 1X ONCE IV Last administered on 14:57; Start 06/02/17 at 14:30; Stop 06/03/17 at 03:49; Status DC Labetalol HCl (Normodyne) 5 mg PRN Q4HRS PRN IVP HYPERTENSION, SEE COMMENTS Last administered on 06/02/17 16:33; Start 06/02/17 at 16:15; Stop 06/04/17 at 09: 34; Status DC Lidocaine (Lidoderm) 1 patch DAILY TD Last administered on 06/05/17 08:02; Start 06/02/17 at 21:00; Stop 06/06/17 at 12:54; Status DC Atorvastatin Calcium (Lipitor) 10 mg QHS PO Last administered on 06/05/17 20: 06; Start 06/02/17 at 21:00; Stop 06/06/17 at 12:54; Status DC Clonidine HCl (Catapres Tts-3) 1 patch WEEKLY TD Last administered on 06/03/17 08:51; Start 06/03/17 at 09:00; Stop 06/06/17 at 12:54; Status DC Diltiazem HCl (Cardizem 24hr Cd) 180 mg DAILY PO Last administered on 08:01; Start 06/03/17 at 09:00; Stop 06/06/17 at 12:54; Status DC Hydralazine HCl (Apresoline) 50 mg TID PO Last administered on 06/05/17 20:06 ; Start 06/02/17 at 21:00; Stop 06/06/17 at 12:54; Status DC Acetaminophen/ Hydrocodone Bitart (Lortab 5/325) 1 tab PRN Q8HRS PRN PO PAIN Last administered on 06/04/17 08:33; Start 06/02/17 at 21:00; Stop 06/06/17 at 12 :54; Status DC Lisinopril (Prinivil) 40 mg DAILY PO Last administered on 06/05/17 08:03; Start 06/03/17 at 09:00; Stop 06/06/17 at 12:55; Status DC Metoprolol Tartrate (Lopressor) 12.5 mg BID PO Last administered on 06/05/17 20:07; Start 06/02/17 at 21:00; Stop 06/06/17 at 12:55; Status DC Pantoprazole Sodium (Protonix) 40 mg DAILYAC PO Last administered on 06/05/17 08:01; Start 06/03/17 at 07:30; Stop 06/06/17 at 12:55; Status DC Acetaminophen (Tylenol) 500 mg PRN Q6HRS PRN PO MILD PAIN / TEMP; Start at 08:45; Stop 06/06/17 at 12:54; Status DC Ondansetron HCl (Zofran) 4 mg PRN Q6HRS PRN IV NAUSEA/VOMITING; Start 06/03/17 at 08:45; Stop 06/06/17 at 12:55; Status DC Aspirin (Ecotrin) 81 mg DAILY PO Last administered on 06/04/17 08:32; Start 06/03/17 at 12:00; Stop 06/04/17 at 10:34; Status DC Clopidogrel Bisulfate (Plavix) 75 mg DAILY PO Last administered on 06/04/17 08: 32; Start 06/03/17 at 12:00; Stop 06/04/17 at 10:34; Status DC Non-Formulary Medication 70 mg WEEKLY PO ; Start 06/10/17 at 09:00; Status UNV Ceftriaxone Sodium 1 gm/ Sodium Chloride 50 ml @ 100 mls/hr Q24H IV Last administered on 06/06/17 18:42; Start 06/03/17 at 20:00; Stop 06/07/17 at 10:26 ; Status DC Morphine Sulfate 4 mg PRN Q2HR PRN IV PAIN Last administered on 06/06/17 02:14 ; Start 06/03/17 at 22:00; Stop 06/06/17 at 12:55; Status DC Ergocalciferol (Vitamin D2) 50,000 unit WEEKLY PO Last administered on 11:28; Start 06/04/17 at 10:00; Stop 06/06/17 at 12:54; Status DC Labetalol HCl (Normodyne) 10 mg PRN Q4HRS PRN IVP HYPERTENSION, SEE COMMENTS; Start 06/04/17 at 09:45; Stop 06/06/17 at 12:55; Status DC Heparin Sodium/ Dextrose 500 ml @ 0 mls/hr CONT PRN IV SEE I/O RECORD; Start at 10:45; Stop 06/04/17 at 11:53; Status DC Heparin Sodium (Porcine) (Heparin Sodium) 2,150 unit PRN Q6HRS PRN IV FOR UFH LEVEL LESS THAN 0.2; Start 06/04/17 at 10:45; Stop 06/04/17 at 11:53; Status DC Nitroglycerin (Nitrostat) 0.4 mg PRN Q5MIN PRN SL CHEST PAIN Last administered on 06/04/17 11:05; Start 06/04/17 at 10:45; Stop 06/06/17 at 12:55; Status DC Aspirin (Children'S Aspirin) 81 mg DAILYWBKFT PO Last administered on 08:00; Start 06/05/17 at 08:00; Stop 06/06/17 at 12:54; Status DC Clopidogrel Bisulfate (Plavix) 75 mg DAILYWBKFT PO Last administered on 08:01; Start 06/05/17 at 08:00; Stop 06/06/17 at 12:54; Status DC Acetaminophen/ Hydrocodone Bitart (Lortab 10/325) 1 tab PRN Q6HRS PRN PO PAIN MILD TO MOD Last administered on 06/05/17 15:03; Start 06/05/17 at 09:15; Stop 06/06/17 at 12:55; Status DC Magnesium Hydroxide (Milk Of Magnesia) 2,400 mg PRN DAILY PRN PO CONSTIPATION; Start 06/05/17 at 09:15; Stop 06/06/17 at 12:55; Status DC Polyethylene Glycol (miraLAX PACKET) 17 gm DAILY PO Last administered on 09:56; Start 06/05/17 at 09:30; Stop 06/06/17 at 12:55; Status DC Docusate Sodium (Colace) 100 mg DAILY PO Last administered on 06/05/17 09:56; Start 06/05/17 at 09:30; Stop 06/06/17 at 12:54; Status DC Morphine Sulfate 5 mg/Ketorolac Tromethamine 30 mg/Ropivacaine 60 ml/ Epinephrine HCl 0.5 mg/Sodium Chloride 100 ml @ 100 mls/hr 1X PERIOP ONCE INT ART Last administered on 9/11/17at 10:10; Start 06/06/17 at 08:00; Stop at 08:59; Status DC Vancomycin HCl 1 gm STK-MED ONCE .ROUTE ; Start 06/06/17 at 07:37; Stop at 07:38; Status DC Thrombin 20,000 unit STK-MED ONCE TP ; Start 06/06/17 at 07:38; Stop 06/06/17 at 07:39; Status DC Midazolam HCl (Versed) 2 mg STK-MED ONCE .ROUTE ; Start 06/06/17 at 07:41; Stop 06/06/17 at 07:42; Status DC Fentanyl Citrate (Fentanyl 2ml Vial) 100 mcg STK-MED ONCE .ROUTE ; Start at 07:41; Stop 06/06/17 at 07:42; Status DC Glycopyrrolate (Robinul) 1 mg STK-MED ONCE .ROUTE ; Start 06/06/17 at 07:41; Stop 06/06/17 at 07:42; Status DC Neostigmine Methylsulfate 5 mg STK-MED ONCE .ROUTE ; Start 06/06/17 at 07:42; Stop 06/06/17 at 07:43; Status DC Propofol 20 ml @ As Directed STK-MED ONCE IV ; Start 06/06/17 at 07:42; Stop 08/12 at 07:43; Status DC Lidocaine HCl (Lidocaine Pf 2% Vial) 5 ml STK-MED ONCE .ROUTE ; Start 06/06/17 at 07:42; Stop 06/06/17 at 07:43; Status DC Dexamethasone Sodium Phosphate (Decadron) 20 mg STK-MED ONCE .ROUTE ; Start 08/12 at 07:42; Stop 06/06/17 at 07:43; Status DC Ondansetron HCl (Zofran) 4 mg STK-MED ONCE .ROUTE ; Start 06/06/17 at 07:42; Stop 06/06/17 at 07:43; Status DC Cefazolin Sodium/ Dextrose 50 ml @ 100 mls/hr 1X PREOP PRN IV PRIOR TO PROCEDURE Last administered on 06/06/17t 09:45; Start 06/06/17 at 09:00; Stop at 12:00; Status DC Cefazolin Sodium/ Dextrose 50 ml @ As Directed STK-MED ONCE IV ; Start 06/06/17 at 08:37; Stop 06/06/17 at 08:38; Status DC Ephedrine Sulfate 50 mg STK-MED ONCE IV ; Start 06/06/17 at 09:22; Stop at 09:23; Status DC Fentanyl Citrate (Fentanyl 2ml Vial) 100 mcg STK-MED ONCE .ROUTE ; Start at 09:51; Stop 06/06/17 at 09:52; Status DC Fentanyl Citrate (Fentanyl 2ml Vial) 100 mcg STK-MED ONCE .ROUTE ; Start at 10:35; Stop 06/06/17 at 10:36; Status DC Hydralazine HCl (Apresoline) 20 mg STK-MED ONCE .ROUTE ; Start 06/06/17 at 10:36 ; Stop 06/06/17 at 10:37; Status DC Desflurane (Suprane) 90 ml STK-MED ONCE IH ; Start 06/06/17 at 10:36; Stop 06/06 at 10:37; Status DC Ondansetron HCl (Zofran) 4 mg PRN Q6HRS PRN IV NAUSEA/VOMITING; Start 06/06/17 at 12:30; Stop 06/06/17 at 19:00; Status DC Fentanyl Citrate (Fentanyl 2ml Vial) 25 mcg PRN Q5MIN PRN IV MILD PAIN; Start 06/06/17 at 12:30; Stop 06/06/17 at 19:00; Status DC Fentanyl Citrate (Fentanyl 2ml Vial) 50 mcg PRN Q5MIN PRN IV MODERATE PAIN; Start 06/06/17 at 12:30; Stop 06/06/17 at 19:00; Status DC Morphine Sulfate 1 mg PRN Q10MIN PRN IV SEVERE PAIN; Start 06/06/17 at 12:30; Stop 06/06/17 at 19:00; Status DC Ringer's Solution 1,000 ml @ 30 mls/hr Q24H IV ; Start 06/06/17 at 12:30; Stop 06/06/17 at 19:00; Status DC Lidocaine HCl 2 ml PRN 1X PRN ID PRIOR TO IV START; Start 06/06/17 at 12:30; Stop 06/06/17 at 19:00; Status DC Hydromorphone HCl (Dilaudid) 0.5 mg PRN Q10MIN PRN IV SEV PAIN, Second choice; Start 06/06/17 at 12:30; Stop 06/06/17 at 19:00; Status DC Prochlorperazine Edisylate (Compazine) 5 mg PACU PRN PRN IV NAUSEA, MRX1; Start 06/06/17 at 12:30; Stop 06/06/17 at 19:00; Status DC Fentanyl Citrate (Fentanyl 2ml Vial) 100 mcg STK-MED ONCE .ROUTE ; Start at 12:32; Stop 06/06/17 at 12:33; Status DC Ceftriaxone Sodium 1 gm/ Sodium Chloride 50 ml @ 100 mls/hr Q24H IV ; Start 08/12 at 20:00; Status UNV Ringer's Solution 1,000 ml @ 0 mls/hr Q0M IV ; Start 06/06/17 at 13:00; Stop at 19:30; Status UNV Acetaminophen (Tylenol) 500 mg PRN Q6HRS PRN PO MILD PAIN / TEMP; Start at 15:00 Aspirin (Children'S Aspirin) 81 mg DAILYWBKFT PO Last administered on 08:40; Start 06/06/17 at 15:00 Atorvastatin Calcium (Lipitor) 10 mg QHS PO Last administered on 06/07/17 21: 14; Start 06/06/17 at 21:00 Clonidine HCl (Catapres Tts-3) 1 patch WEEKLY TD ; Start 06/10/17 at 09:00 Clopidogrel Bisulfate (Plavix) 75 mg DAILYWBKFT PO Last administered on 08:39; Start 06/06/17 at 15:00 Diltiazem HCl (Cardizem 24hr Cd) 180 mg DAILY PO Last administered on 08:38; Start 06/06/17 at 15:00 Docusate Sodium (Colace) 100 mg DAILY PO Last administered on 06/08/17 08:39; Start 06/06/17 at 15:00 Ergocalciferol (Vitamin D2) 50,000 unit WEEKLY PO ; Start 06/11/17 at 09:00 Fentanyl Citrate (Fentanyl 2ml Vial) 25 mcg PRN Q5MIN PRN IV MILD PAIN; Start 06/07/17 at 12:30; Status UNV Fentanyl Citrate (Fentanyl 2ml Vial) 50 mcg PRN Q5MIN PRN IV MODERATE PAIN; Start 06/07/17 at 12:30; Status UNV Hydralazine HCl (Apresoline) 50 mg TID PO Last administered on 06/08/17 08:39 ; Start 06/06/17 at 14:00 Acetaminophen/ Hydrocodone Bitart (Lortab 10/325) 1 tab PRN Q6HRS PRN PO PAIN MILD TO MOD Last administered on 06/08/17 08:46; Start 06/06/17 at 15:00 Acetaminophen/ Hydrocodone Bitart (Lortab 5/325) 1 tab PRN Q8HRS PRN PO PAIN; Start 06/06/17 at 15:00 Hydromorphone HCl (Dilaudid) 0.5 mg PRN Q10MIN PRN IV SEV PAIN, Second choice; Start 06/07/17 at 12:30; Status UNV Lidocaine HCl 2 ml PRN 1X PRN ID PRIOR TO IV START; Start 06/07/17 at 12:30; Status UNV Lisinopril (Prinivil) 40 mg DAILY PO Last administered on 06/08/17 08:40; Start 06/06/17 at 15:00 Magnesium Hydroxide (Milk Of Magnesia) 2,400 mg PRN DAILY PRN PO CONSTIPATION; Start 06/06/17 at 15:00 Metoprolol Tartrate (Lopressor) 12.5 mg BID PO Last administered on 06/08/17 08:39; Start 06/06/17 at 21:00 Morphine Sulfate 4 mg PRN Q2HR PRN IV PAIN Last administered on 06/07/17 17:11 ; Start 06/06/17 at 22:00 Morphine Sulfate 1 mg PRN Q10MIN PRN IV SEVERE PAIN; Start 06/07/17 at 12:30; Status UNV Nitroglycerin (Nitrostat) 0.4 mg PRN Q5MIN PRN SL CHEST PAIN; Start 06/06/17 at 15:00 Ondansetron HCl (Zofran) 4 mg PRN Q6HRS PRN IV NAUSEA/VOMITING; Start 06/07/17 at 08:45; Status UNV Ondansetron HCl (Zofran) 4 mg PRN Q6HRS PRN IV NAUSEA/VOMITING; Start 06/07/17 at 12:30; Status UNV Pantoprazole Sodium (Protonix) 40 mg DAILYAC PO Last administered on 06/08/17 05:40; Start 06/06/17 at 15:00 Polyethylene Glycol (miraLAX PACKET) 17 gm DAILY PO Last administered on 08:38; Start 06/06/17 at 15:00 Prochlorperazine Edisylate (Compazine) 5 mg PACU PRN PRN IV NAUSEA, MRX1; Start 06/07/17 at 12:30; Status UNV Cefazolin Sodium/ Dextrose 50 ml @ 100 mls/hr Q8H IV Last administered on 06/07 01:29; Start 06/06/17 at 18:00; Stop 06/07/17 at 02:29; Status DC Cefpodoxime Proxetil (Vantin) 100 mg BID PO Last administered on 06/08/17 08: 38; Start 06/07/17 at 21:00 Active Scripts Active Atorvastatin Calcium 10 Mg Tablet 10 Mg PO QHS Lisinopril 40 Mg Tablet 40 Mg PO DAILY Reported Hydralazine Hcl 50 Mg Tablet 50 Mg PO TID Metoprolol Tartrate 25 Mg Tablet 12.5 Mg PO BID Clopidogrel (Clopidogrel Bisulfate) 75 Mg Tablet 75 Mg PO DAILY Lortab 5-325 mg Tablet (Hydrocodone/Acetaminophen) 1 Each Tablet 1 Tab PO PRN Q8HRS PRN Alendronate Sodium 70 Mg Tablet 70 Mg PO WEEKLY Diltiazem 24HR Cd (Diltiazem Hcl) 180 Mg Cap.er.24h 1 Cap PO DAILY Clonidine Tts-3 (Clonidine) 1 Each Patch.tdwk 1 Patch TD WEEKLY Aspir 81 (Aspirin) 81 Mg Tablet. 1 Tab PO DAILY Pantoprazole Sodium 40 Mg Tablet.dr 20 Mg PO DAILY Vitals/I & O Vital Sign - Last 24 Hours 06/07/17 06/07/17 06/07/17 06/07/17 15:00 17:11 17:18 18:38 Temp 97.7 97.7 Pulse 74 74 Resp 18 B/P (MAP) 110/58 (75) 110/58 Pulse Ox 95 95 O2 Delivery Room Air Nasal Cannula Nasal Cannula O2 Flow Rate 2.0 06/07/17 06/07/17 06/07/17 06/07/17 19:45 20:00 21:13 21:14 Temp 99.2 99.2 Pulse 88 88 88 Resp 16 B/P (MAP) 142/67 (92) 142/67 142/67 Pulse Ox 98 O2 Delivery Room Air Nasal Cannula O2 Flow Rate 2.0 06/07/17 06/07/17 06/08/17 06/08/17 21:15 22:42 02:10 02:12 Temp 98.5 98.4 98.5 98.4 Pulse 72 70 Resp 20 16 20 16 B/P (MAP) 106/43 (64) 116/52 (73) Pulse Ox 98 93 93 96 O2 Delivery Nasal Cannula Nasal Cannula Nasal Cannula Nasal Cannula O2 Flow Rate 2.0 2.0 2.0 2.0 06/08/17 06/08/17 06/08/17 06/08/17 03:10 07:00 08:00 08:38 Temp 98.1 98.1 Pulse 64 64 Resp 20 16 B/P (MAP) 102/44 (63) 102/44 Pulse Ox 97 O2 Delivery Room Air Room Air 06/08/17 06/08/17 06/08/17 06/08/17 08:39 08:39 08:40 08:46 Pulse 64 64 64 B/P (MAP) 102/44 102/44 102/44 Pulse Ox 97 O2 Delivery Nasal Cannula O2 Flow Rate 2.0 06/08/17 06/08/17 09:46 11:00 Temp 97.5 97.5 Pulse 65 Resp 18 B/P (MAP) 111/46 (67) Pulse Ox 97 96 O2 Delivery Nasal Cannula Nasal Cannula O2 Flow Rate 2.0 2.0 THOR WILSON III DO Jun 08, 2017 13:36
--- NOTE | 2017-06-08 14:12 | PATHOLOGY ---
PATHOLOGY REPORT * * * * * * * * FINAL DIAGNOSIS: Bone, "left shoulder bone and tissue": - Fragmentation of bony trabeculae with recent hemorrhage consistent with fracture. 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 (SHA:hebert; 06/08/2017) REPORT ELECTRONICALLY SIGNED BY: Amado Lange M.D. DATE/TIME: 06/08/2017 14:11 * * * * * * * * GROSS PATHOLOGY: Received in formalin labeled "Kacie Waldron, left shoulder bone and tissue," is a humeral head measuring 4.8 x 4.4 x 2.8 cm in greatest dimensions. The articular surface is smooth to granular and pale amin to light brown. Sectioning reveals a pink-amin marrow space, with the distal most aspect hemorrhagic in appearance, consistent with a fracture site. Complex Human Resources Manager tissue from the fracture site is submitted in cassette A1, following decalcification. ([facility]; 06/07/2017) INITIAL CPT CODE(S): A; 90803, 77461 Professional services performed [place] [facility] [place] [address] Technical services performed by [facility] at [address] [place] [address] [address], [place] [address]. SPECIMEN(S) RECEIVED: A.Left shoulder bone and tissue CLINICAL HISTORY: Left proximal humerus fracture PATIENT: KACIE WALDRON /AGE: 8 1935 (Age: 82) PATIENT #: [id number] ALT CASE #: SPECIMEN COLLECTION DATE: 06/06/2017 SPECIMEN RECEIVED DATE: 06/06/2017 [facility] - [address] [place] [id number] - PHONE: [phone] * * * END OF REPORT * * *
--- NOTE | 2017-06-08 15:24 | PDOC ---
PULMONARY PROGRESS NOTES Subjective no soa Vitals Vital Signs Date Time Temp Pulse Resp B/P (MAP) Pulse Ox O2 Delivery O2 Flow Rate FiO2 06/08/17 11:00 97.5 65 18 111/46 (67) 96 Nasal Cannula 2.0 97.5 General: Alert, No acute distress Lungs: Clear, Other (no acute distress noted) Cardiovascular: S1, S2 Abdomen: Soft Neuro Exam: Alert Extremities: No Edema, Other (left shoulder s/p surgery) Labs Laboratory Tests Test 06/07/17 05:47 White Blood Count 16.6 x10^3/uL (4.0-11.0) Red Blood Count 3.74 x10^6/uL (3.50-5.40) Hemoglobin 11.0 g/dL (12.0-15.5) Hematocrit 32.2 % (36.0-47.0) Mean Corpuscular Volume 86 fL (79-100) Mean Corpuscular Hemoglobin 29 pg (25-35) Mean Corpuscular Hemoglobin Concent 34 g/dL (31-37) Red Cell Distribution Width 14.2 % (11.5-14.5) Platelet Count 190 x10^3/uL (140-400) Neutrophils (%) (Auto) 83 % (31-73) Lymphocytes (%) (Auto) 8 % (24-48) Monocytes (%) (Auto) 9 % (0-9) Eosinophils (%) (Auto) 0 % (0-3) Basophils (%) (Auto) 0 % (0-3) Neutrophils # (Auto) 13.8 x10^3uL (1.8-7.7) Lymphocytes # (Auto) 1.3 x10^3/uL (1.0-4.8) Monocytes # (Auto) 1.5 x10^3/uL (0.0-1.1) Eosinophils # (Auto) 0.0 x10^3/uL (0.0-0.7) Basophils # (Auto) 0.0 x10^3/uL (0.0-0.2) Sodium Level 140 mmol/L (136-145) Potassium Level 4.6 mmol/L (3.5-5.1) Chloride Level 105 mmol/L (98-107) Carbon Dioxide Level 27 mmol/L (21-32) Anion Gap 8 (6-14) Blood Urea Nitrogen 40 mg/dL (7-20) Creatinine 1.8 mg/dL (0.6-1.0) Estimated GFR (Cockcroft-Gault) 26.9 Glucose Level 130 mg/dL (70-99) Calcium Level 9.3 mg/dL (8.5-10.1) Medications Active Scripts Medications Dose Route/Sig Max Daily Dose Days Date Category Hydralazine Hcl 50 Mg Tablet 50 Mg PO TID 03/09/17 Reported Metoprolol Tartrate 25 Mg Tablet 12.5 Mg PO BID 03/09/17 Reported Clopidogrel (Clopidogrel Bisulfate) 75 Mg Tablet 75 Mg PO DAILY 03/09/17 Reported Lortab 5-325 mg Tablet (Hydrocodone/Acetaminophen) 1 Each Tablet 1 Tab PO PRN Q8HRS PRN 05/09/16 Reported Alendronate Sodium 70 Mg Tablet 70 Mg PO WEEKLY 05/07/16 Reported Diltiazem 24HR Cd (Diltiazem Hcl) 180 Mg Cap.er.24h 1 Cap PO DAILY 05/06/16 Reported Atorvastatin Calcium 10 Mg Tablet 10 Mg PO QHS 09/06/15 Rx Lisinopril 40 Mg Tablet 40 Mg PO DAILY 03/22/15 Rx Clonidine Tts-3 (Clonidine) 1 Each Patch.tdwk 1 Patch TD WEEKLY 03/20/15 Reported Aspir 81 (Aspirin) 81 Mg Tablet.dr 1 Tab PO DAILY 03/19/15 Reported Pantoprazole Sodium 40 Mg Tablet.dr 20 Mg PO DAILY 03/19/15 Reported Impression . 1. Abnormal irregular parenchymal opacity 6.6 mm seen in the right upper lobe on CT chest. 2. Status post fall with left humeral fracture repair 3. Chronic renal insufficiency. 4. No significant history of tobacco use. Plan . SLOWLY PROGRESSING RESP STATUS IS COMPENSATED 1. Repeat CT of the chest in 4 months to r/o any increase in size of right upper lobe irregular opacity. d/w daughter. she will make an appointment with me as OP post dc. 3. Pain management 4. Follow renal recommendation. JACKIE CALVO MD Jun 08, 2017 15:24
--- NOTE | 2017-06-08 17:31 | PDOC ---
PROGRESS NOTES Subjective Subjective Problems overnight: No acute issues. The patient is oobtc and sitting up. Says her pain is improved in her left arm. Drain put out 10 cc all day. Objective Vital Signs Vital Signs Date Time Temp Pulse Resp B/P (MAP) Pulse Ox O2 Delivery O2 Flow Rate FiO2 06/08/17 16:49 63 110/46 06/08/17 15:00 97.7 18 97 Nasal Cannula 2.0 97.7 Physical Exam LUE with prineo dressing cdi. Her drain is in place and to suction, minimal to no output. removed with the tip intact and no back flow. the patient tolerated the procedure well. grossly nvi distally. in the shoulder immobilizer. Labs Laboratory Tests Test 06/07/17 05:47 White Blood Count 16.6 x10^3/uL (4.0-11.0) Red Blood Count 3.74 x10^6/uL (3.50-5.40) Hemoglobin 11.0 g/dL (12.0-15.5) Hematocrit 32.2 % (36.0-47.0) Mean Corpuscular Volume 86 fL (79-100) Mean Corpuscular Hemoglobin 29 pg (25-35) Mean Corpuscular Hemoglobin Concent 34 g/dL (31-37) Red Cell Distribution Width 14.2 % (11.5-14.5) Platelet Count 190 x10^3/uL (140-400) Neutrophils (%) (Auto) 83 % (31-73) Lymphocytes (%) (Auto) 8 % (24-48) Monocytes (%) (Auto) 9 % (0-9) Eosinophils (%) (Auto) 0 % (0-3) Basophils (%) (Auto) 0 % (0-3) Neutrophils # (Auto) 13.8 x10^3uL (1.8-7.7) Lymphocytes # (Auto) 1.3 x10^3/uL (1.0-4.8) Monocytes # (Auto) 1.5 x10^3/uL (0.0-1.1) Eosinophils # (Auto) 0.0 x10^3/uL (0.0-0.7) Basophils # (Auto) 0.0 x10^3/uL (0.0-0.2) Sodium Level 140 mmol/L (136-145) Potassium Level 4.6 mmol/L (3.5-5.1) Chloride Level 105 mmol/L (98-107) Carbon Dioxide Level 27 mmol/L (21-32) Anion Gap 8 (6-14) Blood Urea Nitrogen 40 mg/dL (7-20) Creatinine 1.8 mg/dL (0.6-1.0) Estimated GFR (Cockcroft-Gault) 26.9 Glucose Level 130 mg/dL (70-99) Calcium Level 9.3 mg/dL (8.5-10.1) Assessment Assessment POD# 2 S/P left rtsa for fracture Problems: Plan Plan of Care -pain control -on aspirin and plavix for cards reasons -hv removed. ok to shower. -can remove the aquacel dressing over the drain site tomorrow. no need for further dressings. -pt/ot lue 1 lb wt limit, hand,wrist, elbow rom only. -can followup in my office next week. she has already made her appt. OSCAR PLUMMER MD Jun 08, 2017 17:31
[2017-06-08] MEDS: ATORVASTATIN CALCIUM 10 MG TABLET. PO SCH (21:27)
[2017-06-09 03:00] VITALS: BP 136/56
[2017-06-09] MEDS: PANTOPRAZOLE 40 MG TABLET.DR. PO SCH ×2 (06:26→09:02)
[2017-06-09 07:00] VITALS: BP 124/60
[2017-06-09] MEDS: CEFPODOXIME PROXETIL 100 MG TABLET. PO SCH (09:02)
[2017-06-09] MEDS: CLOPIDOGREL BISULFATE 75 MG TABLET PO SCH (09:02)
[2017-06-09] MEDS: DOCUSATE SODIUM 100 MG CAPSULE. PO SCH (09:03)
[2017-06-09 09:05] LABS: BASO % 0 % (0-3); EOS % 4 % (0-3); HEMATOCRIT 29.6 % (36.0-47.0); HEMOGLOBIN 9.8 g/dL (12.0-15.5); LYMPH # 1.6 x10^3/uL (1.0-4.8); LYMPH % 15 % (24-48); MEAN CORPUSCULAR HEMOGLOBIN 30 pg (25-35); MEAN CORPUSCULAR HGB CONC 33 g/dL (31-37); MEAN CORPUSCULAR VOLUME 89 fL (79-100); MONO % 9 % (0-9); NEUT % 72 % (31-73); PLATELET COUNT 203 x10^3/uL (140-400); RED BLOOD COUNT 3.33 x10^6/uL (3.50-5.40); RED CELL DISTRIBUTION WIDTH 14.3 % (11.5-14.5); WHITE BLOOD COUNT 10.7 x10^3/uL (4.0-11.0)
[2017-06-09] MEDS: METOPROLOL TART IMMED RELEASE 25 MG TABLET. PO SCH (09:06)
[2017-06-09] MEDS: ASPIRIN CHEWABLE 81 MG TABLET. PO SCH (09:08)
[2017-06-09] MEDS: LISINOPRIL 40 MG TABLET. PO SCH (09:09)
[2017-06-09] MEDS: POLYETHYLENE GLYCOL 3350 17 GM PACKET. PO SCH (09:10)
--- NOTE | 2017-06-09 09:12 | PDOC ---
PULMONARY PROGRESS NOTES Subjective no soa Vitals Vital Signs Date Time Temp Pulse Resp B/P (MAP) Pulse Ox O2 Delivery O2 Flow Rate FiO2 06/09/17 07:00 99.5 78 18 124/60 (81) 95 Nasal Cannula 2.0 99.5 General: Alert, No acute distress Lungs: Clear, Other (no acute distress noted) Cardiovascular: S1, S2 Abdomen: Soft Neuro Exam: Alert Extremities: No Edema, Other (left shoulder s/p surgery) Medications Active Scripts Medications Dose Route/Sig Max Daily Dose Days Date Category Hydralazine Hcl 50 Mg Tablet 50 Mg PO TID 03/09/17 Reported Metoprolol Tartrate 25 Mg Tablet 12.5 Mg PO BID 03/09/17 Reported Clopidogrel (Clopidogrel Bisulfate) 75 Mg Tablet 75 Mg PO DAILY 03/09/17 Reported Lortab 5-325 mg Tablet (Hydrocodone/Acetaminophen) 1 Each Tablet 1 Tab PO PRN Q8HRS PRN 05/09/16 Reported Alendronate Sodium 70 Mg Tablet 70 Mg PO WEEKLY 05/07/16 Reported Diltiazem 24HR Cd (Diltiazem Hcl) 180 Mg Cap.er.24h 1 Cap PO DAILY 05/06/16 Reported Atorvastatin Calcium 10 Mg Tablet 10 Mg PO QHS 09/06/15 Rx Lisinopril 40 Mg Tablet 40 Mg PO DAILY 03/22/15 Rx Clonidine Tts-3 (Clonidine) 1 Each Patch.tdwk 1 Patch TD WEEKLY 03/20/15 Reported Aspir 81 (Aspirin) 81 Mg Tablet.dr 1 Tab PO DAILY 03/19/15 Reported Pantoprazole Sodium 40 Mg Tablet.dr 20 Mg PO DAILY 03/19/15 Reported Impression . 1. Abnormal irregular parenchymal opacity 6.6 mm seen in the right upper lobe on CT chest. 2. Status post fall with left humeral fracture repair 3. Chronic renal insufficiency. 4. No significant history of tobacco use. Plan . SLOWLY PROGRESSING, OK TO TRANSFER FOLLOW IN OFFICE RESP STATUS IS COMPENSATED 1. Repeat CT of the chest in 4 months to r/o any increase in size of right upper lobe irregular opacity. d/w daughter. she will make an appointment with me as OP post dc. 3. Pain management 4. Follow renal recommendation. JACKIE CALVO MD Jun 09, 2017 09:12
[2017-06-09 09:26] LABS: CALCIUM 9.5 mg/dL (8.5-10.1); CREATININE 1.9 mg/dL (0.6-1.0); GFR 25.2; POTASSIUM 4.5 mmol/L (3.5-5.1)
[2017-06-09] MEDS: HYDROcodone/APAP 10/325 1 TAB TABLET PO PRN ×2 (09:27→14:04)
[2017-06-09 10:45] VITALS: BP 119/58
--- NOTE | 2017-06-09 12:02 | PDOC ---
PROGRESS NOTES Chief Complaint Chief Complaint Mild displaced fracture of the humerus neck and greater tuberosity. 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 Pt sitting in chair at side of bed and anxious to go home but understands that SNU would be better option in order to get rehab Vitals Vitals Vital Signs Date Time Temp Pulse Resp B/P (MAP) Pulse Ox O2 Delivery O2 Flow Rate FiO2 06/09/17 10:45 98.1 71 18 119/58 (78) 96 Nasal Cannula 2.0 98.1 Physical Exam General: Alert, Oriented X3, No acute distress Heart: Regular rate, No murmurs Lungs: Clear, Other (no acute distress noted) Abdomen: Normal bowel sounds, Soft Extremities: No clubbing, Normal pulses Skin: No rashes, No breakdown Labs LABS Laboratory Tests Test 06/09/17 08:50 White Blood Count 10.7 x10^3/uL (4.0-11.0) Red Blood Count 3.33 x10^6/uL (3.50-5.40) Hemoglobin 9.8 g/dL (12.0-15.5) Hematocrit 29.6 % (36.0-47.0) Mean Corpuscular Volume 89 fL (79-100) Mean Corpuscular Hemoglobin 30 pg (25-35) Mean Corpuscular Hemoglobin Concent 33 g/dL (31-37) Red Cell Distribution Width 14.3 % (11.5-14.5) Platelet Count 203 x10^3/uL (140-400) Neutrophils (%) (Auto) 72 % (31-73) Lymphocytes (%) (Auto) 15 % (24-48) Monocytes (%) (Auto) 9 % (0-9) Eosinophils (%) (Auto) 4 % (0-3) Basophils (%) (Auto) 0 % (0-3) Neutrophils # (Auto) 7.7 x10^3uL (1.8-7.7) Lymphocytes # (Auto) 1.6 x10^3/uL (1.0-4.8) Monocytes # (Auto) 1.0 x10^3/uL (0.0-1.1) Eosinophils # (Auto) 0.4 x10^3/uL (0.0-0.7) Basophils # (Auto) 0.0 x10^3/uL (0.0-0.2) Sodium Level 143 mmol/L (136-145) Potassium Level 4.5 mmol/L (3.5-5.1) Chloride Level 108 mmol/L (98-107) Carbon Dioxide Level 28 mmol/L (21-32) Anion Gap 7 (6-14) Blood Urea Nitrogen 58 mg/dL (7-20) Creatinine 1.9 mg/dL (0.6-1.0) Estimated GFR (Cockcroft-Gault) 25.2 Glucose Level 104 mg/dL (70-99) Calcium Level 9.5 mg/dL (8.5-10.1) Review of Systems Review of Systems c/o hunger c/o fatigue Assessment and Plan Assessmemt and Plan Post-op day 3 Humerus neck & greater tuberosity fx: Pain meds prn. Continue wound care CHF/CAD: on plavix MILENA: monitor creatinine Vit D deficieny: monitor levels. Continue ergocalciferol GERD: monitor. Continue Protonix Continue home meds Probable d/c to SNU Problems: Comment Review of Relevant I have reviewed the following items louise (where applicable) has been applied. Labs Laboratory Tests Test 06/09/17 08:50 White Blood Count 10.7 x10^3/uL (4.0-11.0) Red Blood Count 3.33 x10^6/uL (3.50-5.40) Hemoglobin 9.8 g/dL (12.0-15.5) Hematocrit 29.6 % (36.0-47.0) Mean Corpuscular Volume 89 fL (79-100) Mean Corpuscular Hemoglobin 30 pg (25-35) Mean Corpuscular Hemoglobin Concent 33 g/dL (31-37) Red Cell Distribution Width 14.3 % (11.5-14.5) Platelet Count 203 x10^3/uL (140-400) Neutrophils (%) (Auto) 72 % (31-73) Lymphocytes (%) (Auto) 15 % (24-48) Monocytes (%) (Auto) 9 % (0-9) Eosinophils (%) (Auto) 4 % (0-3) Basophils (%) (Auto) 0 % (0-3) Neutrophils # (Auto) 7.7 x10^3uL (1.8-7.7) Lymphocytes # (Auto) 1.6 x10^3/uL (1.0-4.8) Monocytes # (Auto) 1.0 x10^3/uL (0.0-1.1) Eosinophils # (Auto) 0.4 x10^3/uL (0.0-0.7) Basophils # (Auto) 0.0 x10^3/uL (0.0-0.2) Sodium Level 143 mmol/L (136-145) Potassium Level 4.5 mmol/L (3.5-5.1) Chloride Level 108 mmol/L (98-107) Carbon Dioxide Level 28 mmol/L (21-32) Anion Gap 7 (6-14) Blood Urea Nitrogen 58 mg/dL (7-20) Creatinine 1.9 mg/dL (0.6-1.0) Estimated GFR (Cockcroft-Gault) 25.2 Glucose Level 104 mg/dL (70-99) Calcium Level 9.5 mg/dL (8.5-10.1) Laboratory Tests Test 06/09/17 08:50 White Blood Count 10.7 x10^3/uL (4.0-11.0) Red Blood Count 3.33 x10^6/uL (3.50-5.40) Hemoglobin 9.8 g/dL (12.0-15.5) Hematocrit 29.6 % (36.0-47.0) Mean Corpuscular Volume 89 fL (79-100) Mean Corpuscular Hemoglobin 30 pg (25-35) Mean Corpuscular Hemoglobin Concent 33 g/dL (31-37) Red Cell Distribution Width 14.3 % (11.5-14.5) Platelet Count 203 x10^3/uL (140-400) Neutrophils (%) (Auto) 72 % (31-73) Lymphocytes (%) (Auto) 15 % (24-48) Monocytes (%) (Auto) 9 % (0-9) Eosinophils (%) (Auto) 4 % (0-3) Basophils (%) (Auto) 0 % (0-3) Neutrophils # (Auto) 7.7 x10^3uL (1.8-7.7) Lymphocytes # (Auto) 1.6 x10^3/uL (1.0-4.8) Monocytes # (Auto) 1.0 x10^3/uL (0.0-1.1) Eosinophils # (Auto) 0.4 x10^3/uL (0.0-0.7) Basophils # (Auto) 0.0 x10^3/uL (0.0-0.2) Sodium Level 143 mmol/L (136-145) Potassium Level 4.5 mmol/L (3.5-5.1) Chloride Level 108 mmol/L (98-107) Carbon Dioxide Level 28 mmol/L (21-32) Anion Gap 7 (6-14) Blood Urea Nitrogen 58 mg/dL (7-20) Creatinine 1.9 mg/dL (0.6-1.0) Estimated GFR (Cockcroft-Gault) 25.2 Glucose Level 104 mg/dL (70-99) Calcium Level 9.5 mg/dL (8.5-10.1) Microbiology 06/03/17 Urine Culture - Final, Complete 06/03/17 Urine Culture Result 1 (NETO) - Final, Complete 06/03/17 Antimicrobic Susceptibility - Final, Complete Medications Current Medications Hydromorphone HCl (Dilaudid) 0.5 mg PRN Q15MIN PRN IV/SQ PAIN GREATER THAN 3/ 10 Last administered on 06/02/17 13:05; Start 06/02/17 at 11:30; Stop 06/03/17 at 11:29; Status DC Ondansetron HCl (Zofran) 4 mg 1X ONCE IV Last administered on 06/02/17 11:29; Start 06/02/17 at 11:30; Stop 06/02/17 at 11:31; Status DC Diphtheria/ Tetanus/Acell Pertussis (Boostrix) 0.5 ml ONCE ONCE VAX IM Last administered on 06/02/17 12:55; Start 06/02/17 at 12:30; Stop 06/02/17 at 12:31; Status DC Morphine Sulfate 4 mg PRN Q2HR PRN IV PAIN Last administered on 06/03/17 14:08 ; Start 06/02/17 at 14:30; Stop 06/03/17 at 14:29; Status DC Sodium Chloride 1,000 ml @ 75 mls/hr 1X ONCE IV Last administered on 14:57; Start 06/02/17 at 14:30; Stop 06/03/17 at 03:49; Status DC Labetalol HCl (Normodyne) 5 mg PRN Q4HRS PRN IVP HYPERTENSION, SEE COMMENTS Last administered on 06/02/17 16:33; Start 06/02/17 at 16:15; Stop 06/04/17 at 09: 34; Status DC Lidocaine (Lidoderm) 1 patch DAILY TD Last administered on 06/05/17 08:02; Start 06/02/17 at 21:00; Stop 06/06/17 at 12:54; Status DC Atorvastatin Calcium (Lipitor) 10 mg QHS PO Last administered on 06/05/17 20: 06; Start 06/02/17 at 21:00; Stop 06/06/17 at 12:54; Status DC Clonidine HCl (Catapres Tts-3) 1 patch WEEKLY TD Last administered on 06/03/17 08:51; Start 06/03/17 at 09:00; Stop 06/06/17 at 12:54; Status DC Diltiazem HCl (Cardizem 24hr Cd) 180 mg DAILY PO Last administered on 08:01; Start 06/03/17 at 09:00; Stop 06/06/17 at 12:54; Status DC Hydralazine HCl (Apresoline) 50 mg TID PO Last administered on 06/05/17 20:06 ; Start 06/02/17 at 21:00; Stop 06/06/17 at 12:54; Status DC Acetaminophen/ Hydrocodone Bitart (Lortab 5/325) 1 tab PRN Q8HRS PRN PO PAIN Last administered on 06/04/17 08:33; Start 06/02/17 at 21:00; Stop 06/06/17 at 12 :54; Status DC Lisinopril (Prinivil) 40 mg DAILY PO Last administered on 06/05/17 08:03; Start 06/03/17 at 09:00; Stop 06/06/17 at 12:55; Status DC Metoprolol Tartrate (Lopressor) 12.5 mg BID PO Last administered on 06/05/17 20:07; Start 06/02/17 at 21:00; Stop 06/06/17 at 12:55; Status DC Pantoprazole Sodium (Protonix) 40 mg DAILYAC PO Last administered on 06/05/17 08:01; Start 06/03/17 at 07:30; Stop 06/06/17 at 12:55; Status DC Acetaminophen (Tylenol) 500 mg PRN Q6HRS PRN PO MILD PAIN / TEMP; Start at 08:45; Stop 06/06/17 at 12:54; Status DC Ondansetron HCl (Zofran) 4 mg PRN Q6HRS PRN IV NAUSEA/VOMITING; Start 06/03/17 at 08:45; Stop 06/06/17 at 12:55; Status DC Aspirin (Ecotrin) 81 mg DAILY PO Last administered on 06/04/17 08:32; Start 06/03/17 at 12:00; Stop 06/04/17 at 10:34; Status DC Clopidogrel Bisulfate (Plavix) 75 mg DAILY PO Last administered on 06/04/17 08: 32; Start 06/03/17 at 12:00; Stop 06/04/17 at 10:34; Status DC Non-Formulary Medication 70 mg WEEKLY PO ; Start 06/10/17 at 09:00; Status UNV Ceftriaxone Sodium 1 gm/ Sodium Chloride 50 ml @ 100 mls/hr Q24H IV Last administered on 06/06/17 18:42; Start 06/03/17 at 20:00; Stop 06/07/17 at 10:26 ; Status DC Morphine Sulfate 4 mg PRN Q2HR PRN IV PAIN Last administered on 06/06/17 02:14 ; Start 06/03/17 at 22:00; Stop 06/06/17 at 12:55; Status DC Ergocalciferol (Vitamin D2) 50,000 unit WEEKLY PO Last administered on 11:28; Start 06/04/17 at 10:00; Stop 06/06/17 at 12:54; Status DC Labetalol HCl (Normodyne) 10 mg PRN Q4HRS PRN IVP HYPERTENSION, SEE COMMENTS; Start 06/04/17 at 09:45; Stop 06/06/17 at 12:55; Status DC Heparin Sodium/ Dextrose 500 ml @ 0 mls/hr CONT PRN IV SEE I/O RECORD; Start at 10:45; Stop 06/04/17 at 11:53; Status DC Heparin Sodium (Porcine) (Heparin Sodium) 2,150 unit PRN Q6HRS PRN IV FOR UFH LEVEL LESS THAN 0.2; Start 06/04/17 at 10:45; Stop 06/04/17 at 11:53; Status DC Nitroglycerin (Nitrostat) 0.4 mg PRN Q5MIN PRN SL CHEST PAIN Last administered on 06/04/17 11:05; Start 06/04/17 at 10:45; Stop 06/06/17 at 12:55; Status DC Aspirin (Children'S Aspirin) 81 mg DAILYWBKFT PO Last administered on 08:00; Start 06/05/17 at 08:00; Stop 06/06/17 at 12:54; Status DC Clopidogrel Bisulfate (Plavix) 75 mg DAILYWBKFT PO Last administered on 08:01; Start 06/05/17 at 08:00; Stop 06/06/17 at 12:54; Status DC Acetaminophen/ Hydrocodone Bitart (Lortab 10/325) 1 tab PRN Q6HRS PRN PO PAIN MILD TO MOD Last administered on 06/05/17 15:03; Start 06/05/17 at 09:15; Stop 06/06/17 at 12:55; Status DC Magnesium Hydroxide (Milk Of Magnesia) 2,400 mg PRN DAILY PRN PO CONSTIPATION; Start 06/05/17 at 09:15; Stop 06/06/17 at 12:55; Status DC Polyethylene Glycol (miraLAX PACKET) 17 gm DAILY PO Last administered on 09:56; Start 06/05/17 at 09:30; Stop 06/06/17 at 12:55; Status DC Docusate Sodium (Colace) 100 mg DAILY PO Last administered on 06/05/17 09:56; Start 06/05/17 at 09:30; Stop 06/06/17 at 12:54; Status DC Morphine Sulfate 5 mg/Ketorolac Tromethamine 30 mg/Ropivacaine 60 ml/ Epinephrine HCl 0.5 mg/Sodium Chloride 100 ml @ 100 mls/hr 1X PERIOP ONCE INT ART Last administered on 06/06/17t 10:10; Start 06/06/17 at 08:00; Stop at 08:59; Status DC Vancomycin HCl 1 gm STK-MED ONCE .ROUTE ; Start 06/06/17 at 07:37; Stop at 07:38; Status DC Thrombin 20,000 unit STK-MED ONCE TP ; Start 06/06/17 at 07:38; Stop 06/06/17 at 07:39; Status DC Midazolam HCl (Versed) 2 mg STK-MED ONCE .ROUTE ; Start 06/06/17 at 07:41; Stop 06/06/17 at 07:42; Status DC Fentanyl Citrate (Fentanyl 2ml Vial) 100 mcg STK-MED ONCE .ROUTE ; Start at 07:41; Stop 06/06/17 at 07:42; Status DC Glycopyrrolate (Robinul) 1 mg STK-MED ONCE .ROUTE ; Start 06/06/17 at 07:41; Stop 06/06/17 at 07:42; Status DC Neostigmine Methylsulfate 5 mg STK-MED ONCE .ROUTE ; Start 06/06/17 at 07:42; Stop 06/06/17 at 07:43; Status DC Propofol 20 ml @ As Directed STK-MED ONCE IV ; Start 06/06/17 at 07:42; Stop 08/12 at 07:43; Status DC Lidocaine HCl (Lidocaine Pf 2% Vial) 5 ml STK-MED ONCE .ROUTE ; Start 06/06/17 at 07:42; Stop 06/06/17 at 07:43; Status DC Dexamethasone Sodium Phosphate (Decadron) 20 mg STK-MED ONCE .ROUTE ; Start 08/12 at 07:42; Stop 06/06/17 at 07:43; Status DC Ondansetron HCl (Zofran) 4 mg STK-MED ONCE .ROUTE ; Start 06/06/17 at 07:42; Stop 06/06/17 at 07:43; Status DC Cefazolin Sodium/ Dextrose 50 ml @ 100 mls/hr 1X PREOP PRN IV PRIOR TO PROCEDURE Last administered on 06/06/17t 09:45; Start 06/06/17 at 09:00; Stop at 12:00; Status DC Cefazolin Sodium/ Dextrose 50 ml @ As Directed STK-MED ONCE IV ; Start 06/06/17 at 08:37; Stop 06/06/17 at 08:38; Status DC Ephedrine Sulfate 50 mg STK-MED ONCE IV ; Start 06/06/17 at 09:22; Stop at 09:23; Status DC Fentanyl Citrate (Fentanyl 2ml Vial) 100 mcg STK-MED ONCE .ROUTE ; Start at 09:51; Stop 06/06/17 at 09:52; Status DC Fentanyl Citrate (Fentanyl 2ml Vial) 100 mcg STK-MED ONCE .ROUTE ; Start at 10:35; Stop 06/06/17 at 10:36; Status DC Hydralazine HCl (Apresoline) 20 mg STK-MED ONCE .ROUTE ; Start 06/06/17 at 10:36 ; Stop 06/06/17 at 10:37; Status DC Desflurane (Suprane) 90 ml STK-MED ONCE IH ; Start 06/06/17 at 10:36; Stop 06/06 at 10:37; Status DC Ondansetron HCl (Zofran) 4 mg PRN Q6HRS PRN IV NAUSEA/VOMITING; Start 06/06/17 at 12:30; Stop 06/06/17 at 19:00; Status DC Fentanyl Citrate (Fentanyl 2ml Vial) 25 mcg PRN Q5MIN PRN IV MILD PAIN; Start 06/06/17 at 12:30; Stop 06/06/17 at 19:00; Status DC Fentanyl Citrate (Fentanyl 2ml Vial) 50 mcg PRN Q5MIN PRN IV MODERATE PAIN; Start 06/06/17 at 12:30; Stop 06/06/17 at 19:00; Status DC Morphine Sulfate 1 mg PRN Q10MIN PRN IV SEVERE PAIN; Start 06/06/17 at 12:30; Stop 06/06/17 at 19:00; Status DC Ringer's Solution 1,000 ml @ 30 mls/hr Q24H IV ; Start 06/06/17 at 12:30; Stop 06/06/17 at 19:00; Status DC Lidocaine HCl 2 ml PRN 1X PRN ID PRIOR TO IV START; Start 06/06/17 at 12:30; Stop 06/06/17 at 19:00; Status DC Hydromorphone HCl (Dilaudid) 0.5 mg PRN Q10MIN PRN IV SEV PAIN, Second choice; Start 06/06/17 at 12:30; Stop 06/06/17 at 19:00; Status DC Prochlorperazine Edisylate (Compazine) 5 mg PACU PRN PRN IV NAUSEA, MRX1; Start 06/06/17 at 12:30; Stop 06/06/17 at 19:00; Status DC Fentanyl Citrate (Fentanyl 2ml Vial) 100 mcg STK-MED ONCE .ROUTE ; Start at 12:32; Stop 06/06/17 at 12:33; Status DC Ceftriaxone Sodium 1 gm/ Sodium Chloride 50 ml @ 100 mls/hr Q24H IV ; Start 08/12 at 20:00; Status UNV Ringer's Solution 1,000 ml @ 0 mls/hr Q0M IV ; Start 06/06/17 at 13:00; Stop at 19:30; Status UNV Acetaminophen (Tylenol) 500 mg PRN Q6HRS PRN PO MILD PAIN / TEMP; Start at 15:00 Aspirin (Children'S Aspirin) 81 mg DAILYWBKFT PO Last administered on 09:08; Start 06/06/17 at 15:00 Atorvastatin Calcium (Lipitor) 10 mg QHS PO Last administered on 06/08/17 21: 27; Start 06/06/17 at 21:00 Clonidine HCl (Catapres Tts-3) 1 patch WEEKLY TD ; Start 06/10/17 at 09:00 Clopidogrel Bisulfate (Plavix) 75 mg DAILYWBKFT PO Last administered on 09:02; Start 06/06/17 at 15:00 Diltiazem HCl (Cardizem 24hr Cd) 180 mg DAILY PO Last administered on 09:07; Start 06/06/17 at 15:00 Docusate Sodium (Colace) 100 mg DAILY PO Last administered on 06/09/17 09:03; Start 06/06/17 at 15:00 Ergocalciferol (Vitamin D2) 50,000 unit WEEKLY PO ; Start 06/11/17 at 09:00 Fentanyl Citrate (Fentanyl 2ml Vial) 25 mcg PRN Q5MIN PRN IV MILD PAIN; Start 06/07/17 at 12:30; Status UNV Fentanyl Citrate (Fentanyl 2ml Vial) 50 mcg PRN Q5MIN PRN IV MODERATE PAIN; Start 06/07/17 at 12:30; Status UNV Hydralazine HCl (Apresoline) 50 mg TID PO Last administered on 06/09/17 09:03 ; Start 06/06/17 at 14:00 Acetaminophen/ Hydrocodone Bitart (Lortab 10/325) 1 tab PRN Q6HRS PRN PO PAIN MILD TO MOD Last administered on 06/09/17 09:27; Start 06/06/17 at 15:00 Acetaminophen/ Hydrocodone Bitart (Lortab 5/325) 1 tab PRN Q8HRS PRN PO PAIN; Start 06/06/17 at 15:00 Hydromorphone HCl (Dilaudid) 0.5 mg PRN Q10MIN PRN IV SEV PAIN, Second choice; Start 06/07/17 at 12:30; Status UNV Lidocaine HCl 2 ml PRN 1X PRN ID PRIOR TO IV START; Start 06/07/17 at 12:30; Status UNV Lisinopril (Prinivil) 40 mg DAILY PO Last administered on 06/09/17 09:09; Start 06/06/17 at 15:00 Magnesium Hydroxide (Milk Of Magnesia) 2,400 mg PRN DAILY PRN PO CONSTIPATION; Start 06/06/17 at 15:00 Metoprolol Tartrate (Lopressor) 12.5 mg BID PO Last administered on 06/09/17 09:06; Start 06/06/17 at 21:00 Morphine Sulfate 4 mg PRN Q2HR PRN IV PAIN Last administered on 06/07/17 17:11 ; Start 06/06/17 at 22:00 Morphine Sulfate 1 mg PRN Q10MIN PRN IV SEVERE PAIN; Start 06/07/17 at 12:30; Status UNV Nitroglycerin (Nitrostat) 0.4 mg PRN Q5MIN PRN SL CHEST PAIN; Start 06/06/17 at 15:00 Ondansetron HCl (Zofran) 4 mg PRN Q6HRS PRN IV NAUSEA/VOMITING; Start 06/07/17 at 08:45; Status UNV Ondansetron HCl (Zofran) 4 mg PRN Q6HRS PRN IV NAUSEA/VOMITING; Start 06/07/17 at 12:30; Status UNV Pantoprazole Sodium (Protonix) 40 mg DAILYAC PO Last administered on 06/09/17 09:02; Start 06/06/17 at 15:00 Polyethylene Glycol (miraLAX PACKET) 17 gm DAILY PO Last administered on 09:10; Start 06/06/17 at 15:00 Prochlorperazine Edisylate (Compazine) 5 mg PACU PRN PRN IV NAUSEA, MRX1; Start 06/07/17 at 12:30; Status UNV Cefazolin Sodium/ Dextrose 50 ml @ 100 mls/hr Q8H IV Last administered on 06/07 01:29; Start 06/06/17 at 18:00; Stop 06/07/17 at 02:29; Status DC Cefpodoxime Proxetil (Vantin) 100 mg BID PO Last administered on 06/09/17 09: 02; Start 06/07/17 at 21:00 Active Scripts Active Atorvastatin Calcium 10 Mg Tablet 10 Mg PO QHS Lisinopril 40 Mg Tablet 40 Mg PO DAILY Reported Hydralazine Hcl 50 Mg Tablet 50 Mg PO TID Metoprolol Tartrate 25 Mg Tablet 12.5 Mg PO BID Clopidogrel (Clopidogrel Bisulfate) 75 Mg Tablet 75 Mg PO DAILY Lortab 5-325 mg Tablet (Hydrocodone/Acetaminophen) 1 Each Tablet 1 Tab PO PRN Q8HRS PRN Alendronate Sodium 70 Mg Tablet 70 Mg PO WEEKLY Diltiazem 24HR Cd (Diltiazem Hcl) 180 Mg Cap.er.24h 1 Cap PO DAILY Clonidine Tts-3 (Clonidine) 1 Each Patch.tdwk 1 Patch TD WEEKLY Aspir 81 (Aspirin) 81 Mg Tablet.dr 1 Tab PO DAILY Pantoprazole Sodium 40 Mg Tablet.dr 20 Mg PO DAILY Vitals/I & O Vital Sign - Last 24 Hours 06/08/17 06/08/17 06/08/1713/17 15:00 16:49 18:17 19:00 Temp 97.7 97.9 97.7 97.9 Pulse 63 63 74 Resp 18 18 B/P (MAP) 110/46 (67) 110/46 99/50 (66) Pulse Ox 97 97 97 O2 Delivery Nasal Cannula Room Air Nasal Cannula O2 Flow Rate 2.0 2.0 2.0 06/08/17 06/08/17 06/08/17 06/08/17 19:20 20:00 21:29 21:29 Pulse 69 Resp 18 B/P (MAP) 105/49 103/45 (64) O2 Delivery Nasal Cannula Room Air O2 Flow Rate 2.0 06/08/17 06/09/17 06/09/17 06/09/17 23:00 03:00 07:00 09:03 Temp 97.9 97.4 99.5 97.9 97.4 99.5 Pulse 72 63 78 78 Resp 18 18 18 B/P (MAP) 120/51 (74) 136/56 (82) 124/60 (81) 124/60 Pulse Ox 98 98 95 O2 Delivery Nasal Cannula Nasal Cannula Nasal Cannula O2 Flow Rate 2.0 2.0 2.0 06/09/17 06/09/17 06/09/17 06/09/17 09:06 09:07 09:09 09:27 Pulse 78 78 78 B/P (MAP) 124/60 124/60 124/60 Pulse Ox 95 O2 Delivery Room Air O2 Flow Rate 2.0 06/09/17 10:45 Temp 98.1 98.1 Pulse 71 Resp 18 B/P (MAP) 119/58 (78) Pulse Ox 96 O2 Delivery Nasal Cannula O2 Flow Rate 2.0 THOR WILSON III DO Jun 09, 2017 12:02
--- NOTE | 2017-06-09 12:46 | PDOC ---
PROGRESS NOTES Subjective Subjective Patient seen this morning, she still c/o of decreased appetite and shoulder pain , but is controlled with medication. Tolerating physical therapy well. Objective Objective Vital Signs Date Time Temp Pulse Resp B/P (MAP) Pulse Ox O2 Delivery O2 Flow Rate FiO2 06/09/17 10:45 98.1 71 18 119/58 (78) 96 Nasal Cannula 2.0 98.1 Physical Exam Physical Exam No significant change to cardiac exam. Assessment Assessment Problems Medical Problems: (1) Cervical spine pain Status: Acute (2) Closed head injury Status: Acute (3) Fall Status: Acute (4) Fracture of humeral head, left, closed Status: Acute (5) Left hip pain Status: Acute (6) Left knee pain Status: Acute (7) Nasal abrasion Status: Acute Plan Plan of Care Patient compensated and stable cardiac-chambers, agree with discharge to rehab. f/u in my office after completing rehab. Comment Review of Relevant I have reviewed the following items louise (where applicable) has been applied. Labs Laboratory Tests Test 06/09/17 08:50 White Blood Count 10.7 x10^3/uL (4.0-11.0) Red Blood Count 3.33 x10^6/uL (3.50-5.40) Hemoglobin 9.8 g/dL (12.0-15.5) Hematocrit 29.6 % (36.0-47.0) Mean Corpuscular Volume 89 fL (79-100) Mean Corpuscular Hemoglobin 30 pg (25-35) Mean Corpuscular Hemoglobin Concent 33 g/dL (31-37) Red Cell Distribution Width 14.3 % (11.5-14.5) Platelet Count 203 x10^3/uL (140-400) Neutrophils (%) (Auto) 72 % (31-73) Lymphocytes (%) (Auto) 15 % (24-48) Monocytes (%) (Auto) 9 % (0-9) Eosinophils (%) (Auto) 4 % (0-3) Basophils (%) (Auto) 0 % (0-3) Neutrophils # (Auto) 7.7 x10^3uL (1.8-7.7) Lymphocytes # (Auto) 1.6 x10^3/uL (1.0-4.8) Monocytes # (Auto) 1.0 x10^3/uL (0.0-1.1) Eosinophils # (Auto) 0.4 x10^3/uL (0.0-0.7) Basophils # (Auto) 0.0 x10^3/uL (0.0-0.2) Sodium Level 143 mmol/L (136-145) Potassium Level 4.5 mmol/L (3.5-5.1) Chloride Level 108 mmol/L (98-107) Carbon Dioxide Level 28 mmol/L (21-32) Anion Gap 7 (6-14) Blood Urea Nitrogen 58 mg/dL (7-20) Creatinine 1.9 mg/dL (0.6-1.0) Estimated GFR (Cockcroft-Gault) 25.2 Glucose Level 104 mg/dL (70-99) Calcium Level 9.5 mg/dL (8.5-10.1) Laboratory Tests Test 06/09/17 08:50 White Blood Count 10.7 x10^3/uL (4.0-11.0) Red Blood Count 3.33 x10^6/uL (3.50-5.40) Hemoglobin 9.8 g/dL (12.0-15.5) Hematocrit 29.6 % (36.0-47.0) Mean Corpuscular Volume 89 fL (79-100) Mean Corpuscular Hemoglobin 30 pg (25-35) Mean Corpuscular Hemoglobin Concent 33 g/dL (31-37) Red Cell Distribution Width 14.3 % (11.5-14.5) Platelet Count 203 x10^3/uL (140-400) Neutrophils (%) (Auto) 72 % (31-73) Lymphocytes (%) (Auto) 15 % (24-48) Monocytes (%) (Auto) 9 % (0-9) Eosinophils (%) (Auto) 4 % (0-3) Basophils (%) (Auto) 0 % (0-3) Neutrophils # (Auto) 7.7 x10^3uL (1.8-7.7) Lymphocytes # (Auto) 1.6 x10^3/uL (1.0-4.8) Monocytes # (Auto) 1.0 x10^3/uL (0.0-1.1) Eosinophils # (Auto) 0.4 x10^3/uL (0.0-0.7) Basophils # (Auto) 0.0 x10^3/uL (0.0-0.2) Sodium Level 143 mmol/L (136-145) Potassium Level 4.5 mmol/L (3.5-5.1) Chloride Level 108 mmol/L (98-107) Carbon Dioxide Level 28 mmol/L (21-32) Anion Gap 7 (6-14) Blood Urea Nitrogen 58 mg/dL (7-20) Creatinine 1.9 mg/dL (0.6-1.0) Estimated GFR (Cockcroft-Gault) 25.2 Glucose Level 104 mg/dL (70-99) Calcium Level 9.5 mg/dL (8.5-10.1) Microbiology 06/03/17 Urine Culture - Final, Complete 06/03/17 Urine Culture Result 1 (NETO) - Final, Complete 06/03/17 Antimicrobic Susceptibility - Final, Complete Medications Current Medications Hydromorphone HCl (Dilaudid) 0.5 mg PRN Q15MIN PRN IV/SQ PAIN GREATER THAN 3/ 10 Last administered on 06/02/17 13:05; Start 06/02/17 at 11:30; Stop 06/03/17 at 11:29; Status DC Ondansetron HCl (Zofran) 4 mg 1X ONCE IV Last administered on 06/02/17 11:29; Start 06/02/17 at 11:30; Stop 06/02/17 at 11:31; Status DC Diphtheria/ Tetanus/Acell Pertussis (Boostrix) 0.5 ml ONCE ONCE VAX IM Last administered on 06/02/17 12:55; Start 06/02/17 at 12:30; Stop 06/02/17 at 12:31; Status DC Morphine Sulfate 4 mg PRN Q2HR PRN IV PAIN Last administered on 06/03/17 14:08 ; Start 06/02/17 at 14:30; Stop 06/03/17 at 14:29; Status DC Sodium Chloride 1,000 ml @ 75 mls/hr 1X ONCE IV Last administered on 14:57; Start 06/02/17 at 14:30; Stop 06/03/17 at 03:49; Status DC Labetalol HCl (Normodyne) 5 mg PRN Q4HRS PRN IVP HYPERTENSION, SEE COMMENTS Last administered on 06/02/17 16:33; Start 06/02/17 at 16:15; Stop 06/04/17 at 09: 34; Status DC Lidocaine (Lidoderm) 1 patch DAILY TD Last administered on 06/05/17 08:02; Start 06/02/17 at 21:00; Stop 06/06/17 at 12:54; Status DC Atorvastatin Calcium (Lipitor) 10 mg QHS PO Last administered on 06/05/17 20: 06; Start 06/02/17 at 21:00; Stop 06/06/17 at 12:54; Status DC Clonidine HCl (Catapres Tts-3) 1 patch WEEKLY TD Last administered on 06/03/17 08:51; Start 06/03/17 at 09:00; Stop 06/06/17 at 12:54; Status DC Diltiazem HCl (Cardizem 24hr Cd) 180 mg DAILY PO Last administered on 08:01; Start 06/03/17 at 09:00; Stop 06/06/17 at 12:54; Status DC Hydralazine HCl (Apresoline) 50 mg TID PO Last administered on 06/05/17 20:06 ; Start 06/02/17 at 21:00; Stop 06/06/17 at 12:54; Status DC Acetaminophen/ Hydrocodone Bitart (Lortab 5/325) 1 tab PRN Q8HRS PRN PO PAIN Last administered on 06/04/17 08:33; Start 06/02/17 at 21:00; Stop 06/06/17 at 12 :54; Status DC Lisinopril (Prinivil) 40 mg DAILY PO Last administered on 06/05/17 08:03; Start 06/03/17 at 09:00; Stop 06/06/17 at 12:55; Status DC Metoprolol Tartrate (Lopressor) 12.5 mg BID PO Last administered on 06/05/17 20:07; Start 06/02/17 at 21:00; Stop 06/06/17 at 12:55; Status DC Pantoprazole Sodium (Protonix) 40 mg DAILYAC PO Last administered on 06/05/17 08:01; Start 06/03/17 at 07:30; Stop 06/06/17 at 12:55; Status DC Acetaminophen (Tylenol) 500 mg PRN Q6HRS PRN PO MILD PAIN / TEMP; Start at 08:45; Stop 06/06/17 at 12:54; Status DC Ondansetron HCl (Zofran) 4 mg PRN Q6HRS PRN IV NAUSEA/VOMITING; Start 06/03/17 at 08:45; Stop 06/06/17 at 12:55; Status DC Aspirin (Ecotrin) 81 mg DAILY PO Last administered on 06/04/17 08:32; Start 06/03/17 at 12:00; Stop 06/04/17 at 10:34; Status DC Clopidogrel Bisulfate (Plavix) 75 mg DAILY PO Last administered on 06/04/17 08: 32; Start 06/03/17 at 12:00; Stop 06/04/17 at 10:34; Status DC Non-Formulary Medication 70 mg WEEKLY PO ; Start 06/10/17 at 09:00; Status UNV Ceftriaxone Sodium 1 gm/ Sodium Chloride 50 ml @ 100 mls/hr Q24H IV Last administered on 06/06/17 18:42; Start 06/03/17 at 20:00; Stop 06/07/17 at 10:26 ; Status DC Morphine Sulfate 4 mg PRN Q2HR PRN IV PAIN Last administered on 06/06/17 02:14 ; Start 06/03/17 at 22:00; Stop 06/06/17 at 12:55; Status DC Ergocalciferol (Vitamin D2) 50,000 unit WEEKLY PO Last administered on 11:28; Start 06/04/17 at 10:00; Stop 06/06/17 at 12:54; Status DC Labetalol HCl (Normodyne) 10 mg PRN Q4HRS PRN IVP HYPERTENSION, SEE COMMENTS; Start 06/04/17 at 09:45; Stop 06/06/17 at 12:55; Status DC Heparin Sodium/ Dextrose 500 ml @ 0 mls/hr CONT PRN IV SEE I/O RECORD; Start at 10:45; Stop 06/04/17 at 11:53; Status DC Heparin Sodium (Porcine) (Heparin Sodium) 2,150 unit PRN Q6HRS PRN IV FOR UFH LEVEL LESS THAN 0.2; Start 06/04/17 at 10:45; Stop 06/04/17 at 11:53; Status DC Nitroglycerin (Nitrostat) 0.4 mg PRN Q5MIN PRN SL CHEST PAIN Last administered on 06/04/17 11:05; Start 06/04/17 at 10:45; Stop 06/06/17 at 12:55; Status DC Aspirin (Children'S Aspirin) 81 mg DAILYWBKFT PO Last administered on 08:00; Start 06/05/17 at 08:00; Stop 06/06/17 at 12:54; Status DC Clopidogrel Bisulfate (Plavix) 75 mg DAILYWBKFT PO Last administered on 08:01; Start 06/05/17 at 08:00; Stop 06/06/17 at 12:54; Status DC Acetaminophen/ Hydrocodone Bitart (Lortab 10/325) 1 tab PRN Q6HRS PRN PO PAIN MILD TO MOD Last administered on 06/05/17 15:03; Start 06/05/17 at 09:15; Stop 06/06/17 at 12:55; Status DC Magnesium Hydroxide (Milk Of Magnesia) 2,400 mg PRN DAILY PRN PO CONSTIPATION; Start 06/05/17 at 09:15; Stop 06/06/17 at 12:55; Status DC Polyethylene Glycol (miraLAX PACKET) 17 gm DAILY PO Last administered on 09:56; Start 06/05/17 at 09:30; Stop 06/06/17 at 12:55; Status DC Docusate Sodium (Colace) 100 mg DAILY PO Last administered on 06/05/17 09:56; Start 06/05/17 at 09:30; Stop 06/06/17 at 12:54; Status DC Morphine Sulfate 5 mg/Ketorolac Tromethamine 30 mg/Ropivacaine 60 ml/ Epinephrine HCl 0.5 mg/Sodium Chloride 100 ml @ 100 mls/hr 1X PERIOP ONCE INT ART Last administered on 06/06/17 10:10; Start 06/06/17 at 08:00; Stop at 08:59; Status DC Vancomycin HCl 1 gm STK-MED ONCE .ROUTE ; Start 06/06/17 at 07:37; Stop at 07:38; Status DC Thrombin 20,000 unit STK-MED ONCE TP ; Start 06/06/17 at 07:38; Stop 06/06/17 at 07:39; Status DC Midazolam HCl (Versed) 2 mg STK-MED ONCE .ROUTE ; Start 06/06/17 at 07:41; Stop 06/06/17 at 07:42; Status DC Fentanyl Citrate (Fentanyl 2ml Vial) 100 mcg STK-MED ONCE .ROUTE ; Start at 07:41; Stop 06/06/17 at 07:42; Status DC Glycopyrrolate (Robinul) 1 mg STK-MED ONCE .ROUTE ; Start 06/06/17 at 07:41; Stop 06/06/17 at 07:42; Status DC Neostigmine Methylsulfate 5 mg STK-MED ONCE .ROUTE ; Start 06/06/17 at 07:42; Stop 06/06/17 at 07:43; Status DC Propofol 20 ml @ As Directed STK-MED ONCE IV ; Start 06/06/17 at 07:42; Stop 08/12 at 07:43; Status DC Lidocaine HCl (Lidocaine Pf 2% Vial) 5 ml STK-MED ONCE .ROUTE ; Start 06/06/17 at 07:42; Stop 06/06/17 at 07:43; Status DC Dexamethasone Sodium Phosphate (Decadron) 20 mg STK-MED ONCE .ROUTE ; Start 08/12 at 07:42; Stop 06/06/17 at 07:43; Status DC Ondansetron HCl (Zofran) 4 mg STK-MED ONCE .ROUTE ; Start 06/06/17 at 07:42; Stop 06/06/17 at 07:43; Status DC Cefazolin Sodium/ Dextrose 50 ml @ 100 mls/hr 1X PREOP PRN IV PRIOR TO PROCEDURE Last administered on 06/06/17t 09:45; Start 06/06/17 at 09:00; Stop at 12:00; Status DC Cefazolin Sodium/ Dextrose 50 ml @ As Directed STK-MED ONCE IV ; Start 06/06/17 at 08:37; Stop 06/06/17 at 08:38; Status DC Ephedrine Sulfate 50 mg STK-MED ONCE IV ; Start 06/06/17 at 09:22; Stop at 09:23; Status DC Fentanyl Citrate (Fentanyl 2ml Vial) 100 mcg STK-MED ONCE .ROUTE ; Start at 09:51; Stop 06/06/17 at 09:52; Status DC Fentanyl Citrate (Fentanyl 2ml Vial) 100 mcg STK-MED ONCE .ROUTE ; Start at 10:35; Stop 06/06/17 at 10:36; Status DC Hydralazine HCl (Apresoline) 20 mg STK-MED ONCE .ROUTE ; Start 06/06/17 at 10:36 ; Stop 06/06/17 at 10:37; Status DC Desflurane (Suprane) 90 ml STK-MED ONCE IH ; Start 06/06/17 at 10:36; Stop 06/06 at 10:37; Status DC Ondansetron HCl (Zofran) 4 mg PRN Q6HRS PRN IV NAUSEA/VOMITING; Start 06/06/17 at 12:30; Stop 06/06/17 at 19:00; Status DC Fentanyl Citrate (Fentanyl 2ml Vial) 25 mcg PRN Q5MIN PRN IV MILD PAIN; Start 06/06/17 at 12:30; Stop 06/06/17 at 19:00; Status DC Fentanyl Citrate (Fentanyl 2ml Vial) 50 mcg PRN Q5MIN PRN IV MODERATE PAIN; Start 06/06/17 at 12:30; Stop 06/06/17 at 19:00; Status DC Morphine Sulfate 1 mg PRN Q10MIN PRN IV SEVERE PAIN; Start 06/06/17 at 12:30; Stop 06/06/17 at 19:00; Status DC Ringer's Solution 1,000 ml @ 30 mls/hr Q24H IV ; Start 06/06/17 at 12:30; Stop 06/06/17 at 19:00; Status DC Lidocaine HCl 2 ml PRN 1X PRN ID PRIOR TO IV START; Start 06/06/17 at 12:30; Stop 06/06/17 at 19:00; Status DC Hydromorphone HCl (Dilaudid) 0.5 mg PRN Q10MIN PRN IV SEV PAIN, Second choice; Start 06/06/17 at 12:30; Stop 06/06/17 at 19:00; Status DC Prochlorperazine Edisylate (Compazine) 5 mg PACU PRN PRN IV NAUSEA, MRX1; Start 06/06/17 at 12:30; Stop 06/06/17 at 19:00; Status DC Fentanyl Citrate (Fentanyl 2ml Vial) 100 mcg STK-MED ONCE .ROUTE ; Start at 12:32; Stop 06/06/17 at 12:33; Status DC Ceftriaxone Sodium 1 gm/ Sodium Chloride 50 ml @ 100 mls/hr Q24H IV ; Start 08/12 at 20:00; Status UNV Ringer's Solution 1,000 ml @ 0 mls/hr Q0M IV ; Start 06/06/17 at 13:00; Stop at 19:30; Status UNV Acetaminophen (Tylenol) 500 mg PRN Q6HRS PRN PO MILD PAIN / TEMP; Start at 15:00 Aspirin (Children'S Aspirin) 81 mg DAILYWBKFT PO Last administered on 09:08; Start 06/06/17 at 15:00 Atorvastatin Calcium (Lipitor) 10 mg QHS PO Last administered on 06/08/17 21: 27; Start 06/06/17 at 21:00 Clonidine HCl (Catapres Tts-3) 1 patch WEEKLY TD ; Start 06/10/17 at 09:00 Clopidogrel Bisulfate (Plavix) 75 mg DAILYWBKFT PO Last administered on 09:02; Start 06/06/17 at 15:00 Diltiazem HCl (Cardizem 24hr Cd) 180 mg DAILY PO Last administered on 09:07; Start 06/06/17 at 15:00 Docusate Sodium (Colace) 100 mg DAILY PO Last administered on 06/09/17 09:03; Start 06/06/17 at 15:00 Ergocalciferol (Vitamin D2) 50,000 unit WEEKLY PO ; Start 06/11/17 at 09:00 Fentanyl Citrate (Fentanyl 2ml Vial) 25 mcg PRN Q5MIN PRN IV MILD PAIN; Start 06/07/17 at 12:30; Status UNV Fentanyl Citrate (Fentanyl 2ml Vial) 50 mcg PRN Q5MIN PRN IV MODERATE PAIN; Start 06/07/17 at 12:30; Status UNV Hydralazine HCl (Apresoline) 50 mg TID PO Last administered on 06/09/17 09:03 ; Start 06/06/17 at 14:00 Acetaminophen/ Hydrocodone Bitart (Lortab 10/325) 1 tab PRN Q6HRS PRN PO PAIN MILD TO MOD Last administered on 06/09/17 09:27; Start 06/06/17 at 15:00 Acetaminophen/ Hydrocodone Bitart (Lortab 5/325) 1 tab PRN Q8HRS PRN PO PAIN; Start 06/06/17 at 15:00 Hydromorphone HCl (Dilaudid) 0.5 mg PRN Q10MIN PRN IV SEV PAIN, Second choice; Start 06/07/17 at 12:30; Status UNV Lidocaine HCl 2 ml PRN 1X PRN ID PRIOR TO IV START; Start 06/07/17 at 12:30; Status UNV Lisinopril (Prinivil) 40 mg DAILY PO Last administered on 06/09/17 09:09; Start 06/06/17 at 15:00 Magnesium Hydroxide (Milk Of Magnesia) 2,400 mg PRN DAILY PRN PO CONSTIPATION; Start 06/06/17 at 15:00 Metoprolol Tartrate (Lopressor) 12.5 mg BID PO Last administered on 06/09/17 09:06; Start 06/06/17 at 21:00 Morphine Sulfate 4 mg PRN Q2HR PRN IV PAIN Last administered on 06/07/17 17:11 ; Start 06/06/17 at 22:00 Morphine Sulfate 1 mg PRN Q10MIN PRN IV SEVERE PAIN; Start 06/07/17 at 12:30; Status UNV Nitroglycerin (Nitrostat) 0.4 mg PRN Q5MIN PRN SL CHEST PAIN; Start 06/06/17 at 15:00 Ondansetron HCl (Zofran) 4 mg PRN Q6HRS PRN IV NAUSEA/VOMITING; Start 06/07/17 at 08:45; Status UNV Ondansetron HCl (Zofran) 4 mg PRN Q6HRS PRN IV NAUSEA/VOMITING; Start 06/07/17 at 12:30; Status UNV Pantoprazole Sodium (Protonix) 40 mg DAILYAC PO Last administered on 06/09/17 09:02; Start 06/06/17 at 15:00 Polyethylene Glycol (miraLAX PACKET) 17 gm DAILY PO Last administered on 09:10; Start 06/06/17 at 15:00 Prochlorperazine Edisylate (Compazine) 5 mg PACU PRN PRN IV NAUSEA, MRX1; Start 06/07/17 at 12:30; Status UNV Cefazolin Sodium/ Dextrose 50 ml @ 100 mls/hr Q8H IV Last administered on 06/07 01:29; Start 06/06/17 at 18:00; Stop 06/07/17 at 02:29; Status DC Cefpodoxime Proxetil (Vantin) 100 mg BID PO Last administered on 06/09/17 09: 02; Start 06/07/17 at 21:00 Active Scripts Active Atorvastatin Calcium 10 Mg Tablet 10 Mg PO QHS Lisinopril 40 Mg Tablet 40 Mg PO DAILY Reported Hydralazine Hcl 50 Mg Tablet 50 Mg PO TID Metoprolol Tartrate 25 Mg Tablet 12.5 Mg PO BID Clopidogrel (Clopidogrel Bisulfate) 75 Mg Tablet 75 Mg PO DAILY Lortab 5-325 mg Tablet (Hydrocodone/Acetaminophen) 1 Each Tablet 1 Tab PO PRN Q8HRS PRN Alendronate Sodium 70 Mg Tablet 70 Mg PO WEEKLY Diltiazem 24HR Cd (Diltiazem Hcl) 180 Mg Cap.er.24h 1 Cap PO DAILY Clonidine Tts-3 (Clonidine) 1 Each Patch.tdwk 1 Patch TD WEEKLY Aspir 81 (Aspirin) 81 Mg Tablet. 1 Tab PO DAILY Pantoprazole Sodium 40 Mg Tablet. 20 Mg PO DAILY Vitals/I & O Vital Sign - Last 24 Hours 06/08/17 06/08/17 06/08/17 06/08/17 15:00 16:49 18:17 19:00 Temp 97.7 97.9 97.7 97.9 Pulse 63 63 74 Resp 18 18 B/P (MAP) 110/46 (67) 110/46 99/50 (66) Pulse Ox 97 97 97 O2 Delivery Nasal Cannula Room Air Nasal Cannula O2 Flow Rate 2.0 2.0 2.0 06/08/17 06/08/17 06/08/17 06/08/17 19:20 20:00 21:29 21:29 Pulse 69 Resp 18 B/P (MAP) 105/49 103/45 (64) O2 Delivery Nasal Cannula Room Air O2 Flow Rate 2.0 06/08/17 06/09/17 06/09/17 06/09/17 23:00 03:00 07:00 09:03 Temp 97.9 97.4 99.5 97.9 97.4 99.5 Pulse 72 63 78 78 Resp 18 18 18 B/P (MAP) 120/51 (74) 136/56 (82) 124/60 (81) 124/60 Pulse Ox 98 98 95 O2 Delivery Nasal Cannula Nasal Cannula Nasal Cannula O2 Flow Rate 2.0 2.0 2.0 06/09/17 06/09/17 06/09/17 06/09/17 09:06 09:07 09:09 09:27 Pulse 78 78 78 B/P (MAP) 124/60 124/60 124/60 Pulse Ox 95 O2 Delivery Room Air O2 Flow Rate 2.0 06/09/17 10:45 Temp 98.1 98.1 Pulse 71 Resp 18 B/P (MAP) 119/58 (78) Pulse Ox 96 O2 Delivery Nasal Cannula O2 Flow Rate 2.0 DIPAK NEVILLE MD Jun 09, 2017 12:46
[2017-06-09 14:40] VITALS: BP 100/46
[2017-06-10] MEDS ORDERED: NON FORMULARY ITEM (Alendronate Sodium 70 MG) PO SCH (09:00)
[2017-06-10] MEDS ORDERED: cloNIDine TTS-3 1 PATCH PATCH.TDWK TD SCH (09:00)
[2017-06-11] MEDS ORDERED: ERGOCALCIFEROL (VITAMIN D2) 50,000 UNIT CAPSULE. PO SCH (09:00)
== END 2017-06-09 16:30 | disposition home or self-care (01) | DRG 483 ==
LOC: ER 10:28 → 2 NORTH 14:11 → 4 NORTH 06-07 10:35
PROVIDERS: ADMIT Internal Medicine; ATTEND Internal Medicine
PROC: 0PSD04Z Reposition Left Humeral Head with Internal Fixation Device, Open Approach (ICD-10-PCS; 2017-06-06)
PROC: 0LS40ZZ Reposition Left Upper Arm Tendon, Open Approach (ICD-10-PCS; 2017-06-06)
PROC: 0LX Tendons, Transfer (ICD-10-PCS; 2017-06-06)
PROC: 0RRK00Z Replacement of Left Shoulder Joint with Reverse Ball and Socket Synthetic Substitute, Open Approach (ICD-10-PCS; principal; 2017-06-06 08:30)
DX: S42.252A Displaced fracture of greater tuberosity of left humerus, initial encounter for closed fracture (principal); N17.9 Acute kidney failure, unspecified; F03.90 Unspecified dementia, unspecified severity, without behavioral disturbance, psychotic disturbance, mood disturbance, and anxiety; I50.9 Heart failure, unspecified; I13.0 Hypertensive heart and chronic kidney disease with heart failure and stage 1 through stage 4 chronic kidney disease, or unspecified chronic kidney disease; D62 Acute posthemorrhagic anemia; S42.302A Unspecified fracture of shaft of humerus, left arm, initial encounter for closed fracture; M75.21 Bicipital tendinitis, right shoulder; E55.9 Vitamin D deficiency, unspecified; E78.00 Pure hypercholesterolemia, unspecified; E78.5 Hyperlipidemia, unspecified; N18.9 Chronic kidney disease, unspecified; I25.10 Atherosclerotic heart disease of native coronary artery without angina pectoris; K21.9 Gastro-esophageal reflux disease without esophagitis; M75.22 Bicipital tendinitis, left shoulder; S00.31XA Abrasion of nose, initial encounter; M54.2 Cervicalgia; S09.90XA Unspecified injury of head, initial encounter; S80.02XA Contusion of left knee, initial encounter; W10.1XXA Fall (on)(from) sidewalk curb, initial encounter; Y93.01 Activity, walking, marching and hiking; Y99.8 Other external cause status; Z95.5 Presence of coronary angioplasty implant and graft; Z90.710 Acquired absence of both cervix and uterus; Z82.49 Family history of ischemic heart disease and other diseases of the circulatory system; Z86.73 Personal history of transient ischemic attack (TIA), and cerebral infarction without residual deficits; Z79.82 Long term (current) use of aspirin; I25.2 Old myocardial infarction; Z79.02 Long term (current) use of antithrombotics/antiplatelets; Z98.49 Cataract extraction status, unspecified eye; Z90.89 Acquired absence of other organs; Z88.8 Allergy status to other drugs, medicaments and biological substances; Y92.481 Parking lot as the place of occurrence of the external cause; Z91.041 Radiographic dye allergy status; Z91.013 Allergy to seafood
CPT/HCPCS: 36415; 70450; 70486; 71250; 72125; 73030; 73060; 73200; 73502; 73562; 80048; 81001; 82306; 84484; 85007; 85025; 85027; 85610; 86850; 86900; 86901; 86920; 87086; 87186; 88305; 88311; 90471; 90715; 93005; 96361; 96374; 96375; J0171; J0360; J0690; J0696; J1100; J1170; J1885; J2250; J2270; J2405; J2704; J2710; J2795; J3010; J3370; J3490; J7030; J7120; P9016; 97530; 97535; 99285-25; C1769; J2001

== ENCOUNTER → 2017-06-30 | Outpatient (CLI) | payer MEDICARE, OTHER ==
[2017-06-09 14:40] VITALS: BP 100/46
[~2017-06-30] MED LIST changes: +DOCU100C28 PO; +ERGO500027 PO; +NITR0.4T22 SL; +POLY17PO29 PO; +SENN-37 PO
--- NOTE | 2017-06-30 12:46 | RAD ---
Ventilation/perfusion lung scan, 06/30/2017: History: Lower extremity swelling, shortness of breath, chest pain The ventilation study was performed utilizing 18 mCi of xenon-133. Activity in the lungs is mildly heterogeneous. There is good washout of the xenon from both lungs. Perfusion imaging was performed following IV injection of 6.1 mCi of technetium 99m MAA. A similar pattern of activity is present in the lungs. No unmatched or segmental perfusion defects are seen. IMPRESSION: There are no VQ findings to suggest pulmonary emboli.
--- NOTE | 2017-06-30 13:54 | RAD ---
Chest, 2 views, 06/30/2017: History: Chest pain, shortness of breath Comparison is made to a study from 03/07/2017. The heart size is normal. There is mild tortuosity and calcific plaquing of the thoracic aorta. The pulmonary vascularity is normal. No pulmonary infiltrates are seen. There is no evidence of pleural fluid. Moderate spurring is present in the spine. Mild loss of height of a midthoracic vertebral body is unchanged. A left shoulder prosthesis is now in place. IMPRESSION: No acute cardiopulmonary abnormality is detected.
== END | disposition home or self-care (01) ==
LOC: CT 12:17
PROVIDERS: ATTEND Family Medicine
DX: G89.18 Other acute postprocedural pain (principal); M79.89 Other specified soft tissue disorders; R07.9 Chest pain, unspecified; R06.02 Shortness of breath
CPT/HCPCS: 71020; 78582; 96374; A9540; A9558

== ENCOUNTER 2017-11-10 10:56 | Emergency (ER) | payer MEDICARE, OTHER ==
[2017-11-10] MEDS: dilTIAZem HCL 30 MG TABLET PO ×2 (12:32)
[2017-11-10] MEDS: METOPROLOL TART IMMED RELEASE 25 MG TABLET. PO ×2 (12:33)
== END 2017-11-10 13:06 | disposition home or self-care (01) ==
LOC: ER 10:56
DX: I10 Essential (primary) hypertension (principal); E78.00 Pure hypercholesterolemia, unspecified; K21.9 Gastro-esophageal reflux disease without esophagitis; I25.2 Old myocardial infarction; Z86.73 Personal history of transient ischemic attack (TIA), and cerebral infarction without residual deficits; Z95.5 Presence of coronary angioplasty implant and graft; Z90.710 Acquired absence of both cervix and uterus; Z88.8 Allergy status to other drugs, medicaments and biological substances; Z91.041 Radiographic dye allergy status; Z91.013 Allergy to seafood
CPT/HCPCS: 93005; 99284

== ENCOUNTER → 2018-06-21 | Outpatient (CLI) | payer MEDICARE, OTHER ==
[2017-11-10 12:40] VITALS: BP 190/91
[~2018-06-21] MED LIST changes: +DILT120C80 PO; +ISOS30TA19 PO; +ISOS30TA4 PO; +LISI-130 PO; -LISI40TA PO; +METO50TA6 PO
--- NOTE | 2018-06-21 11:56 | KCIC ---
Bilateral digital screening mammograms: Reason for examination: Routine screening. Comparison is made to previous studies dated 05/25/2016 and 05/23/2015. Interpretation was made with the benefit of CAD. The skin and nipples show no abnormalities. No abnormal axillary lymph nodes are seen. The breast parenchyma shows scattered fibroglandular density. (Breast density: Category B.) There continues to be some parenchymal asymmetry in the upper outer quadrant of the left breast which has not changed. There are no new dominant masses, suspicious calcifications or architectural distortions. There are vascular calcifications present. Impression: No evidence of malignancy. Recommend routine screening. BI-RADS Category 2: Benign. "Our facility is accredited by the [employer] Mammography Program." This patient's information has been entered into a reminder system for the patient to be notified with the results of her examination and a target date for the next mammogram. Electronically signed by: Briseyda Wen MD (06/21/2018 11:52 AM) [id number]
--- NOTE | 2018-06-21 14:43 | KCIC ---
Bone densitometry 06/21/2018 9:00 AM Indication: Osteopenia, postmenopausal screening exam. Comparison Study: None available. Discussion: Bone Densitometry was performed with dual photon absorption of the lumbar spine and left proximal femur. Lumbar Spine: Bone average density is is 0.953g/cm2 for L1-L4. T-Score is -0.9. Left proximal femur: Bone average density is 0.650g/cm2. T-Score is -2.4. IMPRESSION: Osteopenia based on decreased bone mineral density left femoral neck. Noted bone mineral density of the left proximal femur is just above the limit for osteoporosis. Bone mineral density lumbar spine is low normal. Fracture risk is considered high. Note: Definitions established by the World Health Organization: Normal: T-score is -1.0 or above. Osteopenia: T-score is between -1.0 and -2.5. Osteoporosis: T-score is -2.5 or below. Electronically signed by: Saw Ortega MD (06/21/2018 2:39 PM) [id number]
--- NOTE | 2018-06-21 17:29 | KCIC ---
Right hip 2 views. HISTORY: Right hip pain, M 25.551 AP and lateral views were taken of the right hip. There is decreased bone density. There is no fracture or acute osseous abnormality. IMPRESSION: 1. No acute osseous abnormality noted in the right hip. 2. Decreased bone density. Electronically signed by: Christopher Meng MD (06/21/2018 5:25 PM) [id number]
== END | disposition home or self-care (01) ==
LOC: KCIC DEXA 08:49
PROVIDERS: ATTEND Family Medicine
DX: Z12.31 Encounter for screening mammogram for malignant neoplasm of breast (principal); Z13.820 Encounter for screening for osteoporosis; M85.88 Other specified disorders of bone density and structure, other site; M25.551 Pain in right hip; Z87.81 Personal history of (healed) traumatic fracture
CPT/HCPCS: 73502; 77067; 77080

== ENCOUNTER 2018-08-15 10:43 | Emergency (ER) | payer MEDICARE, OTHER ==
[~2018-08-15] VITALS: Ht 167.6 cm; Wt 81.6 kg
[~2018-08-15 10:43] MED LIST changes: +APIX5TAB PO
--- NOTE | 2018-08-15 11:50 | EKG ---
[facility] [address] [place] [address] Test Date: 2018-08-15 Test Time: 10:55:34 Pat Name: LEATHA WALDRON Department: Room: Gender: F Core Manager: : 1935 Requested By: ELIZABETH MILLER Order Number: [id number] Reading MD: Ace Mari Measurements Intervals [place] Rate: 64 P: 3 NV: 190 QRS: -48 QRSD: 84 T: 8 QT: 408 QTc: 425 Interpretive Statements SINUS RHYTHM ABNORMAL LEFT AXIS DEVIATION LEFT ANTERIOR FASCICULAR BLOCK CONSIDER LEFT VENTRICULAR HYPERTROPHY QRS(T) CONTOUR ABNORMALITY CONSISTENT WITH ANTEROSEPTAL INFARCT AGE UNDETERMINED T ABNORMALITY IN INFERIOR LEADS ABNORMAL ECG Electronically Signed On 08-15-2018 15:51:59 [employer] by Ace Mari
[2018-08-15 12:03] LABS: BASO % 0 % (0-3); EOS # 0.2 x10^3/uL (0.0-0.7); EOS % 3 % (0-3); HEMATOCRIT 43.3 % (36.0-47.0); HEMOGLOBIN 14.9 g/dL (12.0-15.5); LYMPH # 2.3 x10^3/uL (1.0-4.8); LYMPH % 29 % (24-48); MEAN CORPUSCULAR HEMOGLOBIN 31 pg (25-35); MEAN CORPUSCULAR HGB CONC 35 g/dL (31-37); MEAN CORPUSCULAR VOLUME 90 fL (79-100); MONO # 0.4 x10^3/uL (0.0-1.1); MONO % 6 % (0-9); NEUT # 4.9 x10^3uL (1.8-7.7); NEUT % 62 % (31-73); PLATELET COUNT 301 x10^3/uL (140-400); RED BLOOD COUNT 4.81 x10^6/uL (3.50-5.40); RED CELL DISTRIBUTION WIDTH 14.4 % (11.5-14.5); WHITE BLOOD COUNT 7.9 x10^3/uL (4.0-11.0)
[2018-08-15 12:14] LABS: CALCIUM 9.5 mg/dL (8.5-10.1); GFR 23.7; POTASSIUM 4.7 mmol/L (3.5-5.1)
[2018-08-15 12:22] LABS: ALBUMIN 3.1 g/dL (3.4-5.0); ALBUMIN/GLOBULIN RATIO 0.8 (1.0-1.7); TOTAL BILIRUBIN 0.4 mg/dL (0.2-1.0)
--- NOTE | 2018-08-15 12:26 | RAD ---
PORTABLE CHEST 1V Clinical Indication: SHORTNESS OF BREATH Comparison: AP chest August 02, 2018. Findings: Patient is rotated. Tortuous thoracic aorta. Cardiac size is stable. Minimal left basilar airspace disease. Right lung is clear. There is no pneumothorax. No pleural effusion is appreciated. Left reverse shoulder arthroplasty, unchanged. IMPRESSION: Minimal left basilar airspace disease. Electronically signed by: Giovanni Currie MD (08/15/2018 12:22 PM) [id number]
[2018-08-15] MEDS ORDERED: METH-37 PO (13:17)
--- NOTE | 2018-08-15 13:17 | PHYS DOC ---
Past Medical History Past Medical History: Constipation, CVA, GERD, High Cholesterol, Hypertension, [place], TIA, Other Additional Past Medical Histor: NSTEMI, HEART DS, ABSESS OF CERVIX/UTERUS Past Surgical History: Angioplasty, Hysterectomy, Tonsillectomy, Other Additional Past Surgical Histo: IMPLANTS IN BOTH EYES,CARDIAC STENT Alcohol Use: None Drug Use: None Adult General Chief Complaint Chief Complaint: SHORTNESS OF BREATH [facility] Patient is an 83-year-old female who presents with complaint of back and neck pain that started last night. Patient also indicates that she has been having some increase in shortness of breath. She states the pain in her back is worsened with deep breathing. Patient was recently admitted to this facility and is being treated for pulmonary emboli. She denies any actual chest pain. She also denies any fever, nausea or vomiting. She describes the pain in her back and neck as a deep ache at times and other times sharp and stabbing. She states that nothing improves the pain. Review of Systems Review of Systems Constitutional: Denies fever or chills [] Respiratory: Denies cough or shortness of breath [] Cardiovascular: No additional information not addressed in HPI [] GI: Denies abdominal pain, nausea, vomiting or diarrhea [] Musculoskeletal: Positive back and neck pain[] Integument: Denies rash or skin lesions [] Neurologic: Denies headache, focal weakness or sensory changes [] All other systems were reviewed and found to be within normal limits, except as documented in this note. Allergies Allergies Allergies Coded Allergies Type Severity Reaction Last Updated Verified iodine Allergy Severe Anaphylaxis 05/06/16 Yes shellfish derived Allergy Severe Anaphylaxis 05/06/16 Yes felodipine Allergy Intermediate 05/06/16 Yes Physical Exam Physical Exam Constitutional: Well developed, well nourished, no acute distress, non-toxic appearance. [] HENT: Normocephalic, atraumatic, bilateral external ears normal, oropharynx moist, no oral exudates, nose normal. [] Eyes: PERRLA, EOMI, conjunctiva normal, no discharge. [] Neck: Normal range of motion, no tenderness, supple. [] Cardiovascular: Regular rate and rhythm [] Lungs & Thorax: Bilateral breath sounds clear to auscultation [] Abdomen: Bowel sounds normal, soft, no tenderness. [] Skin: Warm, dry, no erythema, no rash. [] Back: There is tenderness to palpation in the bilateral trapezius muscles and rhomboids. Patient also has tenderness to palpation in the suboccipital musculature and left-sided cervical strap muscles. There is palpable spasm noted in these areas. [] Extremities: No tenderness, no cyanosis, no clubbing, ROM intact. [] Neurologic: Awake and alert, normal motor function, normal sensory function, no focal deficits noted. [] Current Patient Data Vital Signs Vital Signs Date Time Temp Pulse Resp B/P (MAP) Pulse Ox O2 Delivery O2 Flow Rate FiO2 08/15/18 13:26 50 16 198/80 (119) 100 Nasal Cannula 3.0 08/15/18 10:50 97.5 97.5 Lab Values Laboratory Tests Test 08/15/18 11:22 White Blood Count 7.9 x10^3/uL (4.0-11.0) Red Blood Count 4.81 x10^6/uL (3.50-5.40) Hemoglobin 14.9 g/dL (12.0-15.5) Hematocrit 43.3 % (36.0-47.0) Mean Corpuscular Volume 90 fL (79-100) Mean Corpuscular Hemoglobin 31 pg (25-35) Mean Corpuscular Hemoglobin Concent 35 g/dL (31-37) Red Cell Distribution Width 14.4 % (11.5-14.5) Platelet Count 301 x10^3/uL (140-400) Neutrophils (%) (Auto) 62 % (31-73) Lymphocytes (%) (Auto) 29 % (24-48) Monocytes (%) (Auto) 6 % (0-9) Eosinophils (%) (Auto) 3 % (0-3) Basophils (%) (Auto) 0 % (0-3) Neutrophils # (Auto) 4.9 x10^3uL (1.8-7.7) Lymphocytes # (Auto) 2.3 x10^3/uL (1.0-4.8) Monocytes # (Auto) 0.4 x10^3/uL (0.0-1.1) Eosinophils # (Auto) 0.2 x10^3/uL (0.0-0.7) Basophils # (Auto) 0.0 x10^3/uL (0.0-0.2) Sodium Level 146 mmol/L (136-145) H Potassium Level 4.7 mmol/L (3.5-5.1) Chloride Level 109 mmol/L (98-107) H Carbon Dioxide Level 30 mmol/L (21-32) Anion Gap 7 (6-14) Blood Urea Nitrogen 27 mg/dL (7-20) H Creatinine 2.0 mg/dL (0.6-1.0) H Estimated GFR (Cockcroft-Gault) 23.7 BUN/Creatinine Ratio 14 (6-20) Glucose Level 115 mg/dL (70-99) H Calcium Level 9.5 mg/dL (8.5-10.1) Total Bilirubin 0.4 mg/dL (0.2-1.0) Aspartate Amino Transferase (AST) 13 U/L (15-37) L Alanine Aminotransferase (ALT) 16 U/L (14-59) Alkaline Phosphatase 85 U/L (46-116) Troponin I Quantitative 0.020 ng/mL (0.000-0.055) JF-Rdh-M-Type Natriuretic Peptide 2406 pg/mL (0-449) H Total Protein 7.0 g/dL (6.4-8.2) Albumin 3.1 g/dL (3.4-5.0) L Albumin/Globulin Ratio 0.8 (1.0-1.7) L Laboratory Tests 08/15/18 11:22 Laboratory Tests 08/15/18 11:22 EKG EKG [] Interpretation Time: EKG demonstrates normal sinus rhythm with rate of 64. Radiology/Procedures Radiology/Procedures [] Impressions: Chest x-ray demonstrates no acute process. Course & Med Decision Making Course & Med Decision Making Pertinent Labs and Imaging studies reviewed. (See chart for details) [] Dragon Disclaimer Dragon Disclaimer This electronic medical record was generated, in whole or in part, using a voice recognition dictation system. Departure Departure Impression: Primary Impression: Muscle spasm of back Disposition: 01 HOME, SELF-CARE Condition: STABLE Referrals: LOUISE NOONAN MD (PCP) Patient Instructions: Back Pain, Adult, Muscle Cramps Scripts Methocarbamol (ROBAXIN) 500 Mg Tablet 1 TAB PO TID PRN for MUSCLE SPASMS, #30 TAB Prov: ELIZABETH MILLER Jr. DO 08/15/18 ELIZABETH MILLER Jr. DO Aug 15, 2018 13:17
[2018-08-15 13:26] VITALS: BP 198/80
== END 2018-08-15 13:30 | disposition home or self-care (01) ==
LOC: ER 10:43
DX: M62.830 Muscle spasm of back (principal); M54.5 Low back pain; M54.2 Cervicalgia; K21.9 Gastro-esophageal reflux disease without esophagitis; E78.00 Pure hypercholesterolemia, unspecified; I10 Essential (primary) hypertension; I25.2 Old myocardial infarction; Z86.73 Personal history of transient ischemic attack (TIA), and cerebral infarction without residual deficits; Z90.89 Acquired absence of other organs; Z90.710 Acquired absence of both cervix and uterus; Z98.82 Breast implant status; Z88.8 Allergy status to other drugs, medicaments and biological substances; Z91.041 Radiographic dye allergy status; Z91.013 Allergy to seafood
CPT/HCPCS: 36415; 71045; 80053; 83880; 84484; 85025; 93005; 99284

== ENCOUNTER → 2018-12-08 | Outpatient (CLI) | payer MEDICARE, OTHER ==
[~2018-12-08] MED LIST changes: -ALEN70TA5 PO; +ALEN70TA6 PO; -DILT120C80 PO; +DILT120C85 PO; +METH-37 PO
--- NOTE | 2018-12-08 09:04 | RAD ---
Bilateral lower extremity venous doppler ultrasound Indication:B/L LEG SWELLING . Technique: Color Doppler, grayscale, and spectral waveform analysis is used to evaluate the right and left lower extremity deep venous system, including the common femoral vein, superficial femoral vein, popliteal vein, and visualized calf veins. Right leg: No evidence of deep venous thrombosis. Normal response to augmentation, normal compressibility and normal phasicity is demonstrated. Visualized calf veins are patent. Left leg: No evidence of deep venous thrombosis. Normal response to augmentation, normal compressibility and normal phasicity is demonstrated. Visualized calf veins are patent. Impression: Negative for deep venous thrombosis Electronically signed by: Abraham Rhodes MD (12/08/2018 9:01 AM) [id number]
--- NOTE | 2018-12-08 09:09 | RAD ---
CHEST PA LATERAL History: CHEST PAIN. Comparison with August 15, 2018. The cardiac silhouette is stable. No evidence of pneumothorax or pleural effusion. Hyperexpansion of both lungs compatible with emphysema. Mild prominence of interstitial opacities, may be chronic fibrosis. No acute appearing consolidating infiltrate. Minimal atelectasis in the lung bases. IMPRESSION: No evidence of acute consolidating infiltrate. Electronically signed by: Abraham Rhodes MD (12/08/2018 9:06 AM) [id number]
--- NOTE | 2018-12-08 10:35 | RAD ---
Ventilation/perfusion lung scan, 12/08/2018: HISTORY: Chest pain, dyspnea The ventilation study was performed utilizing 15.5 mCi of xenon-133. Activity in the lungs is mildly heterogeneous and symmetric. There is good washout of the xenon from both lungs. Perfusion imaging was performed utilizing 5.5 mCi of technetium 99m MAA. A similar pattern of activity is present in the lungs. No significant unmatched or segmental perfusion defects are seen. IMPRESSION: The probability of pulmonary emboli is low. Electronically signed by: Kiran Montiel MD (12/08/2018 10:32 AM) [facility]
== END | disposition home or self-care (01) ==
LOC: US 10:07
PROVIDERS: ATTEND Internal Medicine Pulmonary Disease
DX: R22.43 Localized swelling, mass and lump, lower limb, bilateral (principal); R07.9 Chest pain, unspecified; R06.02 Shortness of breath
CPT/HCPCS: 71046; 78582; 93970; 96374; A9540; A9558

== ENCOUNTER 2019-06-25 10:13 | Emergency (ER) | payer MEDICARE, OTHER ==
[~2019-06-25] VITALS: Ht 168.9 cm; Wt 82.8 kg
[~2019-06-25 10:13] MED LIST changes: +ACET650S10 PO; +ACET650T26 PO; +ASPI-612 PO; +BISA5TAB4 PO; +CALC200T3 PO; +CIPR250T30 PO; +HYDR-3164 PO; +IBAN150T15 PO; +IBUP-1027 PO; +METH4TAB2 PO; +ONDA4TAB12 PO; -PANT40TA5 PO; +PANT40TA77 PO; +SERT50TA PO
[2019-06-25 11:04] LABS: BASO # 0.1 x10^3/uL (0.0-0.2); BASO % 1 % (0-3); EOS # 0.2 x10^3/uL (0.0-0.7); EOS % 2 % (0-3); HEMATOCRIT 42.9 % (36.0-47.0); HEMOGLOBIN 14.5 g/dL (12.0-15.5); LYMPH # 2.3 x10^3/uL (1.0-4.8); LYMPH % 17 % (24-48); MEAN CORPUSCULAR HEMOGLOBIN 31 pg (25-35); MEAN CORPUSCULAR HGB CONC 34 g/dL (31-37); MEAN CORPUSCULAR VOLUME 92 fL (79-100); MONO # 0.9 x10^3/uL (0.0-1.1); MONO % 7 % (0-9); NEUT # 9.9 x10^3/uL (1.8-7.7); NEUT % 74 % (31-73); PLATELET COUNT 239 x10^3/uL (140-400); RED BLOOD COUNT 4.69 x10^6/uL (3.50-5.40); RED CELL DISTRIBUTION WIDTH 14.9 % (11.5-14.5); WHITE BLOOD COUNT 13.4 x10^3/uL (4.0-11.0)
[2019-06-25 11:12] LABS: CALCIUM 9.7 mg/dL (8.5-10.1); CREATININE 1.9 mg/dL (0.6-1.0); GFR 25.1; POTASSIUM 4.7 mmol/L (3.5-5.1)
[2019-06-25 11:18] LABS: ALBUMIN 3.4 g/dL (3.4-5.0); ALBUMIN/GLOBULIN RATIO 0.9 (1.0-1.7); TOTAL BILIRUBIN 0.7 mg/dL (0.2-1.0); TOTAL PROTEIN 7.1 g/dL (6.4-8.2)
[2019-06-25 11:20] LABS: PROTHROMBIN TIME PATIENT 14.2 SEC (11.7-14.0)
--- NOTE | 2019-06-25 11:22 | RAD ---
PORTABLE CHEST 1V Clinical indications: Shortness of air. Comparison: July 27, 2018. May 27, 2019. Findings: Chronic blunting of the left lateral costophrenic angle is seen. No acute lung infiltrate or new pleural effusion or pulmonary edema or lung mass or pneumothorax is seen. The heart size, pulmonary vasculature, mediastinum and both jorge are unremarkable. Impression: No new radiographic abnormality is seen. Electronically signed by: Alejandro Erickson MD (06/25/2019 11:19 AM) [id number]
[2019-06-25 12:26] LABS: BILIRUBIN,URINE NEGATIVE (NEG); CLARITY,URINE CLEAR; COLOR,URINE YELLOW; NITRITE,URINE NEGATIVE (NEG); PROTEIN,URINE NEGATIVE (NEG-TRACE)
--- NOTE | 2019-06-25 12:27 | EKG ---
[facility] [address] [place] [address] Test Date: 2019-06-25 Test Time: 10:26:16 Pat Name: LEATHA WALDRON Department: Room: Gender: F Frameman: : 1935 Requested By: MILY FERREIRA Order Number: [id number] Reading MD: Measurements Intervals [place] Rate: 60 P: -26 LA: 190 QRS: -38 QRSD: 74 T: 6 QT: 420 QTc: 424 Interpretive Statements SINUS RHYTHM ABNORMAL LEFT AXIS DEVIATION QRS(T) CONTOUR ABNORMALITY CONSISTENT WITH ANTEROSEPTAL INFARCT AGE UNDETERMINED CONSISTENT WITH INFERIOR INFARCT AGE UNDETERMINED ABNORMAL ECG No previous ECG available for comparison
[2019-06-25 12:53] LABS: SQUAMOUS EPITHELIAL CELL,UR MOD /LPF
[2019-06-25 12:54] LABS: BACTERIA,URINE FEW /HPF (0-FEW); RBC,URINE 0 /HPF (0-2); WBC,URINE >40 /HPF (0-4)
[2019-06-25] MEDS ORDERED: cefTRIAXone IV Push 1 GM VIAL. IVP ONE (13:15)
--- NOTE | 2019-06-25 13:44 | RAD ---
CT ABDOMEN PELVIS WO CONTRAST History: Right flank pain. Technique: Noncontrast examination of the abdomen and pelvis. Coronal and sagittal reconstructions were performed. Exposure: One or more of the following individualized dose reduction techniques were utilized for this examination: 1. Automated exposure control 2. Adjustment of the mA and/or kV according to patient size 3. Use of iterative reconstruction technique. Comparison: December 28, 2016 Findings: Lower chest: No consolidation or pleural effusion. Prior granulomatous disease. Abdomen and pelvis: Multilobulated right hepatic lobe hypodensity, similar compared to prior. The spleen, adrenal glands, pancreas and gallbladder are unremarkable. No biliary ductal dilatation. Right renal hypodensity, likely cyst, unchanged. Small left renal exophytic hypodensity, unchanged. No hydronephrosis. No renal calculi. No ureteral or urinary bladder calculi. Normal appearance of the urinary bladder. Normal appendix. No evidence of bowel obstruction. No abdominal or pelvic adenopathy or ascites. Hysterectomy. Bones: No pathologic osseous lesions. Impression: 1. No obstructing urolithiasis. 2. Right hepatic and bilateral renal hypodensities, likely cysts, unchanged. Electronically signed by: José Schmidt DO (06/25/2019 1:41 PM) [id number]
[2019-06-25 13:49] VITALS: BP 188/97
[2019-06-25] MEDS ORDERED: CEFD300C PO (14:08)
--- NOTE | 2019-06-25 14:08 | PHYS DOC ---
Past Medical History Past Medical History: Constipation, CVA, GERD, High Cholesterol, Hypertension, [place], Renal Failure, TIA, Other Additional Past Medical Histor: NSTEMI, HEART DS, ABSCESS OF CERVIX/UTERUS Past Surgical History: Angioplasty, Hysterectomy, Tonsillectomy, Other Additional Past Surgical Histo: IMPLANTS IN BOTH EYES,CARDIAC STENT, L SHOULDER Alcohol Use: None Drug Use: None Adult General Chief Complaint Chief Complaint: PAIN CONTROL HPI HPI Patient is a 84 year old female who was brought here by her son for evaluation of right side flank pain started yesterday. Patient denies any nausea vomiting, denies any fever, no chest pain, no trouble breathing, no cough. Patient had history of low back pain. Patient said nothing makes it worse or better. aLL OTHER ros IS NEGATIVE UNLESS OTHERWISE NOTED IN hpi Review of Systems Review of Systems See above Current Medications Current Medications Current Medications Medications (Trade) Dose Ordered Sig/Daryl Start Time Stop Time Status Last Admin Dose Admin Ceftriaxone Sodium (Rocephin) 1 gm 1X ONCE 06/25/19 13:15 06/25/19 13:16 DC 06/25/19 13:25 1 GM Allergies Allergies Allergies Coded Allergies Type Severity Reaction Last Updated Verified iodine Allergy Severe Anaphylaxis 05/06/16 Yes shellfish derived Allergy Severe Anaphylaxis 05/06/16 Yes felodipine Allergy Intermediate 05/06/16 Yes Physical Exam Physical Exam See above Constitutional: Well developed, well nourished, no acute distress, non-toxic appearance. [] HENT: Normocephalic, atraumatic, bilateral external ears normal, oropharynx moist, no oral exudates, nose normal. [] Eyes: PERRLA, EOMI, conjunctiva normal, no discharge. [] Neck: Normal range of motion, no tenderness, supple, no stridor. [] Cardiovascular:Heart rate regular rhythm, no murmur [] Lungs & Thorax: Bilateral breath sounds clear to auscultation [] Abdomen: Bowel sounds normal, There is right side CVA tenderness, no masses, no pulsatile masses. [] Skin: Warm, dry, no erythema, no rash. [] Back: No tenderness, there is right CVA tenderness. [] Extremities: No tenderness, no cyanosis, no clubbing, ROM intact, no edema. [] Neurologic: Alert and oriented X 3, normal motor function, normal sensory function, no focal deficits noted. [] Psychologic: Affect normal, judgement normal, mood normal. [] Current Patient Data Vital Signs Vital Signs Date Time Temp Pulse Resp B/P (MAP) Pulse Ox O2 Delivery O2 Flow Rate FiO2 06/25/19 12:49 64 11 91 06/25/19 10:15 98.7 133/93 (106) Room Air 98.7 Lab Values Laboratory Tests Test 06/25/19 10:50 06/25/19 12:06 White Blood Count 13.4 x10^3/uL (4.0-11.0) H Red Blood Count 4.69 x10^6/uL (3.50-5.40) Hemoglobin 14.5 g/dL (12.0-15.5) Hematocrit 42.9 % (36.0-47.0) Mean Corpuscular Volume 92 fL (79-100) Mean Corpuscular Hemoglobin 31 pg (25-35) Mean Corpuscular Hemoglobin Concent 34 g/dL (31-37) Red Cell Distribution Width 14.9 % (11.5-14.5) H Platelet Count 239 x10^3/uL (140-400) Neutrophils (%) (Auto) 74 % (31-73) H Lymphocytes (%) (Auto) 17 % (24-48) L Monocytes (%) (Auto) 7 % (0-9) Eosinophils (%) (Auto) 2 % (0-3) Basophils (%) (Auto) 1 % (0-3) Neutrophils # (Auto) 9.9 x10^3/uL (1.8-7.7) H Lymphocytes # (Auto) 2.3 x10^3/uL (1.0-4.8) Monocytes # (Auto) 0.9 x10^3/uL (0.0-1.1) Eosinophils # (Auto) 0.2 x10^3/uL (0.0-0.7) Basophils # (Auto) 0.1 x10^3/uL (0.0-0.2) Prothrombin Time 14.2 SEC (11.7-14.0) H Prothrombin Time INR 1.1 (0.8-1.1) Activated Partial Thromboplast Time 21 SEC (24-38) L Sodium Level 143 mmol/L (136-145) Potassium Level 4.7 mmol/L (3.5-5.1) Chloride Level 107 mmol/L (98-107) Carbon Dioxide Level 28 mmol/L (21-32) Anion Gap 8 (6-14) Blood Urea Nitrogen 33 mg/dL (7-20) H Creatinine 1.9 mg/dL (0.6-1.0) H Estimated GFR (Cockcroft-Gault) 25.1 BUN/Creatinine Ratio 17 (6-20) Glucose Level 97 mg/dL (70-99) Calcium Level 9.7 mg/dL (8.5-10.1) Magnesium Level 2.0 mg/dL (1.8-2.4) Total Bilirubin 0.7 mg/dL (0.2-1.0) Aspartate Amino Transferase (AST) 16 U/L (15-37) Alanine Aminotransferase (ALT) 13 U/L (14-59) L Alkaline Phosphatase 78 U/L (46-116) Troponin I Quantitative < 0.017 ng/mL (0.000-0.055) QY-Suz-O-Type Natriuretic Peptide 802 pg/mL (0-449) H Total Protein 7.1 g/dL (6.4-8.2) Albumin 3.4 g/dL (3.4-5.0) Albumin/Globulin Ratio 0.9 (1.0-1.7) L Lipase 86 U/L (73-393) Urine Collection Type Unknown Urine Color Yellow Urine Clarity Clear Urine pH 7.0 Urine Specific [place] 1.015 Urine Protein Negative mg/dL (NEG-TRACE) Urine Glucose (UA) Negative mg/dL (NEG) Urine Ketones (Stick) Negative mg/dL (NEG) Urine Blood Negative (NEG) Urine Nitrite Negative (NEG) Urine Bilirubin Negative (NEG) Urine Urobilinogen Dipstick 1.0 mg/dL (0.2 mg/dL) Urine Leukocyte Esterase Moderate (NEG) Urine RBC 0 /HPF (0-2) Urine WBC >40 /HPF (0-4) Urine Squamous Epithelial Cells Mod /LPF Urine Bacteria Few /HPF (0-FEW) Laboratory Tests 06/25/19 10:50 Laboratory Tests 06/25/19 10:50 EKG EKG EKG WAS READ BY THIS PHYSICIAN AT 1026, RATE OF 61 BPM, SINUS RHYTHM, NO STEMI. Radiology/Procedures Radiology/Procedures [][facility] [address] [place] [address] IMAGING REPORT Signed PATIENT: LEATHA WALDRON ACCOUNT: [id number] : 1935 LOCATION: ER AGE: 84 SEX: F EXAM STATUS: REG ER ORD. PHYSICIAN: MILY FERREIRA DO REASON: RIGHT FLANK PAIN PROCEDURE: CT ABDOMEN PELVIS WO CONTRAST CT ABDOMEN PELVIS WO CONTRAST History: Right flank pain. Technique: Noncontrast examination of the abdomen and pelvis. Coronal and sagittal reconstructions were performed. Exposure: One or more of the following individualized dose reduction techniques were utilized for this examination: 1. Automated exposure control 2. Adjustment of the mA and/or kV according to patient size 3. Use of iterative reconstruction technique. Comparison: December 28, 2016 Findings: Lower chest: No consolidation or pleural effusion. Prior granulomatous disease. Abdomen and pelvis: Multilobulated right hepatic lobe hypodensity, similar compared to prior. The spleen, adrenal glands, pancreas and gallbladder are unremarkable. No biliary ductal dilatation. Right renal hypodensity, likely cyst, unchanged. Small left renal exophytic hypodensity, unchanged. No hydronephrosis. No renal calculi. No ureteral or urinary bladder calculi. Normal appearance of the urinary bladder. Normal appendix. No evidence of bowel obstruction. No abdominal or pelvic adenopathy or ascites. Hysterectomy. Bones: No pathologic osseous lesions. Impression: 1. No obstructing urolithiasis. 2. Right hepatic and bilateral renal hypodensities, likely cysts, unchanged. Electronically signed by: José Schmidt DO (06/25/2019 1:41 PM) [id number] DICTATED and SIGNED BY: JOSÉ SCHMIDT DO DATE: 06/25/19 1341 Course & Med Decision Making Course & Med Decision Making Pertinent Labs and Imaging studies reviewed. (See chart for details) [] Dragon Disclaimer Dragon Disclaimer This electronic medical record was generated, in whole or in part, using a voice recognition dictation system. Departure Departure Impression: Primary Impression: Flank pain Additional Impression: UTI (urinary tract infection) Disposition: 01 HOME, SELF-CARE Condition: STABLE Referrals: YAZ RUANO (PCP) FOLLOW UP WITH YOUR DOCTOR THIS WEEK Patient Instructions: Flank Pain, Urinary Tract Infection Scripts Cefdinir (CEFDINIR) 300 Mg Capsule 1 CAP PO BID, #14 CAP Prov: MILY FERREIRA DO 06/25/19 Problem Qualifiers MILY FERREIRA DO Jun 25, 2019 14:08
== END 2019-06-25 14:25 | disposition home or self-care (01) ==
LOC: ER 10:13
DX: N39.0 Urinary tract infection, site not specified (principal); K21.9 Gastro-esophageal reflux disease without esophagitis; E78.00 Pure hypercholesterolemia, unspecified; I10 Essential (primary) hypertension; I25.2 Old myocardial infarction; Z86.73 Personal history of transient ischemic attack (TIA), and cerebral infarction without residual deficits; Z90.710 Acquired absence of both cervix and uterus; Z90.89 Acquired absence of other organs; Z95.5 Presence of coronary angioplasty implant and graft
CPT/HCPCS: 36415; 71045; 74176; 80053; 81001; 83690; 83735; 83880; 84484; 85025; 85610; 85730; 87086; 93005; 96374; 99285; J0696